=== PATIENT | male | born 1945 | race Caucasian/White ===

== ENCOUNTER 2021-02-22 02:04 | Inpatient (IN) ==
[2021-02-22] MEDS ORDERED: fentaNYL citrate 100 MCG/2 ML VIAL IV STA (02:50)
[2021-02-22] MEDS ORDERED: ONDANSETRON INJ 2 MG/ML 2 ML VIAL IV STA (02:50)
--- NOTE | 2021-02-22 02:55 | Emergency Department Note ---
Impression & Plan Cholecystitis, Atrial fibrillation ED Provider Note Name: JOSE RAIN Age: 75 Sex: M Arrives Via: Ambulance Informant: Patient, ED Provider: Herman Rudd MD Chief Complaint: Epigastric Pain Impression: See Above Medical Decision Makin yr old male with acute epigastric pain at 11pm this evening. Mild TTP without peritonitis. Given IV fentanyl with mild improvement. CXR OK. EKG without ischemia. Labs unremarkable with neg trop. US reveals mildly distendec GB with mild wall thickening and large stone. Examination, story and US pointin g towards cholecystitis. Without further abdominal pain, flank pain, nor pain radiating to back I do not feel that CT a/p indicated at this time. Given Dilaudid and much improved pain control. Mefoxin ordered, gen surg consulted and hospitalist will bring in given medical comorbidities. Prior Medical Record and Triage/Nursing Notes reviewed by Me Differentials:Cholecystitis, Bilary disfunction, impacted stone, renal colic, pancreatitis, acs, dissection, diverticulitis, obsturction, ischemia, pud, amongst others. Vital Signs: reviewed and remarkable for HTn Interventions: saline lock, nss bolus, fentanyl iv, dilaudid iv, mefoxin 2gm iv Labs:Reviewed and remarkable for no significant abnormalities Imaging:X ray results are stated below per my interpretation: Chest: 1 view: No infiltrate, no effusion, normal cardiac border. [facility] Radiologist interpretation reviewed by me: US GALLBLADDER: 2.1 cm mobile gallstone with mild gallbladder distention and mild gallbladder wall thickening of 4 mm, which could be seen in the clinical setting of acute cholecystitis. The sonographic Villa's sign is reportedly negative. No pericholecystic fluid is visualized. No right hydronephrosis. Common bile duct is within normal limits. Radiologist: Camryn Mathis M.D." EKG. Per My Interpretation: Indication Epigastric pain: Afib 100 bpm, qtc 472 with PACs. No Ischemia. Compared to EKG 02/20/12, no significant changes. Consults:Dr Leiva Hospitalist, Amadou Guzman PA-C Plan: Disposition: Hospitalization Condition: Good History of Present Illness:75 yr old male arrives for evaluation of epigastric pain. Patient notes he was feeling well today when he suddenly developed rapid onset epigastric pain. Radiates bilateral upper abdomen and lower sternum. Associated nausea. No chest pain, sob, syncope, lower abdominal pain, flank pain, back pain, headache, neck pain, vomiting, fevers, chills, leg swelling, calf pain, rashes, nor other symptoms. No trauma, injuries, falls. Nothing makes better nor worse. Given ASA 324mg PO by EMS without improvement. Patient denies history of gallbladder nor pancreas issues. He had one alcoholic drink earlier in the evening. Notes history AFib and previous "small" LA. He is on a blood thinner. ROS: See above HPI for pertinent positives & negatives. A total of 10 systems reviewed and were otherwise negative. Past Medical History:See Below Past Surgical History:See Below Family History:See Below Social History:See Below Home Medications:See Below Allergies:NKDA Vitals:Blood Pressure: 167/117, Pulse 80, RR 23, T 36.9C, O2 98% on RA Physical Exam: GENERAL: Patient is uncomfortable appearing and in moderate distress. EYES: No scleral icterus, unremarkable pupils. ENT: Mucous membranes moist, no nasal congestion. NECK: No masses appreciated, nomeningismus, trachea is midline. RESPIRATORY: No dyspnea. Clear to auscultation and equal bilaterally. No wheeze, no rhonchi. CARDIOVASCULAR: Regular rate and rhythm.No murmurs, rubs, gallops appreciated. GASTROINTESTINAL: Mild epigastric TTP, abdomen soft, non-tender, no peritonitis.Bowel sounds positive.No masses appreciated. BACK: No midline tenderness, no CVA tenderness EXTREMITIES: Normal motion all extremities, no cyanosis, no edema. NEUROLOGIC: Alert and oriented, no acute motor or sensory deficits, no focal weakness, cranial nerves grossly intact. SKIN: No rash, no jaundice, no diaphoresis. PSYCH: Appropriate GCS: 15 ED Course: Times/Reassessments: eventually improving pain, stable, and comfortable Herman Rudd MD Past Med/Surg History Medical History (Updated 02/22/21 @ 06:37 by Herman Rudd MD) Anxiety Atrial fibrillation Surgical History (Updated 02/22/21 @ 05:47 by Maude Leiva DO) H/O vein stripping History of wisdom tooth extraction Family History (Updated 02/22/21 @ 05:47 by Maude Leiva DO) Other Cancer Social History (Updated 02/22/21 @ 05:47 by Maude Leiva DO) Smoking Status: Former smoker Hx Alcohol Use: Yes Alcohol type: wine Alcohol Intake Frequency: 2-4 x/Month Hx Substance Use: No Preferred Language: Bulgarian Feels Safe at Home: Yes Allergies Allergies Allergy/AdvReac Type Severity Reaction Status Date / Time No Known Allergies Allergy Unverified 02/22/21 03:06 Home Meds Home Medications Medication Instructions Recorded Confirmed calcium carbonate 600 mg (1,500 1 tab PO BID 02/22/21 02/22/21 mg)-vitamin D3 400 unit tablet (Calcium with Vitamin D) citalopram 20 mg tablet 30 mg PO DAILY 02/22/21 02/22/21 digoxin 125 mcg (0.125 mg) tablet 125 mcg PO DAILY 02/22/21 02/22/21 sotalol 80 mg tablet (Sotalol AF) 40 mg PO BID 02/22/21 02/22/21 warfarin 5 mg tablet 2.5 mg PO 3XWK 02/22/21 02/22/21 warfarin 5 mg tablet 5 mg PO 4XWK 02/22/21 02/22/21 Results & Data (ED) Vital Signs Vital Signs - 24 hr 02/22/21 02:20 02/22/21 03:19 02/22/21 05:00 Temperature 36.9 C Temperature Source Oral Pulse Rate 80 100 H 87 Pulse Rate from SpO2 Sensor 104 H 82 Respiratory Rate 23 17 23 Respiratory Effort / Characteristics Non-Labored Spontaneous Respiratory Depth Normal Blood Pressure 167/117 H 170/115 H 146/107 H Blood Pressure Mean 133 133 120 Pulse Oximetry 98 98 95 Oxygen Delivery Method Room Air Room Air Room Air Fraction of Inspired Oxygen Sepsis New/Unexplained Change in Mental Status N/A Sepsis Action Taken by Nursing No Action Required 02/22/21 05:50 02/22/21 06:25 Temperature Temperature Source Pulse Rate 91 H Pulse Rate from SpO2 Sensor 80 Respiratory Rate 11 L Respiratory Effort / Characteristics Respiratory Depth Blood Pressure Blood Pressure Mean Pulse Oximetry 93 89 L Oxygen Delivery Method Nasal Cannula Room Air Fraction of Inspired Oxygen 2 Sepsis New/Unexplained Change in Mental Status Sepsis Action Taken by Nursing Laboratory Data Result diagrams: 02/22/21 03:08 02/22/21 03:08 Lab Results 02/22/21 02/22/21 02/22/21 Range/Units 03:08 03:08 03:08 WBC 9.87 (4.8-10.8) K/uL RBC 4.25 L (4.7-6.1) M/uL Hgb 14.4 (14.0-18.0) g/dL Hct 43.5 (42-52) % MCV 102.4 H (80-100) fL MCH 33.9 (25-34) pg MCHC 33.1 (32-36) g/dL RDW Std Deviation 49.7 H (36.4-46.3) fL RDW Coeff of Lori 13.1 (11.5-14.5) % Plt Count 184 (130-400) K/uL MPV 10.2 (7.4-10.4) fL Immature Gran % (Auto) 0.2 % Neut % (Auto) 78.1 % Lymph % (Auto) 16.7 % Emanuel % (Auto) 4.5 % Eos % (Auto) 0.4 % Baso % (Auto) 0.1 % Neut # (Auto) 7.71 H (1.4-6.5) K/uL Lymph # (Auto) 1.65 (1.2-3.4) K/uL Emanuel # (Auto) 0.44 (0.11-0.59) K/uL Eos # (Auto) 0.04 (0-0.5) K/uL Baso # (Auto) 0.01 (0-0.2) K/uL Immature Gran # (Auto) 0.02 (0.00-0.02) K/uL PT (9.0-12.0) Seconds INR (0.9-1.1) APTT (21.0-31.0) Seconds PTT Ratio Sodium 141 (136-145) mmol/L Potassium 4.4 (3.5-5.1) mmol/L Chloride 110 H (98-107) mmol/L Carbon Dioxide 25 (21-32) mmol/L Anion Gap 6.0 (3-11) BUN 24 H (7-18) mg/dl Creatinine 1.29 (0.6-1.4) mg/dl Est Cr Clr Drug Dosing 58.1 ml/min Est GFR ( Amer) 61.6 ml/min Est GFR (Non-Af Amer) 53.1 ml/min BUN/Creatinine Ratio 18.4 (10-20) Glucose 120 H (70-99) mg/dl Calcium 8.6 (8.5-10.1) mg/dl Magnesium 2.3 (1.8-2.4) mg/dl Total Bilirubin 0.3 (0.2-1) mg/dl Direct Bilirubin < 0.1 (0-0.2) mg/dl AST 19 (15-37) U/L ALT 20 (12-78) U/L Alkaline Phosphatase 104 (45-117) U/L Troponin I < 0.015 (0-0.045) ng/ml Total Protein 6.9 (6.4-8.2) gm/dl Albumin 3.3 L (3.4-5.0) gm/dl Lipase 307 (73-393) U/L Urine Color Urine Appearance (Clear) Urine pH (4.5-7.5) Ur Specific [place] (1.000-1.030) Urine Protein (Negative) Urine Glucose (UA) (Negative) Urine Ketones (Negative) Urine Blood (Negative) Urine Nitrite (Negative) Urine Bilirubin (Negative) Urine Urobilinogen (Negative) Ur Leukocyte Esterase (Negative) Digoxin 0.4 L (0.8-2.0) ng/ml COVID-19 Eval Order SARS-CoV-2 (PCR) (Negative) 02/22/21 02/22/21 02/22/21 Range/Units 03:08 03:08 04:40 WBC (4.8-10.8) K/uL RBC (4.7-6.1) M/uL Hgb (14.0-18.0) g/dL Hct (42-52) % MCV (80-100) fL MCH (25-34) pg MCHC (32-36) g/dL RDW Std Deviation (36.4-46.3) fL RDW Coeff of Lori (11.5-14.5) % Plt Count (130-400) K/uL MPV (7.4-10.4) fL Immature Gran % (Auto) % Neut % (Auto) % Lymph % (Auto) % Emanuel % (Auto) % Eos % (Auto) % Baso % (Auto) % Neut # (Auto) (1.4-6.5) K/uL Lymph # (Auto) (1.2-3.4) K/uL Emanuel # (Auto) (0.11-0.59) K/uL Eos # (Auto) (0-0.5) K/uL Baso # (Auto) (0-0.2) K/uL Immature Gran # (Auto) (0.00-0.02) K/uL PT 21.4 H (9.0-12.0) Seconds INR 2.2 H (0.9-1.1) APTT 35.6 H (21.0-31.0) Seconds PTT Ratio 1.4 Sodium (136-145) mmol/L Potassium (3.5-5.1) mmol/L Chloride (98-107) mmol/L Carbon Dioxide (21-32) mmol/L Anion Gap (3-11) BUN (7-18) mg/dl Creatinine (0.6-1.4) mg/dl Est Cr Clr Drug Dosing ml/min Est GFR ( Amer) ml/min Est GFR (Non-Af Amer) ml/min BUN/Creatinine Ratio (10-20) Glucose (70-99) mg/dl Calcium (8.5-10.1) mg/dl Magnesium (1.8-2.4) mg/dl Total Bilirubin (0.2-1) mg/dl Direct Bilirubin (0-0.2) mg/dl AST (15-37) U/L ALT (12-78) U/L Alkaline Phosphatase (45-117) U/L Troponin I (0-0.045) ng/ml Total Protein (6.4-8.2) gm/dl Albumin (3.4-5.0) gm/dl Lipase (73-393) U/L Urine Color Yellow Urine Appearance Clear (Clear) Urine pH 6.5 (4.5-7.5) Ur Specific [place] 1.020 (1.000-1.030) Urine Protein Negative (Negative) Urine Glucose (UA) Negative (Negative) Urine Ketones Negative (Negative) Urine Blood Negative (Negative) Urine Nitrite Negative (Negative) Urine Bilirubin Negative (Negative) Urine Urobilinogen Negative (Negative) Ur Leukocyte Esterase Negative (Negative) Digoxin (0.8-2.0) ng/ml COVID-19 Eval Order Covid19 at [facility] SARS-CoV-2 (PCR) (Negative) 02/22/21 Range/Units 04:40 WBC (4.8-10.8) K/uL RBC (4.7-6.1) M/uL Hgb (14.0-18.0) g/dL Hct (42-52) % MCV (80-100) fL MCH (25-34) pg MCHC (32-36) g/dL RDW Std Deviation (36.4-46.3) fL RDW Coeff of Lori (11.5-14.5) % Plt Count (130-400) K/uL MPV (7.4-10.4) fL Immature Gran % (Auto) % Neut % (Auto) % Lymph % (Auto) % Emanuel % (Auto) % Eos % (Auto) % Baso % (Auto) % Neut # (Auto) (1.4-6.5) K/uL Lymph # (Auto) (1.2-3.4) K/uL Emanuel # (Auto) (0.11-0.59) K/uL Eos # (Auto) (0-0.5) K/uL Baso # (Auto) (0-0.2) K/uL Immature Gran # (Auto) (0.00-0.02) K/uL PT (9.0-12.0) Seconds INR (0.9-1.1) APTT (21.0-31.0) Seconds PTT Ratio Sodium (136-145) mmol/L Potassium (3.5-5.1) mmol/L Chloride (98-107) mmol/L Carbon Dioxide (21-32) mmol/L Anion Gap (3-11) BUN (7-18) mg/dl Creatinine (0.6-1.4) mg/dl Est Cr Clr Drug Dosing ml/min Est GFR ( Amer) ml/min Est GFR (Non-Af Amer) ml/min BUN/Creatinine Ratio (10-20) Glucose (70-99) mg/dl Calcium (8.5-10.1) mg/dl Magnesium (1.8-2.4) mg/dl Total Bilirubin (0.2-1) mg/dl Direct Bilirubin (0-0.2) mg/dl AST (15-37) U/L ALT (12-78) U/L Alkaline Phosphatase (45-117) U/L Troponin I (0-0.045) ng/ml Total Protein (6.4-8.2) gm/dl Albumin (3.4-5.0) gm/dl Lipase (73-393) U/L Urine Color Urine Appearance (Clear) Urine pH (4.5-7.5) Ur Specific [place] (1.000-1.030) Urine Protein (Negative) Urine Glucose (UA) (Negative) Urine Ketones (Negative) Urine Blood (Negative) Urine Nitrite (Negative) Urine Bilirubin (Negative) Urine Urobilinogen (Negative) Ur Leukocyte Esterase (Negative) Digoxin (0.8-2.0) ng/ml COVID-19 Eval Order SARS-CoV-2 (PCR) NEGATIVE (Negative) Administered Medications Discontinued Medications Fentanyl Citrate (Fentanyl Citrate 100 Mcg/2 Ml Vial) 75 mcg IV NOW STA Stop: 02/22/21 02:51 Last Admin: 02/22/21 03:13 Dose: 75 mcg Documented by: [id number] Hydromorphone HCl (Hydromorphone Inj 1 Mg/Ml Syringe) 1 mg IV NOW STA Stop: 02/22/21 04:29 Last Admin: 02/22/21 04:34 Dose: 1 mg Documented by: [id number] Cefoxitin Sodium (Mefoxin) 2,000 mg in 60 mls @ 100 mls/hr IV NOW STA Stop: 02/22/21 05:12 Last Infusion: 02/22/21 05:39 Dose: 0 mls/hr Documented by: [id number] Admin: 02/22/21 04:51 Dose: 100 mls/hr Documented by: [id number] Ondansetron HCl (Ondansetron Inj 2 Mg/Ml 2 Ml Vial) 4 mg IV NOW STA Stop: 02/22/21 02:51 Last Admin: 02/22/21 03:13 Dose: 4 mg Documented by: [id number] Discharge Plan Visit Data Chief Complaint: Abdominal Pain Stated Complaint: SUDDEN ONSET ABDOMINAL PAIN ED Provider: Herman Rudd Discharge Problem: Cholecystitis, Atrial fibrillation Forms Stand Alone Forms: My [facility] [employer] Prescriptions Prescriptions: No Action sotalol [Sotalol AF] 80 mg tablet 40 mg PO BID RF: 0 citalopram 20 mg tablet 30 mg PO DAILY RF: 0 warfarin 5 mg tablet 5 mg PO 4XWK RF: 0 warfarin 5 mg tablet 2.5 mg PO 3XWK RF: 0 digoxin 125 mcg (0.125 mg) tablet 125 mcg PO DAILY RF: 0 calcium carbonate-vitamin D3 [Calcium with Vitamin D] 600 mg(1,500mg) -400 unit tablet 1 tab PO BID RF: 0 Referrals Referrals: Madiha Jennings MD [Outside Practitioners] -
[2021-02-22 03:28] LABS: Basophils # (auto) 0.01 K/uL (0-0.2); Basophils % (auto) 0.1 %; Eosinophils # (auto) 0.04 K/uL (0-0.5); Eosinophils % (auto) 0.4 %; Hematocrit (blood only) 43.5 % (42-52); Hemoglobin 14.4 g/dL (14.0-18.0); Immature Granulocytes # (auto) 0.02 K/uL (0.00-0.02); Immature Granulocytes % (auto) 0.2 %; Lymphocytes # (auto) 1.65 K/uL (1.2-3.4); Lymphocytes % (auto) 16.7 %; Mean Corpuscular Hemoglobin 33.9 pg (25-34); Mean Corpuscular Hgb Conc 33.1 g/dL (32-36); Mean Corpuscular Volume 102.4 fL (80-100); Mean Platelet Volume 10.2 fL (7.4-10.4); Monocytes # (auto) 0.44 K/uL (0.11-0.59); Monocytes % (auto) 4.5 %; Neutrophils # (auto) 7.71 K/uL (1.4-6.5); Neutrophils % (auto) 78.1 %; Platelet Count 184 K/uL (130-400); RDW Coefficient of Variation 13.1 % (11.5-14.5); RDW Standard Deviation 49.7 fL (36.4-46.3); Red Blood Count 4.25 M/uL (4.7-6.1); White Blood Count 9.87 K/uL (4.8-10.8)
[2021-02-22 03:31] LABS: Appearance Urine Clear (Clear); Bilirubin Urine Negative (Negative); Blood Urine Negative (Negative); Color Urine Yellow; Glucose Urine UA Negative (Negative); Ketones Urine Negative (Negative); Leukocyte Esterase Urine Negative (Negative); Nitrite Urine Negative (Negative); Protein Urine Negative (Negative); Urobilinogen Urine Negative (Negative); pH Urine 6.5 (4.5-7.5)
[2021-02-22 03:54] LABS: Alanine Aminotransferase 20 U/L (12-78); Albumin Level 3.3 gm/dl (3.4-5.0); Aspartate Aminotransferase 19 U/L (15-37); BUN Creatinine Ratio 18.4 (10-20); Bilirubin Direct < 0.1 mg/dl (0-0.2); Blood Urea Nitrogen 24 mg/dl (7-18); Calcium 8.6 mg/dl (8.5-10.1); Carbon Dioxide 25 mmol/L (21-32); Chloride 110 mmol/L (98-107); Creatinine Clr Calc Pharmacy 58.1 ml/min; Est GFR (African American) 61.6 ml/min; Est GFR (Non-African American) 53.1 ml/min; Glucose 120 mg/dl (70-99); Lipase 307 U/L (73-393); Magnesium 2.3 mg/dl (1.8-2.4); Potassium 4.4 mmol/L (3.5-5.1); Sodium 141 mmol/L (136-145)
[2021-02-22 03:59] LABS: Alkaline Phosphatase 104 U/L (45-117); Bilirubin,Total 0.3 mg/dl (0.2-1); Total Protein 6.9 gm/dl (6.4-8.2); Troponin I < 0.015 ng/ml (0-0.045)
[2021-02-22] MEDS ORDERED: HYDROmorphone INJ 1 MG/ML SYRINGE IV STA (04:28)
[2021-02-22] MEDS ORDERED: cefOXitin 2,000 MG/60 ML BAG IV STA (04:37)
--- NOTE | 2021-02-22 04:50 | Surgery Consultation ---
Date of Consultation February 22, 2021 Assessment & Plan (1) Cholecystitis: Patient will be admitted to the hospital. Due to his atrial fibrillation and concomitant use of Coumadin we asked the medical service to admit the patient recommend the following: Provide analgesics Provide antiemetics Keep n.p.o. status as eating will likely exacerbate his abdominal pain Gentle hydration with IV fluids Initiate antibiotics. The treating emergency room physician has already ordered cefoxitin As the patient takes Coumadin for A. fib we will asked the medical service, and if this can safely be held as it appears that the benefit of holding his Coumadin outweighs the risk at this time. An INR has not been checked yet so this will need to be checked to assess what his INR is to determine if his Coumadin is a safe level that would allow us to perform surgery. If not we will asked the medical service they feel reversal with vitamin K should be implemented Patient will likely require cholecystectomy this admission. I discussed this with the patient and he wishes to proceed. I discussed the risks, benefits, and alternatives. A Covid test has been performed and is noted to be negative. Additional recommendations will be made based on his clinical course as unfolds Supervising Physician Co-Signing Physician Notes I personally saw and evaluated the patient with Humberto Guzman PA-C and agree with the assessment and plan 75 yo with acute cholecystitis -US images and results reviewed -Agree with admission to medicine -Keep NPO, IV ABX -Give Vitamin K 5mg IV now, repeat INR -Will tentatively plan for laparoscopic cholecystectomy, possible open, possible IOC tomorrow -Consent obtained, risks discussed including bleeding, infection, bile leak, ductal injury History of Present Illness Reason for Consultation: Abdominal pain History of Present Illness This is a 75-year-old male who presented to [facility] secondary abdominal pain that began last evening at approximately 11:00. Patient says that the pain was unrelated to meals. Looking back over the past several weeks to months the patient says he has never experienced this pain before. He says that the pain is primarily located in the epigastric area and the right upper quadrant does not radiate. He denies any provocative factors but notes it was somewhat relieved with medicines that were ministered in the emergency department. He did have associated nausea vomiting. He denies any fevers, shakes, chills. Patient says that he has never had abdominal surgery in the past before In the emergency department patient had labs and imaging which independently reviewed. CBC revealed his white blood cell count, hemoglobin, hematocrit, and platelet count were all within normal range. Chemistry profile showed sodium, potassium, and creatinine were all within the normal range. He did not have any elevation of his bilirubin, transaminases or alkaline phosphatase. His lipase was noted to be normal. Urinalysis was not indicative of infection. A Covid test has been ordered and is pending. An EKG performed showed atrial fibrillation did not appear to be any changes indicative of acute ischemia a chest x-ray said showed bilateral basilar atelectasis. Gallbladder ultrasound showed a 2.1 cm gallstone with mild gallbladder distention and mild gallbladder wall thickening up to 4 mm. No pericholecystic fluid was noted. I did question the patient on his activities daily living. He says he does ambulate throughout his house and is able to negotiate steps and inclines. He says with steps he does get some shortness of breath but note that this has been ongoing for several years and appears stable. He denies any chest pain with his activities of daily living. Patient does take Coumadin for history of atrial fibrillation and he says his most recent dose was yesterday. At the time my interview is resting comfortably in bed in no distress. Allergies Allergy/AdvReac Type Severity Reaction Status Date / Time No Known Allergies Allergy Unverified 02/22/21 03:06 Home Medications Medication Instructions Recorded Confirmed Type calcium carbonate 600 mg (1,500 1 tab PO BID 02/22/21 02/22/21 History mg)-vitamin D3 400 unit tablet (Calcium with Vitamin D) citalopram 20 mg tablet 30 mg PO DAILY 02/22/21 02/22/21 History digoxin 125 mcg (0.125 mg) tablet 125 mcg PO DAILY 02/22/21 02/22/21 History sotalol 80 mg tablet (Sotalol AF) 40 mg PO BID 02/22/21 02/22/21 History warfarin 5 mg tablet 2.5 mg PO 3XWK 02/22/21 02/22/21 History warfarin 5 mg tablet 5 mg PO 4XWK 02/22/21 02/22/21 History Patient History Medical History (Updated 02/22/21 @ 06:37 by Herman Rudd MD) Anxiety Atrial fibrillation Surgical History (Updated 02/22/21 @ 05:47 by Maude Leiva DO) H/O vein stripping History of wisdom tooth extraction Family History (Updated 02/22/21 @ 05:47 by Maude Leiva DO) Other Cancer Social History (Updated 02/22/21 @ 05:47 by Maude Leiva DO) Smoking Status: Former smoker Hx Alcohol Use: Yes Alcohol type: wine Alcohol Intake Frequency: 2-4 x/Month Hx Substance Use: No Preferred Language: Maltese Feels Safe at Home: Yes Review of Systems Constitutional: no fever and no chills Eyes: no diplopia Ear, Nose, Mouth, Throat: no ear pain and no sore throat Respiratory: no cough and no dyspnea Cardiovascular: no chest pain Gastrointestinal: + abdominal pain, + nausea and + vomiting Genitourinary: no dysuria Musculoskeletal: no back pain Integumentary: no rash Neurologic: no localized weakness Physical Exam Constitutional: well developed and well nourished; no acute distress Eyes: no conjunctival abnormality ENMT: Ears: no hearing impairment Mouth: no oropharynx abnormality Neck: trachea midline Respiratory: normal respiratory effort and + respiratory distress; no labored breathing No wheezing Cardiovascular: Rate/Rhythm: + irregularly irregular Gastrointestinal (Abdomen): Abdomen is soft and nondistended. Bowel sounds are present. No rebound tenderness or guarding was noted. The patient did have pain with palpation in the epigastric area and to a greater extent the right upper quadrant with deep palpation. Villa sign was noted to be positive. Musculoskeletal: No calf tenderness Skin: no rashes Neurologic: moves all extremities Psychiatric: A+Ox3, euthymic affect Results & Data ([facility]) Vital Signs (Past 12 Hours) Vital Signs Temp Pulse Resp BP Pulse Ox 02/22/21 03:19 100 H 17 170/115 H 98 02/22/21 02:20 36.9 C 80 23 167/117 H 98 PG Care Time/CCT Total # of Minutes Spent Total Time Spent with Patient: Total time spent is greater than 50% in coordination of care (as documented) at patient's floor/unit and/or counseling patient: Coding Level of Care Code 44534 Inpt Consult Level 5 Diagnoses Cholecystitis K81.9
[2021-02-22 05:19] LABS: INR 2.2 (0.9-1.1); Partial Thromboplastin Ratio 1.4; Partial Thromboplastin Time 35.6 Seconds (21.0-31.0); Prothrombin Time 21.4 Seconds (9.0-12.0)
--- NOTE | 2021-02-22 05:58 | History & Physical Report ---
Date of Service February 22, 2021 Assessment & Plan (1) Cholecystitis: Plan: 75yo male with history of atrial fibrillation on Coumadin presenting with acute onset epigastric/RUQ pain that started last evening around 23:00. Patient afebrile, HD stable, nontoxic in appearance. Workup with GB ultrasound suggestive of acute cholecystitis. Patient has been evaluated by General Surgery - will plan for surgery later this week. He is on Coumadin for history of atrial fibrillation. Last taken on 02/21/21 at 0900. His INR is 2.2. Patient's [id number] score is low at 2 pts -Admit to medical with telemetry -Keep NPO except chips/sips/meds -Mefoxitin 2gm IV q 6 hours -Zofran PRN Nausea -Tylenol PRN Fever/Pain -Morphine tiered as needed for pain -Colace/Miralax as needed for constipation -General Surgery assistance appreciated -Monitor INR, Hold Coumadin (2) Atrial fibrillation: Plan: Rate controlled. Patient anticoagulated on Coumadin with therapeutic INR of 2.2. Last took his Coumadin on 02/21/21 at 09:00. -Continue Digoxin -Continue Sotalol -Hold Warfarin for possible surgery later this admission -Monitor INR -Telemetry (3) Anxiety: Plan: Well controlled -Continue Citalopram Plan: F/E/N - LR at 125mL/hr x 2 liters, electrolytes WNL, NPO for now PPx - SCDs Code - Full per discussion with patient DIspo - Admit to medical with telemetry History of Present Illness Chief Complaint: abdominal pain Primary Care Provider: Luis Mendoza Ralph Castro is a 75yo male with history of atrial fibrillation on Coumadin anticoagulation, anxiety/panic attacks presenting with acute cholecystitis. Patient was in his usual state of health throughout today. He went to bed around 23:00. At 23:30 he woke with severe epigastric pain, intense. Pain radiated across the upper abdomen and is now located predominantly in the RUQ. He had some associated nausea and dry heaving. No fever/chills/diarrhea. No CP/Cough/SOB. No additional complaints at this time. Patient afebrile, HD stable in the ER. Gallbladder ultrasound suggestive of acute cholecystitis. Patinent was evaluated by the surgical team while in the ER. Plan for cholecystitis later this hospitalization. ER Course: Cefoxitin, Fentanyl, Dilaudid, Zofran Allergies Allergy/AdvReac Type Severity Reaction Status Date / Time No Known Allergies Allergy Unverified 02/22/21 03:06 Home Medications Medication Instructions Recorded Confirmed Type calcium carbonate 600 mg (1,500 1 tab PO BID 02/22/21 02/22/21 History mg)-vitamin D3 400 unit tablet (Calcium with Vitamin D) citalopram 20 mg tablet 30 mg PO DAILY 02/22/21 02/22/21 History digoxin 125 mcg (0.125 mg) tablet 125 mcg PO DAILY 02/22/21 02/22/21 History sotalol 80 mg tablet (Sotalol AF) 40 mg PO BID 02/22/21 02/22/21 History warfarin 5 mg tablet 2.5 mg PO 3XWK 02/22/21 02/22/21 History warfarin 5 mg tablet 5 mg PO 4XWK 02/22/21 02/22/21 History Past Med/Surg History Medical History (Updated 02/22/21 @ 05:47 by Maude Leiva DO) Anxiety Atrial fibrillation Surgical History (Updated 02/22/21 @ 05:47 by Maude Leiva DO) H/O vein stripping History of wisdom tooth extraction Family History (Updated 02/22/21 @ 05:47 by Maude Leiva DO) Other Cancer Social History (Updated 02/22/21 @ 05:47 by Maude Leiva DO) Smoking Status: Former smoker Hx Alcohol Use: Yes Alcohol type: wine Alcohol Intake Frequency: 2-4 x/Month Hx Substance Use: No Preferred Language: Marshallese Feels Safe at Home: Yes Review of Systems Review of Systems: All systems reviewed & are unremarkable except as noted in HPI & below Physical Exam Physical Exam: General: patient resting comfortably, NAD, non-toxic in appearance, AA&O x 4 Skin: warm, dry, intact, no rashes or lesions HEENT: NC/AT, PERRL, EOMI, anicteric sclera, conjunctiva without injection, external ear normal to inspection and nontender, nares patent, moist mucus membranes, dentition intact, no oropharyngeal lesions, neck supple, trachea midline, no LAD, no thyromegaly, no JVD Heart: +S1/S2, irregularly irregular, no m/r/g Lungs: equal air entry bilaterally, no rales/rhonchi/wheezes Abd: +BS, soft, ND, tenderness in epigastric area and RUQ with voluntary guarding, no masses/organomegaly/ascites Ext: warm, 2+ pulses in UE/LE bilaterally, no clubbing/cyanosis or edema Neuro: nonfocal, patient AA&O x 4, speech intact, no facial droop, moving all extremities on command with equal strength 5/5 Results & Data Results & Data ([facility]) Vital Signs (Past 12 Hours) Vital Signs Temp Pulse Resp BP Pulse Ox 02/22/21 05:00 87 23 146/107 H 95 02/22/21 03:19 100 H 17 170/115 H 98 02/22/21 02:20 36.9 C 80 23 167/117 H 98 Laboratory Results Laboratory Results WBC 9.87 K/uL (4.8-10.8) 02/22/21 03:08 RBC 4.25 M/uL (4.7-6.1) L 02/22/21 03:08 Hgb 14.4 g/dL (14.0-18.0) 02/22/21 03:08 Hct 43.5 % (42-52) 02/22/21 03:08 MCV 102.4 fL (80-100) H 02/22/21 03:08 MCH 33.9 pg (25-34) 02/22/21 03:08 MCHC 33.1 g/dL (32-36) 02/22/21 03:08 RDW Std Deviation 49.7 fL (36.4-46.3) H 02/22/21 03:08 RDW Coeff of Lori 13.1 % (11.5-14.5) 02/22/21 03:08 Plt Count 184 K/uL (130-400) 02/22/21 03:08 MPV 10.2 fL (7.4-10.4) 02/22/21 03:08 Immature Gran % (Auto) 0.2 % 02/22/21 03:08 Neut % (Auto) 78.1 % 02/22/21 03:08 Lymph % (Auto) 16.7 % 02/22/21 03:08 Yell % (Auto) 4.5 % 02/22/21 03:08 Eos % (Auto) 0.4 % 02/22/21 03:08 Baso % (Auto) 0.1 % 02/22/21 03:08 Neut # (Auto) 7.71 K/uL (1.4-6.5) H 02/22/21 03:08 Lymph # (Auto) 1.65 K/uL (1.2-3.4) 02/22/21 03:08 Yell # (Auto) 0.44 K/uL (0.11-0.59) 02/22/21 03:08 Eos # (Auto) 0.04 K/uL (0-0.5) 02/22/21 03:08 Baso # (Auto) 0.01 K/uL (0-0.2) 02/22/21 03:08 Immature Gran # (Auto) 0.02 K/uL (0.00-0.02) 02/22/21 03:08 PT 21.4 Seconds (9.0-12.0) H 02/22/21 03:08 INR 2.2 (0.9-1.1) H 02/22/21 03:08 APTT 35.6 Seconds (21.0-31.0) H 02/22/21 03:08 PTT Ratio 1.4 02/22/21 03:08 Sodium 141 mmol/L (136-145) 02/22/21 03:08 Potassium 4.4 mmol/L (3.5-5.1) 02/22/21 03:08 Chloride 110 mmol/L (98-107) H 02/22/21 03:08 Carbon Dioxide 25 mmol/L (21-32) 02/22/21 03:08 Anion Gap 6.0 (3-11) 02/22/21 03:08 BUN 24 mg/dl (7-18) H 02/22/21 03:08 Creatinine 1.29 mg/dl (0.6-1.4) 02/22/21 03:08 Est Cr Clr Drug Dosing 58.1 ml/min 02/22/21 03:08 Est GFR ( Amer) 61.6 ml/min 02/22/21 03:08 Est GFR (Non-Af Amer) 53.1 ml/min 02/22/21 03:08 BUN/Creatinine Ratio 18.4 (10-20) 02/22/21 03:08 Glucose 120 mg/dl (70-99) H 02/22/21 03:08 Calcium 8.6 mg/dl (8.5-10.1) 02/22/21 03:08 Magnesium 2.3 mg/dl (1.8-2.4) 02/22/21 03:08 Total Bilirubin 0.3 mg/dl (0.2-1) 02/22/21 03:08 Direct Bilirubin < 0.1 mg/dl (0-0.2) 02/22/21 03:08 AST 19 U/L (15-37) 02/22/21 03:08 ALT 20 U/L (12-78) 02/22/21 03:08 Alkaline Phosphatase 104 U/L (45-117) 02/22/21 03:08 Troponin I < 0.015 ng/ml (0-0.045) 02/22/21 03:08 Total Protein 6.9 gm/dl (6.4-8.2) 02/22/21 03:08 Albumin 3.3 gm/dl (3.4-5.0) L 02/22/21 03:08 Lipase 307 U/L (73-393) 02/22/21 03:08 Urine Color Yellow 02/22/21 03:08 Urine Appearance Clear (Clear) 02/22/21 03:08 Urine pH 6.5 (4.5-7.5) 02/22/21 03:08 Ur Specific [place] 1.020 (1.000-1.030) 02/22/21 03:08 Urine Protein Negative (Negative) 02/22/21 03:08 Urine Glucose (UA) Negative (Negative) 02/22/21 03:08 Urine Ketones Negative (Negative) 02/22/21 03:08 Urine Blood Negative (Negative) 02/22/21 03:08 Urine Nitrite Negative (Negative) 02/22/21 03:08 Urine Bilirubin Negative (Negative) 02/22/21 03:08 Urine Urobilinogen Negative (Negative) 02/22/21 03:08 Ur Leukocyte Esterase Negative (Negative) 02/22/21 03:08 Digoxin 0.4 ng/ml (0.8-2.0) L 02/22/21 03:08 COVID-19 Eval Order Covid19 at [facility] 02/22/21 04:40 Diagnostic Findings US Gallbladder - 2.1 cm mobile gallstone with mild gallbladder distention and mild gallbladder wall thickening of 4mm which could be seen in the clinical setting of acute cholecystitis. The sonographic Villa's sign is reportedly negative. No pericholecystic fluid is visualized. No right hydronephrosis. CBD is within normal limits. ECG Additional Comments: EKG wtih AF at 100bpm, aberrantly conducted complexes present, no acute ischemic changes Code Status & VTE Plan VTE Prophylaxis Plan VTE Prophylaxis will be ordered: Yes PG Care Time/CCT Total # of Minutes Spent Total Time Spent with Patient: Total time spent is greater than 50% in coordination of care (as documented) at patient's floor/unit and/or counseling patient: Coding Level of Care Code 84991 Initial Inpt Care Lvl 2 Diagnoses Cholecystitis K81.9 Atrial fibrillation I48.91 Anxiety F41.9
[2021-02-22] MEDS ORDERED: PHYTONADIONE 5 MG in SODIUM CHLORIDE 0.9% 50 ML IV ONE (08:26)
--- NOTE | 2021-02-22 08:51 | Ultrasound Report ---
ABDOMINAL ULTRASOUND, RIGHT UPPER QUADRANT HISTORY: epigastric pain. COMPARISON: None. FINDINGS: Pancreas: The pancreatic head and tail are obscured by overlying bowel gas. The remaining portions of the pancreas are within normal limits. Liver: Unremarkable. Gallbladder: There is a 2.1 cm stone within the gallbladder. The gallbladder is mildly distended. No gallbladder wall thickening. Negative sonographic Villa's sign. CBD: 3 mm. Right kidney: No hydronephrosis. IMPRESSION: Cholelithiasis. No gallbladder wall thickening. There is also a negative sonographic Villa sign. ACT 112: Negative or not required by law. Electronically signed by: Bib Kulkarni M.D. 02/22/2021 8:50 AM
[2021-02-22] MEDS ORDERED: MoRPHine SULFATE 4 MG/ML 1 ML CARP\\VIAL IV PRN (09:42)
[2021-02-22] MEDS ORDERED: POLYETHYLENE (MIRALAX) 17 GM PACK PO PRN (09:42)
[2021-02-22] MEDS ORDERED: MoRPHine SULFATE 2 MG/ML CARP IV PRN (09:42)
[2021-02-22] MEDS ORDERED: ONDANSETRON INJ 2 MG/ML 2 ML VIAL IV PRN (09:42)
[2021-02-22] MEDS ORDERED: DOCUSATE SODIUM 100 MG CAP PO PRN (09:42)
--- NOTE | 2021-02-22 09:49 | XRay Report ---
XR chest 1V portable HISTORY: epigastric pain COMPARISON: Chest 02/17/2012. FINDINGS: No pneumothorax. No pleural effusions. There are low lung volumes with mild elevation of th e right hemidiaphragm, unchanged. The heart remains borderline enlarged. Left-sided single lead pacem olivia. There is diffuse interstitial thickening with patchy bibasilar densities. IMPRESSION: Diffuse interstitial thickening with patchy bibasilar densities. This could represent a pneumonia or developing congestive change. ACT 112: Negative or not required by law. Electronically signed by: Bib Kulkarni M.D. 02/22/2021 9:48 AM
--- NOTE | 2021-02-22 10:01 | Electrocardiogram Report ---
Test Reason : Blood Pressure : / mmHG Vent. Rate : 100 BPM Atrial Rate : 086 BPM P-R Int : 000 ms QRS Dur : 088 ms QT Int : 366 ms P-R-T Axes : 000 -08 -15 degrees QTc Int : 472 ms Atrial fibrillation with premature ventricular or aberrantly conducted complexes Low voltage QRS Nonspecific T wave abnormality Abnormal ECG When compared with ECG of 20-FEB-2012 06:42, Vent. rate has increased BY 39 BPM QT has lengthened Confirmed by Jose Elliott ([id number]) on 02/22/2021 10:00:42 AM Referred By: REFERRED SELF Confirmed By:Jose Elliott
[2021-02-22] MEDS: DIGOXIN 0.125 MG TAB PO SCH (11:20)
[2021-02-22] MEDS: CITALOPRAM 20 MG TAB PO SCH (11:20)
[2021-02-22] MEDS: SOTALOL HCL 80 MG TAB PO SCH ×2 (11:21→20:03)
[2021-02-22] MEDS: cefOXitin 2,000 MG in DEXTROSE 5% 50 ML IV SCH ×3 (11:26→22:54)
[2021-02-22] MEDS: LACTATED RINGER'S 1,000 ML IV SCH ×2 (11:38→19:20)
[2021-02-22] MEDS: ACETAMINOPHEN 325 MG TAB PO PRN (14:18)
--- NOTE | 2021-02-22 18:10 | Communication Note ---
Date of Service: February 22, 2021 Patient seen and examined in room 281 bed 2 Stable. Abdominal pain seems to be slightly improved Some nausea with dry heave but now well controlled Denies fever, chills, rigors. No sweats. No diarrhea Hemodynamically stable Physical examination: GENERAL : No acute distress EYES: No icterus, gaze conjugate NOSE: No evidence of epistaxis MOUTH: No lesions or candidiasis NECK: Supple LUNGS: CTA B/L, no wheezes, rales or rhonchi HEART: Regular, rate controlled ABDOMEN: Soft, ND, BS Present. Pain in the right upper quadrant and midepigastric region with deep palpation. EXTREMITIES: No LE edema, pedal pulses intact NEURO: A&OX3 Continue to keep NPO except chips/sips/meds -Mefoxitin 2gm IV q 6 hours -Zofran PRN Nausea -Tylenol PRN Fever/Pain -Morphine as needed for pain -Colace/Miralax as needed for constipation -General Surgery assistance appreciated * Patient will likely require cholecystectomy this admission. -Monitor INR, Hold Coumadin Patient stable. Continue to monitor on telemetry pending further intervention. We will not bill for this note as patient was seen today at 05:[address] Leiva Attending Addendum - Chart reviewed, care plan d/w KARLA Escobar. I agree w/ his documentation as above. Acute cholecystitis - gen surg consultation for cholecystectomy. Efra Bruce MD
[2021-02-22 19:39] LABS: INR 1.5 (0.9-1.1); Prothrombin Time 14.3 Seconds (9.0-12.0)
[2021-02-23 04:54] LABS: Basophils # (auto) 0.01 K/uL (0-0.2); Basophils % (auto) 0.1 %; Eosinophils # (auto) 0.06 K/uL (0-0.5); Eosinophils % (auto) 0.6 %; Hematocrit (blood only) 43.8 % (42-52); Hemoglobin 14.4 g/dL (14.0-18.0); Immature Granulocytes # (auto) 0.03 K/uL (0.00-0.02); Immature Granulocytes % (auto) 0.3 %; Lymphocytes # (auto) 1.61 K/uL (1.2-3.4); Lymphocytes % (auto) 16.1 %; Mean Corpuscular Hemoglobin 33.7 pg (25-34); Mean Corpuscular Hgb Conc 32.9 g/dL (32-36); Mean Corpuscular Volume 102.6 fL (80-100); Mean Platelet Volume 10.2 fL (7.4-10.4); Monocytes # (auto) 0.82 K/uL (0.11-0.59); Monocytes % (auto) 8.2 %; Neutrophils % (auto) 74.7 %; Platelet Count 164 K/uL (130-400); RDW Coefficient of Variation 13.4 % (11.5-14.5); RDW Standard Deviation 50.1 fL (36.4-46.3); Red Blood Count 4.27 M/uL (4.7-6.1); White Blood Count 10.03 K/uL (4.8-10.8)
[2021-02-23] MEDS: cefOXitin 2,000 MG in DEXTROSE 5% 50 ML IV SCH ×4 (04:55→23:52)
[2021-02-23 05:01] LABS: INR 1.3 (0.9-1.1); Prothrombin Time 12.7 Seconds (9.0-12.0)
[2021-02-23 05:11] LABS: Albumin Level 3.1 gm/dl (3.4-5.0); BUN Creatinine Ratio 13.8 (10-20); Calcium 8.5 mg/dl (8.5-10.1); Creatinine Clr Calc Pharmacy 58.1 ml/min; Est GFR (African American) 61.6 ml/min; Est GFR (Non-African American) 53.1 ml/min; Potassium 4.5 mmol/L (3.5-5.1)
[2021-02-23 05:34] LABS: Bilirubin,Total 1.4 mg/dl (0.2-1); Total Protein 6.7 gm/dl (6.4-8.2)
[2021-02-23 07:54] LABS: Bilirubin Direct 0.4 mg/dl (0-0.2)
[2021-02-23] MEDS: SOTALOL HCL 80 MG TAB PO SCH ×2 (08:10→20:15)
[2021-02-23] MEDS: CITALOPRAM 20 MG TAB PO SCH (08:11)
[2021-02-23] MEDS: ACETAMINOPHEN 325 MG TAB PO PRN ×2 (08:16→20:19)
--- NOTE | 2021-02-23 09:37 | Surgery Progress Note ---
Date of Service February 23, 2021 Assessment & Plan (1) Cholecystitis: Plan: To OR today for laparoscopic cholecystectomy, possible open, possible IOC Admission and Anticipated Discharge Date Admission Date: February 22, 2021 Subjective Pt seen and examined. Pain controlled. Afebrile. No acute events overnight. Review of Systems Constitutional: no fever and no chills Physical Exam Constitutional: well developed and well nourished; no acute distress Eyes: no conjunctival abnormality ENMT: Ears: no hearing impairment Mouth: no oropharynx abnormality Neck: trachea midline Respiratory: normal respiratory effort and + respiratory distress; no labored breathing No wheezing Cardiovascular: Rate/Rhythm: + irregularly irregular Gastrointestinal (Abdomen): Abdomen is soft and nondistended. Bowel sounds are present. No rebound tenderness or guarding was noted. The patient did have pain with palpation in the epigastric area and to a greater extent the right upper quadrant with deep palpation. Villa sign was noted to be positive. Musculoskeletal: No calf tenderness Skin: no rashes Neurologic: moves all extremities Psychiatric: A+Ox3, euthymic affect Results & Data ([facility]) Vital Signs (Past 12 Hours) Vital Signs Temp Pulse Pulse Resp BP BP Pulse Ox 02/23/21 07:49 75 02/23/21 07:26 37.1 C 102 H 18 121/77 93 02/23/21 03:03 36.6 C 85 18 112/78 95 02/23/21 02:10 36.8 C 72 18 128/67 93 02/22/21 23:05 37.4 C 78 18 122/83 94 02/22/21 22:19 77 PG Care Time/CCT Total # of Minutes Spent Total Time Spent with Patient: Total time spent is greater than 50% in coordination of care (as documented) at patient's floor/unit and/or counseling patient: Coding Level of Care Code 99709 Subseq Hosp Care Lvl 1 Diagnoses Cholecystitis K81.9
[2021-02-23] MEDS ORDERED: MIDAZOLAM HCL 1 MG/ML 2ML VIAL ONE (09:56)
[2021-02-23] MEDS ORDERED: fentaNYL citrate 100 MCG/2 ML VIAL ONE ×2 (09:56→12:53)
[2021-02-23] MEDS ORDERED: BUPIVACAINE 0.25% 30 ML VIAL ONE (10:17)
[2021-02-23] MEDS ORDERED: ATROPINE SULFATE 0.1 MG/ML 10ML SYR IV PRN (10:55)
[2021-02-23] MEDS ORDERED: ePHEDrine sulfate 50 MG/ML AMP IV PRN (10:55)
[2021-02-23] MEDS ORDERED: DEXAMETHASONE SOD INJ 4 MG/ML VIAL IV PRN (10:55)
--- NOTE | 2021-02-23 10:55 | Anesthesiology Consultation ---
Date of Service February 23, 2021 Assessment & Plan Chart Review Chart Review: Acceptable Risk for Surgery and Patient NOT seen in Pre Admission Testing Consults Requested none ASA ASA2 Proposed Anesthesia Anesthesia Type: General Risk / Benefits Reviewed With: PT / POA / Parent / Guardian, Accepts Plan and Informed Consent Obtained History Surgery Operation Date: 02/23/21 07:00 Proposed Procedures p Laparoscopic Cholecystectomy, Possible Open, Possible Cholangiogram - Sadiq Mckoy, Height/Weight Height: 5 ft 10 in Weight: 102.6 kg Allergies Allergy/AdvReac Type Severity Reaction Status Date / Time No Known Allergies Allergy Unverified 02/22/21 03:06 Medications Home Medications Medication Instructions Recorded Confirmed Last Taken calcium carbonate 600 mg (1,500 1 tab PO BID 02/22/21 02/22/21 Unknown mg)-vitamin D3 400 unit tablet (Calcium with Vitamin D) citalopram 20 mg tablet 30 mg PO DAILY 02/22/21 02/22/21 Unknown digoxin 125 mcg (0.125 mg) tablet 125 mcg PO DAILY 02/22/21 02/22/21 Unknown sotalol 80 mg tablet (Sotalol AF) 40 mg PO BID 02/22/21 02/22/21 Unknown warfarin 5 mg tablet 2.5 mg PO 3XWK 02/22/21 02/22/21 Unknown warfarin 5 mg tablet 5 mg PO 4XWK 02/22/21 02/22/21 Unknown Active Medications Generic Name Dose Route Start Last Admin Trade Name Freq PRN Reason Stop Dose Admin Acetaminophen 650 mg 02/22/21 09:42 02/23/21 08:16 Acetaminophen 325 Mg Tab PO 03/24/21 09:41 650 mg Q6H PRN Administration Pain & Pre PT Citalopram Hydrobromide 30 mg 02/22/21 09:42 02/23/21 08:11 Citalopram 20 Mg Tab PO 03/24/21 09:41 30 mg DAILY COLBY Administration Digoxin 0.125 mg 02/22/21 09:42 02/22/21 11:20 Digoxin 0.125 Mg Tab PO 03/24/21 09:41 0.125 mg DAILY@1600 COLBY Administration Cefoxitin Sodium 2,000 mg/ 60 mls @ 100 mls/hr 02/22/21 11:00 02/23/21 05:30 Dextrose IV 03/04/21 10:59 Infused Q6H COLBY Infusion Sotalol HCl 40 mg 02/22/21 09:42 02/23/21 08:10 Sotalol Hcl 80 Mg Tab PO 03/24/21 09:41 40 mg BID COLBY Administration NPO Date Last Intake of Fluids: 02/23/21 Time Last Intake of Fluids: 08:00 Last Intake of Fluids Comment: meds with sip of water Date Last Intake of Solids: 02/21/21 Past Medical History Medical History (Updated 02/22/21 @ 06:37 by Herman Rudd MD) Anxiety Atrial fibrillation Exercise / Class Metabolic Activity II 4-5 Yardwork/Stairs/Walk up hill Past Family History Family History (Updated 02/22/21 @ 05:47 by Maude Leiva DO) Other Cancer Past Surgical History Surgical History (Updated 02/22/21 @ 05:47 by Maude Leiva DO) H/O vein stripping History of wisdom tooth extraction Past Anesthesia History No Hx of Anesthesia Complications and No Family Hx of Anesthesia Complications History of PONV No Hx of PONV and No Hx of Motion Sickness Social History Smoking Status: Former smoker tobacco type: cigarettes Do You Dip or Chew Tobacco: No Hx Alcohol Use: Yes Alcohol type: wine alcohol intake frequency: holidays/special occasions only Hx Substance Use: No Physical Exam Vital Signs Last Vital Signs Temp 37.6 C H 02/23/21 09:54 Pulse 84 02/23/21 09:54 Resp 20 02/23/21 09:54 BP 122/73 02/23/21 09:54 Pulse Ox 94 02/23/21 09:54 ENMT Mouth: no dentition abnormality Thyromental Distance: > or= 3.5 Finger Breadths Mallampati Class: II Neck normal visual inspection Respiratory normal respiratory effort Auscultation: lungs clear to auscultation bilaterally Cardiovascular Rate/Rhythm: regular rate and regular rhythm Psychiatric Orientation: alert Testing Laboratory Results 02/23/21 04:17 02/23/21 04:17 PT 12.7 Seconds (9.0-12.0) H 02/23/21 04:17 INR 1.3 (0.9-1.1) H 02/23/21 04:17 APTT 35.6 Seconds (21.0-31.0) H 02/22/21 03:08 Urine Color Yellow 02/22/21 03:08 Urine Appearance Clear (Clear) 02/22/21 03:08 Urine pH 6.5 (4.5-7.5) 02/22/21 03:08 Ur Specific [place] 1.020 (1.000-1.030) 02/22/21 03:08 Urine Protein Negative (Negative) 02/22/21 03:08 Urine Glucose (UA) Negative (Negative) 02/22/21 03:08 Urine Ketones Negative (Negative) 02/22/21 03:08 Urine Nitrite Negative (Negative) 02/22/21 03:08 Ur Leukocyte Esterase Negative (Negative) 02/22/21 03:08
--- NOTE | 2021-02-23 10:59 | Hospitalist Progress Note ---
Date of Service February 23, 2021 Assessment & Plan (1) Cholecystitis: Plan: 75yo male with history of atrial fibrillation on Coumadin presenting with acute onset epigastric/RUQ pain that Began 1 day prior to admission and who presented afebrile, hemodynamically stable, and nontoxic. Gallbladder ultrasound was suggestive of acute cholecystitis, anticipate surgical management Acute cholecystitis status post cholecystectomy 02/23 Coumadin held, last dose 02/21/2021 -Patient's [id number] score is low at 2 pts -Admit to medical with telemetry -Clears postop -Discontinue cefoxitin postop -Zofran PRN Nausea -Tylenol PRN Fever/Pain -Morphine tiered as needed for pain -Colace/Miralax as needed for constipation -Monitor INR (2) Atrial fibrillation: Plan: Rate controlled. Patient anticoagulated on Coumadin with therapeutic INR of 2.2. Last took his Coumadin on 02/21/21 at 09:00. -Continue Digoxin -Continue Sotalol -Warfarin held pending surgical intervention. Anticipate bridge back to [facility] starting 24-48 hours post -Monitor INR -Telemetry (3) Anxiety: Plan: Well controlled -Continue Citalopram Plan: F/E/N -clears, LR 125 cc/h PPx - SCDs Code - Full per discussion with patient DIspo - Admit to medical with telemetry Admission and Anticipated Discharge Date Admission Date: February 22, 2021 Subjective Subjective limited by postop sedation Review of Systems Review of Systems: Review limited by postop sedation Physical Exam Physical Exam: General: No acute distress, resting HEENT: Atraumatic, normocephalic. Pulm:Symmetrical chest rise. No increase work of breathing. No respiratory distress. Cardiac: No JVD appreciated Skin: No rashes Results & Data Results & Data ([facility]) Vital Signs (Past 12 Hours) Vital Signs Temp Pulse Pulse Resp BP BP Pulse Ox 02/23/21 09:54 37.6 C H 84 20 122/73 94 02/23/21 07:49 75 02/23/21 07:26 37.1 C 102 H 18 121/77 93 02/23/21 03:03 36.6 C 85 18 112/78 95 02/23/21 02:10 36.8 C 72 18 128/67 93 02/22/21 23:05 37.4 C 78 18 122/83 94 PG Care Time/CCT Total # of Minutes Spent Total Time Spent with Patient: Total time spent is greater than 50% in coordination of care (as documented) at patient's floor/unit and/or counseling patient: Coding Level of Care Code 23137 Subseq Hosp Care Lvl 2 Diagnoses Cholecystitis K81.9 Atrial fibrillation I48.11 Atrial fibrillation type: longstanding persistent Anxiety F41.9 (1) Atrial fibrillation Atrial fibrillation type: longstanding persistent Qualified Code(s): I48.11 - Longstanding persistent atrial fibrillation
[2021-02-23] MEDS ORDERED: GLYCOPYRROLATE 0.2 MG/ML VIAL ONE (11:19)
[2021-02-23] MEDS ORDERED: DEXAMETHASONE SOD INJ 4 MG/ML VIAL ONE (11:19)
[2021-02-23] MEDS ORDERED: ROCURONIUM BROMIDE 10 MG/ML 5 ML VIAL IV ONE (11:19)
[2021-02-23] MEDS ORDERED: NEOSTIGMINE METHYLSULFATE 1 MG/ML 10ML VIAL ONE (11:19)
[2021-02-23] MEDS ORDERED: ePHEDrine sulfate 50 MG/ML SYR ONE (11:19)
[2021-02-23] MEDS ORDERED: ONDANSETRON INJ 2 MG/ML 2 ML VIAL ONE (11:19)
[2021-02-23] MEDS ORDERED: LIDOCAINE 2% 2 ML VIAL/AMP(20MG/ML) INFIL ONE (11:19)
[2021-02-23] MEDS ORDERED: LARYING-O-JET KIT (LTA) ONE (11:19)
[2021-02-23] MEDS ORDERED: PROPOFOL IV EMULSION 10 MG/ML 20 ML VIAL IV ONE (11:19)
--- NOTE | 2021-02-23 12:01 | Post Operative Brief Note ---
PG Immediate Post Op with CF Date of Surgery February 23, 2021 Pre & Post Diagnosis Operation Date: 02/23/21 07:00 Pre-Op Diagnosis: ACUTE CHOLECYSTITIS Post-Op Diagnosis: ACUTE CHOLECYSTITIS I identified the patient and participated in the time-out.: Yes Procedure Operation Date: 02/23/21 07:00 Actual Procedures p Laparoscopic Cholecystectomy(Not Applicable) - Sadiq Mckoy DO Surgeon Sadiq Mckoy DO Clerical Grader Stefan Gutierres PA-C Estimated Blood Loss 10 Findings See Below Acutely inflamed, edematous and thickened gallbladder Specimens Specimen Description: A) Gallbladder Anesthesia Type General Complications none Disposition Disposition: Recovery Room
--- NOTE | 2021-02-23 12:06 | Operative Report ---
PG Post Operative Report Pre & Post Diagnosis Operation Date: 02/23/21 07:00 Pre-Op Diagnosis: ACUTE CHOLECYSTITIS Post-Op Diagnosis: ACUTE CHOLECYSTITIS I identified the patient and participated in the time-out.: Yes Procedure Operation Date: 02/23/21 07:00 Actual Procedures p Laparoscopic Cholecystectomy(Not Applicable) - Sadiq Mckoy DO Surgeon Sadiq Mckoy DO [employer] Stefan Gutierres PA-C Estimated Blood Loss 10 Findings See Below Acutely inflamed, thickened, edematous gallbladder Fluids see anesthesia record Specimens Gallbladder to pathology Drains None Anesthesia Type General Complications none Disposition Disposition: Recovery Room Indications 75 yo male with acute cholecystitis Description of Procedure The patient was brought to the operating room and placed in the supine position with both arms extended. At this time he underwent general endotracheal anesthesia without any problems. He was given appropriate pre-operative antibiotics. His abdomen prepped and draped in the usual sterile fashion. A timeout was called, the procedure was verified as Laparoscopic cholecystectomy, possible open, possible intra-operative cholangiogram. Surgical, nursing and anesthesia teams agreed and the procedure was begun. After injection of 0.25% Marcaine with epinephrine, a supraumbilical vertical incision was made and carried down to the fascia using S-retractors. The abdominal wall was then elevated with towel clamps and abdomen entered using the Veress needle confirming position using the saline drop test. Pneumoperitoneum was established. 5mm trocar was placed. Laparoscope was introduced. No injury from entry into the abdomen was visualized after inspection of the abdomen. Three further ports were placed under direct visualization. One 11mm in the subxiphoid region and two 5mm in the RUQ. At this time the abdomen was inspected and the gallbladder identified. The gallbladder fundus was grasped and retracted cephalad. The gallbladder infundibulum was then grasped and retracted laterally. The gallbladder was decompressed using a needle and suction to make it easier to manipulate. The cystic duct and cystic artery were then identified and skeletonized. The critical view of safety was obtained. They were both then clipped twice proximally and once distally and then divided using scissors. The gallbladder was then taken off of the liver bed using electrocautery and placed in an endocatch bag and removed from the subxiphoid port. Hemostasis was achieved using electrocautery. Hemostasis was complete. The liver bed was then inspected and no bile leak or bleeding was evident. The trocars were then removed under direct visualization and no bleeding was present. The subxiphoid port was then closed using 0-Vicryl using the suture passer. Remaining trocars were removed. Abdomen was desufflated. The skin was then closed using 4-0 Monocryl in a subcuticular fashion. Surgical glue was applied. Needle and sponge counts were correct x 2. At this time the patient was awoken from anesthesia and extubated having remained stable throughout the entire case. The patient was then transported to PACU in stable condition. The physician anatomic pathology assistant was present and scrubbed for the entire case. He was essential in positioning, prepping and draping the patient, retraction and exposure, driving the laparoscope, closure of the incisions and placement of the dressings. I attest to the content of the Intraoperative Record and any orders documented therein. Any exceptions are noted below.
[2021-02-23] MEDS: fentaNYL citrate 100 MCG/2 ML VIAL IV PRN ×2 (12:57→13:02)
--- NOTE | 2021-02-23 14:23 | Anesthesiology Progress Note ---
Date of Service February 23, 2021 Anesthesia Post Procedure Vital Signs Vital Signs: Temp Pulse Pulse Pulse Resp BP BP 02/23/21 14:00 37.0 C 92 H 20 126/82 02/23/21 13:30 67 17 122/75 02/23/21 13:20 36.1 C L 76 20 116/72 02/23/21 13:10 75 19 118/85 02/23/21 13:00 77 26 H 123/82 02/23/21 12:50 77 21 145/90 H 02/23/21 12:40 84 18 145/94 H 02/23/21 12:30 88 16 137/91 02/23/21 12:20 84 17 143/91 H 02/23/21 12:10 36.3 C L 86 15 143/106 H 02/23/21 11:13 36.7 C 66 18 109/68 02/23/21 09:54 37.6 C H 84 20 122/73 02/23/21 07:49 75 02/23/21 07:26 37.1 C 102 H 18 121/77 02/23/21 03:03 36.6 C 85 18 112/78 02/23/21 02:10 36.8 C 72 18 128/67 02/22/21 23:05 37.4 C 78 18 122/83 02/22/21 22:19 77 02/22/21 19:04 37.2 C 90 18 130/77 02/22/21 16:04 37.1 C 86 20 138/87 02/22/21 14:58 96 H Pulse Ox 02/23/21 14:00 97 02/23/21 13:30 94 02/23/21 13:20 96 02/23/21 13:10 96 02/23/21 13:00 95 02/23/21 12:50 95 02/23/21 12:40 97 02/23/21 12:30 99 02/23/21 12:20 97 02/23/21 12:10 99 02/23/21 11:13 95 02/23/21 09:54 94 02/23/21 07:49 02/23/21 07:26 93 02/23/21 03:03 95 02/23/21 02:10 93 02/22/21 23:05 94 02/22/21 22:19 02/22/21 19:04 97 02/22/21 16:04 94 02/22/21 14:58 Pain Intensity Abdomen: Pain Intensity: 3 Transfer of Care Handoff Completed per policy Notes Mental Status: alert / awake / arousable Patient Amnestic to Procedure: Yes Nausea / Vomiting: adequately controlled Pain: adequately controlled Airway Patency, RR, SpO2: stable & adequate BP & HR: stable & adequate Hydration State: stable & adequate Anesthetic Complications: no major complications apparent
[2021-02-23] MEDS: DIGOXIN 0.125 MG TAB PO SCH (16:39)
[2021-02-24] MEDS: cefOXitin 2,000 MG in DEXTROSE 5% 50 ML IV SCH ×4 (04:55→22:27)
[2021-02-24 07:05] LABS: Eosinophils # (auto) 0.03 K/uL (0-0.5); Eosinophils % (auto) 0.3 %; Hematocrit (blood only) 41.4 % (42-52); Hemoglobin 13.4 g/dL (14.0-18.0); Immature Granulocytes # (auto) 0.02 K/uL (0.00-0.02); Immature Granulocytes % (auto) 0.2 %; Lymphocytes # (auto) 2.01 K/uL (1.2-3.4); Lymphocytes % (auto) 19.2 %; Mean Corpuscular Hemoglobin 34.1 pg (25-34); Mean Corpuscular Hgb Conc 32.4 g/dL (32-36); Mean Corpuscular Volume 105.3 fL (80-100); Mean Platelet Volume 10.1 fL (7.4-10.4); Monocytes # (auto) 0.81 K/uL (0.11-0.59); Monocytes % (auto) 7.7 %; Neutrophils # (auto) 7.62 K/uL (1.4-6.5); Neutrophils % (auto) 72.6 %; Platelet Count 163 K/uL (130-400); RDW Coefficient of Variation 13.1 % (11.5-14.5); RDW Standard Deviation 51.3 fL (36.4-46.3); Red Blood Count 3.93 M/uL (4.7-6.1); White Blood Count 10.49 K/uL (4.8-10.8)
[2021-02-24 07:48] LABS: Albumin Level 2.8 gm/dl (3.4-5.0); BUN Creatinine Ratio 11.7 (10-20); Bilirubin Direct 0.2 mg/dl (0-0.2); Bilirubin,Total 0.6 mg/dl (0.2-1); Calcium 8.4 mg/dl (8.5-10.1); Creatinine Clr Calc Pharmacy 48.2 ml/min; Est GFR (African American) 49.7 ml/min; Est GFR (Non-African American) 42.9 ml/min; Potassium 4.8 mmol/L (3.5-5.1); Total Protein 6.5 gm/dl (6.4-8.2)
[2021-02-24 07:56] LABS: Folate (Folic Acid) 19.5 ng/ml (>5.38)
[2021-02-24] MEDS: SOTALOL HCL 80 MG TAB PO SCH ×2 (08:07→20:30)
[2021-02-24] MEDS: CITALOPRAM 20 MG TAB PO SCH (08:07)
[2021-02-24] MEDS ORDERED: SODIUM CHLORIDE 0.9% 1000ML 500 ML IV ONE (08:18)
--- NOTE | 2021-02-24 09:07 | Surgery Progress Note ---
Date of Service February 24, 2021 Assessment & Plan (1) Cholecystitis: Plan: increase diet LFTs normalized d/c later today or tomorrow can restart coumadin tomorrow Plan: To OR today for laparoscopic cholecystectomy, possible open, possible IOC Admission and Anticipated Discharge Date Admission Date: February 22, 2021 Supervising Physician Co-Signing Physician Notes Advance diet Ok to be discharged home from surgery standpoint OK to resume anticoagulation tomorrow Subjective feels much better, up to full liquids Physical Exam Gastrointestinal (Abdomen): Inspection/Auscultation: abdomen not distended Percussion/Palpation: abdomen soft Results & Data ([facility]) Vital Signs (Past 12 Hours) Vital Signs Temp Pulse Pulse Resp BP BP Pulse Ox 02/24/21 08:08 37.1 C 60 16 118/74 94 02/24/21 08:04 80 20 128/75 95 02/24/21 07:28 67 02/23/21 23:46 36.7 C 78 20 148/81 H 96 PG Care Time/CCT Total # of Minutes Spent Total Time Spent with Patient: Total time spent is greater than 50% in coordination of care (as documented) at patient's floor/unit and/or counseling patient: Coding Level of Care Code None Diagnoses Cholecystitis K81.9
--- NOTE | 2021-02-24 12:44 | Hospitalist Progress Note ---
Date of Service February 24, 2021 Assessment & Plan (1) Cholecystitis: Plan: 75yo male with history of atrial fibrillation on Coumadin presenting with acute onset epigastric/RUQ pain that Began 1 day prior to admission and who presented afebrile, hemodynamically stable, and nontoxic. Gallbladder ultrasound was suggestive of acute cholecystitis, anticipate surgical management Acute cholecystitis status post cholecystectomy 02/23 Coumadin held, last dose 02/21/2021 -Patient's [id number] score is low at 2 pts -Admit to medical with telemetry -Zofran PRN Nausea -Tylenol PRN Fever/Pain -Morphine tiered as needed for pain -Colace/Miralax as needed for constipation -Monitor INR (2) Atrial fibrillation: Plan: Chronic atrial fibrillation Rate controlled. Patient anticoagulated on Coumadin with therapeutic INR of 2.2. Last took his Coumadin on 02/21/21 at 09:00. -Continue Digoxin -Continue Sotalol -Warfarin held pending surgical intervention. Resume warfarin tomorrow (48hrs postop) with 5 day lovenox bridge -Monitor INR -Telemetry (3) Anxiety: Plan: Well controlled -Continue Citalopram (4) AGNIESZKA (acute kidney injury): Plan: Cr baseline ~1.2 Acutely elevated from 1.2-1.5 suspect prerenal azotemia vs prerenal AGNIESZKA tolerating oral hydration, continue hydration recheck BMP in AM Plan: F/E/N -clears, LR 125 cc/h PPx - SCDs, resume anticoagulation 02/25 Code - Full per discussion with patient DIspo -PT/OT pending Admission and Anticipated Discharge Date Admission Date: February 22, 2021 Subjective Seen at bedside, doing well. Endorses improving tenderness at post surgical incisions, otherwise no pain. Ate regular diet this afternoon with no nausea/pain. Passing gas, no BM. No fevers/chills. No other questions/concerns Review of Systems Review of Systems: 10 point RoS negative except as noted in HPI Physical Exam Physical Exam: General: A&Ox3. NAD. Cooperative. HEENT: Atraumatic, normocephalic. Pulm: CTAB A&P. -wheezes, -rales, -rhonchi. Symmetrical chest rise. No increase work of breathing. No respiratory distress. Cardiac: RRR, -mrg. Radial pulses intact and symmetrical. Abdominal: Lap incisions intact, dressings C/D/I with minimal overlying tenderness. nondistended, soft. BS present. Results & Data Results & Data ([facility]) Vital Signs (Past 12 Hours) Vital Signs Temp Pulse Pulse Resp BP Pulse Ox 02/24/21 11:18 36.9 C 86 18 117/75 90 02/24/21 08:08 37.1 C 60 16 118/74 94 02/24/21 08:04 80 20 128/75 95 02/24/21 07:28 67 PG Care Time/CCT Total # of Minutes Spent Total Time Spent with Patient: Total time spent is greater than 50% in coordination of care (as documented) at patient's floor/unit and/or counseling patient: Coding Level of Care Code 08320 Subseq Hosp Care Lvl 3 Diagnoses Cholecystitis K81.9 Atrial fibrillation I48.20 Atrial fibrillation type: unspecified chronic Anxiety F41.9 AGNIESZKA (acute kidney injury) N17.9 (1) Atrial fibrillation Atrial fibrillation type: unspecified chronic Qualified Code(s): I48.20 - Chronic atrial fibrillation, unspecified
[2021-02-24] MEDS ORDERED: ENOXAPARIN 1 MG/KG SQ SCH (13:00)
[2021-02-24] MEDS ORDERED: ENOXAPARIN 100 MG/1ML SYR SQ ONE (13:15)
[2021-02-24] MEDS ORDERED: WARFARIN SOD 5 MG TAB PO SCH (16:00)
[2021-02-24] MEDS: DIGOXIN 0.125 MG TAB PO SCH (17:10)
[2021-02-24] MEDS: ACETAMINOPHEN 325 MG TAB PO PRN (17:10)
[2021-02-24] MEDS: ENOXAPARIN 100 MG/1ML SYR SQ SCH (22:21)
[2021-02-25] MEDS: cefOXitin 2,000 MG in DEXTROSE 5% 50 ML IV SCH (04:57)
[2021-02-25 06:59] LABS: Basophils # (auto) 0.02 K/uL (0-0.2); Basophils % (auto) 0.3 %; Eosinophils % (auto) 2.6 %; Hemoglobin 13.2 g/dL (14.0-18.0); Immature Granulocytes # (auto) 0.01 K/uL (0.00-0.02); Immature Granulocytes % (auto) 0.1 %; Lymphocytes # (auto) 1.74 K/uL (1.2-3.4); Lymphocytes % (auto) 22.7 %; Mean Corpuscular Hemoglobin 33.9 pg (25-34); Mean Corpuscular Hgb Conc 32.2 g/dL (32-36); Mean Corpuscular Volume 105.4 fL (80-100); Mean Platelet Volume 10.3 fL (7.4-10.4); Monocytes # (auto) 0.75 K/uL (0.11-0.59); Monocytes % (auto) 9.8 %; Neutrophils # (auto) 4.93 K/uL (1.4-6.5); Neutrophils % (auto) 64.5 %; Platelet Count 169 K/uL (130-400); RDW Coefficient of Variation 13.2 % (11.5-14.5); RDW Standard Deviation 51.5 fL (36.4-46.3); Red Blood Count 3.89 M/uL (4.7-6.1); White Blood Count 7.65 K/uL (4.8-10.8)
[2021-02-25 07:05] LABS: INR 1.1 (0.9-1.1)
[2021-02-25] MEDS: ACETAMINOPHEN 325 MG TAB PO PRN (07:11)
[2021-02-25] MEDS: SOTALOL HCL 80 MG TAB PO SCH (08:29)
[2021-02-25 08:53] LABS: BUN Creatinine Ratio 11.5 (10-20); Calcium 8.5 mg/dl (8.5-10.1); Creatinine Clr Calc Pharmacy 45.8 ml/min; Est GFR (African American) 46.4 ml/min; Potassium 4.6 mmol/L (3.5-5.1)
[2021-02-25] MEDS ORDERED: VITAMIN B COMPLEX TAB PO SCH (09:00)
[2021-02-25] MEDS: CITALOPRAM 20 MG TAB PO SCH (09:08)
[2021-02-25] MEDS ORDERED: SODIUM CHLORIDE 0.9% 1000ML 500 ML IV ONE (11:54)
[2021-02-25] MEDS: ENOXAPARIN 100 MG/1ML SYR SQ SCH (12:28)
[2021-02-25 14:59] LABS: BUN Creatinine Ratio 13.5 (10-20); Calcium 8.8 mg/dl (8.5-10.1); Creatinine Clr Calc Pharmacy 52.5 ml/min; Est GFR (African American) 54.8 ml/min; Est GFR (Non-African American) 47.3 ml/min; Potassium 4.5 mmol/L (3.5-5.1)
[2021-02-25] MEDS: DIGOXIN 0.125 MG TAB PO SCH (15:08)
--- NOTE | 2021-02-25 15:23 | Discharge Summary ---
Date of Service February 25, 2021 Admission HPI Per Admitting Provider Ralph Castro is a 75yo male with history of atrial fibrillation on Coumadin anticoagulation, anxiety/panic attacks presenting with acute cholecystitis. Patient was in his usual state of health throughout today. He went to bed around 23:00. At 23:30 he woke with severe epigastric pain, intense. Pain radiated across the upper abdomen and is now located predominantly in the RUQ. He had some associated nausea and dry heaving. No fever/chills/diarrhea. No CP/Cough/SOB. No additional complaints at this time. Patient afebrile, HD stable in the ER. Gallbladder ultrasound suggestive of acute cholecystitis. Patinent was evaluated by the surgical team while in the ER. Plan for cholecystitis later this hospitalization. ER Course: Cefoxitin, Fentanyl, Dilaudid, Zofran Admission Exam Per Admitting Provider General: patient resting comfortably, NAD, non-toxic in appearance, AA&O x 4 Skin: warm, dry, intact, no rashes or lesions HEENT: NC/AT, PERRL, EOMI, anicteric sclera, conjunctiva without injection, external ear normal to inspection and nontender, nares patent, moist mucus membranes, dentition intact, no oropharyngeal lesions, neck supple, trachea midline, no LAD, no thyromegaly, no JVD Heart: +S1/S2, irregularly irregular, no m/r/g Lungs: equal air entry bilaterally, no rales/rhonchi/wheezes Abd: +BS, soft, ND, tenderness in epigastric area and RUQ with voluntary guarding, no masses/organomegaly/ascites Ext: warm, 2+ pulses in UE/LE bilaterally, no clubbing/cyanosis or edema Neuro: nonfocal, patient AA&O x 4, speech intact, no facial droop, moving all extremities on command with equal strength 5/5 Principal Diagnosis Acute Cholecystitis Discharge Exam General: A&Ox3. NAD. Cooperative. HEENT: Atraumatic, normocephalic. Pulm: CTAB A&P. -wheezes, -rales, -rhonchi. Symmetrical chest rise. No increase work of breathing. No respiratory distress. Cardiac: RRR, -mrg. Radial pulses intact and symmetrical. Abdominal: Lap incisions intact, dressings C/D/I with minimal overlying tenderness. nondistended, soft. BS present. Discharge Data Allergies Allergy/AdvReac Type Severity Reaction Status Date / Time No Known Allergies Allergy Unverified 02/22/21 03:06 Consultations 02/22/21 04:48 Consult General Surgery Routine 02/22/21 05:04 ED Decision to Admit Stat Procedures Performed Operation Date: 02/23/21 07:00 Actual Procedures p Laparoscopic Cholecystectomy(Not Applicable) - Sadiq Mckoy, Ordered Studies 02/22/21 02:50 US gallbladder Urgent Hospital Course (1) Cholecystitis: 75yo male with history of atrial fibrillation on Coumadin presenting with acute onset epigastric/RUQ pain that Began 1 day prior to admission and who presented afebrile, hemodynamically stable, and nontoxic. Gallbladder ultrasound was suggestive of acute cholecystitis, anticipate surgical management To do as outpatient: 1. Complete bridged with Lovenox, follow INR and adjust warfarin as needed to maintain therapeutic levels goal INR 2.0-3.0 2. Repeat BMP to ensure normalization of creatinine 3 routine surgical follow-up, routine PCP follow-up Acute cholecystitis status post cholecystectomy 02/23 Patient presented with fever, was found to have a gallbladder ultrasound suggestive of acute cholecystitis Coumadin held for surgery, restarted prior to discharge -Patient's [id number] score is low at 2 pts -Patient underwent uncomplicated cholecystectomy Empiric cefoxitin was continued for 1 day postop and discontinued on discharge Follow-up with general surgery being scheduled at discharge (2) Atrial fibrillation: Chronic atrial fibrillation Rate controlled. Patient anticoagulated on Coumadin. Held for surgery, restarted prior to discharge. Patient was discharged with a 5-day Lovenox bridge with follow-up to his PCP for INR checks. Home digoxin was continued with adequate rate control, patient initially on sotalol during admission on further history patient noted that this has been discontinued and had a difficulty with tolerance in the past. Was discontinued patient remained with good rate control and normotensive. (3) Anxiety: Well controlled -Need citalopram, no acute exacerbation (4) AGNIESZKA (acute kidney injury): Patient had a creatinine baseline of approximately 1.2. Patient experienced an increased creatinine to 1.5 and 1.6 on 02/24 and 02/25 suggestive of prerenal azotemia versus mild AGNIESZKA. This was discussed with patient who preferred to have an afternoon recheck and follow-up as outpatient if possible rather than staying an additional hospital day for monitoring. Afternoon recheck showed this level was downtrending to 1.42, nearly normal. Patient was stable and recommended to avoid nephrotoxins including NSAIDs and discharged to follow-up with his PCP with instructions to have a repeat BMP to ensure normalization. Total Time Total Time Spent Total Time Spent (In Minutes): Time spent preparing discharge approximately 45 minutes including chart review, discussion with patient, and coordination of care Discharge Plan Discharge Items Patient Disposition: Home - Self-Care Reason For Visit: ACUTE CHOLECYSTITIS Discharge Diagnosis: Acute cholecystitis Activity: As commented below Lifting: No more than 10 pounds Bathing Comment: ok to shower, leave steri-strips on Driving/Machine Use: Resume 3 days after discharge Non-emergency contact: Surgeon Call non-emergency contact if: you have any medication questions, your pain is not controlled, your pain is concerning for you and your temperature is above 101.5 Follow-up/Referrals: Sadiq Mckoy, [Physician] - (Please call to make an appt in 1-2 weeks) Luis Mendoza [Primary Care Provider] - Diet: Low Fat Addtl Attending Provider Instructions: You were seen in the hospital and were treated for acute cholecystitis with removal of your gallbladder. You did clinically well and are being discharged home to outpatient follow-up. Your warfarin was held for surgery. It will take time for your warfarin to cause your blood to return to therapeutic levels of protection, a goal INR of 23. Your warfarin has been restarted, to protect you while warfarin is being restarted you have been prescribed 5 days of another blood thinner enoxaparin. Please take enoxaparin 100 mg twice daily by subcutaneous injection. You will require a follow-up INR check and discussion with your primary care physician regarding whether you need to extend Lovenox past 5 days depending on your follow-up blood tests. You noted to have an elevated creatinine suggestive of mild acute kidney injury (AGNIESZKA) following surgery. This number was improving day of discharge, this number was discussed with you and was downtrending but not yet normal in the afternoon of discharge. Rather than stay overnight to continue to follow this number, you prefer to be discharged home with outpatient follow-up BMP within 48 hours. Please follow-up with your primary care physician, and have a BMP performed to recheck this number to ensure it returns to normal within 48 hours. If this number increases on recheck, you may be required to return to the emergency department for further treatment. Please avoid nonsteroidal anti- inflammatories including naproxen and ibuprofen until this number returns to normal. A follow-up appointment is being scheduled for you with your primary care provider Dr. Mendoza. You should be seen within 48 hours and have a follow-up BMP as noted above. If you do not receive a call to confirm your appointment, please contact his office at . Follow-up appointment is being scheduled for you with Dr. Mckoy, surgery. You should receive a call to confirm this appointment. If you do not receive a call, please call his office at [phone]. If you develop any new or worsening symptoms including fever, chills, sweats, chest pain, chest pressure, difficulty breathing, uncontrolled nausea/vomiting, rash, wheezing, passing out or nearly passing out, bleeding, black/bloody bowel movements, or other new or concerning symptoms please call your primary care physician at , or call 911 for re-evaluation in the emergency department if you are very concerned. Pending Studies at Discharge: No Stand-Alone Forms: My [facility] [employer], Smoking Cessation Medications and DC Order Prescriptions: New oxycodone 5 mg tablet 5 - 10 mg PO Q4H Qty: 12 RF: 0 enoxaparin 100 mg/mL Syringe 100 mg subcut Q12H 5 Days Qty: 10 RF: 0 Continued citalopram 20 mg tablet 30 mg PO DAILY RF: 0 warfarin 5 mg tablet 5 mg PO 4XWK RF: 0 warfarin 5 mg tablet 2.5 mg PO 3XWK RF: 0 digoxin 125 mcg (0.125 mg) tablet 125 mcg PO DAILY RF: 0 calcium carbonate-vitamin D3 [Calcium with Vitamin D] 600 mg(1,500mg) -400 unit tablet 1 tab PO BID RF: 0 Discontinued sotalol [Sotalol AF] 80 mg tablet 40 mg PO BID RF: 0 Discharge Orders: Discharge Order (Routine); Ordered 02/25/21 Ordered By: Mundo Mendoza Admission Data Admit Date/Time: 02/22/21 05:42 Attending Provider: Mundo Mendoza Admit Provider: aMude Leiva Primary Care Provider: Luis Mendoza Other Providers: Sadiq Mckoy ; Maude Leiva Coding Level of Care Code D/C DAY MANAGEMENT >30 MINS Diagnoses Cholecystitis K81.9 Atrial fibrillation I48.20 Atrial fibrillation type: unspecified chronic Anxiety F41.9 AGNIESZKA (acute kidney injury) N17.9
[2021-02-25] MEDS ORDERED: WARFARIN SOD 2.5 MG TAB PO SCH (16:00)
== END 2021-02-25 16:58 | disposition home or self-care (01) | DRG 418 ==
LOC: SUATTDRO → ED 02:04 → 2N 05:42 → SUATTDRO 05:42 → 2N 08:18
DX: N17.9 Acute kidney failure, unspecified; I48.20 Chronic atrial fibrillation, unspecified; Z87.891 Personal history of nicotine dependence; F41.0 Panic disorder [episodic paroxysmal anxiety]; K81.0 Acute cholecystitis; Z79.01 Long term (current) use of anticoagulants

== ENCOUNTER 2023-11-18 18:16 | Inpatient (IN) ==
[2023-11-18 18:42] LABS: Basophils # (auto) 0.02 K/uL (0.00-0.20); Basophils % (auto) 0.4 %; Eosinophils # (auto) 0.09 K/uL (0.00-0.50); Eosinophils % (auto) 1.6 %; Hematocrit (blood only) 42.2 % (42.0-52.0); Hemoglobin 13.8 g/dl (14.0-18.0); Immature Granulocytes # (auto) 0.01 K/uL (0.01-0.20); Immature Granulocytes % (auto) 0.2 %; Lymphocytes # (auto) 1.45 K/uL (1.20-3.40); Lymphocytes % (auto) 25.4 %; Mean Corpuscular Hemoglobin 33.7 pg (25.0-34.0); Mean Corpuscular Hgb Conc 32.7 g/dL (32.0-36.0); Mean Corpuscular Volume 103.2 fL (80.0-100.0); Mean Platelet Volume 9.6 fL (9.4-12.4); Monocytes # (auto) 0.59 K/uL (0.11-0.59); Monocytes % (auto) 10.4 %; Neutrophils # (auto) 3.54 K/uL (1.40-6.50); Platelet Count 177 K/uL (130-400); RDW Coefficient of Variation 12.8 % (11.5-14.5); RDW Standard Deviation 47.8 fL (36.4-46.3); Red Blood Count 4.09 M/uL (4.70-6.10)
[2023-11-18 19:01] LABS: Alanine Aminotransferase 15 U/L (7-52); Albumin Globulin Ratio 1.2 (0.9-2); Albumin Level 3.9 gm/dl (3.4-5.0); Alkaline Phosphatase 84 U/L (34-104); Anion Gap 6 (3-11); Aspartate Aminotransferase 16 U/L (13-39); BUN Creatinine Ratio 18.5 (10-20); Bilirubin,Total 0.9 mg/dl (0.2-1.0); Blood Urea Nitrogen 27 mg/dl (6-23); Calcium 9.1 mg/dl (8.6-10.3); Carbon Dioxide 27 mmol/L (21-32); Chloride 107 mmol/L (98-107); Est GFR (African American) 51.9 ml/min; Est GFR (Non-African American) 44.8 ml/min; Globulin 3.2 gm/dl (2.5-4.0); Glucose 117 mg/dl (70-99(Fasting)); Potassium 4.3 mmol/L (3.5-5.1); Sodium 140 mmol/L (136-145); Total Protein 7.1 gm/dl (6.0-8.3)
[2023-11-18 19:04] LABS: Troponin I High Sensitivity 4.8 pg/ml (0-20)
[2023-11-18 19:09] LABS: INR 1.3 (0.9-1.1); Partial Thromboplastin Time 26 Seconds (21-31)
--- NOTE | 2023-11-18 20:09 | Emergency Department Note ---
Impression & Plan Hypoxia, SOB (shortness of breath), Exertional dyspnea ED Provider Note NAME: JOSE RAIN AGE: 78 SEX: M : 1945 ARRIVES VIA: Walk-In INFORMANT: [Patient] ED PROVIDER(S): [Ryan Rabago MD] CHIEF COMPLAINT: Shortness of breath HISTORY OF PRESENT ILLNESS: The patient is an 78-year-old male who for a few days, has felt short of breath. Things worsened today for him. He notices the shortness of breath with exertion. He has been shaky and a bit edgy, he feels like there is something wrong with his insides, he wonders if he may be having some anxiety. He has a history of anxiety. Patient has not had fever or increased cough, no vomiting. He states that he did miss his citalopram dosing for 2 days, he took both pills today though. 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 HEENT: No acute trauma, normocephalic atraumatic, mucous membranes moist, no nasal congestion. NECK: No stridor, no adenopathy, no meningismus, trachea is midline. LUNGS: Crackles at both lower lungs, especially on the left. No wheezing or obvious respiratory distress. HEART: No murmurs, irregular rhythm, normal rate. ABDOMEN: Soft, nontender, no peritonitis. EXTREMITIES: No cyanosis, full range of motion of all the joints without pain or difficulty. Mild bilateral pedal edema. NEUROLOGIC: Oriented x 3, no acute motor or sensory deficits, no focal weakness. SKIN: No jaundice, no diaphoresis. DIFFERENTIAL DIAGNOSIS: CHF, pneumonia, bronchitis, exacerbation of emphysema, anemia, cardiac ischemia, among others. EMERGENCY DEPARTMENT PROCEDURES: MEDICAL DECISION MAKING: There is no leukocytosis or concerning anemia. There is a normal platelet count. There is a slight elevation to the INR at 1.3. Creatinine is elevated at 1.46, this appears baseline. No electrolyte abnormality in need of emergent correction. No concerning liver enzyme elevation. ECG shows atrial fibrillation which is a chronic issue for him. No acute ischemic change. Cardiac enzyme testing x 1 is not consistent with acute cardiac injury. Chest x-ray shows some parenchymal congestion. The film looks similar to previous films. Some mild CH was thought possible. BNP was elevated consistent with potential fluid overload. The patient was helped up and walked around here in the department. His O2 saturation dropped to 84%. He was dyspneic. Patient presents with exertional dyspnea and exertional hypoxia. He may be fluid overloaded. This may be a flare of his underlying emphysema/COPD. With the hypoxia, admission is warranted. The patient was given a DuoNeb, IV Solu-Medrol, I did speak with the patient and case management. The on-call hospitalist was consulted. Prior/Outside records/notes reviewed: None ECG per my interpretation: Indication was shortness of breath. The ECG shows atrial fibrillation with a rate of 78. PVCs are seen. There is nonspecific ST change, no ST elevation. QTc was 426. Continuous Cardiac Monitoring per my interpretation: An order was placed for continuous cardiac monitoring. The monitor shows a rate of 85 with atrial fibrillation. Imaging/x-ray results per my interpretation: Chest x-ray shows some chronic change, there may be some mild parenchymal congestion, possibly some mild CHF, no focal infiltrate or pneumothorax. Chronic Medical/Social conditions affecting care: Advanced age. Care/Management discussed with: Case management, the on-call hospitalist. Level of care consideration(s): After review of the information above and other included data: --I believe the patient requires escalation of care to admission DISPOSITION: Admission Past Med/Surg History Problem List Exertional dyspnea (Acute) SOB (shortness of breath) (Acute) Hypoxia (Acute) S/P laparoscopic cholecystectomy AGNIESZKA (acute kidney injury) Anxiety (Acute) Medical History Atrial fibrillation Surgical History Hx laparoscopic cholecystectomy (02/23/21) Laparoscopic Cholecystectomy Dr. Mckoy 02-23-2021 History of wisdom tooth extraction H/O vein stripping Family History (Updated 02/22/21 @ 05:47 by Maude Leiva DO) Other Cancer Social History Smoking Status: Never smoker Second Hand Exposure: No; Do You Dip or Chew Tobacco: No; Hx Alcohol Use: Yes Alcohol type: wine Alcohol Intake Frequency: 2-4 x/Month Hx Substance Use: No Preferred Language: Slovak Communication Ability: Effective Nutrition Services Associate Required: No Beliefs That Will Affect Care: None Current Living Situation: Spouse Feels Safe at Home: Yes Assistive Devices: Glasses Allergies Allergies Allergy/AdvReac Type Severity Reaction Status Date / Time buspirone [From BuSpar] AdvReac Severe All senses Verified 11/18/23 21:17 were shut off Home Meds Home Medications Medication Instructions Recorded Confirmed atorvastatin 10 mg tablet 10 mg PO HS 11/18/23 11/18/23 calcium citrate 250 mg PO DAILY 11/18/23 11/18/23 citalopram 20 mg tablet 30 mg PO QAM 11/18/23 11/18/23 digoxin 125 mcg (0.125 mg) tablet 125 mcg PO QAM 11/18/23 11/18/23 fluticasone furoate 100 1 ea inhalation DAILY 11/18/23 11/18/23 mcg-vilanterol 25 mcg/dose inhalation powder (Breo Ellipta) meclizine 25 mg tablet 25 mg PO DAILY PRN dizzyness 11/18/23 11/18/23 metoprolol succinate 25 mg 50 mg PO QAM 11/18/23 11/18/23 tablet,extended release 24 hr metoprolol tartrate 25 mg tablet 25 mg PO QPM 11/18/23 11/18/23 montelukast 10 mg tablet 10 mg PO HS 11/18/23 11/18/23 multivitamin 1 tab PO DAILY 11/18/23 11/18/23 ramipril 1.25 mg capsule 1.25 mg PO DAILY 11/18/23 11/18/23 ranolazine 500 mg tablet,extended 500 mg PO BID 11/18/23 11/18/23 release,12 hr warfarin 5 mg tablet 2.5 mg PO 3XWK 11/18/23 11/18/23 warfarin 5 mg tablet 5 mg PO 4XWK 11/18/23 11/18/23 Results & Data (ED) Vital Signs Vital Signs - 24 hr 11/18/23 18:21 11/18/23 19:42 11/18/23 19:42 Temperature 36.3 C L Temperature Source Temporal Artery Scan Pulse Rate 96 H Pulse Rate [Apical] 85 Respiratory Rate 18 19 Respiratory Effort / Characteristics Non-Labored Respiratory Depth Normal Blood Pressure 119/80 Blood Pressure [Left Arm] 163/96 H Blood Pressure Mean 93 Blood Pressure Mean [Left Arm] 118 Pulse Oximetry 95 94 95 Oxygen Delivery Method Room Air Room Air Room Air Oxygen Flow Rate 0 Sepsis Recent Fever Within 48 Hours No Sepsis New/Unexplained Change in Mental Status No Sepsis Action Taken by Nursing No Action Required 11/18/23 19:43 11/18/23 20:00 11/18/23 20:26 Temperature Temperature Source Pulse Rate Pulse Rate [Apical] 87 Respiratory Rate 14 Respiratory Effort / Characteristics Non-Labored Spontaneous Respiratory Depth Blood Pressure Blood Pressure [Left Arm] Blood Pressure Mean Blood Pressure Mean [Left Arm] Pulse Oximetry 95 84 L 94 Oxygen Delivery Method Room Air Room Air Room Air Oxygen Flow Rate Sepsis Recent Fever Within 48 Hours Sepsis New/Unexplained Change in Mental Status Sepsis Action Taken by Residential Medications Current Medication List: was personally reviewed by me Laboratory Data Attestation: I reviewed the patient's lab results. 11/18/23 18:19 11/18/23 18:19 Lab Results 11/18/23 Range/Units 18:19 WBC 5.70 (4.8-10.8) K/ul RBC 4.09 L (4.70-6.10) M/uL Hgb 13.8 L (14.0-18.0) g/dl Hct 42.2 (42.0-52.0) % MCV 103.2 H (80.0-100.0) fL MCH 33.7 (25.0-34.0) pg MCHC 32.7 (32.0-36.0) g/dL RDW Std Deviation 47.8 H (36.4-46.3) fL RDW Coeff of Lori 12.8 (11.5-14.5) % Plt Count 177 (130-400) K/uL MPV 9.6 (9.4-12.4) fL Immature Gran % (Auto) 0.2 % Neut % (Auto) 62.0 % Lymph % (Auto) 25.4 % [place] % (Auto) 10.4 % Eos % (Auto) 1.6 % Baso % (Auto) 0.4 % Neut # (Auto) 3.54 (1.40-6.50) K/uL Lymph # (Auto) 1.45 (1.20-3.40) K/uL [place] # (Auto) 0.59 (0.11-0.59) K/uL Eos # (Auto) 0.09 (0.00-0.50) K/uL Baso # (Auto) 0.02 (0.00-0.20) K/uL Immature Gran # (Auto) 0.01 (0.01-0.20) K/uL PT 14.0 H (9.0-12.0) Seconds INR 1.3 H (0.9-1.1) APTT 26 (21-31) Seconds PTT Ratio 1.0 Sodium 140 (136-145) mmol/L Potassium 4.3 (3.5-5.1) mmol/L Chloride 107 (98-107) mmol/L Carbon Dioxide 27 (21-32) mmol/L Anion Gap 6 (3-11) BUN 27 H (6-23) mg/dl Creatinine 1.46 H (0.6-1.4) mg/dl Est Cr Clr Drug Dosing Not Reportable Est GFR ( Amer) 51.9 ml/min Est GFR (Non-Af Amer) 44.8 ml/min BUN/Creatinine Ratio 18.5 (10-20) Glucose 117 H (70-99(Fasting)) mg/dl Calcium 9.1 (8.6-10.3) mg/dl Total Bilirubin 0.9 (0.2-1.0) mg/dl AST 16 (13-39) U/L ALT 15 (7-52) U/L Alkaline Phosphatase 84 (34-104) U/L Troponin I High Sens 4.8 (0-20) pg/ml B-Natriuretic Peptide 308 H (0-100) pg/ml Total Protein 7.1 (6.0-8.3) gm/dl Albumin 3.9 (3.4-5.0) gm/dl Globulin 3.2 (2.5-4.0) gm/dl Albumin/Globulin Ratio 1.2 (0.9-2) Administered Medications Discontinued Medications Albuterol (Albut/Ipratrop 3mg/0.5mg Neb 3 Ml Vial) 3 ml NEB NOW STA; Protocol Stop: 11/18/23 20:04 Last Admin: 11/18/23 20:23 Dose: 3 ml Documented By: TMP Methylprednisolone (Methylprednisolone 125 Mg/2 Ml Vial) 60 mg IV NOW STA Stop: 11/18/23 20:04 Last Admin: 11/18/23 20:52 Dose: 60 mg Documented By: SKM Discharge Plan Visit Data Chief Complaint: Shortness of Breath/Dyspnea Stated Complaint: SOB, EMPHASEMA, VERTIGO, ED Provider: Ryan Rabago Discharge Problem: Hypoxia, SOB (shortness of breath), Exertional dyspnea Patient Disposition: Admitted As Inpatient Condition: Fair Forms Stand Alone Forms: My [facility] Prescriptions Prescriptions: No Action multivitamin Tablet 1 tab PO DAILY atorvastatin 10 mg tablet 10 mg PO HS citalopram 20 mg tablet 30 mg PO QAM Rx Instructions: This dose is staed by Patient. meclizine 25 mg Tablet 25 mg PO DAILY PRN (Reason: dizzyness) warfarin 5 mg tablet 2.5 mg PO 3XWK Rx Instructions: Take on mon, wed, fri warfarin 5 mg tablet 5 mg PO 4XWK Rx Instructions: Joe on sat, sun, tues, thur montelukast 10 mg tablet 10 mg PO HS digoxin 125 mcg (0.125 mg) tablet 125 mcg PO QAM metoprolol succinate 25 mg tablet extended release 24 hr 50 mg PO QAM Rx Instructions: This is how pt takes. Take 25 mg in pm. ramipril 1.25 mg capsule 1.25 mg PO DAILY metoprolol tartrate 25 mg tablet 25 mg PO QPM calcium citrate 250 mg calcium Tablet 250 mg PO DAILY ranolazine 500 mg tablet extended release 12 hr 500 mg PO BID fluticasone furoate-vilanterol [Breo Ellipta] 100-25 mcg/dose blister with device 1 ea INHALATION DAILY Referrals Referrals: Linda Henderson DO [Primary Care Provider] -
[2023-11-18] MEDS: ALBUT/IPRATROP 3MG/0.5MG NEB 3 ML VIAL NEB STA (20:23)
[2023-11-18] MEDS: methylPREDNISolone 125 MG/2 ML VIAL IV STA (20:52)
--- NOTE | 2023-11-18 21:44 | XRay Report ---
XR chest 1V not portable CLINICAL HISTORY: Chest pain, nonspecific TECHNIQUE: Single frontal radiograph of the chest was obtained. Comparison: Comparison is made to chest radiograph 10/18/2023 FINDINGS: An implanted pacemaker is seen. The cardiomediastinal silhouette is normal. Reticular interstitial op acities are seen. No evidence of pleural effusion or pneumothorax. IMPRESSION: Interstitial thickening without acute abnormality. ACT 112: Negative or not required by law. Electronically signed by: Boston Amaro M.D. 11/18/2023 9:42 PM
--- NOTE | 2023-11-18 23:19 | History & Physical Report ---
Date of Service November 18, 2023 Assessment & Plan (1) SOB (shortness of breath): Plan: 78-year-old male with past medical history significant for hypertension, COPD mild as per patient, paroxysmal atrial fibrillation, sick sinus syndrome status post pacemaker, aneurysm of ascending aorta, history of atherosclerosis of [place] coronary artery, CKD stage III, history of DVT, GERD anxiety disorder, history of [place], presents with shortness of breath and also chest pain on exertion. Patient states He follows with cardiology and pulmonology with [facility]. States he is following pulmonary for last 2 years for on and off shortness of breath. But today shortness of breath got worse. Walking few steps making short of breath. States since last 1 to 2 years also is getting chest pain on exertion's. He thinks he has angina. States there is a plan for cardiac cath next week at [facility]. States his last cardiac cath was in late and his heart doctor wanted to cardiac cath for baseline. States he has a pacemaker placed 10 years ago. Since then he is on Coumadin. His INR was 2.1 last Tuesday. He is coughing and bringing some mild yellowish phlegm. Denies any fevers. Denies any headache. Has dizziness on and off and for last two weeks having vertigo. No runny nose. No earache. He has some blurred visions seems chronically. No sore throat. No difficulty swallowing. No nausea. On and off he gets some tightness in the abdomen but currently No abdominal pain. Normal bowel and bladder movements. No swelling the legs. Currently resting comfortably. In the ER is oxygen sats dropped into the low 80s when he was ambulating. Shortness of breath possible acute CHF mild bibasilar crackles on exam BNP mildly elevated no obvious wheezing we will do IV Lasix 20 mg monitor the response telemetry will follow echo consult cardiology in a.m. chest pain on exertion going on for some time initial troponin and EKG okay we will follow serial cardiac enzymes and echo n.p.o. for now cardiology consult in a.m. history of COPD seems mild remote history of smoking continue home inhalers nebs as needed history of paroxysmal atrial fibrillation sick sinus syndrome s/p pacemaker on digoxin and metoprolol on Coumadin today INR subtherapeutic at 1.[address] on IV heparin low-dose until INR therapeutic history of DVT INR subtherapeutic will follow D-dimers hypertension on metoprolol and ramipril will monitor history of CAD on statin, beta-joyce and Coumadin history of anxiety/panic disorder on citalopram DVT prophylaxis on IV heparin disposition telemetry full code Addendum : Am labs potassium 5.2. Will hold ramipril. Follow repeat labs. History of Present Illness Chief Complaint: shortness of breath and chest pain on exertion Primary Care Provider: Linda Henderson DO 78-year-old male with past medical history significant for hypertension, COPD mild as per patient, paroxysmal atrial fibrillation, sick sinus syndrome status post pacemaker, aneurysm of ascending aorta, history of atherosclerosis of ch[place] coronary artery, CKD stage III, history of DVT, GERD anxiety disorder, history of [place], presents with shortness of breath and also chest pain on exertion. Patient states He follows with cardiology and pulmonology with [facility]. States he is following pulmonary for last 2 years for on and off shortness of breath. But today shortness of breath got worse. Walking few steps making short of breath. States since last 1 to 2 years also is getting chest pain on exertion's. He thinks he has angina. States there is a plan for cardiac cath next week at [facility]. States his last cardiac cath was in late and his heart doctor wanted to cardiac cath for baseline. States he has a pacemaker placed 10 years ago. Since then he is on Coumadin. His INR was 2.1 last Tuesday. He is coughing and bringing some mild yellowish phlegm. Denies any fevers. Denies any headache. Has dizziness on and off and for last two weeks having vertigo. No runny nose. No earache. He has some blurred visions seems chronically. No sore throat. No difficulty swallowing. No nausea. On and off he gets some tightness in the abdomen but currently No abdominal pain. Normal bowel and bladder movements. No swelling the legs. Currently resting comfortably. In the ER is oxygen sats dropped into the low 80s when he was ambulating. past medical history. As mentioned above past surgical history. Cholecystectomy. S/p pacemaker. Heart catheterization. Social history. . Smoked half pack a day for 4 years when he was in college and quit in 1966. Alcohol occasional. Family history. Father had non-Hodgkin's lymphoma. Massive CVA. Mother had colon cancer. Allergies Allergy/AdvReac Type Severity Reaction Status Date / Time buspirone [From BuSpar] AdvReac Severe All senses Verified 11/18/23 21:17 were shut off Home Medications Medication Instructions Recorded Confirmed Type atorvastatin 10 mg tablet 10 mg PO HS 11/18/23 11/18/23 History calcium citrate 250 mg PO DAILY 11/18/23 11/18/23 History citalopram 20 mg tablet 30 mg PO QAM 11/18/23 11/18/23 History digoxin 125 mcg (0.125 mg) tablet 125 mcg PO QAM 11/18/23 11/18/23 History fluticasone furoate 100 1 ea inhalation DAILY 11/18/23 11/18/23 History mcg-vilanterol 25 mcg/dose inhalation powder (Breo Ellipta) meclizine 25 mg tablet 25 mg PO DAILY PRN dizzyness 11/18/23 11/18/23 History metoprolol tartrate 25 mg tablet 25 mg PO QPM 11/18/23 11/18/23 History montelukast 10 mg tablet 10 mg PO HS 11/18/23 11/18/23 History multivitamin 1 tab PO DAILY 11/18/23 11/18/23 History ramipril 1.25 mg capsule 1.25 mg PO DAILY 11/18/23 11/18/23 History ranolazine 500 mg tablet,extended 500 mg PO BID 11/18/23 11/18/23 History release,12 hr warfarin 5 mg tablet 2.5 mg PO 2XWK 11/18/23 11/18/23 History warfarin 5 mg tablet 5 mg PO 5XWK 11/18/23 11/18/23 History metoprolol tartrate 50 mg tablet 50 mg PO QAM 11/19/23 11/19/23 History Past Med/Surg History Problem List Exertional dyspnea (Acute) SOB (shortness of breath) (Acute) Hypoxia (Acute) S/P laparoscopic cholecystectomy AGNIESZKA (acute kidney injury) Anxiety (Acute) Medical History Atrial fibrillation Surgical History Hx laparoscopic cholecystectomy (02/23/21) Laparoscopic Cholecystectomy Dr. Mckoy 02-23-2021 History of wisdom tooth extraction H/O vein stripping Family History (Updated 02/22/21 @ 05:47 by Maude Leiva DO) Other Cancer Social History Smoking Status: Never smoker Tobacco Type: Cigarettes Second Hand Exposure: No; Do You Dip or Chew Tobacco: No; Tobacco Cessation Education Requested by Patient: No Hx Alcohol Use: Yes Alcohol type: wine Alcohol Intake Frequency: 2-4 x/Month Hx Substance Use: No Preferred Language: Bruneian Communication Ability: Effective Manager Of Distribution Required: No Beliefs That Will Affect Care: None Current Living Situation: Spouse Current Living Situation Comment: lives at home with Other Information That Helps Us Care for You: No Feels Safe at Home: Yes Safety Concerns: Feels Safe At This Time Assistive Devices: Glasses Review of Systems Review of Systems: All systems reviewed & are unremarkable except as noted in HPI & below Physical Exam Physical Exam: General- not in acute distress. Head- atraumatic Eyes- PERRL. ENT- oropharynx clear Neck- supple, no JVD. Lungs- clear to auscultation no wheezing, mild bibasilar crackles. Heart- irregular rhythm; no murmur, no gallop. Abdomen- normal bowel sounds, soft, nontender, no distension. Extremities- no pretibial edema, no erythema seen. Neuro- alert, oriented PERRL,; no facial palsy; no dysarthria; obeys simple commands. Results & Data Results & Data Vital Signs (Past 12 Hours) Vital Signs Temp Pulse Pulse Resp BP BP Pulse Ox 11/18/23 21:00 96 H 19 143/101 H 95 11/18/23 20:26 87 14 94 11/18/23 20:00 84 L 11/18/23 19:43 95 11/18/23 19:42 85 19 163/96 H 95 11/18/23 19:42 94 11/18/23 19:36 85 11/18/23 18:21 36.3 C L 96 H 18 119/80 95 O2 Del Method O2 Flow Rate 11/18/23 21:00 Room Air 11/18/23 20:26 Room Air 11/18/23 20:00 Room Air 11/18/23 19:43 Room Air 11/18/23 19:42 Room Air 11/18/23 19:42 Room Air 0 11/18/23 19:36 11/18/23 18:21 Room Air Diagnostic Findings Laboratory Results WBC 5.70 K/ul (4.8-10.8) 11/18/23 18:19 RBC 4.09 M/uL (4.70-6.10) L 11/18/23 18:19 Hgb 13.8 g/dl (14.0-18.0) L 11/18/23 18:19 Hct 42.2 % (42.0-52.0) 11/18/23 18:19 MCV 103.2 fL (80.0-100.0) H 11/18/23 18:19 MCH 33.7 pg (25.0-34.0) 11/18/23 18:19 MCHC 32.7 g/dL (32.0-36.0) 11/18/23 18:19 RDW Std Deviation 47.8 fL (36.4-46.3) H 11/18/23 18:19 RDW Coeff of Lori 12.8 % (11.5-14.5) 11/18/23 18:19 Plt Count 177 K/uL (130-400) 11/18/23 18:19 MPV 9.6 fL (9.4-12.4) 11/18/23 18:19 Immature Gran % (Auto) 0.2 % 11/18/23 18:19 Neut % (Auto) 62.0 % 11/18/23 18:19 Lymph % (Auto) 25.4 % 11/18/23 18:19 [place] % (Auto) 10.4 % 11/18/23 18:19 Eos % (Auto) 1.6 % 11/18/23 18:19 Baso % (Auto) 0.4 % 11/18/23 18:19 Neut # (Auto) 3.54 K/uL (1.40-6.50) 11/18/23 18:19 Lymph # (Auto) 1.45 K/uL (1.20-3.40) 11/18/23 18:19 [place] # (Auto) 0.59 K/uL (0.11-0.59) 11/18/23 18:19 Eos # (Auto) 0.09 K/uL (0.00-0.50) 11/18/23 18:19 Baso # (Auto) 0.02 K/uL (0.00-0.20) 11/18/23 18:19 Immature Gran # (Auto) 0.01 K/uL (0.01-0.20) 11/18/23 18:19 PT 14.0 Seconds (9.0-12.0) H 11/18/23 18:19 INR 1.3 (0.9-1.1) H 11/18/23 18:19 APTT 26 Seconds (21-31) 11/18/23 18:19 PTT Ratio 1.0 11/18/23 18:19 Sodium 140 mmol/L (136-145) 11/18/23 18:19 Potassium 4.3 mmol/L (3.5-5.1) 11/18/23 18:19 Chloride 107 mmol/L (98-107) 11/18/23 18:19 Carbon Dioxide 27 mmol/L (21-32) 11/18/23 18:19 Anion Gap 6 (3-11) 11/18/23 18:19 BUN 27 mg/dl (6-23) H 11/18/23 18:19 Creatinine 1.46 mg/dl (0.6-1.4) H 11/18/23 18:19 Est Cr Clr Drug Dosing Not Reportable 11/18/23 18:19 Est GFR ( Amer) 51.9 ml/min 11/18/23 18:19 Est GFR (Non-Af Amer) 44.8 ml/min 11/18/23 18:19 BUN/Creatinine Ratio 18.5 (10-20) 11/18/23 18:19 Glucose 117 mg/dl (70-99(Fasting)) H 11/18/23 18:19 Calcium 9.1 mg/dl (8.6-10.3) 11/18/23 18:19 Total Bilirubin 0.9 mg/dl (0.2-1.0) 11/18/23 18:19 AST 16 U/L (13-39) 11/18/23 18:19 ALT 15 U/L (7-52) 11/18/23 18:19 Alkaline Phosphatase 84 U/L (34-104) 11/18/23 18:19 Troponin I High Sens 4.8 pg/ml (0-20) 11/18/23 18:19 B-Natriuretic Peptide 308 pg/ml (0-100) H 11/18/23 18:19 Total Protein 7.1 gm/dl (6.0-8.3) 11/18/23 18:19 Albumin 3.9 gm/dl (3.4-5.0) 11/18/23 18:19 Globulin 3.2 gm/dl (2.5-4.0) 11/18/23 18:19 Albumin/Globulin Ratio 1.2 (0.9-2) 11/18/23 18:19 Impressions Chest X-Ray 11/18/23 18:24 XR chest 1V not portable CLINICAL HISTORY: Chest pain, nonspecific TECHNIQUE: Single frontal radiograph of the chest was obtained. Comparison: Comparison is made to chest radiograph 10/18/2023 FINDINGS: An implanted pacemaker is seen. The cardiomediastinal silhouette is normal. Reticular interstitial opacities are seen. No evidence of pleural effusion or pneumothorax. IMPRESSION: Interstitial thickening without acute abnormality. ACT 112: Negative or not required by law. Electronically signed by: Boston Amaro M.D. 11/18/2023 9:42 PM ECG Additional Comments: ECG. Atrial fibrillation with PVCs at a rate of 78. No acute ST changes seen. Code Status & VTE Plan VTE Prophylaxis Plan VTE Prophylaxis will be ordered: Yes
[2023-11-18] MEDS ORDERED: NITROGLYCERIN SL 0.4 MG/TAB TAB SL PRN (23:50)
[2023-11-18] MEDS ORDERED: POLYETHYLENE (MIRALAX) 17 GM PACK PO PRN (23:50)
[2023-11-18] MEDS ORDERED: ACETAMINOPHEN 325 MG TAB PO PRN (23:50)
[2023-11-18] MEDS ORDERED: LEVALBUTEROL 1.25 MG/3 ML NEB NEB PRN (23:50)
[2023-11-19] MEDS: METOPROLOL TARTRATE 1 MG/ML VIAL IV PRN (00:04)
[2023-11-19] MEDS: FUROSEMIDE INJ 20 MG/2 ML VIAL IV ONE (00:26)
[2023-11-19] MEDS: HEPARIN SODIUM/DEXTROSE 25,000 UNITS/500 ML BAG IV SCH (00:29)
[2023-11-19] MEDS: WARFARIN SOD 5 MG TAB PO SCH (02:19)
[2023-11-19 06:28] LABS: Hemoglobin 13.5 g/dl (14.0-18.0); Immature Granulocytes # (auto) 0.01 K/uL (0.01-0.20); Immature Granulocytes % (auto) 0.2 %; Lymphocytes # (auto) 0.75 K/uL (1.20-3.40); Lymphocytes % (auto) 13.5 %; Mean Corpuscular Hgb Conc 33.8 g/dL (32.0-36.0); Mean Corpuscular Volume 100.8 fL (80.0-100.0); Mean Platelet Volume 9.7 fL (9.4-12.4); Monocytes # (auto) 0.07 K/uL (0.11-0.59); Monocytes % (auto) 1.3 %; Neutrophils # (auto) 4.72 K/uL (1.40-6.50); Platelet Count 176 K/uL (130-400); RDW Coefficient of Variation 12.6 % (11.5-14.5); RDW Standard Deviation 46.5 fL (36.4-46.3); Red Blood Count 3.97 M/uL (4.70-6.10); White Blood Count 5.55 K/ul (4.8-10.8)
[2023-11-19 06:39] LABS: BUN Creatinine Ratio 18.4 (10-20); Calcium 9.3 mg/dl (8.6-10.3); Creatinine Clr Calc Pharmacy 47.2 ml/min; Est GFR (African American) 54.1 ml/min; Est GFR (Non-African American) 46.7 ml/min; Magnesium 2.1 mg/dl (1.7-2.4); Potassium 5.2 mmol/L (3.5-5.1)
[2023-11-19 06:47] LABS: Troponin I High Sensitivity 5.3 pg/ml (0-20)
--- NOTE | 2023-11-19 07:10 | Electrocardiogram Report ---
Test Reason : Blood Pressure : / mmHG Vent. Rate : 078 BPM Atrial Rate : 000 BPM P-R Int : 000 ms QRS Dur : 084 ms QT Int : 374 ms P-R-T Axes : 000 -04 -17 degrees QTc Int : 426 ms Atrial fibrillation with premature ventricular or aberrantly conducted complexes Abnormal ECG When compared with ECG of 18-OCT-2023 19:14, Atrial fibrillation has replaced Electronic ventricular pacemaker Confirmed by Aryan Flannery ([id number]) on 11/19/2023 7:10:11 AM Referred By: REFERRED SELF Confirmed By:Juan Flannery
[2023-11-19 07:14] LABS: D Dimer 330 ug/L FEU (0-500); INR 1.3 (0.9-1.1); Prothrombin Time 13.4 Seconds (9.0-12.0)
[2023-11-19 07:25] LABS: ANTI-Xa, UFH(UnfractionatedHep 0.28 IU/ml (0.3-0.7)
[2023-11-19] MEDS ORDERED: METOPROLOL SUCC 50MG EXT REL TAB PO SCH (09:00)
[2023-11-19] MEDS ORDERED: ENALAPRIL MALEATE 5 MG TAB PO SCH (09:00)
[2023-11-19] MEDS: FLUTICASONE/VILANTEROL 100/25MCG 14 PUFFS/INHALER INH SCH (09:59)
[2023-11-19] MEDS: CALCIUM CITRATE 950 MG TAB PO SCH (09:59)
[2023-11-19] MEDS: CITALOPRAM 20 MG TAB PO SCH (10:00)
[2023-11-19] MEDS: RANOLAZINE 500 MG ER TAB PO SCH (10:00)
[2023-11-19] MEDS: MULTIVITAMIN TAB PO SCH (10:01)
[2023-11-19] MEDS: METOPROLOL TARTRATE 50 MG TAB PO SCH (10:01)
--- NOTE | 2023-11-19 10:36 | Pulmonary Consultation ---
Date of Consultation November 19, 2023 Assessment & Plan (1) ILD (interstitial lung disease): (2) Acute respiratory failure with hypoxia: (3) Abnormal chest CT: Plan Chest x-ray 11/18/2023 personally reviewed: Portable film, inspiratory effort, increased reticular markings appreciated bilaterally especially in the periphery, increased cardiac silhouette, no clear lung infiltrate appreciated CT chest 11/19/2023 personally reviewed: Increased reticular markings appreciated bilaterally upper and lower lobes more in the lower lobes Early honeycombing in the lower lobes Mild traction bronchiectasis No significant mediastinal lymphadenopathy -- Acute hypoxic respiratory failure Patient is back to room air at rest BNP [address] chest shows increased interlobular markings, physical exam shows Velcro-like crackles bilaterally I think we are dealing with ILD. 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 Would recommend to transition to DOACs if possible Plan: Follow-up CT of the chest, procalcitonin Recommend 2D echo Case was discussed with primary team Please note the above document was generated using voice recognition software. It may contain grammatical, syntax or spelling errors.Any formal questions or concerns about the content, text or information contained within the body of this dictation should be directly addressed to the provider for clarification. History of Present Illness Attending Physician: Kalyani Tillman MD History of Present Illness 78-year-old male present to the hospital for dizziness and vertigo Past medical history: A-fib, hypertension, CKD, history of DVT, GERD Pulmonary consulted for hypoxia At the time of examination patient was saturating 94% on room air. Occasional cough with clear phlegm. Denies any hemoptysis Denies any fever or chills No night sweats, no unintentional weight loss No unusual headache, no blurry vision No dysuria, no diarrhea No personal or family history of any autoimmune disease like lupus, sarcoid, Sjogren's, rheumatoid No Raynaud's Social history: Only 2-pack-year smoking history, quit in 1966, social alcohol. 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 Allergies Allergy/AdvReac Type Severity Reaction Status Date / Time buspirone [From BuSpar] AdvReac Severe All senses Verified 11/18/23 21:17 were shut off Home Medications Medication Instructions Recorded Confirmed Type atorvastatin 10 mg tablet 10 mg PO HS 11/18/23 11/18/23 History calcium citrate 250 mg PO DAILY 11/18/23 11/18/23 History citalopram 20 mg tablet 30 mg PO QAM 11/18/23 11/18/23 History digoxin 125 mcg (0.125 mg) tablet 125 mcg PO QAM 11/18/23 11/18/23 History fluticasone furoate 100 1 ea inhalation DAILY 11/18/23 11/18/23 History mcg-vilanterol 25 mcg/dose inhalation powder (Breo Ellipta) meclizine 25 mg tablet 25 mg PO DAILY PRN dizzyness 11/18/23 11/18/23 History metoprolol tartrate 25 mg tablet 25 mg PO QPM 11/18/23 11/18/23 History montelukast 10 mg tablet 10 mg PO HS 11/18/23 11/18/23 History multivitamin 1 tab PO DAILY 11/18/23 11/18/23 History ramipril 1.25 mg capsule 1.25 mg PO DAILY 11/18/23 11/18/23 History ranolazine 500 mg tablet,extended 500 mg PO BID 11/18/23 11/18/23 History release,12 hr warfarin 5 mg tablet 2.5 mg PO 2XWK 11/18/23 11/18/23 History warfarin 5 mg tablet 5 mg PO 5XWK 11/18/23 11/18/23 History metoprolol tartrate 50 mg tablet 50 mg PO QAM 11/19/23 11/19/23 History Patient History Medical History Atrial fibrillation Surgical History Hx laparoscopic cholecystectomy (02/23/21) Laparoscopic Cholecystectomy Dr. Mckoy 02-23-2021 History of wisdom tooth extraction H/O vein stripping Family History Other Cancer Social History Smoking Status: Never smoker Tobacco Type: Cigarettes Second Hand Exposure: No; Do You Dip or Chew Tobacco: No; Tobacco Cessation Education Requested by Patient: No Hx Alcohol Use: Yes Alcohol type: wine Alcohol Intake Frequency: 2-4 x/Month Hx Substance Use: No Preferred Language: Egyptian Communication Ability: Effective Block Paver Required: No Beliefs That Will Affect Care: None Current Living Situation: Spouse Current Living Situation Comment: lives at home with Other Information That Helps Us Care for You: No Feels Safe at Home: Yes Safety Concerns: Feels Safe At This Time Assistive Devices: Glasses Review of Systems 2 Review of Systems: All systems reviewed & are unremarkable except as noted in HPI & below Physical Exam 2 Physical Exam: Constitutional: No acute distress HEENT: EOMI, PERRLA Respiratory system: Good air entry bilaterally, [] wheeze, [] rhonchi, [] crackles CVS: S1-S2 positive, no murmurs or gallops Abdomen: Soft, nontender, nondistended, positive bowel sounds x4 Extremities: +2 pulses bilaterally radialis/ dorsalis pedis, no cyanosis, no edema Neuro: Awake alert oriented x3 Psych: Normal mood and affect G/U: Skin: no rashes, warm and dry Lymphatic: no cervical or axillary lymphadenopathy Results & Data Results & Data Vital Signs (Past 12 Hours) Vital Signs Temp Pulse Pulse Resp BP BP Pulse Ox 11/19/23 08:00 36.6 C 97 H 18 136/80 95 11/19/23 03:49 36.4 C L 100 H 16 125/81 93 11/19/23 01:50 105 H 145/87 H 11/19/23 00:09 36.7 C 126 H 20 152/83 H 90 11/19/23 00:04 153 H 152/83 H 11/18/23 23:28 110 H 11/18/23 23:00 97 H 16 148/103 H 94 O2 Del Method 11/19/23 08:00 Room Air 11/19/23 03:49 Room Air 11/19/23 01:50 11/19/23 00:09 Room Air 11/19/23 00:04 11/18/23 23:28 11/18/23 23:00 Room Air Laboratory Results 11/19/23 06:01 11/19/23 06:01 PG Care Time/CCT Total # of Minutes Spent Total Time Spent with Patient: Total time spent is greater than 50% in coordination of care (as documented) at patient's floor/unit and/or counseling patient: Coding Level of Care Code 66611 INT INP/OBS CARE 3/75MIN Diagnoses ILD (interstitial lung disease) J84.9 Acute respiratory failure with hypoxia J96.[address] R93.89
--- NOTE | 2023-11-19 11:04 | Cardiology Consultation ---
Date of Consultation November 19, 2023 Assessment & Plan (1) Exertional dyspnea: (2) SOB (shortness of breath): (3) Hypoxia: (4) ASCVD (arteriosclerotic cardiovascular disease): (5) Chronic atrial fibrillation: (6) Tachy-ki syndrome: (7) Cardiac pacemaker in situ: Plan Acute on chronic dyspnea. Appear multifactorial in etiology. NYHA Class III+. EF previously reported to be 45%. Volume status: Mild hypervolemia. ? Fibrotic changes on chest x-ray. Recommend IV furosemide this afternoon without supplemental potassium. Await pulmonary consultation and CT interpretation. See below Chest discomfort. EKG without acute change. High-sensitivity troponin negative. Chest CT with extensive coronary atherosclerosis in the LAD. Patient currently scheduled for diagnostic cardiac catheterization at [facility] with Dr. Arias on Wednesday, November 22, 2023. Resting echocardiography requested. Probable permanent atrial fibrillation. Rates mildly elevated. Noting history of mild reduction in LV systolic function (EF 45%), recommend changing to evidence-based metoprolol succinate, dosage increased slightly to 100 mg/day. INR subtherapeutic. Recommend IV heparin. Hold Coumadin anticoagulation, Re: Future catheterization Tachy-Ki Syndrome. Status post pacemaker implantation (Saint Didier/Fonseca device). Device interrogation requested. Addendum on 11/19/2023 at 12:29 PM. Device interrogated, discussed with Fonseca Supervisor Smoke Control. This is a single chamber pacemaker with HARNESS CUTTER 15%, heart rates mostly 70 to 100, at times up to 140 bpm. Hypertension. Blood pressure acceptably controlled. Dyslipidemia. Recommend targeting an optimal LDL cholesterol of less than 70 mg/dL. Continue statin. I spent a total of 55 minutes on the date of service in preparation, delivery, and documentation of the care provided to this patient excluding any time spent in the performance of separately billed services. This visit was a split-shared visit with the substantive portion of the medical decision making performed by the supervising wood box maker/billing provider. Supervising Physician Co-Signing Physician Notes I have reviewed the advanced practitioner's documentation on the date of service referenced in note, and I agree with, and take responsibility for the plan of care. I spent a total of [25] minutes coordinating, documenting, and providing care for this patient excluding time spent in the performance of separately billed services or time spent by another provider. 78-year-old male with known history of chronic atrial fibrillation tachybradycardia syndrome post pacemaker presenting with exertional shortness of breath has been ongoing. Which has worsening Exertional angina shortness of breath plan for cardiac catheterization next week for further evaluation of coronary arteries Echocardiogram shows right heart dilatation with normal function History of Present Illness Reason for Consultation: Chest pain on exertion, atrial fibrillation Requesting Physician: Dr. Page Attending Physician: Dr. Tillman History of Present Illness Mr. Ralph Castro is an 78-year-old male who presented to [facility] on November 18, 2023 due to multiple concerns, at the request of family. History is somewhat difficult to discern. Patient states "I got several different situations all coming together for a libertarian." He describes main complaint of limiting exertional dyspnea requiring him to stop and rest 2-3 times when walking to get the mail. He also notes increased chest discomfort that occurs primarily with activity, unlike symptoms associated with the prior [place]. Notes diffuse pain in the biceps as well as quadriceps and the back of the neck. EKG on presentation revealed atrial fibrillation with premature ventricular or aberrantly conducted complexes. Ventricular rate was 78 bpm. INR was subtherapeutic at 1.3. Creatinine was 1.47. High-sensitivity troponin 4.8 then 5.3. Chest x-ray with interstitial thickening without acute abnormality. Hypoxemia noted in the ER. Therapies administered in the ER included 20 mg of IV furosemide, 60 mg of Solu-Medrol, DuoNeb treatment. Chest CT without contrast performed, pending radiological interpretation, notable for extensive coronary atherosclerosis in the LAD as well as aorta. Telemetry demonstrates atrial fibrillation initially with rapid ventricular response, currently with heart rates in the 90s. Patient resting comfortably in bed. No current chest pain. Oxygen saturation is 95% on room air. Blood pressure controlled. No palpitations. No resting shortness of breath. No orthopnea, PND, or increased edema, chronically with mild edema, and varicosities. No syncope. No fevers. No chills. No hemoptysis, melena, hematochezia, or hematuria. Patient notes following with [facility], Dr. Arias, scheduled for diagnostic cardiac catheterization in [facility] on Wednesday, November 22, 2023. Patient notes that his is a "[employer] Girl" and he plans to transition his medical care to [facility] Past Medical and Surgical History History of ASCVD with remote [place] circa 1988, catheterization in [place], [place] at that time Chronic atrial fibrillation Tachy-Bradycardia Syndrome status post Saint Didier (Fonseca) pacemaker implantation Mild reduction in LV systolic function, EF 45% via prior resting echocardiogram Nonischemic pharmacological stress test circa 2 years ago Hypertension Chart history of orthostatic hypotension Stage III chronic kidney disease History of DVT Dyslipidemia Anxiety, panic attacks Chart history of COPD GERD Family History: Mother with colon cancer. Father with non-Hodgkin's lymphoma. Brother, 10 years older, , unknown cause. Sister is alive; her children include a son with leukemia, daughter with stomach cancer, another daughter with breast cancer. Social History: Remote smoker for short period of time, quit in 1966, 2-pack-year smoking history. No significant alcohol. No illegal drug use. . Lives in [place]. Two children. Allergies Allergy/AdvReac Type Severity Reaction Status Date / Time buspirone [From BuSpar] AdvReac Severe All senses Verified 11/18/23 21:17 were shut off Home Medications Medication Instructions Recorded Confirmed Type atorvastatin 10 mg tablet 10 mg PO HS 11/18/23 11/18/23 History calcium citrate 250 mg PO DAILY 11/18/23 11/18/23 History citalopram 20 mg tablet 30 mg PO QAM 11/18/23 11/18/23 History digoxin 125 mcg (0.125 mg) tablet 125 mcg PO QAM 11/18/23 11/18/23 History fluticasone furoate 100 1 ea inhalation DAILY 11/18/23 11/18/23 History mcg-vilanterol 25 mcg/dose inhalation powder (Breo Ellipta) meclizine 25 mg tablet 25 mg PO DAILY PRN dizzyness 11/18/23 11/18/23 History metoprolol tartrate 25 mg tablet 25 mg PO QPM 11/18/23 11/18/23 History montelukast 10 mg tablet 10 mg PO HS 11/18/23 11/18/23 History multivitamin 1 tab PO DAILY 11/18/23 11/18/23 History ramipril 1.25 mg capsule 1.25 mg PO DAILY 11/18/23 11/18/23 History ranolazine 500 mg tablet,extended 500 mg PO BID 11/18/23 11/18/23 History release,12 hr warfarin 5 mg tablet 2.5 mg PO 2XWK 11/18/23 11/18/23 History warfarin 5 mg tablet 5 mg PO 5XWK 11/18/23 11/18/23 History metoprolol tartrate 50 mg tablet 50 mg PO QAM 11/19/23 11/19/23 History Patient History Medical History Atrial fibrillation Surgical History Hx laparoscopic cholecystectomy (02/23/21) Laparoscopic Cholecystectomy Dr. Mckoy 02-23-2021 History of wisdom tooth extraction H/O vein stripping Family History Other Cancer Social History Smoking Status: Never smoker Tobacco Type: Cigarettes Second Hand Exposure: No; Do You Dip or Chew Tobacco: No; Tobacco Cessation Education Requested by Patient: No Hx Alcohol Use: Yes Alcohol type: wine Alcohol Intake Frequency: 2-4 x/Month Hx Substance Use: No Preferred Language: Amharic Communication Ability: Effective Bioinformatics Programmer Required: No Beliefs That Will Affect Care: None Current Living Situation: Spouse Current Living Situation Comment: lives at home with Other Information That Helps Us Care for You: No Feels Safe at Home: Yes Safety Concerns: Feels Safe At This Time Assistive Devices: Glasses Review of Systems Review of Systems: Complete Review of Systems is as stated above, negative, or noncontributory. Physical Exam Physical Exam: General: A&Ox3. NAD. HENT: Normocephalic. Atraumatic. Eyes: PER. Conjunctiva pink, sclera clear. Neck: No JVD. No HJR. Heart: Irregularly irregular at 90 bpm. No murmur. No rub. Lungs: + Left basilar crackles. No wheeze. Abdomen: +BS. Soft. Nontender. No masses or organomegaly. Extremities: Mild edema, lymphedematous changes, varocositeis. No clubbing. No cyanosis Limited neurological examination is without focal deficits. Pulses: radial=2/4, posterior tibial=2/4. Results & Data Vital Signs (Past 12 Hours) Vital Signs Temp Pulse Pulse Resp BP BP Pulse Ox 11/19/23 08:00 36.6 C 97 H 18 136/80 95 11/19/23 03:49 36.4 C L 100 H 16 125/81 93 11/19/23 01:50 105 H 145/87 H 11/19/23 00:09 36.7 C 126 H 20 152/83 H 90 11/19/23 00:04 153 H 152/83 H 11/18/23 23:28 110 H O2 Del Method 11/19/23 08:00 Room Air 11/19/23 03:49 Room Air 11/19/23 01:50 11/19/23 00:09 Room Air 11/19/23 00:04 11/18/23 23:28 Laboratory Results Cardiac Enzymes 11/18/23 11/19/23 Range/Units 18:19 06:01 AST 16 (13-39) U/L Troponin I High Sens 4.8 5.3 (0-20) pg/ml B-Natriuretic Peptide 308 H (0-100) pg/ml Coagulation 11/18/23 11/19/23 Range/Units 18:19 06:00 PT 14.0 H 13.4 H (9.0-12.0) Seconds APTT 26 (21-31) Seconds B-Natriuretic Peptide 308 H (0-100) pg/ml CBC 11/18/23 11/19/23 Range/Units 18:19 06:01 WBC 5.70 5.55 (4.8-10.8) K/ul RBC 4.09 L 3.97 L (4.70-6.10) M/uL Hgb 13.8 L 13.5 L (14.0-18.0) g/dl Hct 42.2 40.0 L (42.0-52.0) % Plt Count 177 176 (130-400) K/uL Neut # (Auto) 3.54 4.72 (1.40-6.50) K/uL Lymph # (Auto) 1.45 0.75 L (1.20-3.40) K/uL [place] # (Auto) 0.59 0.07 L (0.11-0.59) K/uL Eos # (Auto) 0.09 0.00 (0.00-0.50) K/uL Baso # (Auto) 0.02 0.00 (0.00-0.20) K/uL Comprehensive Metabolic Panel 11/18/23 11/19/23 Range/Units 18:19 06:01 Sodium 140 137 (136-145) mmol/L Potassium 4.3 5.2 H D (3.5-5.1) mmol/L Chloride 107 106 (98-107) mmol/L Carbon Dioxide 27 25 (21-32) mmol/L BUN 27 H 26 H (6-23) mg/dl Creatinine 1.46 H 1.41 H (0.6-1.4) mg/dl Glucose 117 H 180 H (70-99(Fasting)) mg/dl Calcium 9.1 9.3 (8.6-10.3) mg/dl AST 16 (13-39) U/L ALT 15 (7-52) U/L Alkaline Phosphatase 84 (34-104) U/L Total Protein 7.1 (6.0-8.3) gm/dl Albumin 3.9 (3.4-5.0) gm/dl Intake and Output 11/18/23 11/19/23 11/19/23 22:59 06:59 14:59 Intake Total 133.633 / 133.633 Balance 133.633 / 133.633 Intake: IV 133.633 / 133.633 Heparin Sodium/Dextrose 25,000 133.633 / 133.633 units In 500 ml @ 950 UNITS/HR 19 mls/hr IV .Q24H [facility] Rx#: [id number] Other: # Unmeasured Voids 3 Weight 90.9 kg 90 kg Weight Measurement Method Built in [facility] Built in [facility]
[2023-11-19] MEDS: Heparin IV Adult Wt-Based Low-Dose *NO* INITIAL Bolus Protocol IV SCH (12:11)
--- NOTE | 2023-11-19 12:32 | Hospitalist Progress Note ---
Date of Service November 19, 2023 Assessment & Plan (1) SOB (shortness of breath): Plan: 78-year-old male with past medical history significant for hypertension, COPD mild as per patient, paroxysmal atrial fibrillation, sick sinus syndrome status post pacemaker, aneurysm of ascending aorta, history of atherosclerosis of [place] coronary artery, CKD stage III, history of DVT, GERD anxiety disorder, history of AL, presents with shortness of breath and also chest pain on exertion. Patient follows with cardiology and pulmonology with Kelsoneel[facility]. Has been following pulmonary for last 2 years for on and off shortness of breath. For past 1 to 2 years also is getting exertional chest pain. Had reported a plan for cardiac cath next week at [facility]. In the ER is oxygen sats dropped into the low 80s when he was ambulating. Shortness of breath Exertional chest pain Dyspnea likely multifactorial Per Cardiology, ER previously reported to be 45% Possible acute on chronic heart failure with reduced ejection fraction Possible ILD Serial trop was negative EKG did not show acute changes Get TTE Discussed with Metal Baler Get CT chest Will also get respiratory PCR History of COPD Remote history of smoking Continue home inhalers Will follow up Pulm eval History of paroxysmal atrial fibrillation Sick sinus syndrome S/p pacemaker History of DVT On digoxin and metoprolol On Coumadin INR was subtherapeutic on admission at 1.3 Currently on hep-warfarin bridge Monitor INR Hypertension On metoprolol and ramipril Ramipril was held on admission due to hyperkalemia Monitor History of CAD On statin, beta-joyce History of anxiety/panic disorder on citalopram DVT prophylaxis Hep-warfarin Full code I spent a total of 50 minutes coordinating, documenting and providing care for this patient excluding time spent in performance of separately billed services Admission and Anticipated Discharge Date Admission Date: November 18, 2023 Subjective Patient seen and examined. Reports increasing chest discomfort with activity, exertional dyspnea weakness and pain in quadriceps, back, biceps has been ongoing for some time. Reports intermittent vertigo recently. Patient denies any complaints this morning Physical Exam Constitutional: + well hydrated; no acute distress Eyes: PERRL, conjunctivae normal, anicteric sclerae ENMT: external ear and nose normal, oropharynx normal Respiratory: normal respiratory effort, lungs clear to auscultation Cardiovascular: Rate/Rhythm: + irregularly irregular Gastrointestinal (Abdomen): normal bowel sounds, soft, nontender, no hepatosplenomegaly Musculoskeletal: No pedal edema Neurologic: PERRL, EOMI, accommodation nl, no face palsy, no dysarthria Psychiatric: A+Ox3, euthymic affect Results & Data Results & Data Vital Signs (Past 12 Hours) Vital Signs Temp Pulse Pulse Resp BP BP Pulse Ox 11/19/23 11:44 11/19/23 08:00 36.6 C 97 H 18 136/80 95 11/19/23 03:49 36.4 C L 100 H 16 125/81 93 11/19/23 01:50 105 H 145/87 H O2 Del Method 11/19/23 11:44 Room Air 11/19/23 08:00 Room Air 11/19/23 03:49 Room Air 11/19/23 01:50 Laboratory Results Abnormal lab results 11/18/23 11/19/23 11/19/23 Range/Units 18:19 06:00 06:01 RBC 4.09 L 3.97 L (4.70-6.10) M/uL Hgb 13.8 L 13.5 L (14.0-18.0) g/dl Hct 40.0 L (42.0-52.0) % MCV 103.2 H 100.8 H (80.0-100.0) fL RDW Std Deviation 47.8 H 46.5 H (36.4-46.3) fL Lymph # (Auto) 0.75 L (1.20-3.40) K/uL [place] # (Auto) 0.07 L (0.11-0.59) K/uL PT 14.0 H 13.4 H (9.0-12.0) Seconds INR 1.3 H 1.3 H (0.9-1.1) Heparin Anti-Xa, Unfract 0.28 L (0.3-0.7) IU/ml Potassium 5.2 H D (3.5-5.1) mmol/L BUN 27 H 26 H (6-23) mg/dl Creatinine 1.46 H 1.41 H (0.6-1.4) mg/dl Glucose 117 H 180 H (70-99(Fasting)) mg/dl B-Natriuretic Peptide 308 H (0-100) pg/ml
[2023-11-19] MEDS: FUROSEMIDE 40 MG/4 ML VIAL IV ONE (15:04)
[2023-11-19] MEDS: DIGOXIN 0.125 MG TAB PO SCH (15:05)
[2023-11-19 15:29] LABS: ANTI-Xa, UFH(UnfractionatedHep 0.41 IU/ml (0.3-0.7)
[2023-11-19 15:31] LABS: Adenovirus PCR Not Detected (NotDetected); Bordetella parapertussis PCR Not Detected (NotDetected); Bordetella pertussis PCR Not Detected (NotDetected); Chlamydia pneumoniae PCR Not Detected (NotDetected); Coronavirus 229E PCR Not Detected (NotDetected); Coronavirus CoV-2 (COVID19)PCR Not Detected (NotDetected); Coronavirus HKU1 PCR Not Detected (NotDetected); Coronavirus NL63 PCR Not Detected (NotDetected); Coronavirus OC43PCR Not Detected (NotDetected); Human Metapneumovirus PCR Not Detected (NotDetected); Influenza A PCR Not Detected (NotDetected); Influenza B PCR Not Detected (NotDetected); Mycoplasma pneumoniae PCR Not Detected (NotDetected); Parainfluenza Virus 1 PCR Not Detected (NotDetected); Parainfluenza Virus 2 PCR Not Detected (NotDetected); Parainfluenza Virus 3 PCR Not Detected (NotDetected); Parainfluenza Virus 4 PCR Not Detected (NotDetected); Respiratory Syncytial VirusPCR Not Detected (NotDetected); Rhinovirus/Enterovirus PCR Not Detected (NotDetected)
--- NOTE | 2023-11-19 16:15 | CT Scan Report ---
CT SCAN OF THE CHEST WITHOUT IV CONTRAST CLINICAL HISTORY: Atypical chest pain. COMPARISON STUDY: Chest x-ray dated 11/18/2023. TECHNIQUE: CT scan of the thorax was performed from the thoracic inlet to the upper abdomen. Images are reviewed in the axial, sagittal, and coronal planes. IV contrast was not administered for this ex amination as per the referring clinician. A dose lowering technique was utilized adhering to the [facility] of [place]. CT DOSE: 454.19 mGy.cm FINDINGS: Thyroid: Imaged portions of the thyroid gland are normal in size and attenuation. Thoracic aorta: The thoracic aorta is normal in caliber and demonstrates bovine variant arch anatomy. Heart: A pacemaker is seen in the left chest wall. The heart is enlarged and without pericardial effu cindy. The coronary arteries are densely calcified. Lungs and pleural spaces: There is no airspace consolidation typical for pneumonia or pleural effusio n. The trachea and central airways are clear. Subpleural reticulation is seen throughout both lungs w ith a lower lobe predominance. There is subpleural scarring/fibrosis, again with a lower lobe predomi nance. There is mild traction bronchiectasis. No honeycombing is seen. There are punctate calcified g ranulomas. Mediastinum: Subcentimeter mediastinal lymph nodes are not pathologically enlarged by size criteria. Pili: Not well assessed without IV contrast. Axillae: There is no axillary lymphadenopathy. Upper abdomen: Cholecystectomy clips are noted. Partially visualized upper abdominal viscera is other saenz within normal limits. Skeletal structures: The skeletal structures are osteopenic. Degenerative change is noted in the shou lders and spine. No lytic or blastic bony lesions are seen. IMPRESSION: 1. There is no airspace consolidation typical for pneumonia or pleural effusion. 2. Cardiomegaly and cardiac pacemaker. 3. Findings of chronic interstitial/fibrotic lung disease as above, likely with a nonspecific interst itial pneumonitis (NSIP) pattern. 4. Prominent mediastinal lymph nodes are likely related to chronic lung disease. 5. Additional findings as above. ACT 112: Negative or not required by law. Electronically signed by: Ryan Fay M.D. 11/19/2023 4:13 PM
[2023-11-19] MEDS: MONTELUKAST SODIUM 10 MG TABLET PO SCH (20:12)
[2023-11-19] MEDS: METOPROLOL SUCC 50MG EXT REL TAB PO SCH (20:12)
[2023-11-19] MEDS: ATORVASTATIN 10 MG TAB PO SCH (20:12)
[2023-11-19] MEDS ORDERED: METOPROLOL TARTRATE 25 MG TAB PO SCH (21:00)
[2023-11-20 07:01] LABS: Hematocrit (blood only) 43.4 % (42.0-52.0); Hemoglobin 14.5 g/dl (14.0-18.0); Mean Corpuscular Hgb Conc 33.4 g/dL (32.0-36.0); Mean Corpuscular Volume 101.9 fL (80.0-100.0); Platelet Count 199 K/uL (130-400); RDW Standard Deviation 47.3 fL (36.4-46.3); Red Blood Count 4.26 M/uL (4.70-6.10); White Blood Count 9.07 K/ul (4.8-10.8)
[2023-11-20 07:13] LABS: Anion Gap 8 (3-11); Blood Urea Nitrogen 33 mg/dl (6-23); C Reactive Protein < 0.50 mg/dl (0-0.5); Calcium 9.4 mg/dl (8.6-10.3); Carbon Dioxide 29 mmol/L (21-32); Chloride 101 mmol/L (98-107); Est GFR (African American) 44.8 ml/min; Est GFR (Non-African American) 38.6 ml/min; Glucose 97 mg/dl (70-99(Fasting)); Magnesium 2.2 mg/dl (1.7-2.4); Potassium 4.3 mmol/L (3.5-5.1); Sodium 138 mmol/L (136-145)
--- NOTE | 2023-11-20 07:27 | Electrocardiogram Report ---
Test Reason : Blood Pressure : / mmHG Vent. Rate : 069 BPM Atrial Rate : 080 BPM P-R Int : 000 ms QRS Dur : 094 ms QT Int : 418 ms P-R-T Axes : 000 011 -06 degrees QTc Int : 447 ms Atrial fibrillation Low voltage QRS Incomplete right bundle branch block Possible Inferior infarct , age undetermined Nonspecific ST abnormality Abnormal ECG When compared with ECG of 18-NOV-2023 18:28, Borderline criteria for Inferior infarct are now Present Confirmed by Aryan Flannery ([id number]) on 11/20/2023 7:26:34 AM Referred By: REFERRED SELF Confirmed By:Juan Flannery
[2023-11-20 07:35] LABS: ANTI-Xa, UFH(UnfractionatedHep 0.41 IU/ml (0.3-0.7); INR 1.4 (0.9-1.1); Prothrombin Time 15.2 Seconds (9.0-12.0)
--- NOTE | 2023-11-20 10:48 | Hospitalist Progress Note ---
Date of Service November 20, 2023 Assessment & Plan (1) SOB (shortness of breath): Plan: 78-year-old male with past medical history significant for hypertension, COPD mild as per patient, paroxysmal atrial fibrillation, sick sinus syndrome status post pacemaker, aneurysm of ascending aorta, history of atherosclerosis of [place] coronary artery, CKD stage III, history of DVT, GERD anxiety disorder, history of [place], presents with shortness of breath and also chest pain on exertion. Patient follows with cardiology and pulmonology with [facility]. Has been following pulmonary for last 2 years for on and off shortness of breath. For past 1 to 2 years also is getting exertional chest pain. Had reported a plan for cardiac cath next week at [facility]. In the ER is oxygen sats dropped into the low 80s when he was ambulating. Shortness of breath Exertional chest pain Dyspnea likely multifactorial Per Cardiology, ER previously reported to be 45%. However TTE 11/18 showed EF of 50-55%, mod dil RV, normal RV systolic function, PASP 45mmHg CT chest noted findings of chronic interstitial/fibrotic lung disease Possible acute on chronic heart failure with preserved ejection fraction Interstitial lung disease Serial trop was negative EKG did not show acute changes Cardiology planning cardiac cath Keep NPO PMN for cardiac cath Get CT head in view of complaints today History of COPD Remote history of smoking Continue home inhalers Will follow up Pulm eval History of paroxysmal atrial fibrillation Sick sinus syndrome S/p pacemaker History of DVT On digoxin and metoprolol On Coumadin INR was subtherapeutic on admission at 1.3 Currently on heparin drip Warfarin on hold for cath Hypertension On metoprolol and ramipril Ramipril was held on admission due to hyperkalemia Monitor History of CAD On statin, beta-joyce History of anxiety/panic disorder on citalopram DVT prophylaxis Hep gtt. Warfarin on hold as above Full code I spent a total of 50 minutes coordinating, documenting and providing care for this patient excluding time spent in performance of separately billed services Admission and Anticipated Discharge Date Admission Date: November 18, 2023 Subjective Patient seen and examined. Denied any chest pain today Reported a few secs of "dizziness' but also said it didnt feel like dizziness but different from his vertigo Reports shortness of breath with exertion improved Patient denies any other new complaints on ROS Physical Exam Constitutional: + well hydrated; no acute distress Eyes: PERRL, conjunctivae normal, anicteric sclerae ENMT: external ear and nose normal, oropharynx normal Respiratory: normal respiratory effort; no respiratory distress Diminished breath sounds, +crackles Cardiovascular: Rate/Rhythm: + irregularly irregular S1 S2 Gastrointestinal (Abdomen): normal bowel sounds, soft, nontender, no hepatosplenomegaly Musculoskeletal: No pedal edema Neurologic: PERRL, EOMI, accommodation nl, no face palsy, no dysarthria Psychiatric: A+Ox3, euthymic affect Results & Data Results & Data Vital Signs (Past 12 Hours) Vital Signs Temp Pulse Pulse Resp BP Pulse Ox O2 Del Method 11/20/23 08:00 36.6 C 87 18 110/77 94 Room Air 11/20/23 03:01 36.7 C 76 18 111/70 93 Room Air 11/19/23 23:41 93 H Laboratory Results Abnormal lab results 11/20/23 Range/Units 06:25 RBC 4.26 L (4.70-6.10) M/uL MCV 101.9 H (80.0-100.0) fL RDW Std Deviation 47.3 H (36.4-46.3) fL ESR 29 H (0-20) mm/hr PT 15.2 H (9.0-12.0) Seconds INR 1.4 H (0.9-1.1) BUN 33 H (6-23) mg/dl Creatinine 1.65 H (0.6-1.4) mg/dl
--- NOTE | 2023-11-20 10:49 | Pulmonology Progress Note ---
Date of Service November 20, 2023 Assessment & Plan (1) ILD (interstitial lung disease): (2) Acute respiratory failure with hypoxia: (3) Abnormal chest CT: Plan Chest x-ray 11/18/2023 personally reviewed: Portable film, inspiratory effort, increased reticular markings appreciated bilaterally especially in the periphery, increased cardiac silhouette, no clear lung infiltrate appreciated CT chest 11/19/2023 personally reviewed: Increased reticular markings appreciated bilaterally upper and lower lobes more in the lower lobes Early honeycombing in the lower lobes Mild traction bronchiectasis No significant mediastinal lymphadenopathy 2D echo 11/19/2023: EF 50-55%, PASP 45 mmHg, RV moderately dilated, RV systolic function is normal -- Acute hypoxic respiratory failure Patient is back to room air at rest BNP [address] chest shows increased interlobular markings, physical exam shows Velcro-like crackles bilaterally I think we are dealing with ILD. 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 Would recommend to transition to DOACs if possible Plan: Follow-up autoimmune workup Recommend outpatient pulmonary function tests lung volumes if not already done Patient will need to be checked for oxygen on exertion prior to discharge Case was discussed with primary team Please note the above document was generated using voice recognition software. It may contain grammatical, syntax or spelling errors.Any formal questions or concerns about the content, text or information contained within the body of this dictation should be directly addressed to the provider for clarification. Admission and Anticipated Discharge Date Admission Date: November 18, 2023 Subjective Patient seen and examined at bedside. No acute distress, no adverse events overnight. Patient was saturating 94% on room air. Denies any chest pain. Shortness of breath is improved Denies any headache or blurry vision Has been urinating well. Review of Systems 2 Review of Systems: All systems reviewed & are unremarkable except as noted in Subjective Physical Exam 2 Physical Exam: Constitutional: No acute distress HEENT: EOMI, PERRLA Respiratory system: Decreased air entry bilaterally, no wheeze, no rhonchi, positive Velcro-like crackles appreciated bilaterally CVS: S1-S2 positive, no murmurs or gallops Abdomen: Soft, nontender, nondistended, positive bowel sounds x4 Extremities: +2 pulses bilaterally radialis/ dorsalis pedis, no cyanosis, no edema Neuro: Awake alert oriented x3 Psych: Normal mood and affect G/U: No Jones Skin: no rashes, warm and dry Lymphatic: no cervical or axillary lymphadenopathy Results & Data Results & Data Vital Signs (Past 12 Hours) Vital Signs Temp Pulse Pulse Resp BP Pulse Ox O2 Del Method 11/20/23 08:00 36.6 C 87 18 110/77 94 Room Air 11/20/23 03:01 36.7 C 76 18 111/70 93 Room Air 11/19/23 23:41 93 H Laboratory Results 11/20/23 06:25 11/20/23 06:25 PG Care Time/CCT Total # of Minutes Spent Total Time Spent with Patient: Total time spent is greater than 50% in coordination of care (as documented) at patient's floor/unit and/or counseling patient: Coding Level of Care Code 81141 SUB INP/OBS CARE 3/50MIN Diagnoses ILD (interstitial lung disease) J84.9 Acute respiratory failure with hypoxia J96.[address] R93.89
--- NOTE | 2023-11-20 13:52 | Cardiology Progress Note ---
Date of Service November 20, 2023 Assessment & Plan (1) Exertional dyspnea: (2) SOB (shortness of breath): (3) Hypoxia: (4) ASCVD (arteriosclerotic cardiovascular disease): (5) Chronic atrial fibrillation: (6) Tachy-nicol syndrome: (7) Cardiac pacemaker in situ: Plan Acute on chronic dyspnea, multifactorial in etiology. NYHA Class III+. EF previously reported to be 45%. TTE on November 19, 2023 with EF 50 to 55%, moderately dilated RV, normal RV systolic function, estimated PASP 45 mmHg. Volume status: Normovolemic to mildly hypovolemic. + Interstitial lung disease. Chest discomfort. EKG without acute change. High-sensitivity troponin negative. Chest CT with extensive coronary atherosclerosis in the LAD. Patient requests completion of diagnostic cardiac catheterization (currently scheduled to be performed at [facility] in [place] with Dr. Arias on Wednesday, November 22, 2023) while here at [facility]. Increase oral intake advised today. NPO after midnight. Permanent atrial fibrillation. Rates controlled. Metoprolol tartrate changed to metoprolol succinate, dosage increased slightly to 100 mg/day. Continue IV heparin. Coumadin on hold. Consider transition to Eliquis anticoagulation down the road. Tachy-Nicol Syndrome. Status post pacemaker implantation ([place]/Fonseca device). Device interrogation on 11/19/2023 revealed a single chamber pacemaker that was functioning appropriately, [employer] 15%. Hypertension. Blood pressure acceptably controlled. Dyslipidemia. Recommend targeting an optimal LDL cholesterol of less than 70 mg/dL. Continue statin. I spent a total of 30 minutes on the date of service in preparation, delivery, and documentation of the care provided to this patient excluding any time spent in the performance of separately billed services. This visit was a split-shared visit with the substantive portion of the medical decision making performed by the supervising loan analyst/billing provider. Admission and Anticipated Discharge Date Admission Date: November 18, 2023 Supervising Physician Co-Signing Physician Notes I have reviewed the advanced practitioner's documentation on the date of service referenced in note, and I agree with, and take responsibility for the plan of care. 78-year-old male with known history of chronic atrial fibrillation, tachybradycardia syndrome post pacemaker presenting with exertional shortness of breath , COPD interstitial lung disease echocardiogram right heart dilatation with normal function. Patient want to transition care from [facility] to [facility] cardiology Patient had his scheduled cardiac catheter next week at [place] would like it to be performed here. I spent a total of [10] minutes coordinating, documenting, and providing care for this patient excluding time spent in the performance of separately billed services or time spent by another provider. Subjective Patient seen and examined. Chart, medications, telemetry reviewed. Overall, feeling better. Did have brief episode of lightheadedness with quick positional change lasting 3 to 5 seconds earlier this morning. No chest pain. No palpitations. Telemetry: Atrial fibrillation, rate controlled, rare ventricular pacing Review of Systems Review of Systems: Complete Review of Systems is as stated above, negative, or noncontributory. Physical Exam Physical Exam: General: A&Ox3. NAD. HENT: Normocephalic. Atraumatic. Eyes: PER. Conjunctiva pink, sclera clear. Neck: No JVD. No HJR. Heart: Irregularly irregular at 90 bpm. No murmur. No rub. Lungs: Dry bibasilar crackles, velco-like. No wheeze. Abdomen: +BS. Soft. Nontender. No masses or organomegaly. Extremities: Minimal edema, lymphedematous changes, varicosities. No clubbing. No cyanosis Limited neurological examination is without focal deficits. Pulses: radial=2/4, posterior tibial=2/4. Results & Data Vital Signs (Past 12 Hours) Vital Signs Temp Pulse Resp BP Pulse Ox O2 Del Method 11/20/23 11:56 36.7 C 79 20 115/61 97 Room Air 11/20/23 08:00 36.6 C 87 18 110/77 94 Room Air 11/20/23 03:01 36.7 C 76 18 111/70 93 Room Air Laboratory Results Cardiac Enzymes 11/19/23 Range/Units 17:14 Troponin I High Sens 6.6 (0-20) pg/ml Coagulation 11/20/23 Range/Units 06:25 PT 15.2 H (9.0-12.0) Seconds CBC 11/20/23 Range/Units 06:25 WBC 9.07 (4.8-10.8) K/ul RBC 4.26 L (4.70-6.10) M/uL Hgb 14.5 (14.0-18.0) g/dl Hct 43.4 (42.0-52.0) % Plt Count 199 (130-400) K/uL Comprehensive Metabolic Panel 11/20/23 Range/Units 06:25 Sodium 138 (136-145) mmol/L Potassium 4.3 (3.5-5.1) mmol/L Chloride 101 (98-107) mmol/L Carbon Dioxide 29 (21-32) mmol/L BUN 33 H (6-23) mg/dl Creatinine 1.65 H (0.6-1.4) mg/dl Glucose 97 (70-99(Fasting)) mg/dl Calcium 9.4 (8.6-10.3) mg/dl Intake and Output 11/19/23 11/20/23 11/20/23 22:59 06:59 14:59 Intake Total 375 / 955.483 446.85 / 955.483 Balance 375 / 955.483 446.85 / 955.483 Intake: IV 346.85 / 480.483 Heparin Sodium/Dextrose 25,000 346.85 / 480.483 units In 500 ml @ 1,050 UNITS/ HR 21 mls/hr IV .[id number] [facility] Rx #:[id number] Oral 375 / 475 100 / 475 Other: # Unmeasured Voids 2 2 Weight 88.7 kg Weight Measurement Method Built in [facility]
--- NOTE | 2023-11-20 15:02 | CT Scan Report ---
CT SCAN OF THE BRAIN WITHOUT IV CONTRAST CLINICAL HISTORY: Dizziness. COMPARISON STUDY: No priors. TECHNIQUE: Unenhanced axial CT scan of the brain is performed from the vertex to the skull base. A do se lowering technique was utilized adhering to the principles of ALARA. CT DOSE: 625.8 mGy.cm FINDINGS: Brain parenchyma: There is age-related involutional change noting mild subcortical and periventricula r microangiopathic disease. There is no hemorrhage, mass effect, or evidence of acute territorial isc hemia by CT criteria. Espinal-white matter differentiation is preserved. No extra-axial fluid collection is seen. Ventricles, sulci, cisterns: Prominent secondary to involutional change. Cavum septum pellucidum is i ncidentally noted. Intracranial vasculature: There is atherosclerotic calcification of the cavernous carotid artery. Calvarium: Unremarkable. Sinuses and mastoids: The visualized paranasal sinuses are clear. The mastoid air cells are well pneu matized. Orbits: The bony orbits are grossly intact. There are bilateral ocular lens implants. IMPRESSION: There is no hemorrhage, mass effect, or evidence of acute territorial ischemia by CT jim dacosta. ACT 112: Negative or not required by law. Electronically signed by: Ryan Fay M.D. 11/20/2023 3:00 PM
[2023-11-21 07:18] LABS: Hematocrit (blood only) 40.1 % (42.0-52.0); Hemoglobin 13.5 g/dl (14.0-18.0); Mean Corpuscular Hemoglobin 34.2 pg (25.0-34.0); Mean Corpuscular Hgb Conc 33.7 g/dL (32.0-36.0); Mean Corpuscular Volume 101.5 fL (80.0-100.0); Mean Platelet Volume 9.9 fL (9.4-12.4); Platelet Count 180 K/uL (130-400); RDW Coefficient of Variation 12.7 % (11.5-14.5); RDW Standard Deviation 47.6 fL (36.4-46.3); Red Blood Count 3.95 M/uL (4.70-6.10); White Blood Count 6.66 K/ul (4.8-10.8)
[2023-11-21 07:38] LABS: BUN Creatinine Ratio 17.3 (10-20); Calcium 9.1 mg/dl (8.6-10.3); Est GFR (African American) 40.6 ml/min; Magnesium 2.3 mg/dl (1.7-2.4); Phosphorus 3.7 mg/dl (2.5-4.9); Potassium 4.7 mmol/L (3.5-5.1)
[2023-11-21 07:41] LABS: ANTI-Xa, UFH(UnfractionatedHep 0.33 IU/ml (0.3-0.7); INR 1.2 (0.9-1.1); Prothrombin Time 13.1 Seconds (9.0-12.0)
--- NOTE | 2023-11-21 09:02 | Pulmonology Progress Note ---
Date of Service November 21, 2023 Assessment & Plan (1) ILD (interstitial lung disease): (2) Acute respiratory failure with hypoxia: (3) Abnormal chest CT: Plan Chest x-ray 11/18/2023 personally reviewed: Portable film, inspiratory effort, increased reticular markings appreciated bilaterally especially in the periphery, increased cardiac silhouette, no clear lung infiltrate appreciated CT chest 11/19/2023 personally reviewed: Increased reticular markings appreciated bilaterally upper and lower lobes more in the lower lobes Early honeycombing in the lower lobes Mild traction bronchiectasis No significant mediastinal lymphadenopathy 2D echo 11/19/2023: EF 50-55%, PASP 45 mmHg, RV moderately dilated, RV systolic function is normal -- Acute hypoxic respiratory failure Patient is back to room air at rest BNP [address] chest shows increased interlobular markings, physical exam shows Velcro-like crackles bilaterally I think we are dealing with ILD. 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 Would recommend to transition to DOACs if possible Plan: Follow-up autoimmune workup Recommend outpatient pulmonary function tests lung volumes if not already done Patient will need to be checked for oxygen on exertion prior to discharge Case was discussed with primary team No further recommendation from pulmonary perspective, will sign off Please call directly with any questions Please note the above document was generated using voice recognition software. It may contain grammatical, syntax or spelling errors.Any formal questions or concerns about the content, text or information contained within the body of this dictation should be directly addressed to the provider for clarification. Admission and Anticipated Discharge Date Admission Date: November 18, 2023 Subjective Patient seen and examined at bedside. No acute distress, no adverse events overnight He was saturating 96-97% on 1 and half liters oxygen He did complain of dizziness today when he was standing up and trying to clean up. No chest pain or palpitation associated with it Denied any nausea or vomiting Has been afebrile Is n.p.o. for possible procedure today Review of Systems 2 Review of Systems: All systems reviewed & are unremarkable except as noted in Subjective Physical Exam 2 Physical Exam: Constitutional: No acute distress HEENT: EOMI, PERRLA Respiratory system: Decreased air entry bilaterally, no wheeze, no rhonchi, positive Velcro-like crackles appreciated bilaterally CVS: S1-S2 positive, no murmurs or gallops Abdomen: Soft, nontender, nondistended, positive bowel sounds x4 Extremities: +2 pulses bilaterally radialis/ dorsalis pedis, no cyanosis, no edema Neuro: Awake alert oriented x3 Psych: Normal mood and affect G/U: No Jones Skin: no rashes, warm and dry Lymphatic: no cervical or axillary lymphadenopathy Results & Data Results & Data Vital Signs (Past 12 Hours) Vital Signs Temp Pulse Pulse Resp BP Pulse Ox O2 Del Method 11/21/23 07:50 36.3 C L 66 18 111/76 95 Room Air 11/21/23 03:47 36.4 C L 68 17 108/72 91 Room Air 11/20/23 23:54 36.5 C 73 19 115/78 94 Room Air 11/20/23 22:17 75 Laboratory Results 11/21/23 06:39 11/21/23 06:39 PG Care Time/CCT Total # of Minutes Spent Total Time Spent with Patient: Total time spent is greater than 50% in coordination of care (as documented) at patient's floor/unit and/or counseling patient: Coding Level of Care Code 01077 SUB INP/OBS CARE 2/35MIN Diagnoses ILD (interstitial lung disease) J84.9 Acute respiratory failure with hypoxia J96.[address] R93.89
--- NOTE | 2023-11-21 10:52 | Hospitalist Progress Note ---
Date of Service November 21, 2023 Assessment & Plan (1) SOB (shortness of breath): Plan: 78-year-old male with past medical history significant for hypertension, COPD mild as per patient, paroxysmal atrial fibrillation, sick sinus syndrome status post pacemaker, aneurysm of ascending aorta, history of atherosclerosis of [place] coronary artery, CKD stage III, history of DVT, GERD anxiety disorder, history of [place], presents with shortness of breath and also chest pain on exertion. Patient follows with cardiology and pulmonology with [facility]. Has been following pulmonary for last 2 years for on and off shortness of breath. For past 1 to 2 years also is getting exertional chest pain. Had reported a plan for cardiac cath next week at [facility]. In the ER is oxygen sats dropped into the low 80s when he was ambulating. Shortness of breath Exertional chest pain Dyspnea likely multifactorial Per Cardiology, ER previously reported to be 45%. However TTE 11/18 showed EF of 50-55%, mod dil RV, normal RV systolic function, PASP 45mmHg CT chest noted findings of chronic interstitial/fibrotic lung disease CT head did not show any acute abnormalities Possible acute on chronic heart failure with preserved ejection fraction Interstitial lung disease Serial trop was negative EKG did not show acute changes Cardiology planning cardiac cath today Currently NPO Will get 2 step prior to dc History of COPD Remote history of smoking Continue home inhalers Will follow up Pulm outpatient History of paroxysmal atrial fibrillation Sick sinus syndrome S/p pacemaker History of DVT On digoxin and metoprolol Was on warfarin at home INR was subtherapeutic on admission at 1.3 Currently on heparin drip Warfarin on hold for cath CKD3 Cr is 1.79 Monitor Avoid nephrotoxins Nephro consulted Hypertension On metoprolol and ramipril at home Ramipril was held on admission due to hyperkalemia Monitor History of CAD On statin, beta-joyce History of anxiety/panic disorder on citalopram DVT prophylaxis Hep gtt. Warfarin on hold as above Full code I spent a total of 45 minutes coordinating, documenting and providing care for this patient excluding time spent in performance of separately billed services Admission and Anticipated Discharge Date Admission Date: November 18, 2023 Subjective Patient seen and examined. Reported some dizziness earlier this AM RN reported ox desaturated with activity and he was put on nasal cannula Patient denies any other new complaints on ROS Physical Exam Constitutional: + well hydrated; no acute distress Eyes: PERRL, conjunctivae normal, anicteric sclerae ENMT: external ear and nose normal, oropharynx normal Respiratory: normal respiratory effort; no respiratory distress Diminished breath sounds.+crackles Cardiovascular: Rate/Rhythm: + irregularly irregular S1 S2 Gastrointestinal (Abdomen): normal bowel sounds, soft, nontender, no hepatosplenomegaly Musculoskeletal: No pedal edema Neurologic: PERRL, EOMI, accommodation nl, no face palsy, no dysarthria Psychiatric: A+Ox3, euthymic affect Results & Data Results & Data Vital Signs (Past 12 Hours) Vital Signs Temp Pulse Resp BP Pulse Ox O2 Del Method 11/21/23 09:29 86 105/69 11/21/23 07:50 36.3 C L 66 18 111/76 95 Room Air 11/21/23 03:47 36.4 C L 68 17 108/72 91 Room Air 11/20/23 23:54 36.5 C 73 19 115/78 94 Room Air Laboratory Results Abnormal lab results 11/21/23 Range/Units 06:39 RBC 3.95 L (4.70-6.10) M/uL Hgb 13.5 L (14.0-18.0) g/dl Hct 40.1 L (42.0-52.0) % MCV 101.5 H (80.0-100.0) fL MCH 34.2 H (25.0-34.0) pg RDW Std Deviation 47.6 H (36.4-46.3) fL PT 13.1 H (9.0-12.0) Seconds INR 1.2 H (0.9-1.1) BUN 31 H (6-23) mg/dl Creatinine 1.79 H (0.6-1.4) mg/dl
--- NOTE | 2023-11-21 14:29 | Cardiology Progress Note ---
Date of Service November 21, 2023 Assessment & Plan (1) Exertional dyspnea: (2) SOB (shortness of breath): (3) Hypoxia: (4) ASCVD (arteriosclerotic cardiovascular disease): (5) Chronic atrial fibrillation: (6) Tachy-nicol syndrome: (7) Cardiac pacemaker in situ: Plan Acute on chronic dyspnea, multifactorial in etiology. NYHA Class III+. EF previously reported to be 45%. TTE on November 19, 2023 with EF 50 to 55%, moderately dilated RV, normal RV systolic function, estimated PASP 45 mmHg. Volume status: Normovolemic to mildly hypovolemic. + Interstitial lung disease. Chest discomfort. EKG without acute change. High-sensitivity troponin negative. Chest CT with extensive coronary atherosclerosis in the LAD. Patient requests completion of diagnostic cardiac catheterization (currently scheduled to be performed at [facility] in [place] with Dr. Arias on Wednesday, November 22, 2023) while here at [facility]. Increase oral intake advised today. NPO after midnight. Permanent atrial fibrillation. Rates controlled. Metoprolol tartrate changed to metoprolol succinate, dosage increased slightly to 100 mg/day. Continue IV heparin. Coumadin on hold. Consider transition to Eliquis anticoagulation down the road. Tachy-Nicol Syndrome. Status post pacemaker implantation ([employer] [place]/Fonseca device). 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 Hypertension. Blood pressure acceptably controlled. Dyslipidemia. Recommend targeting an optimal LDL cholesterol of less than 70 mg/dL. Continue statin. 11/21/2023: Patient resting in bed at this time. VS stable. reports ongoing weakness, but resolution of dizziness that he experienced while washing up. Review of telemetry demonstrates no acute changes. As noted above, patient is slated to undergo a diagnostic cardiac cath as part of an ischemic workup. He Cr has worsened today (1.8), we will consult nephrology for additional input. Plan to refrain from cardiac cath today, patient may eat. Will give NSS 80ml/hour x1 liter and reassess renal function in the AM. BP stable. Goal serum K> 4.0 and serum mag > 2.0. Continue Toprol xl, Enalapril as part of HF regimen. Continue Digoxin and Toprol xl for permanent Atrial fibrillation Continue Heparin gtt at this time. NPO after midnight for possible cardiac cath in the AM Case has been discussed with Dr. Alcala. Further recommendations regarding plan of care as per his assessment. I spent a total of 30 minutes on the date of service in preparation, delivery, documentation of the care provided to the patient excluding any time spent in the performance of separately billed services. RONALDO Willams [facility] Admission and Anticipated Discharge Date Admission Date: November 18, 2023 Supervising Physician Co-Signing Physician Notes I have personally performed a history and physical examination on the patient. I have reviewed the advance practitioner's documentation, and I agree with, and take responsibility for the plan of care. 78-year-old male admitted with shortness of breath and diagnosis of interstitial lung disease. Worsening renal function noted this a.m. likely due to volume depletion. Recommend gentle IV hydration. Cardiac catheterization scheduled as part of workup for dyspnea with evidence of coronary, LAD calcifications per CT.. Patient ate this afternoon. N.p.o. except medications after midnight. Pending review of a.m. labs, consider proceeding with cardiac catheterization in a.m. 11/22/2023. I spent a total of 20 minutes on the date of service in preparation, delivery, and documentation of the care provided to this patient, excluding any time spent in the performance of separately billed services. Subjective 11/21/23: Patient seen and examined in follow up today. Feeling "fair" today. He states that he was up washing up today when he felt some dizziness and sudden weakness. Labs, vitals, diagnostics, telemetry and documentation reviewed. Telemetry reviewed showing A-fib rate 60-80's. Presence of a pacemaker. No acute events overnight. No chest pain, pressure or palpitations, no breathing concerns. Review of Systems Review of Systems: All systems reviewed & are unremarkable except as noted in HPI & below Physical Exam Constitutional: well developed and well nourished; no acute distress and not ill appearing Neck: normal visual inspection and trachea midline Respiratory: normal respiratory effort, lungs clear to auscultation Auscultation: no crackles, no rales, no rhonchi and no wheezes Cardiovascular: Rate/Rhythm: + irregularly irregular Heart Sounds: normal S1 and normal S2; no murmur Vessels: no JVD Extremities: no edema Skin: no rashes, warm and dry Psychiatric: A+Ox3, euthymic affect Results & Data Vital Signs (Past 12 Hours) Vital Signs Temp Pulse Resp BP Pulse Ox O2 Del Method O2 Flow Rate 11/21/23 10:56 36.4 C L 75 18 107/72 97 Nasal Cannula 1.5 11/21/23 09:29 86 105/69 11/21/23 07:50 36.3 C L 66 18 111/76 95 Room Air 11/21/23 03:47 36.4 C L 68 17 108/72 91 Room Air Laboratory Results Coagulation 11/21/23 Range/Units 06:39 PT 13.1 H (9.0-12.0) Seconds CBC 11/21/23 Range/Units 06:39 WBC 6.66 (4.8-10.8) K/ul RBC 3.95 L (4.70-6.10) M/uL Hgb 13.5 L (14.0-18.0) g/dl Hct 40.1 L (42.0-52.0) % Plt Count 180 (130-400) K/uL Comprehensive Metabolic Panel 11/21/23 Range/Units 06:39 Sodium 138 (136-145) mmol/L Potassium 4.7 (3.5-5.1) mmol/L Chloride 103 (98-107) mmol/L Carbon Dioxide 31 (21-32) mmol/L BUN 31 H (6-23) mg/dl Creatinine 1.79 H (0.6-1.4) mg/dl Glucose 99 (70-99(Fasting)) mg/dl Calcium 9.1 (8.6-10.3) mg/dl Intake and Output 11/20/23 11/21/23 11/21/23 22:59 06:59 14:59 Intake Total 401.1 / 1223.15 92.05 / 1223.15 188.65 / 188.65 Balance 401.1 / 1223.15 92.05 / 1223.15 188.65 / 188.65 Intake: IV 401.1 / 493.15 92.05 / 493.15 188.65 / 188.65 Heparin Sodium/Dextrose 25,000 401.1 / 493.15 92.05 / 493.15 188.65 / 188.65 units In 500 ml @ 1,050 UNITS/ HR 21 mls/hr IV .[id number] [facility] Rx #:[id number] Other: Other Intake Source NPO NPO # Unmeasured Voids 2 Weight 89.1 kg Weight Measurement Method Built in [facility]
[2023-11-21] MEDS: SODIUM CHLORIDE 0.9% 1,000 ML IV ONE (15:20)
--- NOTE | 2023-11-21 15:20 | Nephrology Consultation ---
Date of Consultation November 21, 2023 Assessment & Plan (1) AGNIESZKA (acute kidney injury): AGNIESZKA with creat rise last few days. baseline 1.6 and currently 1.8 so Acute part is minimal. getting cardiac cath tomorrow and is now getting gentle hydration. 1 liter of NS is enough and no need of more. if there is a big rise in creat may have to postpone Cath as we dont want to do when creat is rising daily. Avoid Contrast, NSAIDS. Agree with holding Entresto for at east next 2 days. BP is somewhat low also. Daily labs. there is some risk of contrast nephropathy but there is risk of not doing Cardiac cath also. (2) Acute respiratory failure with hypoxia: Now better and on 1liter only (3) ILD (interstitial lung disease): Likely from ILD (4) Abnormal chest CT: Plan time spent 47 mins History of Present Illness Reason for Consultation: AGNIESZKA on CKD Attending Physician: Kalyani Tillman MD History of Present Illness 78/M with pr existing CKD 3 ( baseline creat last 2 years from 1.5 to 2.1 but mostly 1.6) . Also has hypertension, COPD, paroxysmal atrial fibrillation, sick sinus syndrome status post pacemaker, aneurysm of ascending aorta, history of atherosclerosis of [place] coronary artery, history of DVT, GERD anxiety disord er, history of [place] who presents with shortness of breath and chest pain on exertion. Patient states He follows with cardiology and pulmonology with [facility]. he came to hospital after shortness of breath got worse. he is also getting chest pain on exertions. He thinks he has angina. States there was a plan for cardiac cath next week at [facility]. Since admission has been seen by cards and Pulm. thought is SOB is mostly from possible ILD. But is also getting cardiac cath likely tomorrow. He is coughing and bringing some mild yellowish phlegm. Denies any fevers. Admission creat 1.5 and then went up a bit to 1.8 today. cardiac cath planned. No lasix during admission. Now getting some NS Normal bowel and bladder movements. No swelling the legs. Currently resting comfortably. In the ER is oxygen sats dropped into the low 80s when he was ambulating but currently on 1 liter only. ROS--see HPI. Unless Stated otherwise 12 Systems reviewed and negative Physical Exam Constitutional: well developed and well nourished; no acute distress and not ill appearing Neck: normal visual inspection and trachea midline Respiratory: normal respiratory effort, lungs clear to auscultation Auscultation: no crackles, no rales, no rhonchi and no wheezes Cardiovascular: Rate/Rhythm: + irregularly irregular normal S1 and normal S2; no murmur no JVD no edema Skin: no rashes, warm and dry Psychiatric: euthymic affect Allergies Allergy/AdvReac Type Severity Reaction Status Date / Time buspirone [From BuSpar] AdvReac Severe All senses Verified 11/18/23 21:17 were shut off Home Medications Medication Instructions Recorded Confirmed Type atorvastatin 10 mg tablet 10 mg PO HS 11/18/23 11/18/23 History calcium citrate 250 mg PO DAILY 11/18/23 11/18/23 History citalopram 20 mg tablet 30 mg PO QAM 11/18/23 11/18/23 History digoxin 125 mcg (0.125 mg) tablet 125 mcg PO QAM 11/18/23 11/18/23 History fluticasone furoate 100 1 ea inhalation DAILY 11/18/23 11/18/23 History mcg-vilanterol 25 mcg/dose inhalation powder (Breo Ellipta) meclizine 25 mg tablet 25 mg PO DAILY PRN dizzyness 11/18/23 11/18/23 History metoprolol tartrate 25 mg tablet 25 mg PO QPM 11/18/23 11/18/23 History montelukast 10 mg tablet 10 mg PO HS 11/18/23 11/18/23 History multivitamin 1 tab PO DAILY 11/18/23 11/18/23 History ramipril 1.25 mg capsule 1.25 mg PO DAILY 11/18/23 11/18/23 History ranolazine 500 mg tablet,extended 500 mg PO BID 11/18/23 11/18/23 History release,12 hr warfarin 5 mg tablet 2.5 mg PO 2XWK 11/18/23 11/18/23 History warfarin 5 mg tablet 5 mg PO 5XWK 11/18/23 11/18/23 History metoprolol tartrate 50 mg tablet 50 mg PO QAM 11/19/23 11/19/23 History Patient History Medical History Atrial fibrillation Surgical History Hx laparoscopic cholecystectomy (02/23/21) Laparoscopic Cholecystectomy Dr. Mckoy 02-23-2021 History of wisdom tooth extraction H/O vein stripping Family History Other Cancer Social History Smoking Status: Never smoker Tobacco Type: Cigarettes Second Hand Exposure: No; Do You Dip or Chew Tobacco: No; Tobacco Cessation Education Requested by Patient: No Hx Alcohol Use: Yes Alcohol type: wine Alcohol Intake Frequency: 2-4 x/Month Hx Substance Use: No Preferred Language: Mexican Communication Ability: Effective Human Resources Hr Representative Required: No Beliefs That Will Affect Care: None Current Living Situation: Spouse Current Living Situation Comment: lives at home with Other Information That Helps Us Care for You: No Feels Safe at Home: Yes Safety Concerns: Feels Safe At This Time Assistive Devices: None Results & Data Vital Signs (Past 12 Hours) Vital Signs Temp Pulse Resp BP Pulse Ox O2 Del Method O2 Flow Rate 11/21/23 14:53 36.5 C 76 20 103/74 96 Nasal Cannula 1 11/21/23 10:56 36.4 C L 75 18 107/72 97 Nasal Cannula 1.5 11/21/23 09:29 86 105/69 11/21/23 08:00 Nasal Cannula 2 11/21/23 07:50 36.3 C L 66 18 111/76 95 Room Air 11/21/23 03:47 36.4 C L 68 17 108/72 91 Room Air Laboratory Results reviewed Diagnostic Findings reviewed
[2023-11-21] MEDS ORDERED: WARFARIN SOD 2.5 MG TAB PO SCH (16:00)
[2023-11-22 08:09] LABS: Hematocrit (blood only) 41.8 % (42.0-52.0); Hemoglobin 13.7 g/dl (14.0-18.0); Mean Corpuscular Hemoglobin 33.8 pg (25.0-34.0); Mean Corpuscular Hgb Conc 32.8 g/dL (32.0-36.0); Mean Corpuscular Volume 103.2 fL (80.0-100.0); Platelet Count 173 K/uL (130-400); RDW Coefficient of Variation 12.8 % (11.5-14.5); RDW Standard Deviation 48.6 fL (36.4-46.3); Red Blood Count 4.05 M/uL (4.70-6.10); White Blood Count 5.97 K/ul (4.8-10.8)
[2023-11-22 08:13] LABS: BUN Creatinine Ratio 18.2 (10-20); Calcium 8.9 mg/dl (8.6-10.3); Creatinine Clr Calc Pharmacy 36.7 ml/min; Est GFR (Non-African American) 34.5 ml/min; Potassium 5.2 mmol/L (3.5-5.1)
[2023-11-22 08:23] LABS: ANTI-Xa, UFH(UnfractionatedHep 0.44 IU/ml (0.3-0.7); INR 1.1 (0.9-1.1); Prothrombin Time 12.3 Seconds (9.0-12.0)
--- NOTE | 2023-11-22 11:59 | Hospitalist Progress Note ---
Date of Service November 22, 2023 Assessment & Plan (1) SOB (shortness of breath): Plan: 78-year-old male with past medical history significant for hypertension, COPD mild as per patient, paroxysmal atrial fibrillation, sick sinus syndrome status post pacemaker, aneurysm of ascending aorta, history of atherosclerosis of [place] coronary artery, CKD stage III, history of DVT, GERD anxiety disorder, history of [place], presents with shortness of breath and also chest pain on exertion. Patient follows with cardiology and pulmonology with [facility]. Has been following pulmonary for last 2 years for on and off shortness of breath. For past 1 to 2 years also is getting exertional chest pain. Had reported a plan for cardiac cath next week at [facility]. In the ER is oxygen sats dropped into the low 80s when he was ambulating. Shortness of breath Exertional chest pain Dyspnea likely multifactorial Per Cardiology, ER previously reported to be 45%. However TTE 11/18 showed EF of 50-55%, mod dil RV, normal RV systolic function, PASP 45mmHg CT chest noted findings of chronic interstitial/fibrotic lung disease CT head did not show any acute abnormalities Possible acute on chronic heart failure with preserved ejection fraction Interstitial lung disease Serial trop was negative EKG did not show acute changes Cardiology was initially planning cardiac cath but concerned about his renal function Cardiology planning lexiscan tomorrow. Keep NPO PMN tonight Will get 2 step prior to dc History of COPD Remote history of smoking Continue home inhalers Will follow up Pulm outpatient History of paroxysmal atrial fibrillation Sick sinus syndrome S/p pacemaker History of DVT On digoxin and metoprolol Was on warfarin at home INR was subtherapeutic on admission at 1.3 Currently on heparin drip Warfarin on hold. Follow up lexiscan tomorrow and plan to resume if no cath CKD3 Cr is 1.81 today Monitor Avoid nephrotoxins Nephro consulted Hypertension On metoprolol and ramipril at home Ramipril was held on admission due to hyperkalemia History of CAD On statin, beta-joyce History of anxiety/panic disorder on citalopram DVT prophylaxis Hep gtt. Warfarin on hold as above Full code I spent a total of 45 minutes coordinating, documenting and providing care for this patient excluding time spent in performance of separately billed services Admission and Anticipated Discharge Date Admission Date: November 18, 2023 Subjective Patient seen and examined. Patient denies any new complaints on ROS Physical Exam Constitutional: + well hydrated; no acute distress Eyes: PERRL, conjunctivae normal, anicteric sclerae ENMT: external ear and nose normal, oropharynx normal Respiratory: normal respiratory effort; no respiratory distress Basilar crackles Cardiovascular: Rate/Rhythm: + irregularly irregular S1 S2 Gastrointestinal (Abdomen): normal bowel sounds, soft, nontender, no hepatosplenomegaly Musculoskeletal: No pedal edema Neurologic: PERRL, EOMI, accommodation nl, no face palsy, no dysarthria Psychiatric: A+Ox3, euthymic affect Results & Data Results & Data Vital Signs (Past 12 Hours) Vital Signs Temp Pulse Resp BP Pulse Ox O2 Del Method O2 Flow Rate 11/22/23 08:06 Nasal Cannula 1 11/22/23 07:42 36.5 C 65 122/79 94 Nasal Cannula 1 11/22/23 03:15 36.4 C L 63 18 116/74 91 Nasal Cannula 1 Laboratory Results Abnormal lab results 11/22/23 Range/Units 06:51 RBC 4.05 L (4.70-6.10) M/uL Hgb 13.7 L (14.0-18.0) g/dl Hct 41.8 L (42.0-52.0) % MCV 103.2 H (80.0-100.0) fL RDW Std Deviation 48.6 H (36.4-46.3) fL PT 12.3 H (9.0-12.0) Seconds Potassium 5.2 H (3.5-5.1) mmol/L BUN 33 H (6-23) mg/dl Creatinine 1.81 H (0.6-1.4) mg/dl
--- NOTE | 2023-11-22 13:03 | Cardiology Progress Note ---
Date of Service November 22, 2023 Assessment & Plan (1) SOB (shortness of breath): (2) ILD (interstitial lung disease): (3) Chronic atrial fibrillation: (4) Tachy-nicol syndrome: (5) Cardiac pacemaker in situ: (6) Acute on chronic renal insufficiency: (7) Hyperkalemia: Plan Acute on chronic dyspnea, multifactorial in etiology. NYHA Class III+. EF previously reported to be 45%. TTE on November 19, 2023 with EF 50 to 55%, moderately dilated RV, normal RV systolic function, estimated PASP 45 mmHg. Volume status: Normovolemic to mildly hypovolemic. + Interstitial lung disease. Initially patient requesting further evaluation with cardiac catheterization although renal function worsening since admission with creatinine of 1.81 today and mild hyperkalemia. Enalapril placed on hold. Permanent atrial fibrillation. Rates controlled. Metoprolol tartrate changed to metoprolol succinate, dosage increased slightly to 100 mg/day. Continue IV heparin. Coumadin on hold. Consider transition to Eliquis anticoagulation down the road. Tachy-Nicol Syndrome. Status post pacemaker implantation ([employer] Didier/Fonseca device). 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 Discussed the risk versus benefit of cardiac catheterization the setting of worsening renal insufficiency versus noninvasive stress testing, i.e. Lexiscan nuclear stress testing for further restratification. Patient opts for the latter. Will make n.p.o. except medications after midnight with plans for Lexiscan nuclear stress testing 11/23/2023. Patient diagnosed with interstitial lung disease without a significant reactive component. After discussion with pulmonary medicine, there is no contraindication to Lexiscan at this time. Continue atorvastatin, digoxin, metoprolol succinate, and IV heparin as ordered. Restart warfarin tomorrow pending review of stress test result. I spent a total of 41 minutes on the date of service in preparation, delivery, and documentation of the care provided to this patient, excluding any time spent in the performance of separately billed services. Admission and Anticipated Discharge Date Admission Date: November 18, 2023 Subjective Weaned down to room air today. Only utilizing supplemental oxygen at night. Denies chest pain or shortness of breath at rest. Telemetry reveals rate controlled atrial fibrillation. Warfarin on hold since admission. Review of Systems Review of Systems: All systems reviewed & are unremarkable except as noted in Subjective Physical Exam Constitutional: well nourished; no acute distress Respiratory: no respiratory distress and no labored breathing Auscultation: + crackles (Bases bilateral); no rhonchi and no wheezes Cardiovascular: Rate/Rhythm: + irregularly irregular Heart Sounds: normal S1 and normal S2 Vessels: radial pulses present; no JVD and no carotid bruit Extremities: no edema Gastrointestinal (Abdomen): Inspection/Auscultation: normal bowel sounds; abdomen not distended Percussion/Palpation: abdomen soft; abdomen nontender, no guarding and abdomen not rigid Neurologic: CN's II-XI intact bilaterally and moves all extremities Results & Data Vital Signs (Past 12 Hours) Vital Signs Temp Pulse Resp BP Pulse Ox O2 Del Method O2 Flow Rate 11/22/23 11:57 36.6 C 65 18 106/72 95 Nasal Cannula 1 11/22/23 08:06 Nasal Cannula 1 11/22/23 07:42 36.5 C 65 122/79 94 Nasal Cannula 1 11/22/23 03:15 36.4 C L 63 18 116/74 91 Nasal Cannula 1 Laboratory Results Coagulation 11/22/23 Range/Units 06:51 PT 12.3 H (9.0-12.0) Seconds CBC 11/22/23 Range/Units 06:51 WBC 5.97 (4.8-10.8) K/ul RBC 4.05 L (4.70-6.10) M/uL Hgb 13.7 L (14.0-18.0) g/dl Hct 41.8 L (42.0-52.0) % Plt Count 173 (130-400) K/uL Comprehensive Metabolic Panel 11/22/23 Range/Units 06:51 Sodium 137 (136-145) mmol/L Potassium 5.2 H (3.5-5.1) mmol/L Chloride 104 (98-107) mmol/L Carbon Dioxide 30 (21-32) mmol/L BUN 33 H (6-23) mg/dl Creatinine 1.81 H (0.6-1.4) mg/dl Glucose 97 (70-99(Fasting)) mg/dl Calcium 8.9 (8.6-10.3) mg/dl Intake and Output 11/21/23 11/22/23 11/22/23 22:59 06:59 14:59 Intake Total 572.15 / 1960.80 1200 / 1960.80 176.4 / 176.4 Balance 572.15 / 1960.80 1200 / 1960.80 176.4 / 176.4 Intake: IV 297.15 / 1485.80 1000 / 1485.80 176.4 / 176.4 Heparin Sodium/Dextrose 25,000 297.15 / 485.80 176.4 / 176.4 units In 500 ml @ 1,050 UNITS/ HR 21 mls/hr IV .[id number] [facility] Rx #:[id number] Sodium Chloride 0.9% 1,000 ml @ 1000 / 1000 80 mls/hr IV .[id number] [facility] Rx#: [id number] Oral 275 / 475 200 / 475 Other: # Unmeasured Voids 2 Weight 89.7 kg Weight Measurement Method Built in [facility]
[2023-11-23] MEDS: MECLIZINE HCL 25 MG TAB PO PRN (00:17)
[2023-11-23 07:31] LABS: Hematocrit (blood only) 42.3 % (42.0-52.0); Mean Corpuscular Hemoglobin 34.1 pg (25.0-34.0); Mean Corpuscular Hgb Conc 33.1 g/dL (32.0-36.0); Mean Corpuscular Volume 103.2 fL (80.0-100.0); Platelet Count 175 K/uL (130-400); RDW Coefficient of Variation 12.8 % (11.5-14.5); RDW Standard Deviation 48.5 fL (36.4-46.3); White Blood Count 6.27 K/ul (4.8-10.8)
[2023-11-23 07:53] LABS: Calcium 9.1 mg/dl (8.6-10.3); Creatinine Clr Calc Pharmacy 40.6 ml/min; Est GFR (African American) 45.4 ml/min; Est GFR (Non-African American) 39.2 ml/min
[2023-11-23 07:58] LABS: ANTI-Xa, UFH(UnfractionatedHep 0.41 IU/ml (0.3-0.7); INR 1.1 (0.9-1.1); Prothrombin Time 11.5 Seconds (9.0-12.0)
[2023-11-23] MEDS: REGADENOSON 0.4 MG/5 ML SYR IV ONE (16:05)
--- NOTE | 2023-11-23 16:44 | Cardiology Progress Note ---
Date of Service November 23, 2023 Assessment & Plan (1) SOB (shortness of breath): (2) ILD (interstitial lung disease): (3) Chronic atrial fibrillation: (4) Tachy-nicol syndrome: (5) Cardiac pacemaker in situ: (6) Acute on chronic renal insufficiency: Plan Acute on chronic dyspnea, multifactorial in etiology. NYHA Class III+. EF previously reported to be 45%. TTE on November 19, 2023 with EF 50 to 55%, moderately dilated RV, normal RV systolic function, estimated PASP 45 mmHg. Volume status: Normovolemic to mildly hypovolemic. + Interstitial lung disease. Cardiac catheterization deferred due to renal insufficiency. Lexiscan nuclear stress test performed without evidence of inducible ischemia. No further inpatient cardiac testing recommended at this time. Permanent atrial fibrillation. Rates controlled. Metoprolol tartrate changed to metoprolol succinate, dosage increased slightly to 100 mg/day. Continue IV heparin. Restart Coumadin. Close outpatient follow-up with the anticoagulation clinic. Tachy-Nicol Syndrome. Status post pacemaker implantation ([employer]ier/Fonseca device). 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 Continue atorvastatin, digoxin, and metoprolol succinate. Admission and Anticipated Discharge Date Admission Date: November 18, 2023 Subjective 78-year-old patient seen and examined at the bedside. Shortness of breath improved since admission. Denies chest discomfort or heaviness. Telemetry reveals rate controlled atrial fibrillation. Offers no new concerns/complaints. Review of Systems Review of Systems: All systems reviewed & are unremarkable except as noted in Subjective Physical Exam Constitutional: well nourished; no acute distress Respiratory: no respiratory distress and no labored breathing Auscultation: + crackles (Bases bilateral); no rhonchi and no wheezes Cardiovascular: Rate/Rhythm: + irregularly irregular Heart Sounds: normal S1 and normal S2 Vessels: radial pulses present; no JVD and no carotid bruit Extremities: no edema Gastrointestinal (Abdomen): Inspection/Auscultation: normal bowel sounds; abdomen not distended Percussion/Palpation: abdomen soft; abdomen nontender, no guarding and abdomen not rigid Neurologic: CN's II-XI intact bilaterally and moves all extremities Results & Data Vital Signs (Past 12 Hours) Vital Signs Temp Pulse Pulse Resp BP Pulse Ox O2 Del Method 11/23/23 16:12 76 11/23/23 16:09 36.6 C 76 20 110/65 94 Room Air 11/23/23 15:45 61 11/23/23 11:36 36.5 C 70 20 125/63 95 Room Air 11/23/23 10:11 72 11/23/23 08:00 Room Air 11/23/23 07:35 36.3 C L 68 18 112/75 96 Room Air Laboratory Results Coagulation 11/23/23 Range/Units 06:27 PT 11.5 (9.0-12.0) Seconds CBC 11/23/23 Range/Units 06:27 WBC 6.27 (4.8-10.8) K/ul RBC 4.10 L (4.70-6.10) M/uL Hgb 14.0 (14.0-18.0) g/dl Hct 42.3 (42.0-52.0) % Plt Count 175 (130-400) K/uL Comprehensive Metabolic Panel 11/23/23 Range/Units 06:27 Sodium 139 (136-145) mmol/L Potassium 5.0 (3.5-5.1) mmol/L Chloride 104 (98-107) mmol/L Carbon Dioxide 32 (21-32) mmol/L BUN 31 H (6-23) mg/dl Creatinine 1.63 H (0.6-1.4) mg/dl Glucose 98 (70-99(Fasting)) mg/dl Calcium 9.1 (8.6-10.3) mg/dl Intake and Output 11/23/23 11/23/23 11/23/23 06:59 14:59 22:59 Intake Total 550 / 550 Output Total 350 / 350 Balance -350 / 590.0 550 / 550 Intake: Oral 550 / 550 Output: Urine 350 / 350 Other: Other Intake Source Patient is NPO # Unmeasured Voids 1 Weight 88.9 kg Weight Measurement Method Built in [facility]
--- NOTE | 2023-11-23 16:44 | Myocardial Perfusion Study ---
Date of Service November 23, [address] [facility] Myocardial Perfusion Study Report Indication: Shortness of breath, coronary calcifications Summary: Patient performed stress test according to Lexiscan protocol for 4 minutes. Workload of 1.0 METS achieved. Resting heart rate of 66 bpm kermit to maximum heart rate of 100 bpm. This value represents 71% of the maximal, age- predicted heart rate. Resting blood pressure of 123/90, kermit to maximum blood pressure of 123/90 during testing. Stress testing was stopped due to completion of protocol. Symptoms: Mild chest discomfort/tightness. Normal heart rate and blood pressure response to Lexiscan infusion. Resting ECG: Atrial fibrillation with controlled ventricular response, occasional PVCs. Stress ECG: Atrial fibrillation, occasional PVCs. No ischemia. Conclusion: No ECG evidence of Lexiscan induced ischemia. Nuclear imaging: For the stress portion of the study 30.6 mCi of Tc 99m Cardiolite IV was injected at 1504 p.m. on 11/18/2023. 30 minutes following the injection, imaging of the heart was performed in multiple projections. For the rest portion of the study 10.7 mCi of technetium 99m Cardiolite was injected IV at 1330 p.m. 1 hour following the injection, imaging of the heart was performed in the same projections. Raw data: No significant extracardiac uptake of isotope tracer on rotating, raw data images. Right ventricle: Not well-visualized Gated SPECT imaging: Normal left ventricular size at rest. Normal myocardial wall thickening and motion. To calculate left ventricular ejection fraction is 59%. Resting images: Normal perfusion Stress images: Normal perfusion Conclusion: 1. Normal Lexiscan myocardial perfusion imaging study without evidence of inducible ischemia or myocardial scar. 2. Normal gated SPECT imaging. 3. Calculated left ventricular ejection fraction 59% Clinton Alcala DO, [facility]
[2023-11-23] MEDS: WARFARIN SOD 5 MG TAB PO ONE (17:53)
--- NOTE | 2023-11-23 17:56 | Hospitalist Progress Note ---
Date of Service November 23, 2023 Assessment & Plan (1) SOB (shortness of breath): Plan: Per previous hospitalist notes with addendum: 78-year-old male with past medical history significant for hypertension, COPD mild as per patient, paroxysmal atrial fibrillation, sick sinus syndrome status post pacemaker, aneurysm of ascending aorta, history of atherosclerosis of [place] coronary artery, CKD stage III, history of DVT, GERD anxiety disorder, history of [place], presents with shortness of breath and also chest pain on exertion. Patient follows with cardiology and pulmonology with [facility]. Has been following pulmonary for last 2 years for on and off shortness of breath. For past 1 to 2 years also is getting exertional chest pain. Had reported a plan for cardiac cath next week at [facility]. In the ER is oxygen sats dropped into the low 80s when he was ambulating. Shortness of breath Exertional chest pain Dyspnea likely multifactorial Per Cardiology, ER previously reported to be 45%. However TTE 11/18 showed EF of 50-55%, mod dil RV, normal RV systolic function, PASP 45mmHg CT chest noted findings of chronic interstitial/fibrotic lung disease CT head did not show any acute abnormalities Possible acute on chronic heart failure with preserved ejection fraction Interstitial lung disease Serial trop was negative EKG did not show acute changes Cardiology was initially planning cardiac cath but concerned about his renal function Cardiology planning lexiscan tomorrow. Keep NPO PMN tonight Will get 2 step prior to dc 11/22 Lexiscan stress test negative Start nebs overnight Will discuss with pulmonology service regarding ICS/LABA Will order two-step exercise test tomorrow History of COPD Remote history of smoking Continue home inhalers Will follow up Pulm outpatient History of paroxysmal atrial fibrillation Sick sinus syndrome S/p pacemaker History of DVT On digoxin and metoprolol Was on warfarin at home INR was subtherapeutic on admission at 1.3 Currently on heparin drip Warfarin on hold. Follow up lexiscan tomorrow and plan to resume if no cath 11/22 Coumadin 5 mg daily INR tomorrow CKD3 Cr is 1.81 today Monitor Avoid nephrotoxins Nephro consulted Hypertension On metoprolol and ramipril at home Ramipril was held on admission due to hyperkalemia History of CAD On statin, beta-joyce History of anxiety/panic disorder on citalopram DVT prophylaxis Coumadin Full code Admission and Anticipated Discharge Date Admission Date: November 18, 2023 Subjective Follow-up for chest pain, etc. Seen sitting up in bed, comfortable, having dinner States he feels okay overall Still having some dyspnea on exertion and occasional dizziness No chest pain, palpitations No other new symptoms Review of Systems Review of Systems: all noted and negative except for above Physical Exam Physical Exam: General- oriented x 3, not in distress, speaks in sentences with no effort or accessory muscle use Eyes- anicteric Neck- no JVD Lungs- Mild crackles bilaterally the bases, no wheezing Good air entry Heart- normal rate, regular rhythm; no murmurs Abdomen- normal bowel sounds, nondistended, soft, nontender Extremities- no pretibial edema, no calf tenderness Neuro- alert, oriented x 3; no gross focal neurologic deficits Skin- warm & dry Results & Data Results & Data Vital Signs (Past 12 Hours) Vital Signs Temp Pulse Pulse Resp BP Pulse Ox O2 Del Method 11/23/23 16:12 76 11/23/23 16:09 36.6 C 76 20 110/65 94 Room Air 11/23/23 15:45 61 11/23/23 11:36 36.5 C 70 20 125/63 95 Room Air 11/23/23 10:11 72 11/23/23 08:00 Room Air 11/23/23 07:35 36.3 C L 68 18 112/75 96 Room Air all noted and reviewed including below
[2023-11-23] MEDS: LEVALBUTEROL 1.25 MG/3 ML NEB NEB SCH (21:59)
[2023-11-24 07:31] LABS: ANTI-Xa, UFH(UnfractionatedHep < 0.10 IU/ml (0.3-0.7); Prothrombin Time 11.1 Seconds (9.0-12.0)
[2023-11-24] MEDS: SODIUM CHLORIDE 0.9% 1,000 ML IV SCH (09:31)
[2023-11-24 10:22] LABS: Basophils # (auto) 0.03 K/uL (0.00-0.20); Basophils % (auto) 0.4 %; Eosinophils # (auto) 0.21 K/uL (0.00-0.50); Eosinophils % (auto) 2.5 %; Hematocrit (blood only) 43.8 % (42.0-52.0); Hemoglobin 14.3 g/dl (14.0-18.0); Immature Granulocytes # (auto) 0.01 K/uL (0.01-0.20); Immature Granulocytes % (auto) 0.1 %; Lymphocytes # (auto) 1.45 K/uL (1.20-3.40); Lymphocytes % (auto) 17.4 %; Mean Corpuscular Hemoglobin 34.1 pg (25.0-34.0); Mean Corpuscular Hgb Conc 32.6 g/dL (32.0-36.0); Mean Corpuscular Volume 104.5 fL (80.0-100.0); Mean Platelet Volume 10.2 fL (9.4-12.4); Monocytes # (auto) 0.76 K/uL (0.11-0.59); Monocytes % (auto) 9.1 %; Neutrophils # (auto) 5.88 K/uL (1.40-6.50); Neutrophils % (auto) 70.5 %; Platelet Count 177 K/uL (130-400); RDW Coefficient of Variation 13.1 % (11.5-14.5); RDW Standard Deviation 50.4 fL (36.4-46.3); Red Blood Count 4.19 M/uL (4.70-6.10); White Blood Count 8.34 K/ul (4.8-10.8)
[2023-11-24 10:23] LABS: BUN Creatinine Ratio 15.9 (10-20); Calcium 9.2 mg/dl (8.6-10.3); Creatinine Clr Calc Pharmacy 33.4 ml/min; Est GFR (African American) 39.8 ml/min; Est GFR (Non-African American) 34.3 ml/min; Potassium 5.2 mmol/L (3.5-5.1)
--- NOTE | 2023-11-24 14:32 | Cardiology Progress Note ---
Date of Service November 24, 2023 Assessment & Plan (1) Orthostatic hypotension: (2) SOB (shortness of breath): (3) ILD (interstitial lung disease): (4) Chronic atrial fibrillation: (5) Tachy-nicol syndrome: (6) Cardiac pacemaker in situ: (7) Acute on chronic renal insufficiency: Plan Acute on chronic dyspnea, multifactorial in etiology. NYHA Class III. EF previously reported to be 45%. TTE on November 19, 2023 with EF 50 to 55%, moderately dilated RV, normal RV systolic function, estimated PASP 45 mmHg. Volume status: Normovolemic. + Interstitial lung disease. Cardiac catheterization deferred due to renal insufficiency. Lexiscan nuclear stress test performed without evidence of inducible ischemia. No further inpatient cardiac testing recommended at this time. Orthostatic hypotension noted this a.m. Hold enalapril. Add compression stockings. Encourage oral hydration. Gentle IV hydration with normal saline. Continue beta-joyce therapy. Permanent atrial fibrillation. Rates controlled. Metoprolol tartrate changed to metoprolol succinate, dosage increased slightly to 100 mg/day. Continue IV heparin. Restart Coumadin. Close outpatient follow-up with the anticoagulation clinic. Tachy-Nicol Syndrome. Status post pacemaker implantation ([place]/Fonseca d evice). Device interrogation on 11/19/2023 revealed a single chamber pacemaker that was functioning appropriately, [employer] 15%. Continue atorvastatin, and digoxin as ordered. Cardiology will sign off. Please call with additional concerns/questions. Admission and Anticipated Discharge Date Admission Date: November 18, 2023 Subjective Patient seen examined the bedside. Supplemental oxygen weaned off. Denies chest pain or shortness of breath at rest. Telemetry reveals rate controlled atrial fibrillation heart rate ranging 60-70's with demand ventricular pacing. Episodes of orthostatic hypotension noted this a.m. Denies overt syncope. Review of Systems Review of Systems: All systems reviewed & are unremarkable except as noted in Subjective Physical Exam Constitutional: well nourished; no acute distress Respiratory: no respiratory distress and no labored breathing Auscultation: + crackles (Bases bilateral); no rhonchi and no wheezes Cardiovascular: Rate/Rhythm: + irregularly irregular Heart Sounds: normal S1 and normal S2 Vessels: radial pulses present; no JVD and no carotid bruit Extremities: no edema Gastrointestinal (Abdomen): Inspection/Auscultation: normal bowel sounds; abdomen not distended Percussion/Palpation: abdomen soft; abdomen nontender, no guarding and abdomen not rigid Neurologic: CN's II-XI intact bilaterally and moves all extremities Results & Data Vital Signs (Past 12 Hours) Vital Signs Temp Pulse Pulse Resp BP Pulse Ox O2 Del Method 11/24/23 13:15 77 16 97 Room Air 11/24/23 11:24 36.7 C 76 18 106/70 97 Room Air 11/24/23 09:22 106/70 94 Room Air 11/24/23 07:52 36.7 C 76 18 114/76 100 Room Air 11/24/23 07:28 69 11/24/23 07:12 80 16 92 Room Air 11/24/23 02:44 36.8 C 62 17 125/76 95 Room Air
--- NOTE | 2023-11-24 16:51 | Hospitalist Progress Note ---
Date of Service November 24, 2023 Assessment & Plan (1) SOB (shortness of breath): Plan: Per previous hospitalist notes with addendum: 78-year-old male with past medical history significant for hypertension, COPD mild as per patient, paroxysmal atrial fibrillation, sick sinus syndrome status post pacemaker, aneurysm of ascending aorta, history of atherosclerosis of [place] coronary artery, CKD stage III, history of DVT, GERD anxiety disorder, history of [place], presents with shortness of breath and also chest pain on exertion. Patient follows with cardiology and pulmonology with [facility]. Has been following pulmonary for last 2 years for on and off shortness of breath. For past 1 to 2 years also is getting exertional chest pain. Had reported a plan for cardiac cath next week at [facility]. In the ER is oxygen sats dropped into the low 80s when he was ambulating. Shortness of breath Exertional chest pain Dyspnea likely multifactorial Per Cardiology, ER previously reported to be 45%. However TTE 11/18 showed EF of 50-55%, mod dil RV, normal RV systolic function, PASP 45mmHg CT chest noted findings of chronic interstitial/fibrotic lung disease CT head did not show any acute abnormalities Possible acute on chronic heart failure with preserved ejection fraction Interstitial lung disease Serial trop was negative EKG did not show acute changes Cardiology was initially planning cardiac cath but concerned about his renal function Cardiology planning lexiscan tomorrow. Keep NPO PMN tonight Will get 2 step prior to dc 11/22 Lexiscan stress test negative Start nebs overnight Will discuss with pulmonology service regarding ICS/LABA Will order two-step exercise test tomorrow 11/23 Respiratory status stable On room air Discussed with pulmonology service Increase Breo to 200 Two-step exercise test when stable Follow-up with pulmonology as an outpatient History of COPD Remote history of smoking management per cheryl History of paroxysmal atrial fibrillation Sick sinus syndrome S/p pacemaker History of DVT On digoxin and metoprolol Was on warfarin at home INR was subtherapeutic on admission at 1.3 Currently on heparin drip Warfarin on hold. Follow up lexiscan tomorrow and plan to resume if no cath 11/22 Coumadin 5 mg daily INR tomorrow11/23 Chest pain resolved Lexiscan stress test negative, 11/23/23 Positive orthostasis this morning IV fluids started Continue usual metoprolol Enalapril held ARYAN stockings ordered Monitor blood pressure closely CKD3 Cr is 1.81 today Monitor Avoid nephrotoxins Nephro consulted crea 1.6-->1.8 Hypertension (+) orthostasis management per above History of CAD On statin, beta-joyce History of anxiety/panic disorder on citalopram DVT prophylaxis Coumadin Full code Admission and Anticipated Discharge Date Admission Date: November 18, 2023 Subjective Follow-up for chest pain, etc. Seen resting in bed, comfortable, not in distress Positive orthostasis this morning IV fluids started States he is feeling improved, dizziness is improving No chest pain, palpitations, shortness of breath No other new symptoms Review of Systems Review of Systems: all noted and negative except for above Physical Exam Physical Exam: General- oriented x 3, not in distress, speaks in sentences with no effort or accessory muscle use Eyes- anicteric Neck- no JVD Lungs- clear breath sounds bilaterally, no rales/wheezes Heart- normal rate, regular rhythm; no murmurs Abdomen- normal bowel sounds, nondistended, soft, nontender Extremities- no pretibial edema, no calf tenderness Neuro- alert, oriented x 3; no gross focal neurologic deficits Skin- warm & dry Results & Data Results & Data Vital Signs (Past 12 Hours) Vital Signs Temp Pulse Pulse Resp BP Pulse Ox O2 Del Method 11/24/23 15:44 73 11/24/23 15:17 73 11/24/23 15:01 36.7 C 80 18 105/73 95 Room Air 11/24/23 13:15 77 16 97 Room Air 11/24/23 11:24 36.7 C 76 18 106/70 97 Room Air 11/24/23 09:22 106/70 94 Room Air 11/24/23 07:52 36.7 C 76 18 114/76 100 Room Air 11/24/23 07:28 69 11/24/23 07:12 80 16 92 Room Air all noted and reviewed including below
[2023-11-24] MEDS: WARFARIN SOD 5 MG TAB PO SCH (17:45)
[2023-11-25 06:35] LABS: Basophils # (auto) 0.02 K/uL (0.00-0.20); Basophils % (auto) 0.2 %; Eosinophils # (auto) 0.21 K/uL (0.00-0.50); Eosinophils % (auto) 2.6 %; Hematocrit (blood only) 39.6 % (42.0-52.0); Hemoglobin 13.3 g/dl (14.0-18.0); Immature Granulocytes # (auto) 0.02 K/uL (0.01-0.20); Immature Granulocytes % (auto) 0.2 %; Lymphocytes # (auto) 1.93 K/uL (1.20-3.40); Lymphocytes % (auto) 23.7 %; Mean Corpuscular Hemoglobin 34.5 pg (25.0-34.0); Mean Corpuscular Hgb Conc 33.6 g/dL (32.0-36.0); Mean Corpuscular Volume 102.6 fL (80.0-100.0); Mean Platelet Volume 9.7 fL (9.4-12.4); Monocytes # (auto) 0.83 K/uL (0.11-0.59); Monocytes % (auto) 10.2 %; Neutrophils # (auto) 5.12 K/uL (1.40-6.50); Neutrophils % (auto) 63.1 %; Platelet Count 160 K/uL (130-400); RDW Coefficient of Variation 12.8 % (11.5-14.5); RDW Standard Deviation 48.1 fL (36.4-46.3); Red Blood Count 3.86 M/uL (4.70-6.10); White Blood Count 8.13 K/ul (4.8-10.8)
[2023-11-25 07:11] LABS: BUN Creatinine Ratio 17.1 (10-20); Creatinine Clr Calc Pharmacy 34.8 ml/min; Est GFR (African American) 41.7 ml/min
[2023-11-25 07:12] LABS: INR 1.1 (0.9-1.1); Prothrombin Time 11.4 Seconds (9.0-12.0)
[2023-11-25] MEDS: FLUDROCORTISONE ACETATE 0.1 MG TAB PO SCH (11:10)
--- NOTE | 2023-11-25 17:00 | Hospitalist Progress Note ---
Date of Service November 25, 2023 Assessment & Plan (1) SOB (shortness of breath): Plan: Per previous hospitalist notes with addendum: 78-year-old male with past medical history significant for hypertension, COPD mild as per patient, paroxysmal atrial fibrillation, sick sinus syndrome status post pacemaker, aneurysm of ascending aorta, history of atherosclerosis of [place] coronary artery, CKD stage III, history of DVT, GERD anxiety disorder, history of [place], presents with shortness of breath and also chest pain on exertion. Patient follows with cardiology and pulmonology with [facility]. Has been following pulmonary for last 2 years for on and off shortness of breath. For past 1 to 2 years also is getting exertional chest pain. Had reported a plan for cardiac cath next week at [facility]. In the ER is oxygen sats dropped into the low 80s when he was ambulating. Shortness of breath Exertional chest pain Dyspnea likely multifactorial Per Cardiology, ER previously reported to be 45%. However TTE 11/18 showed EF of 50-55%, mod dil RV, normal RV systolic function, PASP 45mmHg CT chest noted findings of chronic interstitial/fibrotic lung disease CT head did not show any acute abnormalities Possible acute on chronic heart failure with preserved ejection fraction Interstitial lung disease Serial trop was negative EKG did not show acute changes Cardiology was initially planning cardiac cath but concerned about his renal function Cardiology planning lexiscan tomorrow. Keep NPO PMN tonight Will get 2 step prior to dc 11/22 Lexiscan stress test negative Start nebs overnight Will discuss with pulmonology service regarding ICS/LABA Will order two-step exercise test tomorrow 11/23 Respiratory status stable On room air Discussed with pulmonology service Increase Breo to 200 Two-step exercise test when stable Follow-up with pulmonology as an outpatient 11/24 On room air Will increase Breo to 200 mcg Continue nebs Will discharge on neb treatment as needed History of COPD Remote history of smoking management per cheryl History of paroxysmal atrial fibrillation Sick sinus syndrome S/p pacemaker History of DVT On digoxin and metoprolol Was on warfarin at home INR was subtherapeutic on admission at 1.3 Currently on heparin drip Warfarin on hold. Follow up lexiscan tomorrow and plan to resume if no cath 11/22 Coumadin 5 mg daily INR tomorrow11/23 Chest pain resolved Lexiscan stress test negative, 11/23/23 Positive orthostasis this morning IV fluids started Continue usual metoprolol Enalapril held ARYAN stockings ordered Monitor blood pressure closely 11/24 Still positive orthostasis Start Florinef 0.1 mg daily Will remove salt restriction Encouraged to drink more water Continue ARYAN hoses Monitor closely CKD3 Cr is 1.81 today Monitor Avoid nephrotoxins Nephro consulted crea 1.6-->1.8 Hypertension (+) orthostasis management per above History of CAD On statin, beta-joyce History of anxiety/panic disorder on citalopram DVT prophylaxis Coumadin Full code Admission and Anticipated Discharge Date Admission Date: November 18, 2023 Subjective Follow-up for shortness of breath, orthostatic hypotension, etc. Seen resting in bed, sleeping but easily awakened In good spirits, comfortable, Was still having dizziness with standing today Positive orthostasis No shortness of breath, chest pain, palpitations No other new symptom Review of Systems Review of Systems: all noted and negative except for above Physical Exam Physical Exam: General- oriented x 3, not in distress, speaks in sentences with no effort or accessory muscle use Eyes- anicteric Neck- no JVD Lungs- clear BS bilaterally, no rales/wheezes Heart- normal rate, regular rhythm; no murmurs Abdomen- normal bowel sounds, nondistended, soft, nontender Extremities- no pretibial edema, no calf tenderness Neuro- alert, oriented x 3; no gross focal neurologic deficits Skin- warm & dry Results & Data Results & Data Vital Signs (Past 12 Hours) Vital Signs Temp Pulse Pulse Pulse Resp BP Pulse Ox 11/25/23 15:15 37.2 C 64 20 114/80 94 11/25/23 12:52 70 20 95 11/25/23 11:26 36.5 C 79 16 104/70 93 11/25/23 09:36 75 105/71 11/25/23 09:33 96 H 58/45 L 11/25/23 09:26 91 H 90/53 L 11/25/23 09:20 83 92/62 L 11/25/23 09:11 78 11/25/23 07:47 36.4 C L 85 16 107/69 92 11/25/23 07:15 11/25/23 07:09 64 18 96 O2 Del Method 11/25/23 15:15 Room Air 11/25/23 12:52 Room Air 11/25/23 11:26 Room Air 11/25/23 09:36 11/25/23 09:33 11/25/23 09:26 11/25/23 09:20 11/25/23 09:11 11/25/23 07:47 Room Air 11/25/23 07:15 Room Air 11/25/23 07:09 Room Air all noted and reviewed including below
[2023-11-25] MEDS: WARFARIN SOD 2.5 MG TAB PO ONE (17:21)
[2023-11-26 07:17] LABS: INR 1.1 (0.9-1.1); Prothrombin Time 12.1 Seconds (9.0-12.0)
[2023-11-26] MEDS: SODIUM CHLORIDE 0.9% 1,000 ML IV SCH (13:20)
--- NOTE | 2023-11-26 13:50 | XRay Report ---
XR chest 1V portable HISTORY: 78 years-old Male ff up acute shortness breath COMPARISON: 11/18/2023 TECHNIQUE: AP view the chest FINDINGS: Cardiac silhouette is enlarged. Single lead left subclavian pacer. Telemetry leads coiled over the ch est. Unchanged right hemidiaphragmatic elevation. No pneumothorax or pleural effusion. Chronic pulmon jag fibrosis. Bones appear grossly intact. IMPRESSION: 1. No acute processes of the chest. 2. Cardiomegaly with chronic pulmonary fibrosis ACT 112: Negative or not required by law. The above report was generated using voice recognition software. It may contain grammatical, syntax o r spelling errors. Electronically signed by: Aba Muñoz M.D. 11/26/2023 1:49 PM
--- NOTE | 2023-11-26 14:30 | Hospitalist Progress Note ---
Date of Service November 26, 2023 Assessment & Plan (1) SOB (shortness of breath): Plan: Per previous hospitalist notes with addendum: 78-year-old male with past medical history significant for hypertension, COPD mild as per patient, paroxysmal atrial fibrillation, sick sinus syndrome status post pacemaker, aneurysm of ascending aorta, history of atherosclerosis of [place] coronary artery, CKD stage III, history of DVT, GERD anxiety disorder, history of [place], presents with shortness of breath and also chest pain on exertion. Patient follows with cardiology and pulmonology with [facility]. Has been following pulmonary for last 2 years for on and off shortness of breath. For past 1 to 2 years also is getting exertional chest pain. Had reported a plan for cardiac cath next week at [facility]. In the ER is oxygen sats dropped into the low 80s when he was ambulating. Shortness of breath Exertional chest pain Dyspnea likely multifactorial Per Cardiology, ER previously reported to be 45%. However TTE 11/18 showed EF of 50-55%, mod dil RV, normal RV systolic function, PASP 45mmHg CT chest noted findings of chronic interstitial/fibrotic lung disease CT head did not show any acute abnormalities Possible acute on chronic heart failure with preserved ejection fraction Interstitial lung disease Serial trop was negative EKG did not show acute changes Cardiology was initially planning cardiac cath but concerned about his renal function Cardiology planning lexiscan tomorrow. Keep NPO PMN tonight Will get 2 step prior to dc 11/22 Lexiscan stress test negative Start nebs overnight Will discuss with pulmonology service regarding ICS/LABA Will order two-step exercise test tomorrow 11/23 Respiratory status stable On room air Discussed with pulmonology service Increase Breo to 200 Two-step exercise test when stable Follow-up with pulmonology as an outpatient 11/25 On room air Will increase Breo to 200 mcg Continue nebs Will discharge on neb treatment as needed History of COPD Remote history of smoking management per cheryl History of paroxysmal atrial fibrillation Sick sinus syndrome S/p pacemaker History of DVT On digoxin and metoprolol Was on warfarin at home INR was subtherapeutic on admission at 1.3 Currently on heparin drip Warfarin on hold. Follow up lexiscan tomorrow and plan to resume if no cath 11/22 Coumadin 5 mg daily INR tomorrow11/23 Chest pain resolved Lexiscan stress test negative, 11/23/23 Positive orthostasis this morning IV fluids started Continue usual metoprolol Enalapril held ARYAN stockings ordered Monitor blood pressure closely 11/24 Still positive orthostasis Start Florinef 0.1 mg daily Will remove salt restriction Encouraged to drink more water Continue ARYAN hoses Monitor closely 11/25 Still positive for orthostasis Increase Florinef to twice daily IV NSS 1 L ordered Monitor closely INR still subtherapeutic Coumadin 10 mg p.o. today CKD3 Cr is 1.81 today Monitor Avoid nephrotoxins Nephro consulted crea 1.6-->1.8 Hypertension (+) orthostasis management per above History of CAD On statin, beta-joyce, Coumadin History of anxiety/panic disorder on citalopram DVT prophylaxis Coumadin Full code Admission and Anticipated Discharge Date Admission Date: November 18, 2023 Subjective Follow-up for orthostatic hypotension, etc. Seen resting in bed, comfortable, sitting up, having breathing treatment States he feels okay overall Still had some dizziness when standing this morning, improved compared to yesterday No other new symptoms Review of Systems Review of Systems: all noted and negative except for above Physical Exam Physical Exam: General- oriented x 3, not in distress, speaks in sentences with no effort or accessory muscle use Eyes- anicteric Neck- no JVD Lungs- mild crackles at the bases, no wheezing Heart- normal rate, regular rhythm; no murmurs Abdomen- normal bowel sounds, nondistended, soft, nontender Extremities- no pretibial edema, no calf tenderness Neuro- alert, oriented x 3; no gross focal neurologic deficits Skin- warm & dry Results & Data Results & Data Vital Signs (Past 12 Hours) Vital Signs Temp Pulse Resp BP BP Pulse Ox O2 Del Method 11/26/23 13:42 73 16 90 Room Air 11/26/23 10:59 36.6 C 68 18 106/69 94 Room Air 11/26/23 09:12 77 11/26/23 07:23 36.5 C 74 18 103/69 93 Room Air 11/26/23 07:02 63 16 94 Room Air 11/26/23 02:35 37.0 C 83 16 104/68 94 Room Air all noted and reviewed including below
[2023-11-26] MEDS: WARFARIN SOD 10 MG TAB PO ONE (15:07)
[2023-11-26] MEDS: FLUDROCORTISONE ACETATE 0.1 MG TAB PO SCH (20:39)
[2023-11-27 07:31] LABS: INR 1.5 (0.9-1.1)
[2023-11-27] MEDS: METOPROLOL SUCC 50MG EXT REL TAB PO SCH (09:03)
[2023-11-27] MEDS: FLUTICASONE/VILANTEROL 200/25MCG 14 PUFFS/INHALER INH SCH (09:05)
--- NOTE | 2023-11-27 16:38 | Hospitalist Progress Note ---
Date of Service November 27, 2023 Assessment & Plan (1) SOB (shortness of breath): Plan: Per previous hospitalist notes with addendum: 78-year-old male with past medical history significant for hypertension, COPD mild as per patient, paroxysmal atrial fibrillation, sick sinus syndrome status post pacemaker, aneurysm of ascending aorta, history of atherosclerosis of [place] coronary artery, CKD stage III, history of DVT, GERD anxiety disorder, history of [place], presents with shortness of breath and also chest pain on exertion. Patient follows with cardiology and pulmonology with [facility]. Has been following pulmonary for last 2 years for on and off shortness of breath. For past 1 to 2 years also is getting exertional chest pain. Had reported a plan for cardiac cath next week at [facility]. In the ER is oxygen sats dropped into the low 80s when he was ambulating. Shortness of breath Exertional chest pain Dyspnea likely multifactorial Per Cardiology, ER previously reported to be 45%. However TTE 11/18 showed EF of 50-55%, mod dil RV, normal RV systolic function, PASP 45mmHg CT chest noted findings of chronic interstitial/fibrotic lung disease CT head did not show any acute abnormalities Possible acute on chronic heart failure with preserved ejection fraction Interstitial lung disease Serial trop was negative EKG did not show acute changes Cardiology was initially planning cardiac cath but concerned about his renal function Cardiology planning lexiscan tomorrow. Keep NPO PMN tonight Will get 2 step prior to dc 11/22 Lexiscan stress test negative Start nebs overnight Will discuss with pulmonology service regarding ICS/LABA Will order two-step exercise test tomorrow 11/23 Respiratory status stable On room air Discussed with pulmonology service Increase Breo to 200 Two-step exercise test when stable Follow-up with pulmonology as an outpatient 11/25 On room air Will increase Breo to 200 mcg Continue nebs Will discharge on neb treatment as needed 11/26 Respiratory status stable Continue Breo Two-step exercise test once blood pressure stable History of COPD Remote history of smoking management per cheryl History of paroxysmal atrial fibrillation Sick sinus syndrome S/p pacemaker History of DVT On digoxin and metoprolol Was on warfarin at home INR was subtherapeutic on admission at 1.3 Currently on heparin drip Warfarin on hold. Follow up lexiscan tomorrow and plan to resume if no cath 11/22 Coumadin 5 mg daily INR tomorrow11/23 Chest pain resolved Lexiscan stress test negative, 11/23/23 Positive orthostasis this morning IV fluids started Continue usual metoprolol Enalapril held ARYAN stockings ordered Monitor blood pressure closely 11/24 Still positive orthostasis Start Florinef 0.1 mg daily Will remove salt restriction Encouraged to drink more water Continue ARYAN hoses Monitor closely 11/25 Still positive for orthostasis Increase Florinef to twice daily IV NSS 1 L ordered Monitor closely 11/26 Blood pressure improving Continue Florinef twice daily Monitor closely INR still subtherapeutic Coumadin 2.5 mg today CKD3 Cr is 1.81 today Monitor Avoid nephrotoxins Nephro consulted crea 1.6-->1.8 Hypertension (+) orthostasis management per above History of CAD On statin, beta-joyce, Coumadin History of anxiety/panic disorder on citalopram DVT prophylaxis Coumadin Full code Admission and Anticipated Discharge Date Admission Date: November 18, 2023 Subjective Follow-up for orthostatic hypotension, etc. Seen resting in bed sleeping but easily awakened In good spirits States he felt less dizzy this morning when standing and walking No shortness of breath, chest pain No other new symptoms Review of Systems Review of Systems: all noted and negative except for above Physical Exam Physical Exam: General- oriented x 3, not in distress, speaks in sentences with no effort or accessory muscle use Eyes- anicteric Neck- no JVD Lungs- clear breath sounds bilaterally, no rales/wheezes Heart- normal rate, regular rhythm; no murmurs Abdomen- normal bowel sounds, nondistended, soft, nontender Extremities- no pretibial edema, no calf tenderness Neuro- alert, oriented x 3; no gross focal neurologic deficits Skin- warm & dry Results & Data Results & Data Vital Signs (Past 12 Hours) Vital Signs Temp Pulse Pulse Resp BP BP Pulse Ox 11/27/23 16:01 36.7 C 79 20 110/72 95 11/27/23 13:45 73 16 92 11/27/23 11:28 36.5 C 69 18 97/65 L 97 11/27/23 09:04 75 11/27/23 07:24 36.4 C L 72 19 113/74 94 11/27/23 07:05 79 16 90 O2 Del Method 11/27/23 16:01 Room Air 11/27/23 13:45 Room Air 11/27/23 11:28 Room Air 11/27/23 09:04 11/27/23 07:24 Room Air 11/27/23 07:05 Room Air
[2023-11-27] MEDS: WARFARIN SOD 2.5 MG TAB PO SCH (18:00)
[2023-11-28 06:58] LABS: Prothrombin Time 20.8 Seconds (9.0-12.0)
--- NOTE | 2023-11-28 11:28 | Hospitalist Progress Note ---
Date of Service November 28, 2023 Assessment & Plan (1) SOB (shortness of breath): Plan: Per previous hospitalist notes with addendum: 78-year-old male with past medical history significant for hypertension, COPD mild as per patient, paroxysmal atrial fibrillation, sick sinus syndrome status post pacemaker, aneurysm of ascending aorta, history of atherosclerosis of [place] coronary artery, CKD stage III, history of DVT, GERD anxiety disorder, history of [place], presents with shortness of breath and also chest pain on exertion. Patient follows with cardiology and pulmonology with [facility]. Has been following pulmonary for last 2 years for on and off shortness of breath. For past 1 to 2 years also is getting exertional chest pain. Had reported a plan for cardiac cath next week at [facility]. In the ER is oxygen sats dropped into the low 80s when he was ambulating. Shortness of breath Exertional chest pain Dyspnea likely multifactorial Per Cardiology, ER previously reported to be 45%. However TTE 11/18 showed EF of 50-55%, mod dil RV, normal RV systolic function, PASP 45mmHg CT chest noted findings of chronic interstitial/fibrotic lung disease CT head did not show any acute abnormalities Possible acute on chronic heart failure with preserved ejection fraction Interstitial lung disease Serial trop was negative EKG did not show acute changes Cardiology was initially planning cardiac cath but concerned about his renal function Cardiology planning lexiscan tomorrow. Keep NPO PMN tonight Will get 2 step prior to dc 11/22 Lexiscan stress test negative Start nebs overnight Will discuss with pulmonology service regarding ICS/LABA Will order two-step exercise test tomorrow 11/23 Respiratory status stable On room air Discussed with pulmonology service Increase Breo to 200 Two-step exercise test when stable Follow-up with pulmonology as an outpatient 11/25 On room air Will increase Breo to 200 mcg Continue nebs Will discharge on neb treatment as needed 11/26 Respiratory status stable Continue Breo Two-step exercise test once blood pressure stable 11/27 Continue Breo Two-step exercise test tomorrow History of COPD Remote history of smoking management per cheryl History of paroxysmal atrial fibrillation Sick sinus syndrome S/p pacemaker History of DVT On digoxin and metoprolol Was on warfarin at home INR was subtherapeutic on admission at 1.3 Currently on heparin drip Warfarin on hold. Follow up lexiscan tomorrow and plan to resume if no cath 11/22 Coumadin 5 mg daily INR tomorrow11/23 Chest pain resolved Lexiscan stress test negative, 11/23/23 Positive orthostasis this morning IV fluids started Continue usual metoprolol Enalapril held ARYAN stockings ordered Monitor blood pressure closely 11/24 Still positive orthostasis Start Florinef 0.1 mg daily Will remove salt restriction Encouraged to drink more water Continue ARYAN hoses Monitor closely 11/25 Still positive for orthostasis Increase Florinef to twice daily IV NSS 1 L ordered Monitor closely 11/26 Blood pressure improving Continue Florinef twice daily Monitor closely INR still subtherapeutic Coumadin 2.5 mg today 11/27 Blood pressure improving Continue Florinef twice daily INR 2.0 Coumadin 5 mg daily CKD3 Cr is 1.81 today Monitor Avoid nephrotoxins Nephro consulted crea 1.6-->1.8 Hypertension (+) orthostasis management per above History of CAD On statin, beta-joyce, Coumadin History of anxiety/panic disorder on citalopram DVT prophylaxis Coumadin Full code Admission and Anticipated Discharge Date Admission Date: November 18, 2023 Subjective Follow-up for orthostatic hypotension, etc. Seen resting in bed, sleeping but easily awakened No dizziness with standing today No shortness of breath Ambulating to the bathroom with no problems No other new symptom Review of Systems Review of Systems: all noted and negative except for above Physical Exam Physical Exam: General- oriented x 3, not in distress, speaks in sentences with no effort or accessory muscle use Eyes- anicteric Neck- no JVD Lungs- clear breath sounds bilaterally, no rales/wheezes Heart- normal rate, regular rhythm; no murmurs Abdomen- normal bowel sounds, nondistended, soft, nontender Extremities- no pretibial edema, no calf tenderness Neuro- alert, oriented x 3; no gross focal neurologic deficits Skin- warm & dry Results & Data Results & Data Vital Signs (Past 12 Hours) Vital Signs Temp Pulse Pulse Resp BP BP Pulse Ox 11/28/23 11:03 36.9 C 80 18 104/72 95 11/28/23 07:27 36.6 C 77 19 111/71 94 11/28/23 07:25 78 11/28/23 07:00 66 17 95 11/28/23 03:06 36.4 C L 90 18 118/73 95 11/28/23 01:52 60 16 99 O2 Del Method 11/28/23 11:03 Room Air 11/28/23 07:27 Room Air 11/28/23 07:25 11/28/23 07:00 Room Air 11/28/23 03:06 Room Air 11/28/23 01:52 Room Air all noted and reviewed including below
--- NOTE | 2023-11-28 11:45 | Cardiology Progress Note ---
Date of Service November 28, 2023 Assessment & Plan (1) Orthostatic hypotension: (2) SOB (shortness of breath): (3) ILD (interstitial lung disease): (4) Chronic atrial fibrillation: (5) Tachy-ki syndrome: (6) Cardiac pacemaker in situ: (7) Acute on chronic renal insufficiency: Plan Admission plan: Acute on chronic dyspnea, multifactorial in etiology. NYHA Class III. EF previously reported to be 45%. TTE on November 19, 2023 with EF 50 to 55%, moderately dilated RV, normal RV systolic function, estimated PASP 45 mmHg. Volume status: Normovolemic. + Interstitial lung disease. Cardiac catheterization deferred due to renal insufficiency. Lexiscan nuclear stress test performed without evidence of inducible ischemia. No further inpatient cardiac testing recommended at this time. Orthostatic hypotension noted this a.m. Hold enalapril. Add compression stockings. Encourage oral hydration. Gentle IV hydration with normal saline. Continue beta-joyce therapy. Permanent atrial fibrillation. Rates controlled. Metoprolol tartrate changed to metoprolol succinate, dosage increased slightly to 100 mg/day. Continue IV heparin. Restart Coumadin. Close outpatient follow-up with the anticoagulation clinic. Tachy-Ki Syndrome. Status post pacemaker implantation ([place]/Fonseca device). 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 Continue atorvastatin, and digoxin as ordered. Cardiology will sign off. Please call with additional concerns/questions. 11/28/2023: seen in re-evaluation for concerns of orthostasis and vertigo. -BP stable. -Positive orthostatic VS this AM, asymptomatic. -Patient's Enalapril remains on hold -Continue Florinef as per current regimen. -Encourage increased Hydration and use of compression stockings. -No acute concern on telemetry, and patient has a history of a PPM s/t known Tachy-Ki syndrome which recent device interrogation shows proper function. -No other medication adjustments recommended at this time Case has been discussed with Dr. Cedeño. Further recommendations regarding plan of care as per his assessment. I spent a total of 30 minutes on the date of service in preparation, delivery, documentation of the care provided to the patient excluding any time spent in the performance of separately billed services. RONALDO Willams [facility] Cardiology [facility] Admission and Anticipated Discharge Date Admission Date: November 18, 2023 Supervising Physician Co-Signing Physician Notes Patient seen and examined. Assessment and plan as outlined above. 78-year-old male with chronic orthostasis changes. Adjustments made to regimen and agree. Current symptoms this morning not in association with orthostasis but sound vertiginous in nature Treatment for orthostasis as previously recommended. Continue Florinef, reduce Recommend compression stockings Caution with transition and positions I spent a total of 30 minutes on the date of service in preparation, delivery, documentation of the care provided to the patient excluding any time spent in the performance of separately billed Subjective 11/28/2023: Patient seen and examined in follow up as per request of hospitalist team for concerns of orthostasis despite medication therapy. patient is resting comfortably in bed without complaint. He denies any dizziness or light headedness with standing or ambulating. AM vital signed demonstrates a > 20 point drop from sitting to standing, but patient denies symptoms. He reports very brief episodes of vertigo like sensations when laying in bed and turning his head to the left side. Resolves within one or two seconds. Labs, vitals, diagnostics, telemetry and documentation reviewed. Telemetry reviewed showing A-fib, rate controlled. No acute events overnight. Review of Systems Review of Systems: Complete Review of Systems is as stated above, negative, or noncontributory. Physical Exam Constitutional: well developed and well nourished; no acute distress and not ill appearing Neck: normal visual inspection and trachea midline Respiratory: normal respiratory effort, lungs clear to auscultation Auscultation: no crackles, no rales, no rhonchi and no wheezes Cardiovascular: Rate/Rhythm: + irregularly irregular Heart Sounds: normal S1 and normal S2; no murmur Vessels: no JVD Extremities: no edema Skin: no rashes, warm and dry Psychiatric: A+Ox3, euthymic affect Results & Data Vital Signs (Past 12 Hours) Vital Signs Temp Pulse Pulse Resp BP BP Pulse Ox 11/28/23 11:03 36.9 C 80 18 104/72 95 11/28/23 07:27 36.6 C 77 19 111/71 94 11/28/23 07:25 78 11/28/23 07:00 66 17 95 11/28/23 03:06 36.4 C L 90 18 118/73 95 06/17/24 01:52 60 16 99 O2 Del Method 11/28/23 11:03 Room Air 11/28/23 07:27 Room Air 11/28/23 07:25 11/28/23 07:00 Room Air 11/28/23 03:06 Room Air 11/28/23 01:52 Room Air Laboratory Results Coagulation 11/28/23 Range/Units 05:47 PT 20.8 H (9.0-12.0) Seconds Intake and Output 11/27/23 11/28/23 11/28/23 22:59 06:59 14:59 Intake Total 360 / 1180 Output Total 600 / 1250 Balance 360 / -70 -600 / -70 Intake: Oral 360 / 1180 Output: Urine 600 / 1250 Other: Weight 90.6 kg Weight Measurement Method Built in [facility]
[2023-11-28] MEDS: WARFARIN SOD 5 MG TAB PO SCH (15:17)
--- NOTE | 2023-11-29 11:29 | Nephrology Progress Note ---
Date of Service November 29, 2023 Assessment & Plan (1) AGNIESZKA (acute kidney injury): Plan: Patient with acute kidney injury on CKD likely cardiorenal syndrome. Cardiac cath was held in the setting of AGNIESZKA on CKD. He continues to have A-fib with RVR. Breathing appears to have stabilized. Recent creatinine of 1.75. Baseline creatinine of 1.6. From renal standpoint he can be discharged to follow-up with nephrology in [place] Patient can have cardiac catheterization if needed. He will need premedication with IV normal saline 500 mL pre and 500 mL post catheterization. (2) ILD (interstitial lung disease): Plan: Likely from ILD Admission and Anticipated Discharge Date Admission Date: November 18, 2023 Subjective Seen for AGNIESZKA on CKD. He feels better. He is able to ambulate. He is on oxygen nasal cannula but denies any shortness of breath. Review of Systems 2 Review of Systems: All other systems were reviewed and negative except as noted in HPI Physical Exam 2 Physical Exam: General exam: Appears comfortable, no acute distress, o2 nasal cannula HEENT: Pupils are equal and reactive to light Neck: No JVD, neck is supple trachea is midline Respiratory system: Clear breath sounds bilaterally. Gastrointestinal: Abdomen is soft, non distended, non tender, bowel sounds are present CVS: Regular rate and rhythm. No murmurs, rubs or gallops Musculoskeletal: No joint or muscle tenderness Extremities: Non tender, no edema, peripheral pulses are present Neuro: Oriented, no tremors, no focal neurological deficits Skin: No rashes Results & Data Vital Signs (Past 12 Hours) Vital Signs Temp Pulse Pulse Pulse Pulse Pulse Resp 11/29/23 10:33 109 H 113 H 84 11/29/23 07:29 83 11/29/23 07:06 86 18 11/29/23 07:00 36.9 C 85 18 11/29/23 02:52 36.8 C 81 21 11/29/23 00:59 95 H 18 Resp Resp Resp BP Pulse Ox Pulse Ox Pulse Ox 11/29/23 10:33 18 20 18 92 87 L 11/29/23 07:29 11/29/23 07:06 94 11/29/23 07:00 133/71 93 11/29/23 02:52 122/82 93 11/29/23 00:59 90 Pulse Ox O2 Del Method O2 Flow Rate 11/29/23 10:33 96 2 11/29/23 07:29 11/29/23 07:06 Room Air 11/29/23 07:00 Room Air 11/29/23 02:52 Room Air 11/29/23 00:59 Room Air Laboratory Results 11/25/23 06:07
--- NOTE | 2023-11-29 13:15 | Hospitalist Progress Note ---
Date of Service November 29, 2023 Assessment & Plan (1) SOB (shortness of breath): Plan: Per previous hospitalist notes with addendum: 78-year-old male with past medical history significant for hypertension, COPD mild as per patient, paroxysmal atrial fibrillation, sick sinus syndrome status post pacemaker, aneurysm of ascending aorta, history of atherosclerosis of [place] coronary artery, CKD stage III, history of DVT, GERD anxiety disorder, history of [place], presents with shortness of breath and also chest pain on exertion. Patient follows with cardiology and pulmonology with [facility]. Has been following pulmonary for last 2 years for on and off shortness of breath. For past 1 to 2 years also is getting exertional chest pain. Had reported a plan for cardiac cath next week at [facility]. In the ER is oxygen sats dropped into the low 80s when he was ambulating. Shortness of breath Exertional chest pain Dyspnea likely secondary to Restrictive Lung Disease, Interstitial/Fibrotic Lung Disease Per Cardiology, ER previously reported to be 45%. However TTE 11/18 showed EF of 50-55%, mod dil RV, normal RV systolic function, PASP 45mmHg CT chest noted findings of chronic interstitial/fibrotic lung disease CT head did not show any acute abnormalities Serial trop was negative EKG did not show acute changes s/p Lexiscan stress test: negative Respiratory status stable On room air Discussed with pulmonology service Increase Breo to 200 Two-step exercise test when stable: will need 2 L of O2 via NC while ambulating Follow-up with pulmonology as an outpatient History of COPD Remote history of smoking management per above Orthostatic Hypotension (+) significant orthostasis noted, systolic bp down to 60s while standing d/c TOM Inhibitor Metoprolol reduced to 50mg daily from 100mg Florinef 0.1mg BID added Julio Cesar stocking BP improved, no dizziness monitor closely as outpatient History of paroxysmal atrial fibrillation Sick sinus syndrome S/p pacemaker History of DVT On digoxin and metoprolol Was on warfarin at home INR was subtherapeutic on admission at 1.3 INR therapeutic continue Coumadin monitor closely as outpatient CKD3 crea 1.7-->1.8 monitor closely Hypertension (+) orthostasis management per above History of CAD On statin, beta-joyce, Coumadin History of anxiety/panic disorder on citalopram DVT prophylaxis Coumadin Full code Disposition d/c home ff up with PCP in 1 week Admission and Anticipated Discharge Date Admission Date: November 18, 2023 Subjective ff up for orthostatic hypotension, etc seen resting in bed, comfortable states he feels fine overall no dizziness no chest pain, dyspnea, palpitations no other new symptoms Review of Systems Review of Systems: all noted and negative except for above Physical Exam Physical Exam: General- oriented x 3, not in distress, speaks in sentences with no effort or accessory muscle use Eyes- anicteric Neck- no JVD Lungs- clear breath sounds bilaterally, no rales/wheezes Heart- normal rate, regular rhythm; no murmurs Abdomen- normal bowel sounds, nondistended, soft, no crackles/wheezing Extremities- no pretibial edema, no calf tenderness Neuro- alert, oriented x 3; no gross focal neurologic deficits Skin- warm & dry Results & Data Results & Data Vital Signs (Past 12 Hours) Vital Signs Temp Pulse Pulse Pulse Pulse Pulse Resp 11/29/23 11:41 36.6 C 115 H 19 11/29/23 10:33 109 H 113 H 84 11/29/23 07:29 83 11/29/23 07:06 86 18 11/29/23 07:00 36.9 C 85 18 11/29/23 02:52 36.8 C 81 21 Resp Resp Resp BP Pulse Ox Pulse Ox Pulse Ox 11/29/23 11:41 102/74 96 11/29/23 10:33 18 20 18 92 87 L 11/29/23 07:29 11/29/23 07:06 94 11/29/23 07:00 133/71 93 11/29/23 02:52 122/82 93 Pulse Ox O2 Del Method O2 Flow Rate 11/29/23 11:41 Room Air 11/29/23 10:33 96 2 11/29/23 07:29 11/29/23 07:06 Room Air 11/29/23 07:00 Room Air 11/29/23 02:52 Room Air all noted and reviewed including below
[2023-11-29 13:37] LABS: INR 1.9 (0.9-1.1); Prothrombin Time 19.2 Seconds (9.0-12.0)
--- NOTE | 2023-11-29 13:59 | Hospitalist Progress Note ---
Date of Service November 29, 2023 Assessment & Plan (1) SOB (shortness of breath): Plan: Per previous hospitalist notes with addendum: 78-year-old male with past medical history significant for hypertension, COPD mild as per patient, paroxysmal atrial fibrillation, sick sinus syndrome status post pacemaker, aneurysm of ascending aorta, history of atherosclerosis of [place] coronary artery, CKD stage III, history of DVT, GERD anxiety disorder, history of [place], presents with shortness of breath and also chest pain on exertion. Patient follows with cardiology and pulmonology with [facility]. Has been following pulmonary for last 2 years for on and off shortness of breath. For past 1 to 2 years also is getting exertional chest pain. Had reported a plan for cardiac cath next week at [facility]. In the ER is oxygen sats dropped into the low 80s when he was ambulating. Shortness of breath Exertional chest pain Dyspnea likely secondary to Restrictive Lung Disease, Interstitial/Fibrotic Lung Disease Per Cardiology, ER previously reported to be 45%. However TTE 11/18 showed EF of 50-55%, mod dil RV, normal RV systolic function, PASP 45mmHg CT chest noted findings of chronic interstitial/fibrotic lung disease CT head did not show any acute abnormalities Serial trop was negative EKG did not show acute changes s/p Lexiscan stress test: negative Respiratory status stable On room air Discussed with pulmonology service Increase Breo to 200 Two-step exercise test when stable: will need 2 L of O2 via NC while ambulating Follow-up with pulmonology as an outpatient History of COPD Remote history of smoking management per above Orthostatic Hypotension (+) significant orthostasis noted, systolic bp down to 60s while standing d/c TOM Inhibitor Metoprolol reduced to 50mg daily from 100mg Florinef 0.1mg BID added Julio Cesar stocking BP improved, no dizziness monitor closely as outpatient History of paroxysmal atrial fibrillation Sick sinus syndrome S/p pacemaker History of DVT On digoxin and metoprolol Was on warfarin at home INR was subtherapeutic on admission at 1.3 INR therapeutic continue Coumadin monitor closely as outpatient CKD3 crea 1.7-->1.8 monitor closely Hypertension (+) orthostasis management per above History of CAD On statin, beta-joyce, Coumadin History of anxiety/panic disorder on citalopram DVT prophylaxis Coumadin Full code Disposition d/c home ff up with PCP in 1 week Admission and Anticipated Discharge Date Admission Date: November 18, 2023 Results & Data Results & Data Vital Signs (Past 12 Hours) Vital Signs Temp Pulse Pulse Pulse Pulse Pulse Resp 11/29/23 13:12 82 16 11/29/23 11:41 36.6 C 115 H 19 11/29/23 10:33 109 H 113 H 84 11/29/23 07:29 83 11/29/23 07:06 86 18 11/29/23 07:00 36.9 C 85 18 11/29/23 02:52 36.8 C 81 21 Resp Resp Resp BP Pulse Ox Pulse Ox Pulse Ox 11/29/23 13:12 98 11/29/23 11:41 102/74 96 11/29/23 10:33 18 20 18 92 87 L 11/29/23 07:29 11/29/23 07:06 94 11/29/23 07:00 133/71 93 11/29/23 02:52 122/82 93 Pulse Ox O2 Del Method O2 Flow Rate 11/29/23 13:12 Room Air 11/29/23 11:41 Room Air 11/29/23 10:33 96 2 11/29/23 07:29 11/29/23 07:06 Room Air 11/29/23 07:00 Room Air 11/29/23 02:52 Room Air
--- NOTE | 2023-11-29 14:04 | Discharge Summary ---
Discharge Summary Date of Service November 29, 2023 Principal Dx & Hospital Course #1 = Principal Diagnosis (1) ILD (interstitial lung disease): (2) Orthostatic hypotension: (1) SOB (shortness of breath): Plan: Per previous hospitalist notes with addendum: 78-year-old male with past medical history significant for hypertension, COPD mild as per patient, paroxysmal atrial fibrillation, sick sinus syndrome status post pacemaker, aneurysm of ascending aorta, history of atherosclerosis of [place] coronary artery, CKD stage III, history of DVT, GERD anxiety disorder, history of [place], presents with shortness of breath and also chest pain on exertion. Patient follows with cardiology and pulmonology with [facility]. Has been following pulmonary for last 2 years for on and off shortness of breath. For past 1 to 2 years also is getting exertional chest pain. Had reported a plan for cardiac cath next week at [facility]. In the ER is oxygen sats dropped into the low 80s when he was ambulating. Shortness of breath Exertional chest pain Dyspnea likely secondary to Restrictive Lung Disease, Interstitial/Fibrotic Lung Disease History of COPD Per Cardiology, ER previously reported to be 45%. However TTE 11/18 showed EF of 50-55%, mod dil RV, normal RV systolic function, PASP 45mmHg CT chest noted findings of chronic interstitial/fibrotic lung disease densely calcified coronary arteries CT head did not show any acute abnormalities Serial trop was negative EKG did not show acute changes s/p Lexiscan stress test: negative Respiratory status stable On room air Discussed with pulmonology service Increase Breo to 200 Two-step exercise test when stable: will need 2 L of O2 via NC while ambulating Follow-up with pulmonology as an outpatient Orthostatic Hypotension (+) significant orthostasis noted, systolic bp down to 60s while standing d/c TOM Inhibitor Metoprolol reduced to 50mg daily from 100mg Florinef 0.1mg BID added Julio Cesar stocking BP improved, no dizziness monitor closely as outpatient History of paroxysmal atrial fibrillation Sick sinus syndrome S/p pacemaker History of DVT On digoxin and metoprolol Was on warfarin at home INR was subtherapeutic on admission at 1.3 INR therapeutic continue Coumadin monitor closely as outpatient CKD3 crea 1.7-->1.8 monitor closely Hypertension (+) orthostasis management per above History of CAD On statin, beta-joyce, Coumadin Abnormal CT head findings There is atherosclerotic calcification of the cavernous carotid artery. There is atherosclerotic calcification of the cavernous carotid artery. Further work up, management, and ff up as outpatient History of anxiety/panic disorder on citalopram Disposition d/c home ff up with PCP in 1 week Follow-up with cnmt and broadband engineer and 2 weeks Notes For Next Care Provider Medication Changes From Visit Increase your Breo inhaler to 200 mcg daily Florinef-medication to prevent low blood pressure Xopenex nebulizer-as needed for shortness of breath or wheezing Stop ramipril. Change metoprolol to tartrate to metoprolol succinate 50 mg daily. Admission HPI Per Admitting Provider 78-year-old male with past medical history significant for hypertension, COPD mild as per patient, paroxysmal atrial fibrillation, sick sinus syndrome status post pacemaker, aneurysm of ascending aorta, history of atherosclerosis of [place] coronary artery, CKD stage III, history of DVT, GERD anxiety disorder, history of [place], presents with shortness of breath and also chest pain on exertion. Patient states He follows with cardiology and pulmonology with [facility]. States he is following pulmonary for last 2 years for on and off shortness of breath. But today shortness of breath got worse. Walking few steps making short of breath. States since last 1 to 2 years also is getting c hest pain on exertion's. He thinks he has angina. States there is a plan for cardiac cath next week at [facility]. States his last cardiac cath was in late 1980s and his heart doctor wanted to cardiac cath for baseline. States he has a pacemaker placed 10 years ago. Since then he is on Coumadin. His INR was 2.1 last Tuesday. He is coughing and bringing some mild yellowish phlegm. D enies any fevers. Denies any headache. Has dizziness on and off and for last two weeks having vertigo. No runny nose. No earache. He has some blurred visions seems chronically. No sore throat. No difficulty swallowing. No nausea. On and off he gets some tightness in the abdomen but currently No abdominal pain. Normal bowel and bladder movements. No swelling the legs. Currently resting comfortably. In the ER is oxygen sats dropped into the low 80s when he was ambulating. past medical history. As mentioned above past surgical history. Cholecystectomy. S/p pacemaker. Heart cath eterization. Social history. . Smoked half pack a day for 4 years when he was in college and quit in 1966. Alcohol occasional. Family history. Father had non-Hodgkin's lymphoma. Massive CVA. Mother had colon cancer. Admission Exam Per Admitting Provider General- not in acute distress. Head- atraumatic Eyes- PERRL. ENT- oropharynx clear Neck- supple, no JVD. Lungs- clear to auscultation no wheezing, mild bibasilar crackles. Heart- irregular rhythm; no murmur, no gallop. Abdomen- normal bowel sounds, soft, nontender, no distension. Extremities- no pretibial edema, no erythema seen. Neuro- alert, oriented PERRL,; no facial palsy; no dysarthria; obeys simple commands. Discharge Exam General- oriented x 3, not in distress, speaks in sentences with no effort or accessory muscle use Eyes- anicteric Neck- no JVD Lungs- positive crackles bilateral bases Heart- normal rate, regular rhythm; no murmurs Abdomen- normal bowel sounds, nondistended, soft, nontender Extremities- no pretibial edema, no calf tenderness Neuro- alert, oriented x 3; no gross focal neurologic deficits Skin- warm & dry Updated Medication List Medication Instructions Recorded Confirmed Type atorvastatin 10 mg tablet 10 mg PO HS 11/18/23 11/18/23 History calcium citrate 250 mg PO DAILY 11/18/23 11/18/23 History citalopram 20 mg tablet 30 mg PO QAM 11/18/23 11/18/23 History digoxin 125 mcg (0.125 mg) tablet 125 mcg PO QAM 11/18/23 11/18/23 History fluticasone furoate 100 1 ea inhalation DAILY 11/18/23 11/18/23 History mcg-vilanterol 25 mcg/dose inhalation powder (Breo Ellipta) meclizine 25 mg tablet 25 mg PO DAILY PRN dizzyness 11/18/23 11/18/23 History metoprolol tartrate 25 mg tablet 25 mg PO QPM 11/18/23 11/18/23 History montelukast 10 mg tablet 10 mg PO HS 11/18/23 11/18/23 History multivitamin 1 tab PO DAILY 11/18/23 11/18/23 History ramipril 1.25 mg capsule 1.25 mg PO DAILY 11/18/23 11/18/23 History ranolazine 500 mg tablet,extended 500 mg PO BID 11/18/23 11/18/23 History release,12 hr warfarin 5 mg tablet 2.5 mg PO 2XWK 11/18/23 11/18/23 History warfarin 5 mg tablet 5 mg PO 5XWK 11/18/23 11/18/23 History metoprolol tartrate 50 mg tablet 50 mg PO QAM 11/19/23 11/19/23 History fludrocortisone 0.1 mg tablet 0.1 mg PO BID 30 days #60 tabs 11/29/23 Rx fluticasone furoate 200 1 inh inhalation DAILY 30 days #60 11/29/23 Rx mcg-vilanterol 25 mcg/dose ea inhalation powder (Breo Ellipta) levalbuterol HCl 1.25 mg/3 mL 1.25 mg (3 mL) NEB Q4H PRN 11/29/23 Rx solution for nebulization shortness of breath or wheezing #90 mL metoprolol succinate 50 mg 50 mg PO DAILY 30 days #30 tabs 11/29/23 Rx tablet,extended release 24 hr Hospital Stay Data Consultations 11/18/23 20:13 ED Decision to Admit Stat 11/19/23 08:00 Consult Cardiology Routine Consult Pulmonology Routine 11/21/23 14:18 Consult Nephrology Routine Diagnostic Imagining Performed Laboratory Results WBC 8.13 K/ul (4.8-10.8) 11/25/23 06:07 RBC 3.86 M/uL (4.70-6.10) L 11/25/23 06:07 Hgb 13.3 g/dl (14.0-18.0) L 11/25/23 06:07 Hct 39.6 % (42.0-52.0) L 11/25/23 06:07 MCV 102.6 fL (80.0-100.0) H 11/25/23 06:07 MCH 34.5 pg (25.0-34.0) H 11/25/23 06:07 MCHC 33.6 g/dL (32.0-36.0) 11/25/23 06:07 RDW Std Deviation 48.1 fL (36.4-46.3) H 11/25/23 06:07 RDW Coeff of Lori 12.8 % (11.5-14.5) 11/25/23 06:07 Plt Count 160 K/uL (130-400) 11/25/23 06:07 MPV 9.7 fL (9.4-12.4) 11/25/23 06:07 Immature Gran % (Auto) 0.2 % 11/25/23 06:07 Neut % (Auto) 63.1 % 11/25/23 06:07 Lymph % (Auto) 23.7 % 11/25/23 06:07 [place] % (Auto) 10.2 % 11/25/23 06:07 Eos % (Auto) 2.6 % 11/25/23 06:07 Baso % (Auto) 0.2 % 11/25/23 06:07 Neut # (Auto) 5.12 K/uL (1.40-6.50) 11/25/23 06:07 Lymph # (Auto) 1.93 K/uL (1.20-3.40) 11/25/23 06:07 [place] # (Auto) 0.83 K/uL (0.11-0.59) H 11/25/23 06:07 Eos # (Auto) 0.21 K/uL (0.00-0.50) 11/25/23 06:07 Baso # (Auto) 0.02 K/uL (0.00-0.20) 11/25/23 06:07 Immature Gran # (Auto) 0.02 K/uL (0.01-0.20) 11/25/23 06:07 ESR 29 mm/hr (0-20) H 11/20/23 06:25 PT 19.2 Seconds (9.0-12.0) H 11/29/23 12:46 INR 1.9 (0.9-1.1) H 11/29/23 12:46 APTT 26 Seconds (21-31) 11/18/23 18:19 PTT Ratio 1.0 11/18/23 18:19 D-Dimer 330 ug/L FEU (0-500) 11/19/23 06:00 Heparin Anti-Xa, Unfract < 0.10 IU/ml (0.3-0.7) L 11/24/23 06:18 Sodium 137 mmol/L (136-145) 11/25/23 06:07 Potassium 5.0 mmol/L (3.5-5.1) 11/25/23 06:07 Chloride 106 mmol/L (98-107) 11/25/23 06:07 Carbon Dioxide 28 mmol/L (21-32) 11/25/23 06:07 Anion Gap 3 (3-11) 11/25/23 06:07 BUN 30 mg/dl (6-23) H 11/25/23 06:07 Creatinine 1.75 mg/dl (0.6-1.4) H 11/25/23 06:07 Est Cr Clr Drug Dosing 34.8 ml/min 11/25/23 06:07 Est GFR ( Amer) 41.7 ml/min 11/25/23 06:07 Est GFR (Non-Af Amer) 36.0 ml/min 11/25/23 06:07 BUN/Creatinine Ratio 17.1 (10-20) 11/25/23 06:07 Glucose 99 mg/dl (70-99(Fasting)) 11/25/23 06:07 Calcium 9.0 mg/dl (8.6-10.3) 11/25/23 06:07 Phosphorus 3.7 mg/dl (2.5-4.9) 11/21/23 06:39 Magnesium 2.3 mg/dl (1.7-2.4) 11/21/23 06:39 Total Bilirubin 0.9 mg/dl (0.2-1.0) 11/18/23 18:19 AST 16 U/L (13-39) 11/18/23 18:19 ALT 15 U/L (7-52) 11/18/23 18:19 Alkaline Phosphatase 84 U/L (34-104) 11/18/23 18:19 Total Creatine Kinase 28 U/L (30-223) L 11/19/23 12:28 Troponin I High Sens 6.6 pg/ml (0-20) 11/19/23 17:14 C-Reactive Protein < 0.50 mg/dl (0-0.5) 11/20/23 06:25 B-Natriuretic Peptide 308 pg/ml (0-100) H 11/18/23 18:19 Total Protein 7.1 gm/dl (6.0-8.3) 11/18/23 18:19 Albumin 3.9 gm/dl (3.4-5.0) 11/18/23 18:19 Globulin 3.2 gm/dl (2.5-4.0) 11/18/23 18:19 Albumin/Globulin Ratio 1.2 (0.9-2) 11/18/23 18:19 Procalcitonin < 0.02 ng/ml (0-0.5) 11/19/23 11:31 Random Cortisol 16.04 mcg/dl 11/24/23 06:22 Digoxin 0.3 ng/ml (0.8-2.0) L 11/19/23 12:28 Adenovirus (PCR) Not Detected (NotDetected) 11/19/23 14:29 B. pertussis DNA (PCR) Not Detected (NotDetected) 11/19/23 14:29 B.parapertussis DNA PCR Not Detected (NotDetected) 11/19/23 14:29 C. pneumoniae DNA (PCR) Not Detected (NotDetected) 11/19/23 14:29 Coronavirus OC43 (PCR) Not Detected (NotDetected) 11/19/23 14:29 Coronavirus HKU1 (PCR) Not Detected (NotDetected) 11/19/23 14:29 Coronavirus 229E (PCR) Not Detected (NotDetected) 11/19/23 14:29 SARS-CoV-2 (PCR) Not Detected (NotDetected) 11/19/23 14:29 Coronavirus NL63 (PCR) Not Detected (NotDetected) 11/19/23 14:29 Human Metapneumovir PCR Not Detected (NotDetected) 11/19/23 14:29 Influenza Type A (PCR) Not Detected (NotDetected) 11/19/23 14:29 Influenza Type B (PCR) Not Detected (NotDetected) 11/19/23 14:29 M. pneumoniae (PCR) Not Detected (NotDetected) 11/19/23 14:29 Parainfluenza 1 (PCR) Not Detected (NotDetected) 11/19/23 14:29 Parainfluenza 2 (PCR) Not Detected (NotDetected) 11/19/23 14:29 Parainfluenza 3 (PCR) Not Detected (NotDetected) 11/19/23 14:29 Parainfluenza 4 (PCR) Not Detected (NotDetected) 11/19/23 14:29 RSV (PCR) Not Detected (NotDetected) 11/19/23 14:29 Entero/Rhino (PCR) Not Detected (NotDetected) 11/19/23 14:[address] 11/19/23 10:32 CT SCAN OF THE CHEST WITHOUT IV CONTRAST CLINICAL HISTORY: Atypical chest pain. COMPARISON STUDY: Chest x-ray dated 11/18/2023. TECHNIQUE: CT scan of the thorax was performed from the thoracic inlet to the upper abdomen. Images are reviewed in the axial, sagittal, and coronal planes. IV contrast was not administered for this examination as per the referring clinician. A dose lowering technique was utilized adhering to the principles of ALARA. CT DOSE: 454.19 mGy.cm FINDINGS: Thyroid: Imaged portions of the thyroid gland are normal in size and attenuation. Thoracic aorta: The thoracic aorta is normal in caliber and demonstrates bovine variant arch anatomy. Heart: A pacemaker is seen in the left chest wall. The heart is enlarged and without pericardial effusion. The coronary arteries are densely calcified. Lungs and pleural spaces: There is no airspace consolidation typical for pneumonia or pleural effusion. The trachea and central airways are clear. Subpleural reticulation is seen throughout both lungs with a lower lobe predominance. There is subpleural scarring/fibrosis, again with a lower lobe predominance. There is mild traction bronchiectasis. No honeycombing is seen. There are punctate calcified granulomas. Mediastinum: Subcentimeter mediastinal lymph nodes are not pathologically enlarged by size criteria. Pili: Not well assessed without IV contrast. Axillae: There is no axillary lymphadenopathy. Upper abdomen: Cholecystectomy clips are noted. Partially visualized upper abdominal viscera is otherwise within normal limits. Skeletal structures: The skeletal structures are osteopenic. Degenerative change is noted in the shoulders and spine. No lytic or blastic bony lesions are seen. IMPRESSION: 1. There is no airspace consolidation typical for pneumonia or pleural effusion. 2. Cardiomegaly and cardiac pacemaker. 3. Findings of chronic interstitial/fibrotic lung disease as above, likely with a nonspecific interstitial pneumonitis (NSIP) pattern. 4. Prominent mediastinal lymph nodes are likely related to chronic lung disease. 5. Additional findings as above. ACT 112: Negative or not required by law. Electronically signed by: Ryan Fay M.D. 11/19/2023 4:[address] 11/20/23 14:33 CT SCAN OF THE BRAIN WITHOUT IV CONTRAST CLINICAL HISTORY: Dizziness. COMPARISON STUDY: No priors. TECHNIQUE: Unenhanced axial CT scan of the brain is performed from the vertex to the skull base. A dose lowering technique was utilized adhering to the principles of ALARA. CT DOSE: 625.8 mGy.cm FINDINGS: Brain parenchyma: There is age-related involutional change noting mild subcortical and periventricular microangiopathic disease. There is no hemorrhage, mass effect, or evidence of acute territorial ischemia by CT criteria. Espinal-white matter differentiation is preserved. No extra-axial fluid collection is seen. Ventricles, sulci, cisterns: Prominent secondary to involutional change. Cavum septum pellucidum is incidentally noted. Intracranial vasculature: There is atherosclerotic calcification of the cavernous carotid artery. Calvarium: Unremarkable. Sinuses and mastoids: The visualized paranasal sinuses are clear. The mastoid air cells are well pneumatized. Orbits: The bony orbits are grossly intact. There are bilateral ocular lens implants. IMPRESSION: There is no hemorrhage, mass effect, or evidence of acute territorial ischemia by CT criteria. ACT 112: Negative or not required by law. Electronically signed by: Ryan Fay M.D. 11/20/2023 3:00 PM Chest X-Ray 11/26/23 12:46 XR chest 1V portable HISTORY: 78 years-old Male ff up acute shortness breath COMPARISON: 11/18/2023 TECHNIQUE: AP view the chest FINDINGS: Cardiac silhouette is enlarged. Single lead left subclavian pacer. Telemetry leads coiled over the chest. Unchanged right hemidiaphragmatic elevation. No pneumothorax or pleural effusion. Chronic pulmonary fibrosis. Bones appear grossly intact. IMPRESSION: 1. No acute processes of the chest. 2. Cardiomegaly with chronic pulmonary fibrosis ACT 112: Negative or not required by law. The above report was generated using voice recognition software. It may contain grammatical, syntax or spelling errors. Electronically signed by: Aba Muñoz M.D. 11/26/2023 1:49 PM Pending Results Patient Have Any Pending Studies at Discharge: No Discharge Instructions Given to Patient (Per Discharging Provider) PLEASE REFER TO YOUR NEW MEDICATION LIST AND FOLLOW INSTRUCTIONS CAREFULLY. YOUR NEW MEDICATIONS INCLUDE: Increase your Breo inhaler to 200 mcg daily Florinef-medication to prevent low blood pressure Xopenex nebulizer-as needed for shortness of breath or wheezing Stop ramipril. Change metoprolol to tartrate to metoprolol succinate 50 mg daily. Uses 2 L of oxygen via nasal cannula while ambulating. Use compression stockings every day. Always hydrate with daily, 6 to 8 glasses a day. Okay to use extra salt in your diet for now. PLEASE CALL YOUR PRIMARY CARE PHYSICIAN OR RETURN TO THE ER IF WITH WORSENING OF SYMPTOMS, INCLUDING Dizziness, weakness, shortness of breath, fevers or chills, increased sputum production, cough, etc. FOLLOW UP WITH PRIMARY CARE PHYSICIAN In 1 week. Follow-up with your cnmt and broadband engineer in 2 weeks. Total Time Total Time Spent Total Time Spent (In Minutes): 45 minutes
== END 2023-11-29 16:40 | disposition home or self-care (01) | DRG 196 ==
LOC: ED 18:16 → SUATTDRO 23:09 → 2S 23:09

== ENCOUNTER 2024-09-25 16:55 | Inpatient (IN) ==
[2024-09-25 17:24] LABS: Basophils # (auto) 0.02 K/uL (0.00-0.20); Basophils % (auto) 0.3 %; Eosinophils % (auto) 1.6 %; Hematocrit (blood only) 37.4 % (42.0-52.0); Hemoglobin 12.5 g/dl (14.0-18.0); Immature Granulocytes # (auto) 0.02 K/uL (0.01-0.20); Immature Granulocytes % (auto) 0.3 %; Lymphocytes # (auto) 1.08 K/uL (1.20-3.40); Lymphocytes % (auto) 17.3 %; Mean Corpuscular Hemoglobin 34.1 pg (25.0-34.0); Mean Corpuscular Hgb Conc 33.4 g/dL (32.0-36.0); Mean Corpuscular Volume 101.9 fL (80.0-100.0); Mean Platelet Volume 10.2 fL (9.4-12.4); Monocytes # (auto) 0.27 K/uL (0.11-0.59); Monocytes % (auto) 4.3 %; Neutrophils # (auto) 4.74 K/uL (1.40-6.50); Neutrophils % (auto) 76.2 %; Platelet Count 127 K/uL (130-400); RDW Coefficient of Variation 14.5 % (11.5-14.5); RDW Standard Deviation 53.6 fL (36.4-46.3); Red Blood Count 3.67 M/uL (4.70-6.10); White Blood Count 6.23 K/ul (4.8-10.8)
[2024-09-25 17:29] LABS: HCO3 VBG 29 mmol/L; Oxygen Saturation VBG < 60.0 %; PCO2 VBG 46 mmHg (38-50); PO2 VBG 22 mmHg
[2024-09-25 17:36] LABS: INR 2.5 (0.9-1.1); Prothrombin Time 25.1 Seconds (9.0-12.0)
--- NOTE | 2024-09-25 18:02 | Emergency Department Note ---
Impression & Plan Dyspnea on exertion, Acute exacerbation of CHF (congestive heart failure), Elevated brain natriuretic peptide (BNP) level, Bilateral pleural effusion ED Provider Note HISTORY OF PRESENT ILLNESS: Patient is an 79-year-old male presenting with shortness of breath. Patient reports he has a history of pulmonary fibrosis and is on 4 L nasal cannula at baseline. He reports over the last few weeks he has been having progressively worsening shortness of breath with any sort of exertion. He states that he is unable to get up from his bed to go to the bathroom about becoming significantly winded. He reports he has been using his home pulse ox during these episodes and his saturations dipped into the 60s. He states that when he is up moving around, he has to increase his home oxygen tank to 6 L nasal cannula. He denies any chest pain with the episodes. Denies any DVT or PE history. He is on Coumadin. He denies any abdominal pain, nausea or vomiting. He does report over the last few days, he has intermittently been coughing up blood clots. He denies any fevers. Denies any recent sick contact exposures. ROS: as above PHYSICAL EXAM: Constitutional: Patient appears in no acute distress. HENT: Head: Normocephalic and atraumatic. Eyes: EOMI, PERRL Mouth/Throat: Mucous membranes moist. Neck: Trachea midline. Neck supple. Cardiovascular: Irregular rhythm. No murmurs, rubs or gallops. Intact distal pulses. Pulmonary/Chest: No respiratory distress. Breath sounds clear and equal bilaterally. No wheezes or rales. On 4L NC Abdominal: Abdomen soft, no tenderness, rebound or guarding. Musculoskeletal: No edema, tenderness or deformity noted. Skin: Warm and dry. No rash, erythema, pallor or cyanosis Psychiatric: Appropriate mood and affect for situation. Neurological: Alert and keenly responsive. CN II-XII grossly intact, moving all extremities equally and fully. MDM: - Vitals signs showed hypertension - History obtained via patient. History as above. - Chronic conditions affecting care: tachy-nicol syndrome; chronic Afib; intersistial lung disease - Differential diagnoses include, but are not limited to: Congestive heart failure; acute coronary syndrome; COPD/asthma exacerbation; pulmonary edema; pulmonary embolism; pneumonia; pneumothorax; viral syndrome - Order placed for continuous cardiac monitoring. At this time, monitor showed rate of 68 bpm with normal sinus rhythm, per my interpretation. - External medical records reviewed. On review of patient's chart, his last echocardiogram was on 11/19/2023 ad showed EF of 50-55% - EKG image interpreted by myself showed atrial fibrillation. Rate 66 bpm. QT 332. No acute ischemic changes. - Laboratory workup interpreted by myself showed normal WBC; thrombocytopenia (plt 127); therapeutic INR (2.5); normal electrolytes; normal troponin; elevated total bilirubin (1.7); elevated BNP (846) - VBG normal - Viral respiratory panel negative - CXR image reviewed by myself showed what appears to be some vascular congestion, per my interpretation. Radiology notes suspected mild pulmonary edema. - CTA chest no PE. Noted to have right-sided and left-sided pleural effusions. - Discussion was had with caseworker protective services about patient's case and need for admission - Hospitalist, Dr. Page, consulted for admission - [facility] ASSESSMENT AND PLAN: Diagnosis: Dyspnea on exertion; acute CHF exacerbation; elevated BNP; bilateral pleural effusions Plan: Admit Past Med/Surg History Problem List (Updated 09/25/24 @ 20:38 by Carmen Gann MD) Bilateral pleural effusion (Acute) Elevated brain natriuretic peptide (BNP) level (Acute) Acute exacerbation of CHF (congestive heart failure) (Acute) Dyspnea on exertion (Acute) Orthostatic hypotension Acute on chronic renal insufficiency Hyperkalemia Abnormal chest CT Acute respiratory failure with hypoxia ILD (interstitial lung disease) Cardiac pacemaker in situ Tachy-nicol syndrome Chronic atrial fibrillation ASCVD (arteriosclerotic cardiovascular disease) Exertional dyspnea (Acute) SOB (shortness of breath) (Acute) Hypoxia (Acute) S/P laparoscopic cholecystectomy AGNIESZKA (acute kidney injury) Anxiety (Acute) Medical History Atrial fibrillation Surgical History Hx laparoscopic cholecystectomy (02/23/21) Laparoscopic Cholecystectomy Dr. Mckoy 02-23-2021 History of wisdom tooth extraction H/O vein stripping Family History Other Cancer Social History Smoking Status: Former smoker Tobacco Type: Cigarettes Second Hand Exposure: No; Do You Dip or Chew Tobacco: No; Hx Alcohol Use: Yes Alcohol type: wine Alcohol Intake Frequency: 2-4 x/Month Hx Substance Use: No Preferred Language: Romansh Communication Ability: Effective Bronzer Required: No Beliefs That Will Affect Care: None Current Living Situation: Spouse Current Living Situation Comment: lives at home with Feels Safe at Home: Yes Assistive Devices: None Allergies Allergies Allergy/AdvReac Type Severity Reaction Status Date / Time buspirone [From BuSpar] AdvReac Severe All senses Verified 09/25/24 18:23 were shut off Home Meds Home Medications Medication Instructions Recorded Confirmed atorvastatin 10 mg tablet 10 mg PO HS 11/18/23 09/25/24 calcium citrate 250 mg PO DAILY 11/18/23 09/25/24 citalopram 20 mg tablet 30 mg PO QAM 11/18/23 09/25/24 digoxin 125 mcg (0.125 mg) tablet 125 mcg PO QAM 11/18/23 09/25/24 montelukast 10 mg tablet 10 mg PO HS 11/18/23 09/25/24 multivitamin 1 tab PO DAILY 11/18/23 09/25/24 warfarin 5 mg tablet 2.5 mg PO 2XWK 11/18/23 09/25/24 warfarin 5 mg tablet 5 mg PO 5XWK 11/18/23 09/25/24 Previous Rx's Medication Instructions Recorded fludrocortisone 0.1 mg tablet 0.1 mg PO BID 30 days #60 tabs 11/29/23 fluticasone furoate 200 1 inh inhalation DAILY 30 days #60 11/29/23 mcg-vilanterol 25 mcg/dose ea inhalation powder (Breo Ellipta) levalbuterol HCl 1.25 mg/3 mL 1.25 mg (3 mL) NEB Q4H PRN 11/29/23 solution for nebulization shortness of breath or wheezing #90 mL Results & Data (ED) Vital Signs Vital Signs - 24 hr 09/25/24 17:15 09/25/24 17:15 09/25/24 17:15 Temperature 36.8 C Temperature Source Oral Pulse Rate 67 Pulse Rate [Right Finger] Pulse Rhythm Regular Pulse Rhythm [Right Finger] Pulse Strength Normal Pulse Strength [Right Finger] Respiratory Rate 15 Respiratory Effort / Characteristics Non-Labored Non-Labored Respiratory Depth Normal Respiratory Pattern Regular Blood Pressure 167/100 H Blood Pressure [Right Arm] Blood Pressure Mean 122 Blood Pressure Mean [Right Arm] Blood Pressure Position Lying Blood Pressure Position [Right Arm] Pulse Oximetry 94 94 Oxygen Delivery Method Nasal Cannula Nasal Cannula Oxygen Flow Rate 4 4 Sepsis Recent Fever Within 48 Hours No Sepsis New/Unexplained Change in Mental Status N/A Sepsis Action Taken by Nursing No Action Required 09/25/24 17:15 09/25/24 17:15 09/25/24 18:35 Temperature Temperature Source Pulse Rate 70 Pulse Rate [Right Finger] 88 Pulse Rhythm Pulse Rhythm [Right Finger] Regular Pulse Strength Pulse Strength [Right Finger] Normal Respiratory Rate Respiratory Effort / Characteristics Respiratory Depth Normal Respiratory Pattern Blood Pressure Blood Pressure [Right Arm] 155/84 H Blood Pressure Mean Blood Pressure Mean [Right Arm] 107 Blood Pressure Position Blood Pressure Position [Right Arm] Lying Pulse Oximetry 100 100 Oxygen Delivery Method Nasal Cannula Nasal Cannula Oxygen Flow Rate 4 4 Sepsis Recent Fever Within 48 Hours Sepsis New/Unexplained Change in Mental Status Sepsis Action Taken by Nursing 09/25/24 19:04 Temperature Temperature Source Pulse Rate Pulse Rate [Right Finger] 68 Pulse Rhythm Pulse Rhythm [Right Finger] Regular Pulse Strength Pulse Strength [Right Finger] Normal Respiratory Rate 16 Respiratory Effort / Characteristics Non-Labored Spontaneous Respiratory Depth Normal Respiratory Pattern Regular Blood Pressure Blood Pressure [Right Arm] 160/114 H Blood Pressure Mean Blood Pressure Mean [Right Arm] 129 Blood Pressure Position Blood Pressure Position [Right Arm] Lying Pulse Oximetry 95 Oxygen Delivery Method Room Air Oxygen Flow Rate Sepsis Recent Fever Within 48 Hours Sepsis New/Unexplained Change in Mental Status Sepsis Action Taken by Nursing Laboratory Data 09/25/24 17:12 09/25/24 18:37 Lab Results 09/25/24 09/25/24 09/25/24 Range/Units 17:12 17:21 18:37 WBC 6.23 (4.8-10.8) K/ul RBC 3.67 L (4.70-6.10) M/uL Hgb 12.5 L (14.0-18.0) g/dl Hct 37.4 L (42.0-52.0) % MCV 101.9 H (80.0-100.0) fL MCH 34.1 H (25.0-34.0) pg MCHC 33.4 (32.0-36.0) g/dL RDW Std Deviation 53.6 H (36.4-46.3) fL RDW Coeff of Lori 14.5 (11.5-14.5) % Plt Count 127 L (130-400) K/uL MPV 10.2 (9.4-12.4) fL Immature Gran % (Auto) 0.3 % Neut % (Auto) 76.2 % Lymph % (Auto) 17.3 % Barren % (Auto) 4.3 % Eos % (Auto) 1.6 % Baso % (Auto) 0.3 % Neut # (Auto) 4.74 (1.40-6.50) K/uL Lymph # (Auto) 1.08 L (1.20-3.40) K/uL Barren # (Auto) 0.27 (0.11-0.59) K/uL Eos # (Auto) 0.10 (0.00-0.50) K/uL Baso # (Auto) 0.02 (0.00-0.20) K/uL Immature Gran # (Auto) 0.02 (0.01-0.20) K/uL PT 25.1 H (9.0-12.0) Seconds INR 2.5 H (0.9-1.1) VBG pH 7.40 (7.36-7.41) VBG pCO2 46 (38-50) mmHg VBG pO2 22 mmHg VBG HCO3 29 mmol/L VBG O2 Saturation < 60.0 % VBG Base Excess 3.0 mEq/L Sodium 140 (136-145) mmol/L Potassium TNP 3.8 Chloride 106 (98-107) mmol/L Carbon Dioxide 32 (21-32) mmol/L Anion Gap 2 L (3-11) BUN 24 H (6-23) mg/dl Creatinine 1.12 (0.6-1.4) mg/dl Est Cr Clr Drug Dosing 56.8 ml/min eGFR 66.00 BUN/Creatinine Ratio 21.4 H (10-20) Glucose 94 (70-99(Fasting)) mg/dl Calcium 8.8 (8.6-10.3) mg/dl Magnesium 2.2 (1.7-2.4) mg/dl Total Bilirubin 1.7 H (0.2-1.0) mg/dl AST TNP 16 ALT 24 (7-52) U/L Alkaline Phosphatase 75 (34-104) U/L Troponin I High Sens 5.9 (0-20) pg/ml B-Natriuretic Peptide 846 H (0-100) pg/ml Total Protein 6.8 (6.0-8.3) gm/dl Albumin 3.8 (3.4-5.0) gm/dl Globulin 3.0 (2.5-4.0) gm/dl Albumin/Globulin Ratio 1.3 (0.9-2) Adenovirus (PCR) Not Detected (NotDetected) B. pertussis DNA (PCR) Not Detected (NotDetected) B.parapertussis DNA PCR Not Detected (NotDetected) C. pneumoniae DNA (PCR) Not Detected (NotDetected) Coronavirus OC43 (PCR) Not Detected (NotDetected) Coronavirus HKU1 (PCR) Not Detected (NotDetected) Coronavirus 229E (PCR) Not Detected (NotDetected) SARS-CoV-2 (PCR) Not Detected (NotDetected) Coronavirus NL63 (PCR) Not Detected (NotDetected) Human Metapneumovir PCR Not Detected (NotDetected) Influenza Type A (PCR) Not Detected (NotDetected) Influenza Type B (PCR) Not Detected (NotDetected) M. pneumoniae (PCR) Not Detected (NotDetected) Parainfluenza 1 (PCR) Not Detected (NotDetected) Parainfluenza 2 (PCR) Not Detected (NotDetected) Parainfluenza 3 (PCR) Not Detected (NotDetected) Parainfluenza 4 (PCR) Not Detected (NotDetected) RSV (PCR) Not Detected (NotDetected) Entero/Rhino (PCR) Not Detected (NotDetected) Administered Medications Discontinued Medications Ioversol (Optiray 320 125ml) 92 ml IV ONCE ONE Stop: 09/25/24 18:59 Last Admin: 09/25/24 18:59 Dose: 92 ml Documented By: PLW Imaging Data Radiologist's Impression: Chest X-Ray 09/25/24 16:59 Clinical History: Dyspnea Technique: A frontal view of the chest was obtained Findings: There is diffuse interstitial prominence, concerning for pulmonary edema. The heart size is at the upper limit of normal. No pleural effusion or pneumothorax is seen. No fracture is noted. There is a left chest wall pacemaker device Impression: Suspected moderate severity pulmonary edema Electronically signed by Raymundo Chamorro 09-25-2024 7:01 PM Chest CTA 09/25/24 17:26 EXAM: CT angio chest PE protocol CLINICAL HISTORY: PE; hemoptysis. TECHNIQUE: Contiguous 3.[address] angiographic images of the chest were acquired with the administration of intravenous contrast. Coronal and sagittal reconstructions were obtained.92 ml Optiray was administered for post-contrast images. One of these 3D techniques was utilized: Maximum Intensity Pixel (MIP), 3D Reconstructed Images, Volume Rendered Images, Surface Shaded Rendering. One of the following dose reduction techniques were utilized for this exam: Automated exposure control, adjustment of the mA and/or kV according to patient size, and use of iterative reconstruction. CTDI: 42.8 mGy, DLP: 827.98 mGy-cm. COMPARISON: CT dated 09/06/2024, CR done on the same date was reviewed. FINDINGS: Aorta: The thoracic aorta is normal in caliber. No evidence of aneurysm, dissection, or significant atherosclerotic changes. Aortic arch and descending thoracic aorta are unremarkable. Pulmonary Arteries: Pulmonary arteries are normal in size and opacification. No evidence of pulmonary embolism. No stenosis or filling defects. Superior Vena Cava (SVC) and Inferior Vena Cava (IVC): Normal opacification and caliber. No evidence of thrombus or obstruction. Coronary Arteries: Coronary arteries are well-opacified. Atherosclerotic calcific changes in the coronary artery. Mediastinum: No mediastinal mass or lymphadenopathy. Normal appearance of the thymus. Heart: Heart size is enlarged. Cardiac pacemaker is noted over the left chest wall with leads in situ. No pericardial effusion. Lungs: Left-sided might and right-sided minimal pleural effusions is noted. Subpleural interstitial changes are appreciated in bilateral lung herbert more so in bilateral lower zones. Faint groundglass haze with interval septal thickening is appreciated in the basal segments of bilateral lower lobes and in the right middle lobe, likely suggesting interstitial lung disease. Bones: Degenerative changes are appreciated in the visualized bones and spine. There is a healing fracture with associated callus formation at the lower body of the sternum. stable. Soft Tissues: Normal appearance of the visualized soft tissues. No abnormal masses or fluid collections. Multiple mediastinal lymph nodes are appreciated. The larger one is at the paratracheal location and measures 18 x 12 mm in size. IMPRESSION: 1. No significant evidence of pulmonary thromboembolism in the current study. 2. Right-sided mild and left-sided minimal pleural effusions. Interval mild increase in left-sided and minimal interval regression in the right-sided pleural effusions. 3. Subpleural interstitial changes in the bilateral lung herbert, interseptal thickening with faint groundglass opacity in bilateral lower zones and right middle zone, likely suggesting interstitial lung disease. Interval stable. 4. The concurrent active infective etiology cannot be entirely ruled out. Clinical and lab correlation is suggested. 5. Interval stable cardiomegaly with coronary artery calcification. 6. Interval stable prominent mediastinal lymph nodes. Electronically signed by Parth Chan 09-25-2024 8:35 PM Discharge Plan Visit Data Chief Complaint: Shortness of Breath/Dyspnea Stated Complaint: SOB ED Provider: Carmen Gann Discharge Problem: Dyspnea on exertion, Acute exacerbation of CHF (congestive heart failure), Elevated brain natriuretic peptide (BNP) level, Bilateral pleural effusion Forms Stand Alone Forms: My [facility] [employer] Prescriptions Prescriptions: No Action multivitamin Tablet 1 tab PO DAILY atorvastatin 10 mg tablet 10 mg PO HS citalopram 20 mg tablet 30 mg PO QAM warfarin 5 mg tablet 2.5 mg PO 2XWK Rx Instructions: TAKES TUESDAY AND TUESDAY MORNINGS. warfarin 5 mg tablet 5 mg PO 5XWK Rx Instructions: TAKES TUE, , TUE, AND TUE MORNINGS. montelukast 10 mg tablet 10 mg PO HS digoxin 125 mcg (0.125 mg) tablet 125 mcg PO QAM calcium citrate 250 mg calcium Tablet 250 mg PO DAILY levalbuterol HCl 1.25 mg/3 mL Solution For Nebulization 1.25 mg NEB Q4H PRN (Reason: shortness of breath or wheezing) Qty: 90 1RF fludrocortisone 0.1 mg Tablet 0.1 mg PO BID 30 Days Qty: 60 1RF fluticasone furoate-vilanterol [Breo Ellipta] 200-25 mcg/dose Blister With Device 1 inh inhalation DAILY 30 Days Qty: 60 1RF Rx Instructions: PER PT "NOT REGULARLY, I FORGET MOST DAYS". Referrals Referrals: Linda Henderson, [Primary Care Provider] -
[2024-09-25 18:03] LABS: Alanine Aminotransferase 24 U/L (7-52); Albumin Globulin Ratio 1.3 (0.9-2); Albumin Level 3.8 gm/dl (3.4-5.0); Alkaline Phosphatase 75 U/L (34-104); Anion Gap 2 (3-11); BUN Creatinine Ratio 21.4 (10-20); Bilirubin,Total 1.7 mg/dl (0.2-1.0); Blood Urea Nitrogen 24 mg/dl (6-23); Calcium 8.8 mg/dl (8.6-10.3); Carbon Dioxide 32 mmol/L (21-32); Chloride 106 mmol/L (98-107); Creatinine Clr Calc Pharmacy 56.8 ml/min; Glucose 94 mg/dl (70-99(Fasting)); Magnesium 2.2 mg/dl (1.7-2.4); Sodium 140 mmol/L (136-145); Total Protein 6.8 gm/dl (6.0-8.3)
[2024-09-25 18:05] LABS: Troponin I High Sensitivity 5.9 pg/ml (0-20)
[2024-09-25 18:23] LABS: Adenovirus PCR Not Detected (NotDetected); Bordetella parapertussis PCR Not Detected (NotDetected); Bordetella pertussis PCR Not Detected (NotDetected); Chlamydia pneumoniae PCR Not Detected (NotDetected); Coronavirus 229E PCR Not Detected (NotDetected); Coronavirus CoV-2 (COVID19)PCR Not Detected (NotDetected); Coronavirus HKU1 PCR Not Detected (NotDetected); Coronavirus NL63 PCR Not Detected (NotDetected); Coronavirus OC43PCR Not Detected (NotDetected); Human Metapneumovirus PCR Not Detected (NotDetected); Influenza A PCR Not Detected (NotDetected); Influenza B PCR Not Detected (NotDetected); Mycoplasma pneumoniae PCR Not Detected (NotDetected); Parainfluenza Virus 1 PCR Not Detected (NotDetected); Parainfluenza Virus 2 PCR Not Detected (NotDetected); Parainfluenza Virus 3 PCR Not Detected (NotDetected); Parainfluenza Virus 4 PCR Not Detected (NotDetected); Respiratory Syncytial VirusPCR Not Detected (NotDetected); Rhinovirus/Enterovirus PCR Not Detected (NotDetected)
[2024-09-25] MEDS: OPTIRAY 320 125ml IV ONE (18:59)
--- NOTE | 2024-09-25 19:01 | XRay Report ---
Clinical History: Dyspnea Technique: A frontal view of the chest was obtained Findings: There is diffuse interstitial prominence, concerning for pulmonary edema. The heart size is at the upper limit of normal. No pleural effusion or pneumothorax is seen. No fracture is noted. There is a left chest wall pacemaker device Impression: Suspected moderate severity pulmonary edema Electronically signed by Raymundo Chamorro 09-25-2024 7:01 PM
[2024-09-25 19:11] LABS: Potassium 3.8 mmol/L (3.5-5.1)
--- NOTE | 2024-09-25 20:36 | CT Scan Report ---
EXAM: CT angio chest PE protocol CLINICAL HISTORY: PE; hemoptysis. TECHNIQUE: Contiguous 3.[address] angiographic images of the chest were acquired with the administration of intravenous contrast. Coronal and sagittal reconstructions were obtained.92 ml Optiray was administered for post-contrast images. One of these 3D techniques was utilized: Maximum Intensity Pixel (MIP), 3D Reconstructed Images, Volume Rendered Images, Surface Shaded Rendering. One of the following dose reduction techniques were utilized for this exam: Automated exposure control, adjustment of the mA and/or kV according to patient size, and use of iterative reconstruction. CTDI: 42.8 mGy, DLP: 827.98 mGy-cm. COMPARISON: CT dated 09/06/2024, CR done on the same date was reviewed. FINDINGS: Aorta: The thoracic aorta is normal in caliber. No evidence of aneurysm, dissection, or significant atherosclerotic changes. Aortic arch and descending thoracic aorta are unremarkable. Pulmonary Arteries: Pulmonary arteries are normal in size and opacification. No evidence of pulmonary embolism. No stenosis or filling defects. Superior Vena Cava (SVC) and Inferior Vena Cava (IVC): Normal opacification and caliber. No evidence of thrombus or obstruction. Coronary Arteries: Coronary arteries are well-opacified. Atherosclerotic calcific changes in the coronary artery. Mediastinum: No mediastinal mass or lymphadenopathy. Normal appearance of the thymus. Heart: Heart size is enlarged. Cardiac pacemaker is noted over the left chest wall with leads in situ. No pericardial effusion. Lungs: Left-sided might and right-sided minimal pleural effusions is noted. Subpleural interstitial changes are appreciated in bilateral lung herbert more so in bilateral lower zones. Faint groundglass haze with interval septal thickening is appreciated in the basal segments of bilateral lower lobes and in the right middle lobe, likely suggesting interstitial lung disease. Bones: Degenerative changes are appreciated in the visualized bones and spine. There is a healing fracture with associated callus formation at the lower body of the sternum. stable. Soft Tissues: Normal appearance of the visualized soft tissues. No abnormal masses or fluid collections. Multiple mediastinal lymph nodes are appreciated. The larger one is at the paratracheal location and measures 18 x 12 mm in size. IMPRESSION: 1. No significant evidence of pulmonary thromboembolism in the current study. 2. Right-sided mild and left-sided minimal pleural effusions. Interval mild increase in left-sided and minimal interval regression in the right-sided pleural effusions. 3. Subpleural interstitial changes in the bilateral lung herbert, interseptal thickening with faint groundglass opacity in bilateral lower zones and right middle zone, likely suggesting interstitial lung disease. Interval stable. 4. The concurrent active infective etiology cannot be entirely ruled out. Clinical and lab correlation is suggested. 5. Interval stable cardiomegaly with coronary artery calcification. 6. Interval stable prominent mediastinal lymph nodes. Electronically signed by Parth Chan 09-25-2024 8:35 PM
--- NOTE | 2024-09-25 21:13 | History & Physical Report ---
Date of Service September 25, 2024 Assessment & Plan (1) SOB (shortness of breath): Plan: 79-year-old male with past medical history significant for hyperlipidemia, interstitial lung disease, COPD, sick sinus syndrome, status post pacemaker, paroxysmal atrial fibrillation, aneurysm of ascending aorta, history of CAD, CKD stage III, history of DVT, history generalized Anxiety disorder comes because of shortness of breath. Patient says he is short of breath for some time. In March 2024 he was admitted to [facility] in [place] for about a week. And after discharge coming home he was requiring oxygen. Initially was on 2 L.. Progressively shortness of breath got worsened. Currently is on 4 L oxygen. Last 3 weeks was getting more progressively worsened and the last few days with minimal exertion is getting short of breath which prompted him to come to the ER. Also since last Tuesday is coughing up some blood. Today total combined patient thinks coughed up about a table spoon of blood. Denies any fevers. In June he fell on oxygen tank and fractured sternum since then has pain in the chest. Sometimes feeling tightness in the chest. He has chronic back pain. No runny nose or sore throat. No nausea. No abdominal pain. Someti mes has difficulty swallowing liquids. Normal bowel and bladder movements. Currently resting comfortably and hemodynamically stable. Family in the room. Shortness of breath Possible ILD flare Possible acute CHF. BNP 846. Previous EF 45% but but EF on echo November 2023 50 to 55% Possible Pneumonia Respiratory bio fire negative, troponin negative. VBG is okay CT chest. No PE. Shows ILD. Mild pleural effusion and possible infection Ordered dose of IV Lasix 20 mg Empiric antibiotic Rocephin and doxycycline Nebs uxrbxy-xzx-vapiv and as needed continue home inhalers Will follow echo Telemetry Consult cardiology and pulmonary in a.m. for further recommendations A-fib Continue digoxin and metoprolol succinate On Coumadin INR 2.5 Holding Coumadin for hemoptysis for now Sick sinus syndrome Status post pacemaker History of DVT Many years ago Holding Coumadin as above And restart as soon as possible CKD stage III Creatinine 1.1 Will follow labs Orthostatic hypotension On fludrocortisone History of CAD On statin beta-joyce and Coumadin History of anxiety and panic disorder On citalopram DVT prophylaxis Holding Coumadin for now SCDs for now Disposition Telemetry Full code. History of Present Illness Chief Complaint: Shortness of breath Primary Care Provider: Linda Henderson DO 79-year-old male with past medical history significant for hyperlipidemia, interstitial lung disease, COPD, sick sinus syndrome, status post pacemaker, paroxysmal atrial fibrillation, aneurysm of ascending aorta, history of CAD, CKD stage III, history of DVT, history generalized Anxiety disorder comes because of shortness of breath. Patient says he is short of breath for some time. In March 2024 he was admitted to [facility] in [place] for about a week. And after discharge coming home he was requiring oxygen. Initially was on 2 L.. Progressively shortness of breath got worsened. Currently is on 4 L oxygen. Last 3 weeks was getting more progressively worsened and the last few days with minimal exertion is getting short of breath which prompted him to come to the ER. Also since last Tuesday is coughing up some blood. Today total combined patient thinks coughed up about a table spoon of blood. Denies any fevers. In June he fell on oxygen tank and fractured sternum since then has pain in the chest. Sometimes feeling tightness in the chest. He has chronic back pain. No runny nose or sore throat. No nausea. No abdominal pain. Sometimes has difficulty swallowing liquids. Normal bowel and bladder movements. Currently resting comfortably and hemodynamically stable. Family in the room. Past medical history. As mentioned above. Past surgical history. Cholecystectomy. Social history. . Quit smoking 1960. Alcohol 1 standard drink per week as per epic. No drug use. Family history. Father had cancer. Massive CVA. Mother had colon cancer. Allergies Allergy/AdvReac Type Severity Reaction Status Date / Time buspirone [From BuSpar] AdvReac Severe All senses Verified 09/25/24 18:23 were shut off Home Medications Medication Instructions Recorded Confirmed Type atorvastatin 10 mg tablet 10 mg PO HS 11/18/23 09/25/24 History calcium citrate 250 mg PO DAILY 11/18/23 09/25/24 History citalopram 20 mg tablet 30 mg PO QAM 11/18/23 09/25/24 History digoxin 125 mcg (0.125 mg) tablet 125 mcg PO QAM 11/18/23 09/25/24 History montelukast 10 mg tablet 10 mg PO HS 11/18/23 09/25/24 History multivitamin 1 tab PO DAILY 11/18/23 09/25/24 History warfarin 5 mg tablet 2.5 mg PO 2XWK 11/18/23 09/25/24 History warfarin 5 mg tablet 5 mg PO 5XWK 11/18/23 09/25/24 History fludrocortisone 0.1 mg tablet 0.1 mg PO BID 30 days #60 tabs 11/29/23 09/25/24 Rx fluticasone furoate 200 1 inh inhalation DAILY 30 days #60 11/29/23 09/25/24 Rx mcg-vilanterol 25 mcg/dose ea inhalation powder (Breo Ellipta) levalbuterol HCl 1.25 mg/3 mL 1.25 mg (3 mL) NEB Q4H PRN 11/29/23 09/25/24 Rx solution for nebulization shortness of breath or wheezing #90 mL metoprolol succinate 50 mg 50 mg PO DAILY 09/25/24 09/25/24 History tablet,extended release 24 hr Past Med/Surg History Problem List (Updated 09/25/24 @ 21:21 by Tomi Page MD) SOB (shortness of breath) Bilateral pleural effusion (Acute) Elevated brain natriuretic peptide (BNP) level (Acute) Acute exacerbation of CHF (congestive heart failure) (Acute) Dyspnea on exertion (Acute) Orthostatic hypotension Acute on chronic renal insufficiency Hyperkalemia Abnormal chest CT Acute respiratory failure with hypoxia ILD (interstitial lung disease) Cardiac pacemaker in situ Tachy-nicol syndrome Chronic atrial fibrillation ASCVD (arteriosclerotic cardiovascular disease) Exertional dyspnea (Acute) SOB (shortness of breath) (Acute) Hypoxia (Acute) S/P laparoscopic cholecystectomy AGNIESZKA (acute kidney injury) Anxiety (Acute) Medical History Atrial fibrillation Surgical History Hx laparoscopic cholecystectomy (02/23/21) Laparoscopic Cholecystectomy Dr. 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 ENT- oropharynx clear Neck- supple, no JVD. Lungs- clear to auscultation b/l coarse crackles heard, no wheezing Heart- regular rhythm; no murmur, no gallop. Abdomen- normal bowel sounds, soft, nontender, no distension Extremities- trace pretibial edema present, no erythema seen Neuro- alert, oriented PERRL,no facial palsy; no dysarthria; moves extremities Results & Data Results & Data Vital Signs (Past 12 Hours) Vital Signs Temp Pulse Pulse Resp BP BP Pulse Ox 09/25/24 19:04 68 16 160/114 H 95 09/25/24 18:35 70 09/25/24 17:15 100 09/25/24 17:15 88 155/84 H 100 09/25/24 17:15 94 09/25/24 17:15 36.8 C 67 15 167/100 H 94 O2 Del Method O2 Flow Rate 09/25/24 19:04 Room Air 09/25/24 18:35 09/25/24 17:15 Nasal Cannula 4 09/25/24 17:15 Nasal Cannula 4 09/25/24 17:15 Nasal Cannula 4 09/25/24 17:15 Nasal Cannula 4 Diagnostic Findings Laboratory Results WBC 6.23 K/ul (4.8-10.8) 09/25/24 17:12 RBC 3.67 M/uL (4.70-6.10) L 09/25/24 17:12 Hgb 12.5 g/dl (14.0-18.0) L 09/25/24 17:12 Hct 37.4 % (42.0-52.0) L 09/25/24 17:12 MCV 101.9 fL (80.0-100.0) H 09/25/24 17:12 MCH 34.1 pg (25.0-34.0) H 09/25/24 17:12 MCHC 33.4 g/dL (32.0-36.0) 09/25/24 17:12 RDW Std Deviation 53.6 fL (36.4-46.3) H 09/25/24 17:12 RDW Coeff of Lori 14.5 % (11.5-14.5) 09/25/24 17:12 Plt Count 127 K/uL (130-400) L 09/25/24 17:12 MPV 10.2 fL (9.4-12.4) 09/25/24 17:12 Immature Gran % (Auto) 0.3 % 09/25/24 17:12 Neut % (Auto) 76.2 % 09/25/24 17:12 Lymph % (Auto) 17.3 % 09/25/24 17:12 Bucks % (Auto) 4.3 % 09/25/24 17:12 Eos % (Auto) 1.6 % 09/25/24 17:12 Baso % (Auto) 0.3 % 09/25/24 17:12 Neut # (Auto) 4.74 K/uL (1.40-6.50) 09/25/24 17:12 Lymph # (Auto) 1.08 K/uL (1.20-3.40) L 09/25/24 17:12 Bucks # (Auto) 0.27 K/uL (0.11-0.59) 09/25/24 17:12 Eos # (Auto) 0.10 K/uL (0.00-0.50) 09/25/24 17:12 Baso # (Auto) 0.02 K/uL (0.00-0.20) 09/25/24 17:12 Immature Gran # (Auto) 0.02 K/uL (0.01-0.20) 09/25/24 17:12 PT 25.1 Seconds (9.0-12.0) H 09/25/24 17:12 INR 2.5 (0.9-1.1) H 09/25/24 17:12 VBG pH 7.40 (7.36-7.41) 09/25/24 17:21 VBG pCO2 46 mmHg (38-50) 09/25/24 17:21 VBG pO2 22 mmHg 09/25/24 17:21 VBG HCO3 29 mmol/L 09/25/24 17:21 VBG O2 Saturation < 60.0 % 09/25/24 17:21 VBG Base Excess 3.0 mEq/L 09/25/24 17:21 Sodium 140 mmol/L (136-145) 09/25/24 17:12 Potassium 3.8 mmol/L (3.5-5.1) 09/25/24 18:37 Chloride 106 mmol/L (98-107) 09/25/24 17:12 Carbon Dioxide 32 mmol/L (21-32) 09/25/24 17:12 Anion Gap 2 (3-11) L 09/25/24 17:12 BUN 24 mg/dl (6-23) H 09/25/24 17:12 Creatinine 1.12 mg/dl (0.6-1.4) 09/25/24 17:12 Est Cr Clr Drug Dosing 56.8 ml/min 09/25/24 17:12 eGFR 66.00 09/25/24 17:12 BUN/Creatinine Ratio 21.4 (10-20) H 09/25/24 17:12 Glucose 94 mg/dl (70-99(Fasting)) 09/25/24 17:12 Calcium 8.8 mg/dl (8.6-10.3) 09/25/24 17:12 Magnesium 2.2 mg/dl (1.7-2.4) 09/25/24 17:12 Total Bilirubin 1.7 mg/dl (0.2-1.0) H 09/25/24 17:12 AST 16 U/L (13-39) 09/25/24 18:37 ALT 24 U/L (7-52) 09/25/24 17:12 Alkaline Phosphatase 75 U/L (34-104) 09/25/24 17:12 Troponin I High Sens 5.9 pg/ml (0-20) 09/25/24 17:12 B-Natriuretic Peptide 846 pg/ml (0-100) H 09/25/24 17:12 Total Protein 6.8 gm/dl (6.0-8.3) 09/25/24 17:12 Albumin 3.8 gm/dl (3.4-5.0) 09/25/24 17:12 Globulin 3.0 gm/dl (2.5-4.0) 09/25/24 17:12 Albumin/Globulin Ratio 1.3 (0.9-2) 09/25/24 17:12 Adenovirus (PCR) Not Detected (NotDetected) 09/25/24 17:21 B. pertussis DNA (PCR) Not Detected (NotDetected) 09/25/24 17:21 B.parapertussis DNA PCR Not Detected (NotDetected) 09/25/24 17:21 C. pneumoniae DNA (PCR) Not Detected (NotDetected) 09/25/24 17:21 Coronavirus OC43 (PCR) Not Detected (NotDetected) 09/25/24 17:21 Coronavirus HKU1 (PCR) Not Detected (NotDetected) 09/25/24 17:21 Coronavirus 229E (PCR) Not Detected (NotDetected) 09/25/24 17:21 SARS-CoV-2 (PCR) Not Detected (NotDetected) 09/25/24 17:21 Coronavirus NL63 (PCR) Not Detected (NotDetected) 09/25/24 17:21 Human Metapneumovir PCR Not Detected (NotDetected) 09/25/24 17:21 Influenza Type A (PCR) Not Detected (NotDetected) 09/25/24 17:21 Influenza Type B (PCR) Not Detected (NotDetected) 09/25/24 17:21 M. pneumoniae (PCR) Not Detected (NotDetected) 09/25/24 17:21 Parainfluenza 1 (PCR) Not Detected (NotDetected) 09/25/24 17:21 Parainfluenza 2 (PCR) Not Detected (NotDetected) 09/25/24 17:21 Parainfluenza 3 (PCR) Not Detected (NotDetected) 09/25/24 17:21 Parainfluenza 4 (PCR) Not Detected (NotDetected) 09/25/24 17:21 RSV (PCR) Not Detected (NotDetected) 09/25/24 17:21 Entero/Rhino (PCR) Not Detected (NotDetected) 09/25/24 17:21 Impressions Chest X-Ray 09/25/24 16:59 Clinical History: Dyspnea Technique: A frontal view of the chest was obtained Findings: There is diffuse interstitial prominence, concerning for pulmonary edema. The heart size is at the upper limit of normal. No pleural effusion or pneumothorax is seen. No fracture is noted. There is a left chest wall pacemaker device Impression: Suspected moderate severity pulmonary edema Electronically signed by Raymundo Chamorro 09-25-2024 7:01 PM Chest CTA 09/25/24 17:26 EXAM: CT angio chest PE protocol CLINICAL HISTORY: PE; hemoptysis. TECHNIQUE: Contiguous 3.[address] angiographic images of the chest were acquired with the administration of intravenous contrast. Coronal and sagittal reconstructions were obtained.92 ml Optiray was administered for post-contrast images. One of these 3D techniques was utilized: Maximum Intensity Pixel (MIP), 3D Reconstructed Images, Volume Rendered Images, Surface Shaded Rendering. One of the following dose reduction techniques were utilized for this exam: Automated exposure control, adjustment of the mA and/or kV according to patient size, and use of iterative reconstruction. CTDI: 42.8 mGy, DLP: 827.98 mGy-cm. COMPARISON: CT dated 09/06/2024, CR done on the same date was reviewed. FINDINGS: Aorta: The thoracic aorta is normal in caliber. No evidence of aneurysm, dissection, or significant atherosclerotic changes. Aortic arch and descending thoracic aorta are unremarkable. Pulmonary Arteries: Pulmonary arteries are normal in size and opacification. No evidence of pulmonary embolism. No stenosis or filling defects. Superior Vena Cava (SVC) and Inferior Vena Cava (IVC): Normal opacification and caliber. No evidence of thrombus or obstruction. Coronary Arteries: Coronary arteries are well-opacified. Atherosclerotic calcific changes in the coronary artery. Mediastinum: No mediastinal mass or lymphadenopathy. Normal appearance of the thymus. Heart: Heart size is enlarged. Cardiac pacemaker is noted over the left chest wall with leads in situ. No pericardial effusion. Lungs: Left-sided might and right-sided minimal pleural effusions is noted. Subpleural interstitial changes are appreciated in bilateral lung herbert more so in bilateral lower zones. Faint groundglass haze with interval septal thickening is appreciated in the basal segments of bilateral lower lobes and in the right middle lobe, likely suggesting interstitial lung disease. Bones: Degenerative changes are appreciated in the visualized bones and spine. There is a healing fracture with associated callus formation at the lower body of the sternum. stable. Soft Tissues: Normal appearance of the visualized soft tissues. No abnormal masses or fluid collections. Multiple mediastinal lymph nodes are appreciated. The larger one is at the paratracheal location and measures 18 x 12 mm in size. IMPRESSION: 1. No significant evidence of pulmonary thromboembolism in the current study. 2. Right-sided mild and left-sided minimal pleural effusions. Interval mild increase in left-sided and minimal interval regression in the right-sided pleural effusions. 3. Subpleural interstitial changes in the bilateral lung herbert, interseptal thickening with faint groundglass opacity in bilateral lower zones and right middle zone, likely suggesting interstitial lung disease. Interval stable. 4. The concurrent active infective etiology cannot be entirely ruled out. Clinical and lab correlation is suggested. 5. Interval stable cardiomegaly with coronary artery calcification. 6. Interval stable prominent mediastinal lymph nodes. Electronically signed by Parth Chan 09-25-2024 8:35 PM ECG Additional Comments: ECG. Atrial fibrillation occasional ventricular paced complexes with PVCs or aberrant conduction complex at the rate of 66 Code Status & VTE Plan VTE Prophylaxis Plan VTE Prophylaxis will be ordered: Yes
[2024-09-25] MEDS ORDERED: POLYETHYLENE (MIRALAX) 17 GM PACK PO PRN (22:09)
[2024-09-25] MEDS ORDERED: NITROGLYCERIN SL 0.4 MG/TAB TAB SL PRN (22:09)
[2024-09-25] MEDS: FUROSEMIDE INJ 20 MG/2 ML VIAL IV ONE (22:44)
[2024-09-25] MEDS: FLUDROCORTISONE ACETATE 0.1 MG TAB PO SCH (22:50)
[2024-09-25] MEDS: cefTRIAXone SODIUM 2,000 MG/50 ML BAG IV SCH (22:50)
[2024-09-25] MEDS: MONTELUKAST SODIUM 10 MG TABLET PO SCH (22:50)
[2024-09-25] MEDS: ATORVASTATIN 10 MG TAB PO SCH (22:50)
[2024-09-25] MEDS: DOXYCYCLINE HYCLATE 100 MG in DEXTROSE 5% MINI-B 100 ML IV SCH (23:22)
[2024-09-26 01:27] LABS: Appearance Urine Clear (Clear); Bacteria Urine Automated None Seen (None Seen); Bilirubin Urine Negative (Negative); Blood Urine Negative (Negative); Cast Urine Automated 0-2 /lpf (0-2); Color Urine Yellow; Epithelial Cell Urine Auto 0-2 /hpf (0-2); Glucose Urine UA Negative (Negative); Ketones Urine Negative (Negative); Leukocyte Esterase Urine Negative (Negative); Nitrite Urine Negative (Negative); Protein Urine 1+ (Negative); RBC Urine Automated 0-2 /hpf (0-2); Specific Gravity Urine > 1.045 (1.000-1.030); Urobilinogen Urine Positive (Negative); WBC Urine Automated 0-5 /hpf (0-5)
[2024-09-26 05:56] LABS: Basophils # (auto) 0.03 K/uL (0.00-0.20); Basophils % (auto) 0.5 %; Eosinophils % (auto) 3.1 %; Hematocrit (blood only) 32.9 % (42.0-52.0); Hemoglobin 11.2 g/dl (14.0-18.0); Immature Granulocytes # (auto) 0.02 K/uL (0.01-0.20); Immature Granulocytes % (auto) 0.3 %; Lymphocytes # (auto) 1.24 K/uL (1.20-3.40); Mean Corpuscular Hemoglobin 34.7 pg (25.0-34.0); Mean Corpuscular Volume 101.9 fL (80.0-100.0); Mean Platelet Volume 9.6 fL (9.4-12.4); Monocytes % (auto) 4.6 %; Neutrophils # (auto) 4.75 K/uL (1.40-6.50); Neutrophils % (auto) 72.5 %; Platelet Count 116 K/uL (130-400); RDW Coefficient of Variation 14.2 % (11.5-14.5); RDW Standard Deviation 53.2 fL (36.4-46.3); Red Blood Count 3.23 M/uL (4.70-6.10); White Blood Count 6.54 K/ul (4.8-10.8)
[2024-09-26 06:13] LABS: INR 2.7 (0.9-1.1); Prothrombin Time 27.1 Seconds (9.0-12.0)
[2024-09-26 06:20] LABS: Calcium 8.3 mg/dl (8.6-10.3); Magnesium 1.9 mg/dl (1.7-2.4); Potassium 3.5 mmol/L (3.5-5.1)
[2024-09-26 06:23] LABS: Troponin I High Sensitivity 6.1 pg/ml (0-20)
[2024-09-26 06:25] LABS: BUN Creatinine Ratio 18.8 (10-20); Creatinine Clr Calc Pharmacy 56.8 ml/min
--- OUTSIDE RECORDS SUMMARY | 2024-09-26 06:53 | External Medical Summary | Summary of Care ---
Author Name Unknown Organization [facility] Address [address] [facility] [place] [address] Phone [phone] Care Team Providers Care Executive Chef Assistant Name Role Phone HendersonLinda DO Primary Care Provider [phone] Reason for Visit * Reason Comments Chronic Kidney Disease (CKD) Encounter Details Date Type Department Care Team (Late st Contact Info) Description 09/11/2024 2:30 PM EDT Office Visit Nephrology [address] [place] [address] Yumiko Leach PA-C [address] [place] [address] Stage 3a chronic kidney disease (HCC)*; Orthostatic hypotension; Microhematuria Allergies Active Allergy Reactions Criticality Noted Date Comments Buspirone 07/13/2022 Pt reports all senses were shut off. documented as of this encounter (statuses as of 09/13/2024) Medications Calcium Citrate 250 MG Oral Tablet Take 500 mg by mouth. Active Multivitamin Adults 50+ Oral Tablet Take by mouth. Activ e Montelukast Sodium 10 MG Oral Tablet (Singulair) Take 1 tablet by mouth every night 90 Tablet 3 5 9:12 AM EST 08/11/19 24 Active Atorvastatin Calcium 10 MG Oral Tablet (Lipitor) 1 tab by mouth every day at bedtime 90 Tablet 3 5 3:13 PM EST 10/10/19 24 Active Levalbuterol HCl 1.25 MG/3ML Inhalation Nebulization Solution Inhale 1 Ampule via nebulizer every 4 hours as needed for Wheezing or Shortness of Breath. 11/29/19 24 Active oxygen IN GASIndications:C hronic obstructive pulmonary disease, unspecified COPD type (HCC),Interstiti al lung disease (HCC) Administer 2 L/min(Oxygen) into nostril as needed for Shortness of Breath. 12/05/19 24 Active Ranolazine ER 500 MG Oral Tablet Extended Release 12 Hour (Ranexa) 1 Tablet in the morning and 1 Tablet before bedtime. 11/18/19 24 Active ProAir RespiClick 108 (90 Base) MCG/ACT Inhalation Aerosol Powder Breath Activated (Albuterol Sulfate) Inhale 2 puff using inhaler every four to six hours as directed 1 Each 11 03/07/20 24 Active Fluticasone Furoate-Vilanter ol 200-25 MCG/ACT Inhalation Aerosol Powder Breath Activated (BREO ellipta)Indicati ons:Chronic obstructive pulmonary disease, unspecified COPD type (HCC),Interstiti al lung disease (HCC) Inhale 1 Puff by mouth in the morning. 180 Each 1 5 12:27 PM EST 05/29/20 24 Active Metoprolol Succinate ER 50 MG Oral Tablet Extended Release 24 Hour (toPROL XL) Take 1 Tablet by mouth in the morning. 100 Tablet 2 5 9:52 AM EST 07/07/19 25 Active Fludrocortisone Acetate 0.1 MG Oral Tablet (Florinef) Take 1 Tablet by mouth in the morning and 1 Tablet before bedtime. 200 Tablet 1 5 2:02 PM EST 08/03/19 25 Active traMADol HCl 50 MG Oral Tablet (Ultram)Indicati ons:Closed fracture of xiphoid process with routine healing, subsequent encounter Take 1 Tablet by mouth 2 times a day as needed for Pain, Severe. 10 Tablet 08/07/19 25 Active Digoxin 125 MCG Oral Tablet (Lanoxin)Indicat ions:Paroxysmal atrial fibrillation (HCC) Take 1 Tablet by mouth in the morning. 90 Tablet 09/04/19 25 Active Citalopram Hydrobromide 20 MG Oral Tablet (CeleXA)Indicati ons:Generalized anxiety disorder Take 1.5 Tablets by mouth in the morning. 135 Tablet 1 09/01/19 25 Active predniSONE 20 MG Oral Tablet (Deltasone) Take 0.5 Tablets by mouth in the morning. X 3 days. Active Warfarin Sodium 5 MG Oral Tablet (Coumadin)Indica tions:penitentiary current use of anticoagulant therapy,Atrial fibrillation, unspecified type (HCC),Anticoagul ation management encounter TAKE ONE-HALF TABLET BY MOUTH EVERY DAY ON MONDAYS, WEDNESDAYS, AND FRIDAYS; TAKE ONE TABLET BY MOUTH ALL OTHER DAYS OR DIRECTED BY ANTICOAGULATION CLINIC 90 Tablet 3 4 12:55 PM EDT 07/11/19 24 025 Additional Information Patient taking differently: 5 mg Oral Daily(AM), Tuesday and Tuesday the patient takes 1/2 tab to equal 2.5 mg dose. The other 5 days he takes 5 mg., Reported on 09/11/2024 documented as of this encounter (statuses as of 09/13/2024) Active Problems Problem Noted Date Diagnosed Date Hypertensive heart and chron ic kidney disease with heart failure and stage 1 through stage 4 chronic kidney disease, or chronic kidney disease 03/02/2024 Interstitial lung disease 11/18/2023 Overview (12/05/2023): [facility] for decreased O2 sats, orthostatic hypotension Atherosclerosis of [place] co ronary artery without angina pectoris 07/29/2023 Chronic kidney disease, stage 3b 12/20/2022 Overview: Per CKD protocol Sick sinus syndrome 07/13/2022 Hyperlipidemia with target LDL less than 70 06/15 S/P placement of cardiac pacemaker 07/13/2022 History of DVT (deep vein thrombosis) 07/13/2022 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 0 07/13/2022 Paroxysmal atrial fibrillation 07/13/2022 Chronic obstructive pulmonary disease 07/13/2022 Aneurysm of the ascending aorta, without rupture 07/13/2022 Generalized anxiety disorder 07/13/2022 History of TX (myocardial infarction) 07/13/2022 Overview (07/13/2022): 1988 documented as of this encounter (statuses as of 09/13/2024) Resolved Problems Problem Noted Date Diagnosed Date Resolved Date Kidney disease, chronic, sta ge III (GFR 30-59 ml/min) 07/20/2022 12/23/2022 Overview: Per CKD protocol Gastroesophageal reflux dise ase without esophagitis 07/13/2022 01/19/2023 COPD, severity to be determined 07/13/2022 07/13/2022 Atrial fibrillation 07/13/2022 01/06/20 Atherosclerosis of [place] co ronary artery without angina pectoris 07/13/2022 07/13/2022 Atrial fibrillation, unspecified type 07/13/2022 01/19/2023 documented as of this encounter (statuses as of 09/13/2024) Immunizations Name Administration Dates Next Due COVID-19, MRNA-LNP, PF, 30 M CG/0.3 mL, 12 YRS AND ABOVE, IM (PFIZER-Comirnaty) 04/20/2024 Pneumococcal Conjugate Vacc, 13 Valent (Prevnar) 07/20/2021 Pneumococcal Conjugate Vacci ne, 20-valent ([id number]) 07/13/2022 Seasonal Influenza Virus Vac cine, Unspecified Formulation 04/16/2022,04/09/2021,03/13/2020,2018,03/30/2018,03/29/2018 Seasonal Influenza, High Dos e, Trivalent, PF, IM (Fluzone HD) 04/20/2024 documented as of this encounter Social History Tobacco Use Types Packs/Day Years Used Date Smoking Tobacco: Former Cigarettes 1 967 - 1961 Smokeless Tobacco: Former Chew Alcohol Use Standard Drinks/Week Comments Yes 1 (1 standard drink = 0.6 oz pur e alcohol) Minimal PHQ-2 Answer Date Recorded PHQ Adult Total Score 1 04/03/2024 Hunger Vital Sign Answer Date Recorded Within the past 12 months, y ou worried that your food would run out before you got the money to buy more. Never true 04/03/20 24 Within the past 12 months, t he food you bought just didn't last and you didn't have money to get more. Never true 04/03/2024 Childcare Answer Date Recorded Do you feel overwhelmed with taking care of a child, family member or friend? No 04/03/2024 Does your family need help f inding childcare? (Household - for ages 0-17 years) Not on file 04/03/2024 Clothing Answer Date Recorded Have you been unable to get clothing when it was really needed? No 04/03/2024 Is your family able to get c lothes or diapers when needed? (Household - for ages 0-17 years) Not on file 04/03/2024 Personal Safety Answer Date Recorded Do you feel unsafe or have concerns for your saf ety? No 04/03/2024 Do you have concerns for you r family's safety? (Household - for ages 0-17 years) Not on file 04/03/2024 Utilities Answer Date Recorded Do you have trouble paying y our heating, water, or electric bill? No 04/03/2024 Is your family able to pay t he heat, water, or electric bill? (Household - for ages 0-17 years) Not on file 04/03/2024 Does your family have access to good internet? (Household - for ages 0-17 years) Not on file 04/03/2024 Employment Status Answer Date Recorded Are you unemployed or without regular income? No 04/03/2024 Does the [facility] have a [facility] source [facility] income? (Household - for ages 0-17 years) Not on file 04/03/2024 Social Connections Answer Date Recorded How often do you feel lonely or isolated from th ose around you? Rarely 04/03/2024 Financial Resource Strain Answer Date R ecorded Do you have any trouble payi ng for your medications, or do you think you might in the future? No 04/03/2024 Does your family have troubl e paying for medicine? (Household - for ages 0-17 years) Not on file 04/03/2024 Transportation Needs Answer Date Record ed Do you have trouble getting a ride to medical visits or work? (Adult - for ages 18 years and over) Not on file 04/03/2024 Does your family have a hard time getting a ride to doctors visits? (Household - for ages 0-17 years) Not on file 04/03/2024 Has lack of transportation k ept you from medical appointments, meetings, work, or from getting things needed for daily living? Check all that apply. No 04/03/2024 Do you (or your family) have trouble finding or paying for a ride (transportation)? (Household - for ages 0-17 years) Not on file 04/03/2024 Housing Stability Answer Date Recorded Do you currently live in a s helter or have no steady place to sleep at night? No 04/03/2024 Do you think you are at risk of becoming homeless? (Adult - for ages 18 years and over) Not on file 04/03/2024 Does your family worry about paying for your home or becoming homeless? (Household - for ages 0-17 years) Not on file 1 Are you homeless or worried that you might be in the future? No 04/03/2024 Are you (or your family) dane eless or worried that you might be in the future? (Household - for ages 0-17 years) Not on file Food Insecurity Answer Date Recorded Do you need food for this week? No 04/03/2024 Are you able to get enough f ood for your family? (Household - for ages 0-17 years) Not on file 04/03/2024 Does your family need food t his week? (Household - for ages 0-17 years) Not on file 04/03/2024 Do you always have enough fo od for your family? (Household - for ages 0-17 years) Not on file 04/03/2024 Food Insecurity Answer Date Recorded Within the past 12 months, y ou worried that your food would run out before you got the money to buy more. Never true 04/03/20 24 Within the past 12 months, t he food you bought just didn't last and you didn't have money to get more. Never true 04/03/2024 Do you need food for this week? 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 Not on file Not on file Not on file documented as of this encounter Last Filed Vital Signs Vital Sign Reading Time Taken Comments Blood Pressure 111/68 09/11/2024 3:37 PM EDT Pulse 102 09/11/2024 3:37 PM EDT Temperature 36.8 °C (98.2 °F) 09/11/2024 2:47 PM ED T Respiratory Rate 18 09/11/2024 2:47 PM EDT Oxygen Saturation 94% 09/11/2024 2:47 PM EDT Inhaled Oxygen Concentration - - Weight 85.7 kg (189 lb) 09/11/2024 2:47 PM EDT Height - - Body Mass Index 27.51 03/05/2024 1:38 PM EDT documented in this encounter Progress Notes * Yumiko Leach PA-C - 09/11/2024 2:30 PM EDT NEPHROLOGY CLINIC NOTE Nephrology [address] [place] [address] Patient Name: Ralph Castro Patient Active Problem List Diagnosis Sick sinus syndrome (HCC) Hyperlipidemia with target LDL less than 70 S/P placement of cardiac pacemaker History of DVT (deep vein thrombosis) 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 Initial appt form hospital discharge appointment after admission to [facility] November 17 to November 29 2023 for interstitial lung disease exacerbation. Hospital stay complicated by acute kidney injury, stage 1. Baseline creatinine 1.5. His creatinine on presentation was 1.4 with creatinine at 1.8 as his peak value from November 20 discharge. AGNIESZKA attributed to mild prerenal state. Cardiac catheterization was considered but ultimately deferred due to renal function. Past medical history includes hypertension, COPD, paroxysmal atrial fibrillation, sick sinus syndrome status post pacemaker, ascending aortic aneurysm, CKD 3, GERD, anxiety. Follows with Cardiology and Pulmonology through [facility]. [facility] records reviewed (d/c summary, neph c/s, last neph PN) and no UA, no renal imaging that admission. Significant challenges with orthostatic hypotension noted during the hospital stay with systolic dropping to the 60s with standing. TOM inhibitor was stopped and Florinef started. Julio Cesar stockings were recommended. No FH of CKD/ESRD NSAID use yes No stone hx Has upper arm BP cuff not validated; not checking routinely Today 09/11/24 Denies any recent procedures or infections. Acc by Reports multiple hospitalization starting in March - August for varies breathing issues and dizziness Patient does fu with pulmonology - to fu with [facility] almost monthly Currently with 02 -4L continuous. No recent antibiotics. Patient reports drinking 4-5 cups of water daily. A variety of liquids Does have bp cuff at home REVIEW OF SYSTEMS General: No fatigue, Respiratory: No wheezing, +shortness of breath with use of oxygen Cardiovascular:+ chest pain- upper and central from fall back in the fall, No palpitations- + Afib,and No syncope, + Fall in fall 2023 Gastrointestinal: No blood in stools Urinary: No dysuira, No hematuria. No flank pain Musculoskeletal: + edema- does wear compression socks Skin: No itching Current Outpatient Medications Medication Sig Dispense Refill Calcium Citrate 250 MG Oral Tablet Take 500 mg by mouth. Multivitamin Adults 50+ Oral Tablet Take by mouth. Warfarin Sodium 5 MG Oral Tablet (Coumadin) TAKE ONE-HALF TABLET BY MOUTH EVERY DAY ON MONDAYS, WEDNESDAYS, AND FRIDAYS; TAKE ONE TABLET BY MOUTH ALL OTHER DAYS OR DIRECTED BY ANTICOAGULATION CLINIC (Patient taking differently: Take 1 Tablet by mouth in the morning. Tuesday and Tuesday the patienttakes 1/2 tab to equal 2.5 mg dose. The other 5 days he takes 5 mg. .) 90 Tablet 3 Montelukast Sodium 10 MG Oral Tablet (Singulair) Take 1 tablet by mouth every night 90 Tablet 3 Atorvastatin Calcium 10 MG Oral Tablet (Lipitor) 1 tab by mouth every day at bedtime 90 Tablet 3 oxygen IN GAS Administer 2 L/min(Oxygen) into nostril as needed for Shortness of Breath. ProAir RespiClick 108 (90 Base) MCG/ACT Inhalation Aerosol Powder Breath Activated (Albuterol Sulfate) Inhale 2 puff using inhaler every four to six hours as directed 1 Each 11 Fluticasone Furoate-Vilanterol 200-25 MCG/ACT Inhalation Aerosol Powder Breath Activated (BREO ellipta) Inhale 1 Puff by mouth in the morning. 180 Each 1 Metoprolol Succinate ER 50 MG Oral Tablet Extended Release 24 Hour (toPROL XL) Take 1 Tablet by mouth in the morning. 100 Tablet 2 Fludrocortisone Acetate 0.1 MG Oral Tablet (Florinef) Take 1 Tablet by mouth in the morning and 1 Tablet before bedtime. 200 Tablet 1 traMADol HCl 50 MG Oral Tablet (Ultram) Take 1 Tablet by mouth 2 times a day as needed for Pain, Severe. 10 Tablet 0 Digoxin 125 MCG Oral Tablet (Lanoxin) Take 1 Tablet by mouth in the morning. 90 Tablet 0 Citalopram Hydrobromide 20 MG Oral Tablet (CeleXA) Take 1.5 Tablets by mouth in the morning. 135 Tablet 1 Levalbuterol HCl 1.25 MG/3ML Inhalation Nebulization Solution Inhale 1 Ampule via nebulizer every 4hours as needed for Wheezing or Shortness of Breath. Ranolazine ER 500 MG Oral Tablet Extended Release 12 Hour (Ranexa) 1 Tablet in the morning and 1 Tablet before bedtime. (Patient not taking: Reported on 05/03/2024) predniSONE 20 MG Oral Tablet (Deltasone) Take 0.5 Tablets by mouth in the morning. X 3 days. No current facility-administered medications for this visit. PHYSICAL EXAMINATION Last 4 BP Readings: BP Readings from Last 4 Encounters: 09/11/24 131/81 08/10/24 131/85 04/20/24 128/64 03/05/24 124/88 Last 3 Weights: Wt Readings from Last 3 Encounters: 09/11/24 85.7 kg (189 lb) 08/10/24 86.1 kg (189 lb 12.8 oz) 04/20/24 86.7 kg (191 lb 3.2 oz) BP 131/81 (BP Site: Right Arm, BP Position: Sitting, BP Cuff Size: Regular) | Pulse 95 | Temp 36.8 °C (98.2 °F) | Resp 18 | Wt 85.7 kg (189 lb) | SpO2 94% | BMI 27.51 kg/m² | BSA 2.05 m² Wt Readings from Last 1 Encounters: 09/11/24 85.7 kg (189 lb) General appearance: alert, no apparent distress. Ambulatory without assistance HEAD: Normocephalic, No masses, lesions, tenderness Respiratory: clear to auscultation and + wheezes Heart: regular rate and irregular rhythm Abdomen: abdomen soft, non-tender, and no CVA tenderness EXTREMITIES:+edema, No cyanosis or clubbing Skin: skin color, texture, turgor are normal NEURO: alert & oriented x 3 with fluent speech, no focal motor/sensory deficits No tremor Patient is a reliable historian of events LABS: Latest Reference Range & Units 12/30/22 14:12 07/29/23 10:19 11/17/23 00:00 02/20/24 13:59 07/25/24 00:00 07/31/24 00:00 SODIUM 135 - 146 mmol/L 140 138 142 140 POTASSIUM 3.5 - 5.1 MMOL/L 5.3 (H) 5.2 (H) 4.6 (E) 4.8 4.0 (E) 3.5 (E) CHLORIDE 98 - 107 mmol/L 104 104 104 106 CO2 22 - 32 mmol/L 28 26 27 BUN 6 - 20 mg/dL 32 (H) 28 (H) 21 (H) 22.8 CREATININE 0.70 - 1.30 MG/DL 1.7 (H) 1.5 (H) 1.58 ! (E) 1.4 (H) 1.27 (E) 1.38 ! (E) EGFR >=60 ML/MIN 41 (L) 46 (L) 44 ! (E) 50 (L) 57 (E) 51 (L) (E) ANION GAP 7 - 15 mmol/L 8 8 11 GLUCOSE 70 - 110 MG/DL 59 (L) 76 100 (E) 83 106 (E) 133 ! (E) CALCIUM 8.4 - 10.2 mg/dL 9.3 8.9 9.2 Magnesium 1.5 - 2.6 mg/dL 2.4 2.3 Phosphorus 2.5 - 4.8 mg/dL 3.1 2.6 (H): Data is abnormally high !: Data is abnormal (L): Data is abnormally low (E): External lab result Latest Reference Range & Units 12/30/22 14:12 02/20/24 13:59 Albumin / Creatinine Ratio, Urine <30 mg/g Creat <9 21 IMAGING: XAM: US RENAL HISTORY: ckd3 baseline study TECHNIQUE: Real-time scanning performed of kidneys, visualized regional abdominal aorta and urinary bladder. Study compromised by abundant bowel gas. COMPARISON: None available FINDINGS: Kidneys: Renal size length: Right-10.5 cm and left-10.6 cm Each renal contour perhaps slightly lobulated but no focal lesion. Cortex bilaterally maintained inregard to thickness/echotexture. There is subtle linear calcification present in each kidney suspect to reflect a vascular etiology rather than intrarenal calculi. No definite intrarenal calculus seen. No perinephric abnormality. Visualized regional abdominal aorta: No focal aneurysm. There is however ectasia mid aspect a loss of expected cranial to caudal tapering. AP measurements: Proximal-1.9 cm, mid-2.1 cm and distal-1.7 cm. There is an element of atherosclerotic change. Urinary bladder: Unfortunately poorly distended limiting evaluation. No gross intraluminal lesion. IMPRESSION IMPRESSION: Kidneys demonstrate no discrete focal lesion or hydronephrosis. Element of ectasia mid abdominal aorta. ASSESSMENT/PLAN: The patient's most recent labs (from 2 months ago) were reviewed and the assessment/plan is as follows: table/ slightly improved CKD 3 neither A nor B. Back to baseline after history of AGNIESZKA earlier this summer stage 1. Outside labs review ed showing a GFR 51 and creat 1.38. Electrolytes acceptable Na of 140 and k 3.5. Magnesium levels on higher side of normal at 2.3 without aid of supplement. Stage 3a chronic kidney disease (HCC) (Primary) - NEPHROLOGY FOLLOW UP APPT (DEPARTMENT USE ONLY); Future; Expected date: 03/13/2025 - BASIC METABOLIC PANEL; Future; Expected date: 01/11/2025 - ALBUMIN / CREATININE RATIO, URINE; Future; Expected date: 09/13/2024 Orthostatic hypotension Bp stable - Continue Toprolol Er 50 mg TOM/ARB contraindicated b/c no albuminuria and orthostatic hypotension Orthostatic hypotension noted Microhematuria Noted trace hematuria in the urine with outside labs in Jul with Gera Stanton Will monitor with repeat labs and if noted further evaluation with urology to be placed - URINALYSIS WITH MICROSCOPIC EXAM; Future; Expected date: 09/11/2024 Labs placed Continue to monitor fluid intake Continue Teds Avoid medicines like aleve, advil, ibuprofen, aspirin more than 81 mg daily and other NSAIDS which are not good for kidney patients. Take only tylenol (acetaminophen) up to 2000 mg daily as needed for pain or as directed by your primary care provider. Reviewed previous status of kidney function and goals of care. All questions were answered. Yumiko Leach PA-C Nephrology [address] [place] [address] documented in this encounter Nursing Notes * Diane Lyons RN - 09/11/2024 2:48 PM EDT Follow up visit today accompanied by . Several ER visit for respiratory issues. Dependent on oxygen at all times. documented in this encounter Plan of Treatment Upcoming Encounters Date Type Department Care Team (Late st Contact Info) Description 09/26/2024 1:00 PM EDT Office Visit Palliative Medicine [facility] [address] [facility], [place] [phone] Sarita Santizo MD [address] [place] [address] [place] [address] 10/01/2024 1:20 PM EDT Anticoagulation Pharmacy, [address] [place] [address] [place] [address] 10/26/2024 2:30 PM EDT Office Visit Family Medicine [address] [place] [phone] [address] [place] [address] 07/18/2025 3:20 PM EST Office Visit Nephrology [address] [place] [address] Mary Jane Thompson MD [address] [place] [address] Scheduled Orders Name Type Priority Associated Diagnoses Orde r Schedule URINALYSIS WITH MICROSCOPIC EXAM Lab Routine Microhematuria Expected: 09/11/2024, Expires: 09/11/2025 BASIC METABOLIC PANEL Lab Routine Stage 3a chronic kidney disease (HCC) Expected: 01/11/2025, Expires: 09/13/2025 ALBUMIN / CREATININE RATIO, URINE Lab Routine Stage 3a chronic kidney disease (HCC) Expected: 09/13/2024, Expires: 09/13/2025 Health Maintenance Due Date Last Done Comments Alpha-1 Antitrypsin 1961 Zoster Vaccines (1 of 2) 1993 DIG LEVEL FOR MEDICATION MONITORING YEARLY 07/29/2024 07/29/2023 COVID-19 Vaccine ( season) 2024 04/20/2024, 03/24/2023, 04/16/2022, Additional history exists Adult Wellness Visit 11/21/2024 11/22/2023 (Course Completed) GFR 01/28/2025 07/31/2024, 07/14, 02/20/2024, Additional history exists Albumin/Creatinine Ratio 02/19/2025 02/20/2024, 12/12 CKD PHOS USE SMARTSET [id number] 02/19/2025 02/20/2024, 0 12/30/2022 Depression Screening 04/03/2025 04/03/2024 CKD HGB USE SMARTSET [id number] 07/31/202507/31, 07/25/2024, 06/15/2024, Additional history exists O2 ASSESSMENT COMPLETED IN PAST YEAR FOR COPD 09/11/2025 09/11/2024 DTap/Tdap Vaccines (2 - Td or Tdap) 07/25/2034 07/25/2024 Pneumococcal Vaccine: 50+ Years Completed 07/13/2022, 07/20/2021, 03/18/2011 Influenza Vaccine (FLU shot) Completed 01/2024, 03/24/2023, 04/16/2022, Additional history exists HPV (Gardasil) Vaccine Aged Out No lo nger eligible based on patient's age to complete this topic Hepatitis B Vaccine Aged Out No longe r eligible based on patient's age to complete this topic MENINGOCOCCAL (MENACTRA/MENVEO) Aged Out No longer eligible based on patient's age to complete this topic Meningitis B Vaccine (Bexsero/Trumemba) Aged Out No longer eligible based on patient's age to complete this topic documented as of this encounter Medical Devices Not on filedocumented as of this encounter Visit Diagnoses Diagnosis Stage 3a chronic kidney disease (HCC)- Primary Orthostatic hypotension Microhematuria Microscopic hematuria documented in this encounter Advance Directives Healthcare Agents on File Name Relationship Healthcare Agent Relationshi p Communication Kati Castro Spouse Health Care Repr esentative (appointed verbally by patient or by statute hierarchy) [email or web address] Care Teams Executive Chef Assistant Relationship Specialty Start Date End Date Linda Henderson DO [address] [place] [address] [place] [address] PCP - General Internal Medicine 07/14/22 documented as of this encounter"
--- OUTSIDE RECORDS SUMMARY | 2024-09-26 06:53 | External Medical Summary | Summary of Care ---
Author Name Unknown Organization [facility] Address [address] [place] [address] Phone [phone] Care Team Providers Care Rocket Test Fire Worker Name Role Phone Linda Henderson DO Primary Care Provider Encounter Details Date Type Department Care Team (Late st Contact Info) Description 09/13/2024 Orders Only PATIENT PORTAL DO NOT DELETE THIS DEPT USED BY [place] [id number] Allergies Active Allergy Reactions Criticality Noted Date [...] by mouth every night 90 Tablet 3 07/02/2024 9:12 AM EST 4 Active Atorvastatin Calcium 10 MG Oral Tablet (Lipitor) 1 tab by mouth every day at bedtime 90 Tablet 3 07/02/2024 3:13 PM EST 4 Active Levalbuterol HCl 1.25 MG/3ML Inhalation Nebulization Solution Inhale 1 Ampule via nebulizer every 4 hours as needed for Wheezing or Shortness of Breath. 4 Active oxygen IN GASIndications:Ch ronic obstructive pulmonary disease, unspecified COPD type (HCC),Interstitia l lung disease (HCC) Administer 2 L/min(Oxygen) into nostril as needed for Shortness of Breath. 4 Active Ranolazine ER 500 MG Oral Tablet Extended Release 12 Hour (Ranexa) 1 Tablet in the morning and 1 Tablet before bedtime. 4 Active ProAir RespiClick 108 (90 Base) MCG/ACT Inhalation Aerosol Powder Breath Activated (Albuterol Sulfate) Inhale 2 puff using inhaler every four to six hours as directed 1 Each 11 4 Active Fluticasone Furoate-Vilantero l 200-25 MCG/ACT Inhalation Aerosol Powder Breath Activated (BREO ellipta)Indicatio ns:Chronic obstructive pulmonary disease, unspecified COPD type (HCC),Interstitia l lung disease (HCC) Inhale 1 Puff by mouth in the morning. 180 Each 1 06/22/2024 12:27 PM EST 4 Active Metoprolol Succinate ER 50 MG Oral Tablet Extended Release 24 Hour (toPROL XL) Take 1 Tablet by mouth in the morning. 100 Tablet 2 07/11/2024 9:52 AM EST 5 Active Fludrocortisone Acetate 0.1 MG Oral Tablet (Florinef) Take 1 Tablet by mouth in the morning and 1 Tablet before bedtime. 200 Tablet 1 08/07/2024 2:02 PM EST 5 Active traMADol HCl 50 MG Oral Tablet (Ultram)Indicatio ns:Closed fracture of xiphoid process with routine healing, subsequent encounter Take 1 Tablet by mouth 2 times a day as needed for Pain, Severe. 10 Tablet 5 Active Digoxin 125 MCG Oral Tablet (Lanoxin)Indicati ons:Paroxysmal atrial fibrillation (HCC) Take 1 Tablet by mouth in the morning. 90 Tablet 5 Active Citalopram Hydrobromide 20 MG Oral Tablet (CeleXA)Indicatio ns:Generalized anxiety disorder Take 1.5 Tablets by mouth in the morning. 135 Tablet 1 5 Active predniSONE 20 MG Oral Tablet (Deltasone) Take 0.5 Tablets by mouth in the morning. X 3 days. Active documented as of this encounter (statuses as of 09/13/2024) Active Problems Problem Noted Date Diagnosed Date Hypertensive heart and chron ic kidney disease with heart failure and stage 1 through stage 4 chronic kidney disease, or chronic kidney disease 03/02/2024 Interstitial lung disease 11/18/2023 Overview (12/05/2023): [facility] for decreased O2 sats, orthostatic hypotension Atherosclerosis of [place] co ronary artery without angina pectoris 07/29/2023 Chronic kidney disease, stage 3b 12/20/2022 Overview: Per CKD protocol Sick sinus syndrome 07/13/2022 Hyperlipidemia with target LDL less than 70 06/15 S/P placement of cardiac pacemaker 07/13/2022 History of DVT (deep vein thrombosis) 07/13/2022 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 anticoagulant therapy 0 07/13/2022 Paroxysmal atrial fibrillation 07/13/2022 Chronic obstructive pulmonary disease 07/13/2022 Aneurysm of the ascending aorta, without rupture 07/13/2022 Generalized anxiety disorder 07/13/2022 History of CA (myocardial infarction) 07/13/2022 Overview (07/13/2022): 1990 documented as of this encounter (statuses as of 09/13/2024) Resolved Problems Problem Noted Date Diagnosed Date Resolved Date Kidney disease, chronic, sta ge III (GFR 30-59 ml/min) 07/20/2022 12/23/2022 Overview: Per CKD protocol Gastroesophageal reflux dise ase without esophagitis 07/13/2022 01/19/2023 COPD, severity to be determined 07/13/2022 07/13/2022 Atrial fibrillation 07/13/2022 01/06/20 23 Atherosclerosis of [place] co ronary artery without angina pectoris 07/13/2022 07/13/2022 Atrial fibrillation, unspecified type 07/13/2022 01/19/2023 documented as of this encounter (statuses as of 09/13/2024) Immunizations Name Administration Dates Next Due COVID-19, MRNA-LNP, PF, 30 M CG/0.3 mL, 12 YRS AND ABOVE, IM (PFIZER-Comirnaty) 04/20/2024 Pneumococcal Conjugate Vacc, 13 Valent (Prevnar) 07/20/2021 Pneumococcal Conjugate Vacci ne, 20-valent ([id number]) 07/13/2022 Seasonal Influenza Virus Vac cine, Unspecified Formulation 04/16/2022,04/09/2021,03/13/2020,2018,03/30/2018,03/29/2018 Seasonal Influenza, High Dos e, Trivalent, PF, IM (Fluzone HD) 04/20/2024 documented as of this encounter Social History Tobacco Use Types Packs/Day Years Used Date Smoking Tobacco: Former Cigarettes 1 7 1960 Smokeless Tobacco: Former Chew Alcohol Use Standard Drinks/Week Comments Yes 1 (1 standard drink = 0.6 oz pur e alcohol) Minimal PHQ-2 Answer Date Recorded PHQ Adult Total Score 1 04/03/2024 Hunger Vital Sign Answer Date Recorded Within the past 12 months, y ou worried that your food would run out before you got the money to buy more. Never true 04/03/20 Within the past 12 months, t he [...] No 04/03/2024 Does the household have a re gular source of income? 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 Not on file Not on file Not on file documented as of this encounter Plan of Treatment Upcoming Encounters Date Type Department Care Team (Late st Contact Info) Description 09/26/2024 1:00 PM EDT Office Visit Palliative Medicine [facility] [address] [facility] [place] [phone] Sarita Santizo MD [address] [place] [address] [place] [address] 10/01/2024 1:20 PM EDT Anticoagulation Pharmacy, [address] [place] [address] [place] [address] 10/26/2024 2:30 PM EDT Office Visit Family Medicine [address] [place] [phone] [address] [place] [address] 07/18/2025 3:20 PM EST Office Visit Nephrology [address] [place], [place] [address] Mary Jane Thompson MD [address] [place] [address] [place], [place] [address] Health Maintenance Due Date Last Done Comments Alpha-1 Antitrypsin 1961 Zoster Vaccines (1 of 2) 1993 DIG LEVEL FOR MEDICATION MONITORING YEARLY 07/29/2024 07/29/2023 COVID-19 Vaccine ( season) 2024 04/20/2024, 03/24/2023, 04/16/2022, Additional history exists Adult Wellness Visit 11/21/2024 11/22/2023 (Course Completed) GFR 01/28/2025 07/31/2024, 07/14, 02/20/2024, Additional history exists Albumin/Creatinine Ratio 02/19/2025 02/20/2024, 12/12 CKD PHOS USE SMARTSET 30291 02/19/2025 02/20/2024, 0 12/30/2022 Depression Screening 04/03/2025 04/03/2024 CKD HGB USE SMARTSET 68775 07/31/202507/31, 07/25/2024, 06/15/2024, Additional history exists O2 [...] Not on filedocumented as of this encounter Advance Directives Healthcare Agents on File Name Relationship Healthcare Agent Relationshi p Communication Kati Castro Spouse Health Care Repr esentative (appointed verbally by patient or by statute hierarchy) [email or web address] Care Teams Rocket Test Fire Worker Relationship Specialty Start Date End Date Linda Henderson DO [address] [place] [address] [place] [address] PCP - General Internal Medicine 07/14/22 documented as of this encounter
[2024-09-26] MEDS: CALCIUM CITRATE 950 MG TAB PO SCH (08:04)
[2024-09-26] MEDS: CITALOPRAM 20 MG TAB PO SCH (08:04)
[2024-09-26] MEDS: FLUTICASONE/VILANTEROL 200/25MCG 14 PUFFS/INHALER INH SCH (08:05)
[2024-09-26] MEDS: METOPROLOL SUCC 50MG EXT REL TAB PO SCH (08:06)
[2024-09-26] MEDS: MULTIVITAMIN TAB PO SCH (08:06)
[2024-09-26] MEDS: LEVALBUTEROL HCL 0.63 MG/3 ML NEB NEB SCH (08:11)
--- NOTE | 2024-09-26 08:43 | Cardiology Consultation ---
Date of Consultation September 26, 2024 Assessment & Plan (1) Acute respiratory failure with hypoxia: (2) ILD (interstitial lung disease): (3) Acute on chronic diastolic heart failure with preserved ejection fraction: (4) Chronic atrial fibrillation: (5) Cardiac pacemaker in situ: (6) Hypertension: Plan Patient admitted with worsening SOB, hypoxia likely multifactorial in nature. Underlying ILD with pulm fibrosis on chronic supplemental O2. -started on antibiotics, steroids, nebs. Plm consulted Acute on chronic HFpEF also contributing with right sided heart failure. -preserved LVEF on echo at 55%, no wall motion abnormalities -severe pulm hypertension with pulm systolic pressure 100 -he has small b/l pleural effusions noted on chest CTA. -He received several doses of IV lasix with good urine outputs reported -Monitor I+O's -daily weight with standing scale -Monitor renal function and electrolytes -likely will benefit form outpatient diuretic on discharge Hypertension -Continue metoprolol -continue furosemide IV for diuresis -stop Florinef (appears this was started in November 2023 due to severe orthostasis). However now with CHF symptoms and hypertension, Florinef contraindicated -Consider midodrine if he has recurrent symptoms in the future Persistent/chronic afib - rates controlled -continue metoprolol -coumadin on hold given hemoptysis reported -INR 2.7 today. Ok to hold and re-evaluate tomorrow Pacemaker with appropriate function and battery longevity per interrogation in August 2024. Patient follows with [facility] and will need f/u on discharge Case discussed with Dr. Palencia I spent a total of 60 minutes on the date of service in preparation, delivery, and documentation of the care provided to this patient, excluding any time spent in the performance of separately billed services. Vee Calix PA-C Department of Cardiology, [facility] This chart was completed in part utilizing Speech Voice Recognition Software. Grammatical errors, random word insertions, pronoun errors, and incomplete sentences are an occasional consequence of this system due to software limitations, ambient noise, and hardware issues. Any formal questions or concerns about the content, text, or information contained within the body of this dictation should be directly addressed to the provider for clarification. Supervising Physician Co-Signing Physician Notes Attending attestation: Case reviewed with the advanced practitioner. I have personally performed a history and physical examination on the patient. I have reviewed the advanced practitioner's documentation on the date of service referenced in note, and I agree with, and take responsibility for the plan of care. Subjective: Patient believes shortness of breath slightly improved compared to when he came to the hospital but still short of breath with minimal activity such as getting up to urinate. Exam: Pulmonary: Crackles noted bilaterally throughout the lung herbert Cardiovascular regular rhythm, no murmurs Data: EKG performed/ reveals atrial fibrillation at 60 bpm with occasional demand ventricular pacing, nonspecific diffuse T wave flattening noted. Impression/ Plan: Shortness of breath Both the chest x-ray findings of pulmonary edema and physical exam findings of bilateral crackles make it difficult distinguish between exacerbation of interstitial lung disease or volume overload. Agree with ongoing observation without further IV diuretics for now. I spent a total of 20 minutes coordinating, documenting, and providing care for this patient excluding time spent in the performance of separately billed services or time spent by another provider. Kb Palencia DO History of Present Illness Reason for Consultation: SOB Requesting Physician: Bharati Hospitalist Attending Physician: Dr. Palencia History of Present Illness Patient is a 79 year old male admitted to [facility] with worsening SOB/dyspnea, hypoxia and higher oxygen requirements over the last few weeks. He has known ILD with pulm fibrosis with multiple admissions and ER visits over the last 6 months. Initially evaluated at [facility] in November with worsening SOB. He underwent echo and nuclear stress test at that time which was negative for inducible ischemia. LVEF was normal at 50-54% with pulm pressures at 45 mmHg Patient follows with [facility], Dr. Arias. Last visit approx 4 months ago. Recent device interrogation reviewed from August 2024 with appropriate function and battery longevity. Upon admission, patient found to have b/l pleural effusions, pulm edema on chest xray. Mildly elevated BNP. Echo demonstrating normal LVEF, with severe pulm hypertension and much higher pulm pressures than last echo EKG demonstrating afib (chronic) with controlled rates. HS troponin negative x2. He was started on antibiotics, steroids, nebs and treated with several doses of IV lasix. At time of consult this morning, patient resting in bed comfortably. Reports SOB at rest has improved. No chest pain. BP has been hypertensive since admission. I asked why he is taking the Florinef. He is not sure. He reports this was started during one of the prior hospital admissions. chart reviewed and apparently he had significant orthostatic hypotension in November 2023 and this was added. History includes: History of ASCVD with remote OH circa 1988, catheterization in [place], [place] at that time. Details unknown. Chronic atrial fibrillation Tachy-Bradycardia Syndrome status post [place] (Fonseca) pacemaker implantation Mild reduction in LV systolic function, EF 45% via prior resting echocardiogram Nonischemic pharmacological stress test circa 2 years ago Hypertension Chart history of orthostatic hypotension Stage III chronic kidney disease History of DVT Dyslipidemia Anxiety, panic attacks Chart history of COPD GERD Allergies Allergy/AdvReac Type Severity Reaction Status Date / Time buspirone [From BuSpar] AdvReac Severe All senses Verified 09/25/24 18:23 were shut off Home Medications Medication Instructions Recorded Confirmed Type atorvastatin 10 mg tablet 10 mg PO HS 11/18/23 09/25/24 History calcium citrate 250 mg PO DAILY 11/18/23 09/25/24 History citalopram 20 mg tablet 30 mg PO QAM 11/18/23 09/25/24 History digoxin 125 mcg (0.125 mg) tablet 125 mcg PO QAM 11/18/23 09/25/24 History montelukast 10 mg tablet 10 mg PO HS 11/18/23 09/25/24 History multivitamin 1 tab PO DAILY 11/18/23 09/25/24 History warfarin 5 mg tablet 2.5 mg PO 2XWK 11/18/23 09/25/24 History warfarin 5 mg tablet 5 mg PO 5XWK 11/18/23 09/25/24 History fludrocortisone 0.1 mg tablet 0.1 mg PO BID 30 days #60 tabs 11/29/23 09/25/24 Rx fluticasone furoate 200 1 inh inhalation DAILY 30 days #60 11/29/23 09/25/24 Rx mcg-vilanterol 25 mcg/dose ea inhalation powder (Breo Ellipta) levalbuterol HCl 1.25 mg/3 mL 1.25 mg (3 mL) NEB Q4H PRN 11/29/23 09/25/24 Rx solution for nebulization shortness of breath or wheezing #90 mL metoprolol succinate 50 mg 50 mg PO DAILY 09/25/24 09/25/24 History tablet,extended release 24 hr Patient History Medical History Atrial fibrillation Surgical History Hx laparoscopic cholecystectomy (02/23/21) Laparoscopic Cholecystectomy Dr. Mckoy 02-23-2021 History of wisdom tooth extraction H/O vein stripping Family History Other Cancer Social History Smoking Status: Former smoker Tobacco Type: Cigarettes Second Hand Exposure: No; Do You Dip or Chew Tobacco: No; Hx Alcohol Use: No Hx Substance Use: No Preferred Language: [place] Communication Ability: Effective Laser/Electro Optics Technician Required: No Beliefs That Will Affect Care: None Current Living Situation: Spouse Current Living Situation Comment: lives at home with Feels Safe at Home: Yes Safety Concerns: Feels Safe At This Time Assistive Devices: Oxygen - Continuous and Walker Review of Systems Review of Systems: All systems reviewed & are unremarkable except as noted in HPI & below Physical Exam Constitutional: WD/WN, vitals as above + thin; no acute distress Neck: normal visual inspection (No JVD) Respiratory: + cough; no labored breathing Auscult ation: + diminished lung sounds and + crackles (bases b/l - likely due to pulm fibrosis) Cardiovascular: Rate/Rhythm: regular rate and + irregularly irregular Heart Sounds: normal S1 and normal S2; no murmur Vessels: no JVD Extremities: no edema Gastrointestinal (Abdomen): normal bowel sounds, soft, nontender, no hepatosplenomegaly Musculoskeletal: no cyanosis or clubbing, extremities motor strength 5/5 Neurologic: PERRL, EOMI, accommodation nl, no face palsy, no dysarthria Results & Data Vital Signs (Past 12 Hours) Vital Signs Temp Pulse Resp BP Pulse Ox O2 Del Method O2 Flow Rate 09/26/24 08:11 82 20 91 Nasal Cannula 4 09/26/24 03:45 36.8 C 67 20 147/94 H 95 Nasal Cannula 4 09/25/24 22:33 Nasal Cannula 4 09/25/24 22:33 36.7 C 82 16 163/93 H 92 Nasal Cannula 4 09/25/24 21:00 62 20 171/103 H 92 Room Air Laboratory Results Cardiac Enzymes 09/25/24 09/25/24 09/26/24 Range/Units 17:12 18:37 05:30 AST TNP 16 Troponin I High Sens 5.9 6.1 (0-20) pg/ml B-Natriuretic Peptide 846 H (0-100) pg/ml Coagulation 09/25/24 09/26/24 Range/Units 17:12 05:30 PT 25.1 H 27.1 H (9.0-12.0) Seconds B-Natriuretic Peptide 846 H (0-100) pg/ml CBC 09/25/24 09/26/24 Range/Units 17:12 05:30 WBC 6.23 6.54 (4.8-10.8) K/ul RBC 3.67 L 3.23 L (4.70-6.10) M/uL Hgb 12.5 L 11.2 L (14.0-18.0) g/dl Hct 37.4 L 32.9 L (42.0-52.0) % Plt Count 127 L 116 L (130-400) K/uL Neut # (Auto) 4.74 4.75 (1.40-6.50) K/uL Lymph # (Auto) 1.08 L 1.24 (1.20-3.40) K/uL Woodson # (Auto) 0.27 0.30 (0.11-0.59) K/uL Eos # (Auto) 0.10 0.20 (0.00-0.50) K/uL Baso # (Auto) 0.02 0.03 (0.00-0.20) K/uL Comprehensive Metabolic Panel 09/25/24 09/25/24 09/26/24 Range/Units 17:12 18:37 05:30 Sodium 140 139 (136-145) mmol/L Potassium TNP 3.8 3.5 Chloride 106 106 (98-107) mmol/L Carbon Dioxide 32 30 (21-32) mmol/L BUN 24 H 21 (6-23) mg/dl Creatinine 1.12 1.12 (0.6-1.4) mg/dl Glucose 94 88 (70-99(Fasting)) mg/dl Calcium 8.8 8.3 L (8.6-10.3) mg/dl AST TNP 16 ALT 24 (7-52) U/L Alkaline Phosphatase 75 (34-104) U/L Total Protein 6.8 (6.0-8.3) gm/dl Albumin 3.8 (3.4-5.0) gm/dl Intake and Output 09/25/24 09/26/24 09/26/24 22:59 06:59 14:59 Intake Total 150 / 150 Balance 150 / 150 Intake: IV 150 / 150 Doxycycline Hyclate 100 mg In 100 / 100 Dextrose 5% Mini-B 100 ml @ 50 mls/hr IV Q12H [facility] Rx#:[id number] cefTRIAXone SODIUM 2,000 mg In 50 / 50 50 ml @ 100 mls/hr IV Q24H [facility] Rx#:[id number] Other: Weight 86.2 kg 87.5 kg Weight Measurement Method Built in Bedscale Built in [facility] Diagnostic Findings Telemetry reviewed: Afib with controlled rates at 60-70's; intermittent ventricular pacing EKG reviewed from admission 09/26/24: AFib with intermittent ventricular pacing low voltage QRS Old septal infarct Echo reviewed from this morning 09/26/24: Moderate concentric LVH LVEF 50-55% RV is moderately dilated RV systolic function is normal LA is severely dilated severe TR Severe pulm hypertension is present with pulm artery systolic pressure is estimated to be 100 mmHg Mild aortic root dilatation Prox ascending aorta is mildly dilated Chest X-Ray 09/25/24 16:59 Impression: Suspected moderate severity pulmonary edema Chest CTA 09/25/24 17:26 IMPRESSION: 1. No significant evidence of pulmonary thromboembolism in the current study. 2. Right-sided mild and left-sided minimal pleural effusions. Interval mild increase in left-sided and minimal interval regression in the right-sided pleural effusions. 3. Subpleural interstitial changes in the bilateral lung herbert, interseptal thickening with faint groundglass opacity in bilateral lower zones and right middle zone, likely suggesting interstitial lung disease. Interval stable. 4. The concurrent active infective etiology cannot be entirely ruled out. Clinical and lab correlation is suggested. 5. Interval stable cardiomegaly with coronary artery calcification. 6. Interval stable prominent mediastinal lymph nodes. Prior data reviewed, from other admissions: Echo report reviewed dated November 2023: Left ventricular ejection fraction 50 to 55%. RV is moderately dilated. RV systolic function is normal. Mild TR. Estimated pulmonary systolic pressure 45 mmHg. Nuclear stress test report reviewed dated November 2023: 1. Normal Lexiscan myocardial perfusion imaging study without evidence of inducible ischemia or myocardial scar. 2. Normal gated SPECT imaging. 3. Calculated left ventricular ejection fraction 59% Medications Administered Current Inpatient Medications Acetaminophen (Acetaminophen 325 Mg Tab) 650 mg PO Q4H PRN PRN Reason: Pain or Fever Stop: 10/25/24 22:08 Atorvastatin Calcium (Atorvastatin 10 Mg Tab) 10 mg PO HS COLBY Stop: 10/25/24 22:08 Last Admin: 09/25/24 22:50 Dose: 10 mg Calcium Citrate (Calcium Citrate 950 Mg Tab) 950 mg PO DAILY COLBY Stop: 10/26/24 08:59 Last Admin: 09/26/24 08:04 Dose: 950 mg Citalopram Hydrobromide (Citalopram 20 Mg Tab) 30 mg PO QAM [facility] Stop: 10/26/24 08:59 Last Admin: 09/26/24 08:04 Dose: 30 mg Digoxin (Digoxin 0.125 Mg Tab) 0.125 mg PO DAILY@1600 [facility] Stop: 10/26/24 15:59 Fludrocortisone Acetate (Fludrocortisone Acetate 0.1 Mg Tab) 0.1 mg PO BIDM COLBY Stop: 10/25/24 22:08 Last Admin: 09/26/24 08:04 Dose: 0.1 mg Fluticasone/Vilanterol (Fluticasone/Vilanterol 200/25mcg 14 Puffs/Inhaler) 1 puffs INH DAILY COLBY Stop: 10/26/24 08:59 Last Admin: 09/26/24 08:05 Dose: 1 puffs Ceftriaxone Sodium (Rocephin) 2,000 mg in 50 mls @ 100 mls/hr IV Q24H COLBY Stop: 09/30/24 22:29 Last Infusion: 09/25/24 23:22 Dose: Infused Doxycycline Hyclate 100 mg/ (Dextrose) 100 mls @ 50 mls/hr IV Q12H COLBY Stop: 09/30/24 22:59 Last Infusion: 09/26/24 11:57 Dose: Infused Levalbuterol HCl (Levalbuterol 1.25 Mg/3 Ml Neb) 1.25 mg NEB Q4H PRN PRN Reason: shortness of breath or wheezing Stop: 10/25/24 22:08 Levalbuterol HCl (Levalbuterol Hcl 0.63 Mg/3 Ml Neb) 0.63 mg NEB QIDR [facility]; Protocol Stop: 10/26/24 06:59 Last Admin: 09/26/24 11:06 Dose: 0.63 mg Metoprolol Succinate (Metoprolol Succ 50mg Ext Rel Tab) 50 mg PO DAILY [facility] Stop: 10/26/24 08:59 Last Admin: 09/26/24 08:06 Dose: 50 mg Montelukast Sodium (Montelukast Sodium 10 Mg Tablet) 10 mg PO HS [facility] Stop: 10/25/24 22:08 Last Admin: 09/25/24 22:50 Dose: 10 mg Multivitamins (Multivitamin Tab) 1 tab PO DAILY [facility] Stop: 10/26/24 08:59 Last Admin: 09/26/24 08:06 Dose: 1 tab Nitroglycerin (Nitroglycerin Sl 0.4 Mg/Tab Tab) 0.4 mg SL Q5M PRN PRN Reason: Chest Pain Stop: 10/25/24 22:08 Polyethylene Glycol (Polyethylene (Miralax) 17 Gm Pack) 17 gm PO DAILY PRN PRN Reason: Constipation Stop: 10/25/24 22:08 Prednisone (Prednisone 20 Mg Tab) 40 mg PO DAILY [facility] Stop: 10/27/24 08:59
--- NOTE | 2024-09-26 09:35 | Pulmonary Consultation ---
Date of Consultation September 26, 2024 Assessment & Plan (1) SOB (shortness of breath): Multifactorial suspect in the setting of A-fib, mild systolic heart failure, suspected pulmonary hypertension secondary to underlying ILD and possible ILD exacerbation. (2) Bilateral pleural effusion: Will give a dose of 40 mg IV Lasix now and monitor clinical response. Replace potassium which has been ordered already. (3) Elevated brain natriuretic peptide (BNP) level: Diuresis as above. Follow-up echocardiogram to evaluate for secondary pulmonary hypertension and worsening LV function. Appreciate cardiology input. (4) Acute exacerbation of CHF (congestive heart failure): See comments above. (5) Acute respiratory failure with hypoxia: Continue wean oxygen as able. Incentive spirometry every hour's. Out of bed to chair. (6) ILD (interstitial lung disease): Will empirically start the patient on prednisone 40 mg daily. Check LDH to screen for possible PJP. If LDH is low, PJP highly unlikely. Patient does note he completed a course of prednisone earlier this month as an outpatient. Check ESR and CRP. If inflammatory markers are unremarkable. Can likely discontinue steroids. Agree with empiric antibiotics and if no fever in the next 24 hours, then likely can discontinue additional antibiotics. (7) Hemoptysis: I suspect this is secondary to capillary leak in the setting of CHF, pulmonary hypertension, anticoagulation with warfarin and ILD. Continue to clinically monitor. No further hemoptysis, recommend reversing INR with vitamin K. If severe hemoptysis, recommend Kcentra and nebulized TXA. Plan Thank you for the consult. Pulmonary will continue to follow. 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 Follows with [facility] pulmonary medicine. Patient not currently on any antifibrotic's. He also has a history of chronic atrial fibrillation and mildly reduced LV function with an EF of 45%. Patient has been having increasing shortness of breath over the last 4 weeks and has also noticed some hemoptysis earlier in the week. No hemoptysis today. He denies any fevers. He is BNP was elevated on admission. He was started on empiric antibiotics with Rocephin and doxycycline. Chest CT on admission personally reviewed and revealed small bibasilar effusions and increased interstitial markings bilaterally. Procalcitonin negative on admission. White count unremarkable. Patient uses oxygen at home and a flow rate of about 3 L over the past month. He is currently requiring 6 L of supplemental oxygen. He has been on supplemental oxygen since March of last year. Patient with minimal smoking history. Allergies Allergy/AdvReac Type Severity Reaction Status Date / Time buspirone [From BuSpar] AdvReac Severe All senses Verified 09/25/24 18:23 were shut off Home Medications Medication Instructions Recorded Confirmed Type atorvastatin 10 mg tablet 10 mg PO HS 11/18/23 09/25/24 History calcium citrate 250 mg PO DAILY 11/18/23 09/25/24 History citalopram 20 mg tablet 30 mg PO QAM 11/18/23 09/25/24 History digoxin 125 mcg (0.125 mg) tablet 125 mcg PO QAM 11/18/23 09/25/24 History montelukast 10 mg tablet 10 mg PO HS 11/18/23 09/25/24 History multivitamin 1 tab PO DAILY 11/18/23 09/25/24 History warfarin 5 mg tablet 2.5 mg PO 2XWK 11/18/23 09/25/24 History warfarin 5 mg tablet 5 mg PO 5XWK 11/18/23 09/25/24 History fludrocortisone 0.1 mg tablet 0.1 mg PO BID 30 days #60 tabs 11/29/23 09/25/24 Rx fluticasone furoate 200 1 inh inhalation DAILY 30 days #60 11/29/23 09/25/24 Rx mcg-vilanterol 25 mcg/dose ea inhalation powder (Breo Ellipta) levalbuterol HCl 1.25 mg/3 mL 1.25 mg (3 mL) NEB Q4H PRN 11/29/23 09/25/24 Rx solution for nebulization shortness of breath or wheezing #90 mL metoprolol succinate 50 mg 50 mg PO DAILY 09/25/24 09/25/24 History tablet,extended release 24 hr Patient History Medical History Atrial fibrillation Surgical History Hx laparoscopic cholecystectomy (02/23/21) Laparoscopic Cholecystectomy Dr. 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 Patient is in no apparent distress. Patient is well-developed. Eyes: Pupils are equal round and reactive to light. Conjunctivae are normal. Anicteric sclera. Ears nose, mouth and throat: Mallampati class 2. Normal posterior oropharynx. Uvula is midline. Neck: Trachea is midline. Visual inspection is normal. Respiratory: Mild bibasilar crackles. Mild tachypnea. Cardiovascular: Regular rate and rhythm. No murmurs. No edema. Gastrointestinal: Normal bowel sounds, soft, nontender and nondistended. No hepatosplenomegaly noted. Musculoskeletal: No cyanosis. Patient is able to move all extremities. Strength is 5 out of 5 in the upper and lower extremities. Skin: No rashes, warm dry and intact. Neurologic: No obvious focal neurological deficits seen. Psychiatric: Alert and oriented x3 with a euthymic affect. Results & Data Results & Data Vital Signs (Past 12 Hours) Vital Signs Temp Pulse Resp BP Pulse Ox O2 Del Method O2 Flow Rate 09/26/24 09:09 36.6 C 91 H 18 129/86 92 Nasal Cannula 4 09/26/24 08:11 82 20 91 Nasal Cannula 4 09/26/24 03:45 36.8 C 67 20 147/94 H 95 Nasal Cannula 4 09/25/24 22:33 Nasal Cannula 4 09/25/24 22:33 36.7 C 82 16 163/93 H 92 Nasal Cannula 4 PG Care Time/CCT Total # of Minutes Spent Total Time Spent with Patient: Total time spent is greater than 50% in coordination of care (as documented) at patient's floor/unit and/or counseling patient: Coding Level of Care Code 92913 INT INP/OBS CARE MIN Diagnoses SOB (shortness of breath) R06.02 Bilateral pleural effusion J90 Elevated brain natriuretic peptide (BNP) level R79.89 Acute exacerbation of CHF (congestive heart failure) I50.9 Acute respiratory failure with hypoxia J96.01 ILD (interstitial lung disease) J84.9 Hemoptysis R04.2
[2024-09-26] MEDS: FUROSEMIDE 40 MG/4 ML VIAL IV ONE (09:53)
[2024-09-26] MEDS: POTASSIUM CHLORIDE CRTAB 20 MEQ TABCR PO STA (09:53)
[2024-09-26 10:18] LABS: C Reactive Protein 1.43 mg/dl (0-0.5)
--- NOTE | 2024-09-26 10:19 | Electrocardiogram Report ---
Test Reason : Blood Pressure : */* mmHG Vent. Rate : 60 BPM Atrial Rate : * BPM P-R Int : * ms QRS Dur : 86 ms QT Int : 368 ms P-R-T Axes : * 23 -28 degrees QTcB Int : 368 ms Atrial fibrillation with demand ventricular pacing Nonspecific ST abnormality Low voltage QRS Abnormal ECG When compared with ECG of 25-Sep-2024 17:01, (unconfirmed) Atrial fibrillation has replaced Electronic ventricular pacemaker Confirmed by Aryan Flannery ([id number]) on 09/26/2024 10:19:33 AM Referred By: REFERRED SELF Confirmed By: Aryan Flannery
--- NOTE | 2024-09-26 10:23 | Electrocardiogram Report ---
Test Reason : Blood Pressure : */* mmHG Vent. Rate : 66 BPM Atrial Rate : * BPM P-R Int : * ms QRS Dur : 82 ms QT Int : 332 ms P-R-T Axes : * -1 -30 degrees QTcB Int : 348 ms Atrial fibrillation with occasional ventricular-paced complexes and with premature ventricular or alvarez rrantly conducted complexes Abnormal ECG When compared with ECG of 06-Sep-2024 15:19, Vent. rate has decreased by 5 bpm Confirmed by Aryan Flannery ([id number]) on 09/26/2024 10:23:07 AM Referred By: REFERRED SELF Confirmed By: Aryan Flannery
--- NOTE | 2024-09-26 15:18 | Hospitalist Progress Note ---
Date of Service September 26, 2024 Assessment & Plan (1) SOB (shortness of breath): Plan: Patient is an 79 yr male with past medical history significant for hyperlipidemia, interstitial lung disease, COPD, sick sinus syndrome, status post pacemaker, paroxysmal atrial fibrillation, aneurysm of ascending aorta, history of CAD, CKD stage III, history of DVT, history generalized Anxiety disorder comes because of shortness of breath. Patient says he is short of benjamin ath for some time. In March 2024 he was admitted to [facility] in [place] for about a week. And after discharge coming home he was requiring oxygen. Initially was on 2 L.. Progressively shortness of breath got worsened. Currently is on 4 L oxygen. Last 3 weeks was getting more progressively worsened and the last few days with minimal exertion is getting short of breath which prompted him to come to the ER. Also since last Tuesday is coughing up some blood. Today total combined patient thinks coughed up about a table spoon of blood. Denies any fevers. In June he fell on oxygen tank and fractured sternum since then has pain in the chest. Sometimes feeling tightness in the chest. He has chronic back pain. No runny nose or sore throat. No nausea. No abdominal pain. Sometimes has difficulty swallowing liquids. Normal bowel and bladder movements. Currently resting comfortably and hemodynamically stable. Family in the room. Acute on chronic respiratory failure with hypoxia Likely multifactorial Possible interstitial lung disease exacerbation Hemoptysis Chronic oxygen dependency--on 4 to 6 L at baseline --Chest CTA:No significant evidence of pulmonary thromboembolism in the current study. Right-sided mild and left-sided minimal pleural effusions. Interval mild increase in left-sided and minimal interval regression in the right-sided pleura l effusions. Subpleural interstitial changes in the bilateral lung herbert, interseptal thickening with faint groundglass opacity in bilateral lower zones and right middle zone, likely suggesting interstitial lung disease. Interval stable. The concurrent active infective etiology cannot be entirely ruled out. Clinical and lab correlation is suggested. Interval stable cardiomegaly with coronary artery calcification. Interval stable prominent mediastinal lymph nodes. -- BioFire negative --Normal procalcitonin --Empirically on Rocephin, doxycycline Also started on prednisone 40 mg daily Check ESR, CRP, LDH Also receiving IV diuretics as below Appreciate pulmonology input Continue incentive spirometry Continue supplemental oxygen Acute on chronic HFpEF Right heart failure Severe pulmonary hypertension --ECHO: Moderate concentric LVH. No regional wall motion abnormality. Left ventricular systolic function is normal. EF 50 to 55%. Right ventricle is moderately dilated. Right ventricular systolic function is normal. Left atrium is severely dilated. Severe tricuspid regurgitation. Severe pulmonary hypertension is present. Mild aortic root dilatation. Proximal ascending aorta is mildly dilated. --Florinef discontinued --Received IV Lasix Monitor I's and O's, daily weight Replete cardiology input Consideration to be started on diuretic on discharge A-fib Sick sinus syndrome Pacemaker interrogated in August 2024--appropriate function and battery longevity Continue digoxin and metoprolol succinate Coumadin on hold for hemoptysis INR 2.7 today Resume Coumadin as able History of DVT Many years ago Holding Coumadin as above And restart as soon as possible CKD stage III Creatinine 1.1 Monitor renal function H/O Orthostatic hypotension fludrocortisone--discontinued due to CHF Monitor blood pressure off Florinef History of CAD Continue metoprolol, atorvastatin History of anxiety and panic disorder On citalopram DVT Px: INR therapeutic Resume Coumadin as able CODE STATUS Full code Admission and Anticipated Discharge Date Admission Date: September 25, 2024 Subjective Patient is seen and examined at bedside States feeling better today Dyspnea, cough better when compared to yesterday No new complaints Saturating well on 4 L supplemental oxygen Review of Systems Review of Systems: All systems reviewed & are unremarkable except as noted in Subjective Physical Exam Physical Exam: Physical Exam: Vitals signs as noted above General Appearance:Thin, no apparent distress Head: normocephalic, Atraumatic Eyes: normal inspection, EOMI Neck: supple, Trachea midline Respiratory/Chest: Decreased breath sounds, left basal crackles, No accessory muscle use Cardiovascular: Irregularly irregular, no murmur Abdomen/GI:Soft, Non tender, Bowel sounds present Extremities/Musculoskeletal:normal inspection, no edema, +venous stasis changes Neurologic/Psych:AAOX3, grossly no focal neurological deficits Skin: normal color, warm Results & Data Results & Data Vital Signs (Past 12 Hours) Vital Signs Temp Pulse Pulse Resp BP Pulse Ox O2 Del Method 09/26/24 14:56 76 18 96 Nasal Cannula 09/26/24 12:38 Nasal Cannula 09/26/24 11:34 67 09/26/24 11:06 72 16 95 Nasal Cannula 09/26/24 09:09 36.6 C 91 H 18 129/86 92 Nasal Cannula 09/26/24 08:11 82 20 91 Nasal Cannula 09/26/24 03:45 36.8 C 67 20 147/94 H 95 Nasal Cannula O2 Flow Rate 09/26/24 14:56 4 09/26/24 12:38 4 09/26/24 11:34 09/26/24 11:06 4 09/26/24 09:09 4 09/26/24 08:11 4 09/26/24 03:45 4 Laboratory Results Short CBC 09/25/24 09/26/24 Range/Units 17:12 05:30 WBC 6.23 6.54 (4.8-10.8) K/ul Hgb 12.5 L 11.2 L (14.0-18.0) g/dl Hct 37.4 L 32.9 L (42.0-52.0) % Plt Count 127 L 116 L (130-400) K/uL BMP 09/25/24 09/25/24 09/26/24 17:12 18:37 05:30 Sodium 140 139 Potassium TNP 3.8 3.5 Chloride 106 106 Carbon Dioxide 32 30 BUN 24 H 21 Creatinine 1.12 1.12 Glucose 94 88 Calcium 8.8 8.3 L Liver Function 09/25/24 09/25/24 Range/Units 17:12 18:37 Total Bilirubin 1.7 H (0.2-1.0) mg/dl AST TNP 16 ALT 24 (7-52) U/L Alkaline Phosphatase 75 (34-104) U/L Albumin 3.8 (3.4-5.0) gm/dl Urine 09/26/24 Range/Units 01:17 Urine Color Yellow Urine Appearance Clear (Clear) Urine pH 7.0 (4.5-7.5) Ur Specific [place] > 1.045 H (1.000-1.030) Urine Protein 1+ H (Negative) Urine Glucose (UA) Negative (Negative)
[2024-09-26] MEDS: DIGOXIN 0.125 MG TAB PO SCH (16:06)
[2024-09-26] MEDS: LEVALBUTEROL 1.25 MG/3 ML NEB NEB PRN (19:27)
[2024-09-27 06:50] LABS: INR 2.4 (0.9-1.1); Prothrombin Time 23.8 Seconds (9.0-12.0)
[2024-09-27 07:24] LABS: Calcium 8.4 mg/dl (8.6-10.3); Potassium 3.5 mmol/L (3.5-5.1)
[2024-09-27 07:30] LABS: BUN Creatinine Ratio 21.1 (10-20); Creatinine Clr Calc Pharmacy 49.7 ml/min
[2024-09-27] MEDS: ACETAMINOPHEN 325 MG TAB PO PRN (07:51)
[2024-09-27] MEDS: predniSONE 20 MG TAB PO SCH (07:52)
[2024-09-27] MEDS: DOXYCYCLINE HYCLATE 100 MG CAP PO SCH (10:43)
[2024-09-27] MEDS: FUROSEMIDE 40 MG/4 ML VIAL IV ONE (12:52)
[2024-09-27] MEDS: POTASSIUM CHLORIDE CRTAB 20 MEQ TABCR PO STA (12:52)
--- NOTE | 2024-09-27 13:38 | Electrocardiogram Report ---
Test Reason : Blood Pressure : */* mmHG Vent. Rate : 63 BPM Atrial Rate : * BPM P-R Int : * ms QRS Dur : 140 ms QT Int : 436 ms P-R-T Axes : * 12 -24 degrees QTcB Int : 446 ms Atrial fibrillation Incomplete right bundle branch block Nonspecific T wave abnormality Abnormal ECG When compared with ECG of 26-Sep-2024 06:49, Sinus rhythm is no longer with ventricular escape complexes Confirmed by Aryan Flannery ([id number]) on 09/27/2024 1:37:54 PM Referred By: REFERRED SELF Confirmed By: Aryan Flannery
--- NOTE | 2024-09-27 15:01 | Pulmonology Progress Note ---
Date of Service September 27, 2024 Assessment & Plan (1) Severe pulmonary hypertension: Plan: Echo with evidence of an RVSP greater than 100 mmHg likely secondary to patient's ILD and possibly component of WHO group 1 PAH and WHO group 2 disease. He may be a good candidate for Tyvaso as an outpatient. Patient will need a right heart cath once diuresed which can be pursued as an outpatient. Recommend follow-up with a pulmonary hypertension center as an outpatient. (2) ILD (interstitial lung disease): Plan: ESR, CRP and LDH minimally elevated. Recommend 5 days of prednisone at a dose of 40 mg then discontinue. Doubtful of ILD flare suspect dyspnea is more related to volume overload and severe pulmonary hypertension. Antibiotics discontinued. Doubtful of infectious etiology. (3) SOB (shortness of breath): Plan: Multifactorial suspect in the setting of A-fib, mild systolic heart failure, severe pulmonary hypertension secondary to underlying ILD and possible ILD exacerbation. (4) Bilateral pleural effusion: Plan: I ordered another dose of 40 mg IV Lasix and potassium today. Continue to follow urine output, electrolytes and creatinine. Will spot dose diuretics as needed. (5) Acute exacerbation of CHF (congestive heart failure): Plan: See comments above. (6) Acute respiratory failure with hypoxia: Plan: Continue wean oxygen as able. Incentive spirometry every hour.. Out of bed to chair. (7) Hemoptysis: Plan: I suspect this is secondary to capillary leak in the setting of CHF, pulmonary hypertension, anticoagulation with warfarin and ILD. Continue to clinically monitor. If severe hemoptysis, recommend Kcentra and nebulized TXA. Plan Thank you for the consult. Pulmonary will continue to follow. Admission and Anticipated Discharge Date Admission Date: September 25, 2024 Subjective Scant hemoptysis today. Dyspnea improved compared to admission. Denies any chest pain. Continuing 4 L of oxygen at rest. Appetite is good. Review of Systems Review of Systems: All systems reviewed & are unremarkable except as noted in HPI & below Physical Exam Physical Exam: Constitutional: Patient appears to be of their stated age. Patient is in no apparent distress. Patient is well-developed. Eyes: Pupils are equal round and reactive to light. Conjunctivae are normal. Anicteric sclera. Ears nose, mouth and throat: Mallampati class 2. Normal posterior oropharynx. Uvula is midline. Neck: Trachea is midline. Visual inspection is normal. Respiratory: Mild bibasilar crackles. Mild tachypnea. Cardiovascular: Regular rate and rhythm. No murmurs. No edema. Gastrointestinal: Normal bowel sounds, soft, nontender and nondistended. No hepatosplenomegaly noted. Musculoskeletal: No cyanosis. Patient is able to move all extremities. Strength is 5 out of 5 in the upper and lower extremities. Skin: No rashes, warm dry and intact. Neurologic: No obvious focal neurological deficits seen. Psychiatric: Alert and oriented x3 with a euthymic affect. Results & Data Results & Data Vital Signs (Past 12 Hours) Vital Signs Temp Pulse Pulse Resp BP Pulse Ox O2 Del Method 09/27/24 11:52 36.5 C 88 16 138/84 98 Nasal Cannula 09/27/24 10:48 74 18 94 Nasal Cannula 09/27/24 09:47 Nasal Cannula 09/27/24 09:12 79 09/27/24 08:20 36.6 C 99 H 18 103/78 93 Nasal Cannula 09/27/24 07:20 67 17 99 Nasal Cannula 09/27/24 03:21 36.7 C 76 20 145/89 H 98 Nasal Cannula O2 Flow Rate 09/27/24 11:52 4 09/27/24 10:48 4 09/27/24 09:47 4 09/27/24 09:12 09/27/24 08:20 4 09/27/24 07:20 4 09/27/24 03:21 PG Care Time/CCT Total # of Minutes Spent Total Time Spent with Patient: Total time spent is greater than 50% in coordination of care (as documented) at patient's floor/unit and/or counseling patient: Coding Level of Care Code 17231 SUB INP/OBS CARE 3/50MIN Diagnoses Severe pulmonary hypertension I27.20 ILD (interstitial lung disease) J84.9 SOB (shortness of breath) R06.02 Bilateral pleural effusion J90 Acute exacerbation of CHF (congestive heart failure) I50.9 Acute respiratory failure with hypoxia J96.01 Hemoptysis R04.2
--- NOTE | 2024-09-27 15:11 | Hospitalist Progress Note ---
Date of Service September 27, 2024 Assessment & Plan (1) SOB (shortness of breath): Plan: Patient is an 79 yr male with past medical history significant for hyperlipidemia, interstitial lung disease, COPD, sick sinus syndrome, status post pacemaker, paroxysmal atrial fibrillation, aneurysm of ascending aorta, history of CAD, CKD stage III, history of DVT, history generalized Anxiety disorder comes because of shortness of breath. Patient says he is short of benjamin ath for some time. In March 2024 he was admitted to [facility] in [place] for about a week. And after discharge coming home he was requiring oxygen. Initially was on 2 L.. Progressively shortness of breath got worsened. Currently is on 4 L oxygen. Last 3 weeks was getting more progressively worsened and the last few days with minimal exertion is getting short of breath which prompted him to come to the ER. Also since last Tuesday is coughing up some blood. Today total combined patient thinks coughed up about a table spoon of blood. Denies any fevers. In June he fell on oxygen tank and fractured sternum since then has pain in the chest. Sometimes feeling tightness in the chest. He has chronic back pain. No runny nose or sore throat. No nausea. No abdominal pain. Sometimes has difficulty swallowing liquids. Normal bowel and bladder movements. Currently resting comfortably and hemodynamically stable. Family in the room. Acute on chronic respiratory failure with hypoxia Likely multifactorial: Severe pulmonary hypertension, volume overload Possible interstitial lung disease exacerbation--less likely Hemoptysis Chronic oxygen dependency--on 4 to 6 L at baseline --Chest CTA:No significant evidence of pulmonary thromboembolism in the current study. Right-sided mild and left-sided minimal pleural effusions. Interval mild increase in left-sided and minimal interval regression in the right-sided pleural effusions. Subpleural interstitial changes in the bilateral lung herbert, interseptal thickening with faint groundglass opacity in bilateral lower zones and right middle zone, likely suggesting interstitial lung disease. Interval stable. The concurrent active infective etiology cannot be entirely ruled out. Clinical and lab correlation is suggested. Interval stable cardiomegaly with coronary artery calcification. Interval stable prominent mediastinal lymph nodes. -- BioFire negative --Normal procalcitonin --Empirically on Rocephin, doxycycline Continue prednisone 40 mg daily--for 5 days ESR, CRP, LDH--mildly elevated Also receiving IV diuretics as below Appreciate pulmonology input: Likely a good candidate for Tyvaso. Needs right heart cath as outpatient Continue incentive spirometry Continue supplemental oxygen Needs follow-up with pulmonology on discharge Will request PT OT evaluation Acute on chronic HFpEF Right heart failure Severe pulmonary hypertension --ECHO: Moderate concentric LVH. No regional wall motion abnormality. Left ventricular systolic function is normal. EF 50 to 55%. Right ventricle is moderately dilated. Right ventricular systolic function is normal. Left atrium is severely dilated. Severe tricuspid regurgitation. Severe pulmonary hypertension is present. Mild aortic root dilatation. Proximal ascending aorta is mildly dilated. --Florinef discontinued --Received IV Lasix Monitor I's and O's, daily weight Replete cardiology input Consideration to be started on diuretic on discharge Additional IV Lasix today A-fib Sick sinus syndrome Pacemaker interrogated in August 2024--appropriate function and battery longevity Continue digoxin and metoprolol succinate Coumadin on hold for hemoptysis INR 2.4 today Resume Coumadin as able History of DVT Many years ago Holding Coumadin as above And restart as soon as possible CKD stage III Creatinine 1.1 Monitor renal function H/O Orthostatic hypotension fludrocortisone--discontinued due to CHF Monitor blood pressure off Florinef Continue compression stockings History of CAD Continue metoprolol, atorvastatin History of anxiety and panic disorder On citalopram DVT Px: INR therapeutic Resume Coumadin as able CODE STATUS Full code Disposition PT OT prior to discharge Admission and Anticipated Discharge Date Admission Date: September 25, 2024 Subjective Patient is seen and examined at bedside Still having scant hemoptysis this morning per patient Also complained of transient dizziness Updated patient's daughter over the phone Dyspnea, cough much improved Saturating well on baseline supplemental oxygen No other complaints today Review of Systems Review of Systems: All systems reviewed & are unremarkable except as noted in Subjective Physical Exam Physical Exam: Physical Exam: Vitals signs as noted above General Appearance:Thin, no apparent distress Head: normocephalic, Atraumatic Eyes: normal inspection, EOMI Neck: supple, Trachea midline Respiratory/Chest: Decreased breath sounds, left basal crackles, No accessory muscle use Cardiovascular: Irregularly irregular, no murmur Abdomen/GI:Soft, Non tender, Bowel sounds present Extremities/Musculoskeletal:normal inspection, no edema, +venous stasis changes Neurologic/Psych:AAOX3, grossly no focal neurological deficits Skin: normal color, warm Results & Data Results & Data Vital Signs (Past 12 Hours) Vital Signs Temp Pulse Pulse Resp BP Pulse Ox O2 Del Method 09/27/24 11:52 36.5 C 88 16 138/84 98 Nasal Cannula 09/27/24 10:48 74 18 94 Nasal Cannula 09/27/24 09:47 Nasal Cannula 09/27/24 09:12 79 09/27/24 08:20 36.6 C 99 H 18 103/78 93 Nasal Cannula 09/27/24 07:20 67 17 99 Nasal Cannula 09/27/24 03:21 36.7 C 76 20 145/89 H 98 Nasal Cannula O2 Flow Rate 09/27/24 11:52 4 09/27/24 10:48 4 09/27/24 09:47 4 09/27/24 09:12 09/27/24 08:20 4 09/27/24 07:20 4 09/27/24 03:[address] [facility] 09/27/24 05:51 Sodium 140 Potassium 3.5 Chloride 104 Carbon Dioxide 32 BUN 27 H Creatinine 1.28 Glucose 88 Calcium 8.4 L
[2024-09-28 07:34] LABS: Hemoglobin 11.2 g/dl (14.0-18.0); Mean Corpuscular Hemoglobin 34.7 pg (25.0-34.0); Mean Corpuscular Hgb Conc 33.9 g/dL (32.0-36.0); Mean Corpuscular Volume 102.2 fL (80.0-100.0); Mean Platelet Volume 10.2 fL (9.4-12.4); Platelet Count 142 K/uL (130-400); RDW Coefficient of Variation 14.1 % (11.5-14.5); RDW Standard Deviation 53.3 fL (36.4-46.3); Red Blood Count 3.23 M/uL (4.70-6.10); White Blood Count 7.59 K/ul (4.8-10.8)
[2024-09-28 07:56] LABS: Creatinine Clr Calc Pharmacy 53.9 ml/min
[2024-09-28 07:57] LABS: INR 1.8 (0.9-1.1); Prothrombin Time 18.7 Seconds (9.0-12.0)
[2024-09-28 11:41] VITALS: BP 143/94; RESP 18; TEMP 98.1
--- NOTE | 2024-09-28 13:59 | Hospitalist Progress Note ---
Date of Service September 28, 2024 Assessment & Plan (1) SOB (shortness of breath): Plan: Patient is an 79 yr male with past medical history significant for hyperlipidemia, interstitial lung disease, COPD, sick sinus syndrome, status post pacemaker, paroxysmal atrial fibrillation, aneurysm of ascending aorta, history of CAD, CKD stage III, history of DVT, history generalized Anxiety disorder comes because of shortness of breath. Patient says he is short of benjamin ath for some time. In March 2024 he was admitted to [facility] in [place] for about a week. And after discharge coming home he was requiring oxygen. Initially was on 2 L.. Progressively shortness of breath got worsened. Currently is on 4 L oxygen. Last 3 weeks was getting more progressively worsened and the last few days with minimal exertion is getting short of breath which prompted him to come to the ER. Also since last Tuesday is coughing up some blood. Today total combined patient thinks coughed up about a table spoon of blood. Denies any fevers. In June he fell on oxygen tank and fractured sternum since then has pain in the chest. Sometimes feeling tightness in the chest. He has chronic back pain. No runny nose or sore throat. No nausea. No abdominal pain. Sometimes has difficulty swallowing liquids. Normal bowel and bladder movements. Currently resting comfortably and hemodynamically stable. Family in the room. Acute on chronic respiratory failure with hypoxia Likely multifactorial: Severe pulmonary hypertension, volume overload Possible interstitial lung disease exacerbation--less likely Hemoptysis Chronic oxygen dependency--on 4 to 6 L at baseline --Chest CTA:No significant evidence of pulmonary thromboembolism in the current study. Right-sided mild and left-sided minimal pleural effusions. Interval mild increase in left-sided and minimal interval regression in the right-sided pleural effusions. Subpleural interstitial changes in the bilateral lung herbert, interseptal thickening with faint groundglass opacity in bilateral lower zones and right middle zone, likely suggesting interstitial lung disease. Interval stable. The concurrent active infective etiology cannot be entirely ruled out. Clinical and lab correlation is suggested. Interval stable cardiomegaly with coronary artery calcification. Interval stable prominent mediastinal lymph nodes. -- BioFire negative --Normal procalcitonin --Empirically on Rocephin, doxycycline--discontinued as recommended by pulmonology Continue prednisone 40 mg daily--for 5 days ESR, CRP, LDH--mildly elevated Also receiving IV diuretics as below Appreciate pulmonology input: Likely a good candidate for Tyvaso. Needs right heart cath as outpatient Continue incentive spirometry Continue supplemental oxygen Needs follow-up with pulmonology on discharge Likely discharge home today if does not require rehab per PT eval Acute on chronic HFpEF Right heart failure Severe pulmonary hypertension --ECHO: Moderate concentric LVH. No regional wall motion abnormality. Left ventricular systolic function is normal. EF 50 to 55%. Right ventricle is moderately dilated. Right ventricular systolic function is normal. Left atrium is severely dilated. Severe tricuspid regurgitation. Severe pulmonary hypertension is present. Mild aortic root dilatation. Proximal ascending aorta is mildly dilated. --Florinef discontinued --Received IV Lasix Monitor I's and O's, daily weight Replete cardiology input Consideration to be started on diuretic on discharge Will likely discharge on Lasix 20 mg daily A-fib Sick sinus syndrome Pacemaker interrogated in August 2024--appropriate function and battery longevity Continue digoxin and metoprolol succinate Coumadin initially held for hemoptysis Hemoptysis resolved INR 1.8 today Resume Coumadin today History of DVT Resume Coumadin CKD stage III Creatinine 1.1 Monitor renal function H/O Orthostatic hypotension fludrocortisone--discontinued due to CHF Monitor blood pressure off Florinef Continue compression stockings History of CAD Continue metoprolol, atorvastatin History of anxiety and panic disorder On citalopram DVT Px: Coumadin CODE STATUS Full code Disposition PT OT prior to discharge Admission and Anticipated Discharge Date Admission Date: September 25, 2024 Subjective Patient is seen and examined at bedside Denies any significant dizziness today No hemoptysis today Cough, dyspnea much improved Discussed with cardiology today Denies any chest pain, nausea, vomiting, abdominal pain Saturating well on 4 L supplemental oxygen Review of Systems Review of Systems: All systems reviewed & are unremarkable except as noted in Subjective Physical Exam Physical Exam: Physical Exam: Vitals signs as noted above General Appearance:Thin, no apparent distress Head: normocephalic, Atraumatic Eyes: normal inspection, EOMI Neck: supple, Trachea midline Respiratory/Chest: Decreased breath sounds, left basal crackles, No accessory muscle use Cardiovascular: Irregularly irregular, no murmur Abdomen/GI:Soft, Non tender, Bowel sounds present Extremities/Musculoskeletal:normal inspection, no edema, +venous stasis changes Neurologic/Psych:AAOX3, grossly no focal neurological deficits Skin: normal color, warm Results & Data Results & Data Vital Signs (Past 12 Hours) Vital Signs Temp Pulse Pulse Resp BP BP Pulse Ox 09/28/24 11:40 36.7 C 70 18 143/94 H 93 09/28/24 11:36 09/28/24 11:07 09/28/24 08:54 36.5 C 76 17 136/85 98 09/28/24 07:34 65 09/28/24 07:06 73 17 99 09/28/24 04:16 36.4 C L 80 18 142/88 H 96 Pulse Ox O2 Del Method O2 Flow Rate O2 Flow Rate 09/28/24 11:40 Nasal Cannula 4 09/28/24 11:36 96 4 09/28/24 11:07 Nasal Cannula 4 09/28/24 08:54 Nasal Cannula 4 09/28/24 07:34 09/28/24 07:06 Nasal Cannula 6 09/28/24 04:16 Nasal Cannula 4 Laboratory Results Short CBC 09/28/24 Range/Units 06:51 WBC 7.59 (4.8-10.8) K/ul Hgb 11.2 L (14.0-18.0) g/dl Hct 33.0 L (42.0-52.0) % Plt Count 142 (130-400) K/uL BMP 09/28/24 06:51 Sodium 141 Potassium 4.0 Chloride 104 Carbon Dioxide 33 H BUN 33 H Creatinine 1.18 Glucose 103 H Calcium 9.0
[2024-09-28 14:54] VITALS: O2SAT 98
--- NOTE | 2024-09-28 15:09 | Discharge Summary ---
Date of Service September 28, 2024 Admission HPI Per Admitting Provider 79-year-old male with past medical history significant for hyperlipidemia, interstitial lung disease, COPD, sick sinus syndrome, status post pacemaker, paroxysmal atrial fibrillation, aneurysm of ascending aorta, history of CAD, CKD stage III, history of DVT, history generalized Anxiety disorder comes because of shortness of breath. Patient says he is short of breath for some time. In March 2024 he was admitted to [facility] in [place] for about a week. And after discharge coming home he was requiring oxygen. Initially was on 2 L.. Progressively shortness of breath got worsened. Currently is on 4 L oxygen. Last 3 weeks was getting more progressively worsened and the last few days with minimal exertion is getting short of breath which prompted him to come to the ER. Also since last Tuesday is coughing up some blood. Today total combined patient thinks coughed up about a table spoon of blood. Denies any fevers. In June he fell on oxygen tank and fractured sternum since then has pain in the chest. Sometimes feeling tightness in the chest. He has chronic back pain. No runny nose or sore throat. No nausea. No abdominal pain. Sometimes has difficulty swallowing liquids. Normal bowel and bladder movements. Currently resting comfortably and hemodynamically stable. Family in the room. Past medical history. As mentioned above. Past surgical history. Cholecystectomy. Social history. . Quit smoking 1960. Alcohol 1 standard drink per week as per epic. No drug use. Family history. Father had cancer. Massive CVA. Mother had colon cancer. Admission Exam Per Admitting Provider General- Not in distress Head- atraumatic Eyes- PERRL. ENT- oropharynx clear Neck- supple, no JVD. Lungs- clear to auscultation b/l coarse crackles heard, no wheezing Heart- regular rhythm; no murmur, no gallop. Abdomen- normal bowel sounds, soft, nontender, no distension Extremities- trace pretibial edema present, no erythema seen Neuro- alert, oriented PERRL,no facial palsy; no dysarthria; moves extremities Principal Diagnosis Acute on chronic respiratory failure with hypoxia Severe pulmonary hypertension Acute on chronic heart failure with preserved EF Interstitial lung disease Hemoptysis Chronic oxygen dependency Discharge Data Allergies Allergy/AdvReac Type Severity Reaction Status Date / Time buspirone [From BuSpar] AdvReac Severe All senses Verified 09/25/24 18:23 were shut off Consultations 09/25/24 19:51 ED Decision to Admit Stat 09/26/24 08:00 Consult Cardiology Routine Consult Pulmonology Routine Procedures Performed Laboratory Results WBC 7.59 K/ul (4.8-10.8) 09/28/24 06:51 RBC 3.23 M/uL (4.70-6.10) L 09/28/24 06:51 Hgb 11.2 g/dl (14.0-18.0) L 09/28/24 06:51 Hct 33.0 % (42.0-52.0) L 09/28/24 06:51 MCV 102.2 fL (80.0-100.0) H 09/28/24 06:51 MCH 34.7 pg (25.0-34.0) H 09/28/24 06:51 MCHC 33.9 g/dL (32.0-36.0) 09/28/24 06:51 RDW Std Deviation 53.3 fL (36.4-46.3) H 09/28/24 06:51 RDW Coeff of Lori 14.1 % (11.5-14.5) 09/28/24 06:51 Plt Count 142 K/uL (130-400) 09/28/24 06:51 MPV 10.2 fL (9.4-12.4) 09/28/24 06:51 Immature Gran % (Auto) 0.3 % 09/26/24 05:30 Neut % (Auto) 72.5 % 09/26/24 05:30 Lymph % (Auto) 19.0 % 09/26/24 05:30 Harrison % (Auto) 4.6 % 09/26/24 05:30 Eos % (Auto) 3.1 % 09/26/24 05:30 Baso % (Auto) 0.5 % 09/26/24 05:30 Neut # (Auto) 4.75 K/uL (1.40-6.50) 09/26/24 05:30 Lymph # (Auto) 1.24 K/uL (1.20-3.40) 09/26/24 05:30 Harrison # (Auto) 0.30 K/uL (0.11-0.59) 09/26/24 05:30 Eos # (Auto) 0.20 K/uL (0.00-0.50) 09/26/24 05:30 Baso # (Auto) 0.03 K/uL (0.00-0.20) 09/26/24 05:30 Immature Gran # (Auto) 0.02 K/uL (0.01-0.20) 09/26/24 05:30 ESR 27 mm/hr (0-20) H 09/26/24 05:30 PT 18.7 Seconds (9.0-12.0) H 09/28/24 06:51 INR 1.8 (0.9-1.1) H 09/28/24 06:51 VBG pH 7.40 (7.36-7.41) 09/25/24 17:21 VBG pCO2 46 mmHg (38-50) 09/25/24 17:21 VBG pO2 22 mmHg 09/25/24 17:21 VBG HCO3 29 mmol/L 09/25/24 17:21 VBG O2 Saturation < 60.0 % 09/25/24 17:21 VBG Base Excess 3.0 mEq/L 09/25/24 17:21 Sodium 141 mmol/L (136-145) 09/28/24 06:51 Potassium 4.0 mmol/L (3.5-5.1) 09/28/24 06:51 Chloride 104 mmol/L (98-107) 09/28/24 06:51 Carbon Dioxide 33 mmol/L (21-32) H 09/28/24 06:51 Anion Gap 4 (3-11) 09/28/24 06:51 BUN 33 mg/dl (6-23) H 09/28/24 06:51 Creatinine 1.18 mg/dl (0.6-1.4) 09/28/24 06:51 Est Cr Clr Drug Dosing 53.9 ml/min 09/28/24 06:51 eGFR 61.99 09/28/24 06:51 BUN/Creatinine Ratio 28.0 (10-20) H 09/28/24 06:51 Glucose 103 mg/dl (70-99(Fasting)) H 09/28/24 06:51 Calcium 9.0 mg/dl (8.6-10.3) 09/28/24 06:51 Magnesium 1.9 mg/dl (1.7-2.4) 09/26/24 05:30 Total Bilirubin 1.7 mg/dl (0.2-1.0) H 09/25/24 17:12 AST 16 U/L (13-39) 09/25/24 18:37 ALT 24 U/L (7-52) 09/25/24 17:12 Alkaline Phosphatase 75 U/L (34-104) 09/25/24 17:12 Lactate Dehydrogenase 250 U/L (86-244) H 09/26/24 05:30 Troponin I High Sens 6.1 pg/ml (0-20) 09/26/24 05:30 C-Reactive Protein 1.43 mg/dl (0-0.5) H 09/26/24 05:30 B-Natriuretic Peptide 377 pg/ml (0-100) H 09/28/24 10:50 Total Protein 6.8 gm/dl (6.0-8.3) 09/25/24 17:12 Albumin 3.8 gm/dl (3.4-5.0) 09/25/24 17:12 Globulin 3.0 gm/dl (2.5-4.0) 09/25/24 17:12 Albumin/Globulin Ratio 1.3 (0.9-2) 09/25/24 17:12 Procalcitonin < 0.02 ng/ml (0-0.5) 09/26/24 05:30 Urine Color Yellow 09/26/24 01:17 Urine Appearance Clear (Clear) 09/26/24 01:17 Urine pH 7.0 (4.5-7.5) 09/26/24 01:17 Ur Specific [place] > 1.045 (1.000-1.030) H 09/26/24 01:17 Urine Protein 1+ (Negative) H 09/26/24 01:17 Urine Glucose (UA) Negative (Negative) 09/26/24 01:17 Urine Ketones Negative (Negative) 09/26/24 01:17 Urine Blood Negative (Negative) 09/26/24 01:17 Urine Nitrite Negative (Negative) 09/26/24 01:17 Urine Bilirubin Negative (Negative) 09/26/24 01:17 Urine Urobilinogen Positive (Negative) H 09/26/24 01:17 Ur Leukocyte Esterase Negative (Negative) 09/26/24 01:17 Urine WBC (Auto) 0-5 /hpf (0-5) 09/26/24 01:17 Urine RBC (Auto) 0-2 /hpf (0-2) 09/26/24 01:17 U Hyaline Cast (Auto) 0-2 /lpf (0-2) 09/26/24 01:17 U Epithel Cells (Auto) 0-2 /hpf (0-2) 09/26/24 01:17 Urine Bacteria (Auto) None Seen (None Seen) 09/26/24 01:17 Adenovirus (PCR) Not Detected (NotDetected) 09/25/24 17:21 B. pertussis DNA (PCR) Not Detected (NotDetected) 09/25/24 17:21 B.parapertussis DNA PCR Not Detected (NotDetected) 09/25/24 17:21 C. pneumoniae DNA (PCR) Not Detected (NotDetected) 09/25/24 17:21 Coronavirus OC43 (PCR) Not Detected (NotDetected) 09/25/24 17:21 Coronavirus HKU1 (PCR) Not Detected (NotDetected) 09/25/24 17:21 Coronavirus 229E (PCR) Not Detected (NotDetected) 09/25/24 17:21 SARS-CoV-2 (PCR) Not Detected (NotDetected) 09/25/24 17:21 Coronavirus NL63 (PCR) Not Detected (NotDetected) 09/25/24 17:21 Human Metapneumovir PCR Not Detected (NotDetected) 09/25/24 17:21 Influenza Type A (PCR) Not Detected (NotDetected) 09/25/24 17:21 Influenza Type B (PCR) Not Detected (NotDetected) 09/25/24 17:21 M. pneumoniae (PCR) Not Detected (NotDetected) 09/25/24 17:21 Parainfluenza 1 (PCR) Not Detected (NotDetected) 09/25/24 17:21 Parainfluenza 2 (PCR) Not Detected (NotDetected) 09/25/24 17:21 Parainfluenza 3 (PCR) Not Detected (NotDetected) 09/25/24 17:21 Parainfluenza 4 (PCR) Not Detected (NotDetected) 09/25/24 17:21 RSV (PCR) Not Detected (NotDetected) 09/25/24 17:21 Entero/Rhino (PCR) Not Detected (NotDetected) 09/25/24 17:21 Impressions Chest X-Ray 09/25/24 16:59 Clinical History: Dyspnea Technique: A frontal view of the chest was obtained Findings: There is diffuse interstitial prominence, concerning for pulmonary edema. The heart size is at the upper limit of normal. No pleural effusion or pneumothorax is seen. No fracture is noted. There is a left chest wall pacemaker device Impression: Suspected moderate severity pulmonary edema Electronically signed by Raymundo Chamorro 09-25-2024 7:01 PM Chest CTA 09/25/24 17:26 EXAM: CT angio chest PE protocol CLINICAL HISTORY: PE; hemoptysis. TECHNIQUE: Contiguous 3.[address] angiographic images of the chest were acquired with the administration of intravenous contrast. Coronal and sagittal reconstructions were obtained.92 ml Optiray was administered for post-contrast images. One of these 3D techniques was utilized: Maximum Intensity Pixel (MIP), 3D Reconstructed Images, Volume Rendered Images, Surface Shaded Rendering. One of the following dose reduction techniques were utilized for this exam: Automated exposure control, adjustment of the mA and/or kV according to patient size, and use of iterative reconstruction. CTDI: 42.8 mGy, DLP: 827.98 mGy-cm. COMPARISON: CT dated 09/06/2024, CR done on the same date was reviewed. FINDINGS: Aorta: The thoracic aorta is normal in caliber. No evidence of aneurysm, dissection, or significant atherosclerotic changes. Aortic arch and descending thoracic aorta are unremarkable. Pulmonary Arteries: Pulmonary arteries are normal in size and opacification. No evidence of pulmonary embolism. No stenosis or filling defects. Superior Vena Cava (SVC) and Inferior Vena Cava (IVC): Normal opacification and caliber. No evidence of thrombus or obstruction. Coronary Arteries: Coronary arteries are well-opacified. Atherosclerotic calcific changes in the coronary artery. Mediastinum: No mediastinal mass or lymphadenopathy. Normal appearance of the thymus. Heart: Heart size is enlarged. Cardiac pacemaker is noted over the left chest wall with leads in situ. No pericardial effusion. Lungs: Left-sided might and right-sided minimal pleural effusions is noted. Subpleural interstitial changes are appreciated in bilateral lung herbert more so in bilateral lower zones. Faint groundglass haze with interval septal thickening is appreciated in the basal segments of bilateral lower lobes and in the right middle lobe, likely suggesting interstitial lung disease. Bones: Degenerative changes are appreciated in the visualized bones and spine. There is a healing fracture with associated callus formation at the lower body of the sternum. stable. Soft Tissues: Normal appearance of the visualized soft tissues. No abnormal masses or fluid collections. Multiple mediastinal lymph nodes are appreciated. The larger one is at the paratracheal location and measures 18 x 12 mm in size. IMPRESSION: 1. No significant evidence of pulmonary thromboembolism in the current study. 2. Right-sided mild and left-sided minimal pleural effusions. Interval mild increase in left-sided and minimal interval regression in the right-sided pleural effusions. 3. Subpleural interstitial changes in the bilateral lung herbert, interseptal thickening with faint groundglass opacity in bilateral lower zones and right middle zone, likely suggesting interstitial lung disease. Interval stable. 4. The concurrent active infective etiology cannot be entirely ruled out. Clinical and lab correlation is suggested. 5. Interval stable cardiomegaly with coronary artery calcification. 6. Interval stable prominent mediastinal lymph nodes. Electronically signed by Parth Chan 09-25-2024 8:35 PM Ordered Studies 09/25/24 17:26 CT for pulmonary embolism PE [CT angio chest PE protocol] Stat Hospital Course (1) SOB (shortness of breath): Patient is an 79 yr male with past medical history significant for hyperlipidemia, interstitial lung disease, COPD, sick sinus syndrome, status post pacemaker, paroxysmal atrial fibrillation, aneurysm of ascending aorta, history of CAD, CKD stage III, history of DVT, history generalized Anxiety diso rder comes because of shortness of breath. Patient says he is short of breath for some time. In March 2024 he was admitted to [facility] in [place] for about a week. And after discharge coming home he was requiring oxygen. Initially was on 2 L.. Progressively shortness of breath got worsened. Currently is on 4 L oxygen. Last 3 weeks was getting more progressively worsened and the last few days with minimal exertion is getting short of breath which prompted him to come to the ER. Also since last Tuesday is coughing up some blood. Today total combined patient thinks coughed up about a table spoon of blood. Denies any fevers. In June he fell on oxygen tank and fractured sternum since then has pain in the chest. Sometimes feeling tightness in the chest. He has chronic back pain. No runny nose or sore throat. No nausea. No abdominal pain. Sometimes has difficulty swallowing liquids. Normal bowel and bladder movements. Currently resting comfortably and hemodynamically stable. Family in the room. Acute on chronic respiratory failure with hypoxia Likely multifactorial: Severe pulmonary hypertension, volume overload Possible interstitial lung disease exacerbation--less likely Hemoptysis Chronic oxygen dependency--on 4 to 6 L at baseline --Chest CTA:No significant evidence of pulmonary thromboembolism in the current study. Right-sided mild and left-sided minimal pleural effusions. Interval mild increase in left-sided and minimal interval regression in the right-sided pleural effusions. Subpleural interstitial changes in the bilateral lung herbert, interseptal thickening with faint groundglass opacity in bilateral lower zones and right middle zone, likely suggesting interstitial lung disease. Interval stable. The concurrent active infective etiology cannot be entirely ruled out. Clinical and lab correlation is suggested. Interval stable cardiomegaly with coronary artery calcification. Interval stable prominent mediastinal lymph n odes. -- BioFire negative --Normal procalcitonin --Empirically on Rocephin, doxycycline--discontinued as recommended by pulmonology Continue prednisone 40 mg daily--for 5 days ESR, CRP, LDH--mildly elevated Also receiving IV diuretics as below Appreciate pulmonology input: Likely a good candidate for Tyvaso. Needs right heart cath as outpatient Continue incentive spirometry Continue supplemental oxygen Needs follow-up with pulmonology on discharge Likely discharge home today if does not require rehab per PT eval Acute on chronic HFpEF Right heart failure Severe pulmonary hypertension --ECHO: Moderate concentric LVH. No regional wall motion abnormality. Left ventricular systolic function is normal. EF 50 to 55%. Right ventricle is moderately dilated. Right ventricular systolic function is normal. Left atrium is severely dilated. Severe tricuspid regurgitation. Severe pulmonary hypertension is present. Mild aortic root dilatation. Proximal ascending aorta is mildly dilated. --Florinef discontinued --Received IV Lasix Monitor I's and O's, daily weight Replete cardiology input Consideration to be started on diuretic on discharge Will likely discharge on Lasix 20 mg daily A-fib Sick sinus syndrome Pacemaker interrogated in August 2024--appropriate function and battery longevity Continue digoxin and metoprolol succinate Coumadin initially held for hemoptysis Hemoptysis resolved INR 1.8 today Resume Coumadin today History of DVT Resume Coumadin CKD stage III Creatinine 1.1 Monitor renal function H/O Orthostatic hypotension fludrocortisone--discontinued due to CHF Monitor blood pressure off Florinef Continue compression stockings History of CAD Continue metoprolol, atorvastatin History of anxiety and panic disorder On citalopram DVT Px: Coumadin CODE STATUS Full code Disposition PT OT prior to discharge Total Time Total Time Spent Total Time Spent (In Minutes): 55 minutes Discharge Plan Discharge Items Patient Disposition: Home - Home Health Services Reason For Visit: SOB, HYPOXIA Discharge Diagnosis: Acute on chronic respiratory failure with hypoxia Severe pulmonary hypertension Acute on chronic heart failure with preserved EF Interstitial lung disease Hemoptysis Chronic oxygen dependency Activity: Per Instructions section Exercise/Sports: Gradually increase as tolerated Non-emergency contact: Primary Care Provider, Metal Drawer and Content Specialist Call non-emergency contact if: you have any medication questions, your symptoms worsen, your pain is concerning for you and you have a fever Follow-up/Referrals: Linda Henderson DO [Primary Care Provider] - (Date & Time 10/04/2024 9:40 AM Provider:Gideon Dash MD Family [facility] ) Diet: Heart Healthy Addtl Attending Provider Instructions: Follow-up with your primary care physician in 1 week Follow-up with your patent agent at [facility] for possible right heart catheterization and further evaluation for pulmonary hypertension Follow-up with your health safety engineer in 2 to 3 weeks as advised Follow-up with Coumadin clinic for monitoring of PT/INR and adjusting Coumadin dose as needed -- Complete prednisone course 40 mg daily for 3 more days as prescribed -- Start taking Lasix 20 mg daily. Follow-up with your primary care physician/patent agent for further recommendations on follow-up visit. Seek immediate medical attention if your symptoms reoccur or worsen Please review medication list provided on discharge for any medication changes as instructed. Please call if you have any questions or problems. You can reach a [facility] hospitalist on duty at [facility] 24 hours a day by calling [phone] Call your Primary Care doctor if any of the following symptoms or problems start or get worse: * Shortness of breath or difficulty breathing * Wake up at night short of breath * Chest pain * Cough * Swelling of your hands, feet, or legs * More fatigued or tired with your normal activity * Palpitations - sudden fast heart beats WEIGHT * Weigh yourself every morning after using the bathroom. * Use the same scale. * Wear the same amount of clothing. * Write your weight down on a chart. * Call your Primary Care doctor if you gain more than 2-3 pounds in 1-2 days. MEDICATIONS * Use this discharge instruction sheet for medication instructions. * Take your medications at the time your doctor ordered. * Do not skip a dose of your medicines. * If you miss a dose of medicine, take it as soon as possible, but DO NOT DOUBLE A DOSE. * Read your medicine information when you get home. * Know all of the side effects of your medicine. If in doubt, ask your pharmacist * Call your Primary Care doctor's office if you have any side effects. * Be sure all of your doctors know what medicine and herbs you take (including cold, flu, and herbal medicine). Take the following with you to your follow-up doctor appointments: * Weight Chart * Medication List * List of questions Do not drink excessive alcohol, beer or wine. Pending Studies at Discharge: No Stand-Alone Forms: My [facility] TableApp, Smoking Cessation Medications and DC Order Prescriptions: New prednisone 20 mg Tablet 40 mg PO DAILY Qty: 6 0RF furosemide [Lasix] 20 mg tablet 20 mg PO DAILY Qty: 30 0RF Continued multivitamin Tablet 1 tab PO DAILY atorvastatin 10 mg tablet 10 mg PO HS citalopram 20 mg tablet 30 mg PO QAM warfarin 5 mg tablet 2.5 mg PO 2XWK Rx Instructions: TAKES TUESDAY AND TUESDAY MORNINGS. warfarin 5 mg tablet 5 mg PO 5XWK Rx Instructions: TAKES TUE, , TUE, AND TUE MORNINGS. montelukast 10 mg tablet 10 mg PO HS digoxin 125 mcg (0.125 mg) tablet 125 mcg PO QAM calcium citrate 250 mg calcium Tablet 250 mg PO DAILY levalbuterol HCl 1.25 mg/3 mL Solution For Nebulization 1.25 mg NEB Q4H PRN (Reason: shortness of breath or wheezing) Qty: 90 1RF fluticasone furoate-vilanterol [Breo Ellipta] 200-25 mcg/dose Blister With Device 1 inh inhalation DAILY 30 Days Qty: 60 1RF Rx Instructions: PER PT "NOT REGULARLY, I FORGET MOST DAYS". metoprolol succinate 50 mg tablet extended release 24 hr 50 mg PO DAILY Discontinued fludrocortisone 0.1 mg Tablet 0.1 mg PO BID 30 Days Qty: 60 1RF Discharge Orders: Discharge Order (Routine); Ordered 09/28/24 Ordered By: Damon Pearson Admission Data Admit Date/Time: 09/25/24 20:44 Attending Provider: Damon Pearson Admit Provider: Tomi Page Primary Care Provider: Linda Henderson Other Providers: Tomi Page; Kb Palencia; Dean Johnosn; Samantha,[facility]; [facility]
[2024-09-28] MEDS: WARFARIN SOD 2.5 MG TAB PO SCH (15:27)
[2024-09-28 15:38] VITALS: PULSE 70
[2024-09-29] MEDS ORDERED: WARFARIN SOD 5 MG TAB PO SCH (16:00)
== END 2024-09-28 16:50 | disposition home health service (06) | DRG 196 ==
LOC: ED 16:55 → 2E 20:44 → SUATTDRO 20:44 → 2E 21:29
DX: I49.5 Sick sinus syndrome; Z99.81 Dependence on supplemental oxygen; Z86.718 Personal history of other venous thrombosis and embolism; I27.20 Pulmonary hypertension, unspecified; J84.9 Interstitial pulmonary disease, unspecified; I50.33 Acute on chronic diastolic (congestive) heart failure; I25.10 Atherosclerotic heart disease of native coronary artery without angina pectoris; I48.91 Unspecified atrial fibrillation; Z11.52 Encounter for screening for COVID-19; K21.9 Gastro-esophageal reflux disease without esophagitis; Z88.8 Allergy status to other drugs, medicaments and biological substances; Z95.0 Presence of cardiac pacemaker; I25.2 Old myocardial infarction; N18.30 Chronic kidney disease, stage 3 unspecified; I95.1 Orthostatic hypotension; F41.1 Generalized anxiety disorder; Z87.891 Personal history of nicotine dependence; I13.0 Hypertensive heart and chronic kidney disease with heart failure and stage 1 through stage 4 chronic kidney disease, or unspecified chronic kidney disease; Z79.899 Other long term (current) drug therapy; Z79.01 Long term (current) use of anticoagulants; R04.2 Hemoptysis; J96.21 Acute and chronic respiratory failure with hypoxia